=== PATIENT | female | born 1960 | race Caucasian/White ===

== ENCOUNTER 2018-05-02 00:21 | Emergency (ER) | payer MEDICARE ==
[~2018-05-02] VITALS: Ht 167.6 cm; Wt 70.8 kg
--- NOTE | 2018-05-02 00:27 | ED Respiratory ---
General Stated Complaint: VOMITING,DID NOT DO DIALYSIS YESTERDAY Source: patient, EMS Exam Limitations: no limitations History of Present Illness Date Seen by Provider: May 02, 2018 Time Seen by Provider: 00:16 Initial Comments The patient presents to the ER by EMS with chief complaint of shortness of breath, cough, fever. She had a temperature 101 per EMS and was given a DuoNeb on route which she said helped some. EMS reports she was quite anxious and making some grunting sounds when they picked her up. She is at end-stage renal disease on dialysis Thursday. Her last dialysis was on Thursday and then she moved from [place] to [place] and was told since her numbers were good she could skip Thursday. She does not notice any increased edema or swelling in her hands or feet or increased weight gain. Her cough is only modestly productive at times. She says she's not had any of her medicines today because she's been moving. She has not taken any insulin and EMS reports blood sugar was 177. She also has a history of high blood pressure, congestive heart failure. Allergies and Home Medications Allergies Coded Allergies: Penicillins (Verified Adverse Reaction, Unknown, rash, 05/02/18) Patient Home Medication List Home Medication List Reviewed: Yes Review of Systems Review of Systems Constitutional: chills, fever, malaise, weakness EENTM: No ear discharge, No ear pain Respiratory: No cough, No phlegm Cardiovascular: No chest pain, No palpitations Gastrointestinal: No abdominal pain, No constipation, No diarrhea; nausea, vomiting Genitourinary: No discharge, No dysuria Musculoskeletal: No back pain, No joint pain Skin: No pruritus, No rash Past Nxnevnl-[id number]-[id number] Hx Patient Social History Alcohol Use: Denies Use Recreational Drug Use: No Smoking Status: Former Smoker Former Smoker, Quit: Feb 13, 2018 Physical Exam Vital Signs - First Documented 05/02/18 05/02/18 00:25 01:10 Temp 100.6 Pulse 104 Resp 24 B/P (MAP) 206/89 (128) Pulse Ox 95 O2 Delivery Room Air O2 Flow Rate 2.00 Capillary Refill : Height: '" Weight: lbs. oz. kg; BMI Method: General Appearance: mild distress, other (chronically ill) Eyes: Bilateral Eye Normal Inspection, Bilateral Eye PERRL, Bilateral Eye EOMI HEENT: PERRL/EOMI, normal ENT inspection, TMs normal, pharynx normal Neck: non-tender, full range of motion, supple, normal inspection Respiratory: chest non-tender, respiratory distress (mild), decreased breath sounds, accessory muscle use (mild); No crackles, No wheezing Cardiovascular: normal peripheral pulses, regular rate, rhythm, no edema Gastrointestinal: normal bowel sounds, non tender, soft Neurologic/Psychiatric: alert; No normal mood/affect (mild anxiety); oriented x 3 Skin: normal color, warm/dry Focused Exam Lactate Level 05/02/18 00:28: Lactic Acid Level 0.88 Lactic Acid Level Laboratory Tests Test 05/02/18 00:28 Lactic Acid Level 0.88 MMOL/L (0.50-2.00) Progress/Results/Core Measures Suspected Sepsis SIRS Temperature: Pulse: Respiratory Rate: Laboratory Tests 05/02/18 00:28: White Blood Count 10.7 Blood Pressure / Mean: 05/02/18 00:28: Lactic Acid Level 0.88 Laboratory Tests 05/02/18 00:28: Creatinine 8.02H, INR Comment 1.1, Platelet Count 156, Total Bilirubin 0.6 Results/Orders Lab Results Laboratory Tests Test 05/02/18 00:28 05/02/18 00:30 05/02/18 00:39 Range/Units White Blood Count 10.7 4.3-11.0 10^3/uL Red Blood Count 3.56 L 4.35-5.85 10^6/uL Hemoglobin 10.9 L 11.5-16.0 G/DL Hematocrit 33 L 35-52 % Mean Corpuscular Volume 92 80-99 FL Mean Corpuscular Hemoglobin 31 25-34 PG Mean Corpuscular Hemoglobin Concent 33 32-36 G/DL Red Cell Distribution Width 14.9 H 10.0-14.5 % Platelet Count 156 130-400 10^3/uL Mean Platelet Volume 11.2 H 7.4-10.4 FL Neutrophils (%) (Auto) 85 H 42-75 % Lymphocytes (%) (Auto) 7 L 12-44 % Monocytes (%) (Auto) 8 0-12 % Eosinophils (%) (Auto) 1 0-10 % Basophils (%) (Auto) 0 0-10 % Neutrophils # (Auto) 9.1 H 1.8-7.8 X 10^3 Lymphocytes # (Auto) 0.7 L 1.0-4.0 X 10^3 Monocytes # (Auto) 0.8 0.0-1.0 X 10^3 Eosinophils # (Auto) 0.1 0.0-0.3 10^3/uL Basophils # (Auto) 0.0 0.0-0.1 10^3/uL Neutrophils % (Manual) 88 % Lymphocytes % (Manual) 4 % Monocytes % (Manual) 5 % Eosinophils % (Manual) 3 % Prothrombin Time 14.7 12.2-14.7 SEC INR Comment 1.1 0.8-1.4 Activated Partial Thromboplast Time 30 24-35 SEC Sodium Level 141 135-145 MMOL/L Potassium Level 3.7 3.6-5.0 MMOL/L Chloride Level 99 98-107 MMOL/L Carbon Dioxide Level 24 21-32 MMOL/L Anion Gap 18 H 5-14 MMOL/L Blood Urea Nitrogen 41 H 7-18 MG/DL Creatinine 8.02 H 0.60-1.30 MG/DL Estimat Glomerular Filtration Rate 5 BUN/Creatinine Ratio 5 Glucose Level 160 H 70-105 MG/DL Lactic Acid Level 0.88 0.50-2.00 MMOL/L Calcium Level 10.0 8.5-10.1 MG/DL Corrected Calcium 9.7 8.5-10.1 MG/DL Total Bilirubin 0.6 0.1-1.0 MG/DL Aspartate Amino Transf (AST/SGOT) 13 5-34 U/L Alanine Aminotransferase (ALT/SGPT) 6 0-55 U/L Alkaline Phosphatase 81 40-136 U/L Troponin I < 0.028 <0.028 NG/ML Total Protein 8.1 6.4-8.2 GM/DL Albumin 4.4 3.2-4.5 GM/DL Group A Streptococcus Screen NEGATIVE NEGATIVE Blood Gas Puncture Site LEFT RADIAL Blood Gas Patient Temperature 100.6 Arterial Blood pH 7.40 7.37-7.43 Arterial Blood Partial Pressure CO2 45 35-45 MMHG Arterial Blood Partial Pressure O2 71 L 79-93 MMHG Arterial Blood HCO3 27 23-27 MMOL/L Arterial Blood Total CO2 28.3 21.0-31.0 MMOL/L Arterial Blood Oxygen Saturation 95 94-100 % Arterial Blood Base Excess 2.9 H -2.5-2.5 MMOL/L Lane Test POSITIVE Blood Gas Ventilator Setting NO Blood Gas Inspired Oxygen N Micro Results Microbiology 05/02/18 Influenza Types A,B Antigen (DEMETRIA) - Final, Complete My Orders Orders - MINGO CARTER Cbc With Automated Diff (05/02/18:27) Comprehensive Metabolic Panel (05/02/18:27) Blood Culture (05/02/18:27) Sputum Culture (05/02/18:) Urinalysis (05/02/18:) Urine Culture (05/02/18) Protime With Inr (05/02/18:) Partial Thromboplastin Time (05/02/18:) Chest 1 View, Ap/Pa Only (05/02/18) Saline Lock/Iv-Start (05/02/18:) Saline Lock/Iv-Start (05/02/18:) Ekg Tracing (05/02/18:) Troponin I (05/02/18:) Vital Signs Adult Sepsis Patie Q15M (05/02/18:27) Ondansetron Injection (Zofran Injectio (05/02/18 00:30) O2 (05/02/18:27) Remove Rings In Anticipation O (05/02/18:27) Lactic Acid Analyzer (05/02/18:) Influenza A And B Antigens (05/02/18:) Cefepime Injection (Maxipime Injection) (05/02/18 00:30) Arterial Blood Gas (05/02/18:27) Rapid Strep A Screen (05/02/18:27) Acetaminophen Tablet (Tylenol Tablet) (05/02/18 00:45) Albuterol/Ipra Inhalation Soln (Duoneb I (05/02/18 00:45) Svn Small Volume Nebulizer (05/02/18 00:43) Manual Differential (05/02/18 00:28) Metoprolol Tartrate Injection (Lopressor (05/02/18 01:15) Nitroglycerin Ointment (Nitrobid Ointme (05/02/18 01:45) Nitroglycerin Ointment (Nitrobid Ointme (05/02/18 01:32) Arterial Blood Draw (05/01/18 ) Medications Given in ED Current Medications Medications Dose Ordered Sig/Stacy Route Start Time Stop Time Status Last Admin Dose Admin Acetaminophen 1,000 mg ONCE ONCE PO 05/02/18 00:45 05/02/18 00:46 DC 05/02/18 00:54 1,000 MG Albuterol/ Ipratropium 3 ml ONCE ONCE INH 05/02/18 00:45 05/02/18 00:46 DC 05/02/18 00:50 3 ML Cefepime HCl 1000 mg/Sterile Water 10 ml @ 200 mls/hr ONCE ONCE IV 05/02/18 00:30 05/02/18 00:32 DC 05/02/18 00:56 200 MLS/HR Nitroglycerin 1 inch ONCE ONCE TOP 05/02/18 01:45 05/02/18 01:46 DC 05/02/18 01:36 1 INCH Ondansetron HCl 4 mg PRN PRN IV 05/02/18 00:30 05/02/18 00:56 DC 05/02/18 00:55 4 MG Vital Signs/I&O 05/02/18 05/02/18 05/02/18 05/02/18 00:25 00:50 00:54 01:10 Temp 100.6 100.6 Pulse 104 Resp 24 B/P (MAP) 206/89 (128) Pulse Ox 95 96 97 O2 Delivery Room Air Room Air Nasal Cannula O2 Flow Rate 2.00 05/02/18 03:21 Temp 100.3 Pulse 95 Resp 22 B/P (MAP) 178/73 (108) Pulse Ox 100 O2 Delivery Nasal Cannula O2 Flow Rate 2.00 Capillary Refill : Progress Note #1: Time: 00:46 Progress Note Tylenol for her fever. Influenza swab, septic workup. Lactate will be largely meaningless. She does not have much pedal edema. Her blood pressures quite up and she skipped a dialysis treatment so I would be concerned about fluid overload and be cautious about giving her more IV fluids right now. Her blood pressure remains up and she looks like she is in congestive heart failure then we may consider giving her some nitroglycerin paste. She's not having any chest pain right now just shortness of breath. Lasix will not be very helpful so we' ll send her somewhere for dialysis. Lungs are diminished but there is no wheezing. We'll give a DuoNeb and see if that improves her respiratory status. Her oxygenation is in the high 90s on room air. She received a DuoNeb on route which she said made some improvement in her breathing. She quit smoking 3 months ago. We'll obtain an EKG. A troponin will largely be useless. Progress Note #2: Time: 01:30 Progress Note Her blood pressure significantly elevated at 215/94 now. It stayed elevated. We plan to give her her own dose of losartan and some Nitropaste. We'll hold the metoprolol for now. She has some modest hypoxia with a PaO2 of 71 and nonproductive cough and fever. We'll call it pneumonia versus bronchitis for now. She is going to need dialysis before Thursday probably and further evaluation. She may also benefit from fluid removal by dialysis. ECG Initial ECG Impression Date: May 02, 2018 Initial ECG Impression Time: 00:53 Initial ECG Rate: 96 Initial ECG Rhythm: Normal Sinus Initial ECG Intervals: Normal Initial ECG Impression: Normal Initial ECG Comparisson: No Previous ECG Available Comment No ST elevation or depression. Diagnostic Imaging Diagonstic Imaging: Xray Plain Films/CT/US/NM/MRI: chest (1v) Comments No acute cardiopulmonary processes noted. There is a stone graft/splint overlying the right subclavian. Reviewed: Reviewed by Me Departure Impression Primary Impression: Pneumonia Qualified Codes: J18.9 - Pneumonia, unspecified organism Additional Impressions: Hypoxia End stage renal disease on dialysis due to type 2 diabetes mellitus Disposition: XFER SHT-TRM HOSP Condition: Stable Transfer Time Spoke to Accepting Phy: 02:00 Transfer Progress Notes Discussed case with triage and they will contact Dr. Dash. Discussed the case with Dr. Dash and he agrees to accept the patient to the floor. They will call us back with a bed number. Transfer Time: 03:10 Transfer Facility: [place], [place]. Method of Transfer: EMS MINGO CARTER May 02, 2018 00:27
[2018-05-02] MEDS ORDERED: CEFEPIME INJECTION 1,000 MG in WATER (STERILE) FOR INJECTION 10 ML IV ONE (00:30)
[2018-05-02] MEDS ORDERED: ONDANSETRON 4 MG/2 ML (SDV) Z0FRAN IV PRN (00:30)
--- NOTE | 2018-05-02 00:36 | NUR ---
RT at bedside for ABG draw
[2018-05-02 00:44] LABS: BASOPHILS % (AUTO) 0 % (0-10); EOSINOPHILS # (AUTO) 0.1 10^3/uL (0.0-0.3); EOSINOPHILS % (AUTO) 1 % (0-10); HEMATOCRIT 33 % (35-52); HEMOGLOBIN 10.9 G/DL (11.5-16.0); LYMPHOCYTES # (AUTO) 0.7 X 10^3 (1.0-4.0); LYMPHOCYTES % (AUTO) 7 % (12-44); MEAN CORPUSCULAR HEMOGLOBIN 31 PG (25-34); MEAN CORPUSCULAR HGB CONC 33 G/DL (32-36); MEAN CORPUSCULAR VOLUME 92 FL (80-99); MEAN PLATELET VOLUME 11.2 FL (7.4-10.4); MONOCYTES # (AUTO) 0.8 X 10^3 (0.0-1.0); MONOCYTES % (AUTO) 8 % (0-12); NEUTROPHILS # (AUTO) 9.1 X 10^3 (1.8-7.8); NEUTROPHILS % (AUTO) 85 % (42-75); PLATELET COUNT 156 10^3/uL (130-400); RED CELL DISTRIBUTION WIDTH 14.9 % (10.0-14.5); WHITE BLOOD COUNT 10.7 10^3/uL (4.3-11.0)
[2018-05-02] MEDS ORDERED: RT-ALBUTEROL/IPRATROPIUM 3 ML (DUONEB) VIAL INH ONE (00:45)
[2018-05-02] MEDS ORDERED: ACETAMINOPHEN 500 MG TAB (TYLENOL) PO ONE (00:45)
[2018-05-02 00:46] LABS: ABG BASE EXCESS 2.9 MMOL/L (-2.5-2.5); ABG OXYGEN SATURATION 95 % (94-100); ABG PCO2 45 MMHG (35-45); ABG PO2 71 MMHG (79-93); ABG TCO2 28.3 MMOL/L (21.0-31.0)
[2018-05-02 00:48] LABS: ALLENS TEST POSITIVE; INSPIRED O2 N; PATIENT TEMP 100.6; VENTILATOR NO
[2018-05-02 00:49] LABS: INR 1.1 (0.8-1.4); PROTHROMBIN TIME PATIENT 14.7 SEC (12.2-14.7)
[2018-05-02 00:57] LABS: ALANINE AMINOTRANSFERASE 6 U/L (0-55); ALBUMIN 4.4 GM/DL (3.2-4.5); ALKALINE PHOSPHATASE 81 U/L (40-136); BILIRUBIN,TOTAL 0.6 MG/DL (0.1-1.0); BUN/CREATININE RATIO 5; CARBON DIOXIDE 24 MMOL/L (21-32); CHLORIDE 99 MMOL/L (98-107); CREATININE SERUM 8.02 MG/DL (0.60-1.30); GFR ESTIMATED 5; GLUCOSE 160 MG/DL (70-105); POTASSIUM 3.7 MMOL/L (3.6-5.0); SODIUM 141 MMOL/L (135-145); TOTAL PROTEIN 8.1 GM/DL (6.4-8.2)
[2018-05-02] MEDS ORDERED: meTOprolol 5 MG/5 ML (LOPRESSOR) VIAL IV ONE (01:15)
[2018-05-02 01:23] LABS: EOSINOPHILS % (MANUAL) 3 %; LYMPHOCYTES % (MANUAL) 4 %; MONOCYTES % (MANUAL) 5 %; NEUTROPHILS % (MANUAL) 88 %
--- NOTE | 2018-05-02 01:30 | NUR ---
This RN to room, pt's IV noted to be out. Dr notified. IV restarted in L forearm.
[2018-05-02] MEDS ORDERED: NITROGLYCERIN 2% OINT 1 GM UNIT DOSE PACKET ONE (01:32)
[2018-05-02] MEDS ORDERED: NITROGLYCERIN 2% OINT 1 GM UNIT DOSE PACKET TOP ONE (01:45)
--- NOTE | 2018-05-02 01:48 | NUR ---
Pt to take home PO losartan 50mg tab at this time per Dr. Peace. This RN witnessed pt taking #1 50mg losartan tab at this time.
--- NOTE | 2018-05-02 03:10 | NUR ---
Report to [facility] EMS at this time
[2018-05-02 03:21] VITALS: BP 178/73
--- NOTE | 2018-05-02 05:43 | Diagnostic Imaging Report ---
INDICATION: Cough and congestion COMPARISON: None FINDINGS: Single frontal view of the chest demonstrates normal heart size and pulmonary vascularity. The lungs are well aerated and clear. No large pleural effusion or pneumothorax is seen. The visualized osseous structures show no acute abnormalities. Right subclavian stents are noted. IMPRESSION: 1. No acute cardiopulmonary process. Dictated by: Dictated on workstation # [id number]
--- OUTSIDE RECORDS SUMMARY | 2018-05-02 14:55 | XMS REPORT ---
Author Author Georgina Han [facility] eClinicalWorks Address Unknown Phone Unavailable Care Team Providers Care Distillation Operator Name Role Phone Georgina Han Unavailable Allergies No Known Allergies Problems Problem Type Condition Code Onset Dates Condition Status Problem Diabetes Mellitus Type 2, not stated as uncontrolled 250.00 Active Problem Hypertension, benign 401.1 Active Problem Hypertensive retinopathy 362.11 Active Medications Medication Code System Code Instructions Start Date End Date Status Dosage Lisinopril-Hydrochlorothiazide [facility] [address]-39 20-25 MG Orally Once a day *Needs appointment before next refill* Feb 15, 2014 1 tablet Reglan [facility] [address]-18 10 MG Orally Twice every day as needed Apr 27, 2014 1 tablet 30 minutes before meals and at bedtime as needed Results No Known Results Summary Purpose eClinicalWorks Submission
--- OUTSIDE RECORDS SUMMARY | 2018-05-02 14:55 | XMS REPORT ---
Author Georgina Onofre [facility] eClinicalWorks Address Unknown Phone Unavailable Care Team Providers Care Die Maker Apprentice Name Role Phone Georgina Han Unavailable Allergies No Known Allergies Problems Problem Type Condition Code Onset Dates Condition Status Problem Diabetes Mellitus Type 2, not stated as uncontrolled 250.00 Active Problem Hypertension, benign 401.1 Active Problem Hypertensive retinopathy 362.11 Active Medications No Known Medications Results No Known Results Summary Purpose eClinicalWorks Submission
--- OUTSIDE RECORDS SUMMARY | 2018-05-02 14:55 | XMS REPORT ---
Author Author Georgina Han [facility] eClinicalWorks Address Unknown Phone Unavailable Care Team Providers Care Head School Custodian Name Role Phone Georgina Han Unavailable Allergies No Known Allergies Problems Problem Type Condition ICD-9 Code Onset Dates Condition Status Problem Diabetes Mellitus Type 2, not stated as uncontrolled 250.00 Active Problem Hypertension, benign 401.1 Active Problem Hypertensive retinopathy 362.11 Active Medications No Known Medications Results No Known Results Summary Purpose eClinicalWorks Submission
--- OUTSIDE RECORDS SUMMARY | 2018-05-02 14:55 | XMS REPORT ---
Author Author Georgina Han [facility] eClinicalWorks Address Unknown Phone Unavailable Care Team Providers Care Spice Mixer Name Role Phone Georgina Han Unavailable Allergies No Known Allergies Problems Problem Type Condition ICD-9 Code Onset Dates Condition Status Problem Hypertension, benign 401.1 Active Problem Diabetes Mellitus Type 2, not stated as uncontrolled 250.00 Active Medications No Known Medications Vital Signs Date/Time: Jan 24, 2014 Height 66.5 inches Weight 158.8 lbs Temperature 98.3 F Blood Pressure Diastolic 72 mm Hg Blood Pressure Systolic 160 mm Hg Cardiac Monitoring Heart Rate 112 Beats per Minute BMI 25.24 Index Respiratory Rate 16 per Minute Results No Known Results Summary Purpose eClinicalWorks Submission
--- OUTSIDE RECORDS SUMMARY | 2018-05-02 14:55 | XMS REPORT ---
Author Author Georgina Han [facility] eClinicalWorks Address Unknown Phone Unavailable Care Team Providers Care Irrigation Teacher Name Role Phone Georgina Han Unavailable Allergies No Known Allergies Problems Problem Type Condition ICD-9 Code Onset Dates Condition Status Problem Diabetes Mellitus Type 2, not stated as uncontrolled 250.00 Active Problem Hypertension, benign 401.1 Active Problem Hypertensive retinopathy 362.11 Active Assessment Dysuria 788.1 Active Medications Medication Code System Code Instructions Start Date End Date Status Dosage Metformin HCl [facility] [address]-02 500 MG Orally twice a day Jan 24, 2014 Active 1 tablet with meals Lisinopril-Hydrochlorothiazide [facility] [address]-58 10-12.5 MG Orally Once a day Feb 15, 2014 Active 1 tablet Lantus SoloStar [facility] [address]-26 100 UNIT/ML Subcutaneous Once a day at bedtime Jan 25, 2014 Active 12 units Acetaminophen [facility] [address]-43 500 MG Orally prn Active 1 capsule as needed NovoFine [facility] 42872 32G X 6 MM with pen QID Jan 24, 2014 Active as directed Clonidine HCl [facility] [address]-22 0.1 MG Orally Once or twice a day Feb 16, 2014 Active take 1 tablet if BP is above 180/90. Do not take more than 2 tablets in one day. Humalog KwikPen [facility] [address]-04 100 UNIT/ML Subcutaneous 3 times a day Jan 25, 2014 Active 8 units Procedures Procedure Coding System Code Date URINE CULTURE CPT-4 12091 Feb 21, 2014 URINALYSIS, IN HOUSE CPT-4 37069 Feb 21, 2014 Vital Signs Date/Time: Feb 15, 2014 BMI 27.10 Index Height 66.5 inches Weight 170.5 lbs Respiratory Rate 16 per Minute Blood Pressure Diastolic 82 mm Hg Blood Pressure Systolic 166 mm Hg Cardiac Monitoring Heart Rate 96 Beats per Minute Results Name Result Date Reference Range Unit In House Urinalysis, automated Summary Purpose eClinicalWorks Submission
--- OUTSIDE RECORDS SUMMARY | 2018-05-02 14:56 | XMS REPORT ---
Author Author Georgina Han [facility] eClinicalWorks Address Unknown Phone Unavailable Care Team Providers Care Overnight Babysitter Name Role Phone Georgina Han Unavailable Allergies No Known Allergies Problems Problem Type Condition ICD-9 Code Onset Dates Condition Status Problem Diabetes Mellitus Type 2, not stated as uncontrolled 250.00 Active Problem Hypertension, benign 401.1 Active Problem Hypertensive retinopathy 362.11 Active Medications Medication Code System Code Instructions Start Date End Date Status Dosage Bactrim DS [facility] [address]-54 800-160 MG Orally Twice a day Feb 21, 2014 Feb 26, 2014 Active 1 tablet Vital Signs Date/Time: Feb 15, 2014 BMI 27.10 Index Height 66.5 inches Weight 170.5 lbs Respiratory Rate 16 per Minute Blood Pressure Diastolic 82 mm Hg Blood Pressure Systolic 166 mm Hg Cardiac Monitoring Heart Rate 96 Beats per Minute Results No Known Results Summary Purpose eClinicalWorks Submission
--- OUTSIDE RECORDS SUMMARY | 2018-05-02 14:56 | XMS REPORT ---
Author Author Georgina Han [facility] eClinicalWorks Address Unknown Phone Unavailable Care Team Providers Care Coatings Inspector Name Role Phone Georgina Han Unavailable Allergies No Known Allergies Problems Problem Type Condition ICD-9 Code Onset Dates Condition Status Problem Diabetes Mellitus Type 2, not stated as uncontrolled 250.00 Active Problem Hypertension, benign 401.1 Active Problem Hypertensive retinopathy 362.11 Active Medications No Known Medications Results No Known Results Summary Purpose eClinicalWorks Submission
--- OUTSIDE RECORDS SUMMARY | 2018-05-02 14:56 | XMS REPORT ---
Author Georgina Onofre [facility] eClinicalWorks Address Unknown Phone Unavailable Care Team Providers Care Clinical Services Consultant Name Role Phone Georgina Han Unavailable Allergies No Known Allergies Problems Problem Type Condition Code Onset Dates Condition Status Problem Diabetes Mellitus Type 2, not stated as uncontrolled 250.00 Active Problem Hypertension, benign 401.1 Active Problem Hypertensive retinopathy 362.11 Active Medications No Known Medications Results No Known Results Summary Purpose eClinicalWorks Submission
--- OUTSIDE RECORDS SUMMARY | 2018-05-02 14:56 | XMS REPORT ---
Author Author Georgina Han [facility] eClinicalWorks Address Unknown Phone Unavailable Care Team Providers Care Smt Machine Operator Name Role Phone Georgina Han Unavailable Allergies No Known Allergies Problems Problem Type Condition ICD-9 Code Onset Dates Condition Status Problem Diabetes Mellitus Type 2, not stated as uncontrolled 250.00 Active Problem Hypertension, benign 401.1 Active Problem Hypertensive retinopathy 362.11 Active Medications Medication Code System Code Instructions Start Date End Date Status Dosage Reglan [facility] [address]-39 10 MG Orally Twice every day as needed Apr 27, 2014 1 tablet 30 minutes before meals and at bedtime as needed Lisinopril-Hydrochlorothiazide [facility] [address]-07 20-25 MG Orally Once a day *Needs appointment before next refill* Feb 15, 2014 1 tablet Results No Known Results Summary Purpose eClinicalWorks Submission
--- OUTSIDE RECORDS SUMMARY | 2018-05-02 14:56 | XMS REPORT ---
Author Georgina Onofre [facility] eClinicalWorks Address Unknown Phone Unavailable Care Team Providers Care Closing Manager Name Role Phone Georgina Han Unavailable Allergies No Known Allergies Problems Problem Type Condition Code Onset Dates Condition Status Problem Diabetes Mellitus Type 2, not stated as uncontrolled 250.00 Active Problem Hypertension, benign 401.1 Active Problem Hypertensive retinopathy 362.11 Active Medications No Known Medications Results No Known Results Summary Purpose eClinicalWorks Submission
--- OUTSIDE RECORDS SUMMARY | 2018-05-02 14:56 | XMS REPORT ---
Author Author Georgina Han [facility] eClinicalWorks Address Unknown Phone Unavailable Care Team Providers Care Speedboat Operator Name Role Phone Georgina Han Unavailable Allergies No Known Allergies Problems Problem Type Condition ICD-9 Code Onset Dates Condition Status Problem Diabetes Mellitus Type 2, not stated as uncontrolled 250.00 Active Problem Hypertension, benign 401.1 Active Problem Hypertensive retinopathy 362.11 Active Medications No Known Medications Vital Signs Date/Time: Feb 15, 2014 BMI 27.10 Index Height 66.5 inches Weight 170.5 lbs Respiratory Rate 16 per Minute Blood Pressure Diastolic 82 mm Hg Blood Pressure Systolic 166 mm Hg Cardiac Monitoring Heart Rate 96 Beats per Minute Results No Known Results Summary Purpose eClinicalWorks Submission
--- OUTSIDE RECORDS SUMMARY | 2018-05-02 14:56 | XMS REPORT ---
Author Author Georgina Han [facility] eClinicalWorks Address Unknown Phone Unavailable Care Team Providers Care Petrologist Name Role Phone Georgina Han Unavailable Allergies [...]
--- OUTSIDE RECORDS SUMMARY | 2018-05-02 14:56 | XMS REPORT ---
Author Georgina Onofre [employer] Address Unknown Phone Unavailable Care Team Providers Care [employer] Specialist Name Role Phone Georgina Han CP Unavailable Allergies, Adverse Reactions, Alerts Substance Reaction Event Type Penicillin Info Not Available Drug Allergy Problems Problem Type Condition ICD-9 Code Onset Dates Condition Status Problem Hypertension, benign 401.1 Active Assessment Urinary tract infection, site not specified 599.0 Active Problem Diabetes Mellitus Type 2, not stated as uncontrolled 250.00 Active Assessment Hypertension, benign 401.1 Active Assessment Need for prophylactic vaccination and inoculation, Other viral diseases V04.89 Active Assessment Diabetes Mellitus Type 2, not stated as uncontrolled 250.00 Active Assessment Personal history of arthritis V13.4 Active Medications Medication Code System Code Instructions Start Date End Date Status Dosage Meloxicam [facility] [address]-41 15 MG Orally Once a day Jan 24, 2014 Feb 23, 2014 Active 1 tablet Lisinopril [facility] [address]-14 5 MG Orally Once a day Active 1 tablet Humalog [facility] [address]-78 100 UNIT/ML Subcutaneous TID Active 8 units Bactrim DS [facility] [address]-88 800-160 MG Orally Twice a day Jan 24, 2014 Jan 31, 2014 Active 1 tablet NovoFine [facility] [address] 32G X 6 MM with pen QID Jan 24, 2014 Active as directed Metformin HCl [facility] [address]-79 500 MG Orally once a day for 2 wks then BID Jan 24, 2014 Active 1 tablet with meals Lantus [facility] [address]-99 100 UNIT/ML Subcutaneous at bedtime Active 12 units Lantus SoloStar [facility] [address]-64 100 UNIT/ML Subcutaneous Once a day at bedtime Jan 25, 2014 Active 12 units Humalog KwikPen [facility] [address]-26 100 UNIT/ML Subcutaneous 3 times a day Jan 25, 2014 Active 8 units Acetaminophen [facility] [address]-39 500 MG Orally prn Active 1 capsule as needed Procedures Procedure Coding System Code Date URINE CULTURE CPT-4 00183 Jan 24, 2014 OFFICE VISIT, EST-MOD. COMPLEXITY (25 MIN) CPT-4 34874 Jan 24, 2014 URINALYSIS, IN HOUSE CPT-4 93579 Jan 24, 2014 ADMINISTRATION, 1ST IMMUNIZATION CPT-4 33697 Jan 24, 2014 FLU VACCINE NO PRESERV 3 & > CPT-4 19805 Jan 24, 2014 Vital Signs Date/Time: Jan 24, 2014 Height 66.5 inches Weight 158.8 lbs Temperature 98.3 F Blood Pressure Diastolic 72 mm Hg Blood Pressure Systolic 160 mm Hg Cardiac Monitoring Heart Rate 112 Beats per Minute BMI 25.24 Index Respiratory Rate 16 per Minute Results Name Result Date Reference Range Unit In House Urinalysis, automated Urine Culture Immunizations Vaccine Administration Date Influenza shot 4 y.o. and older Jan 24, 2014 Summary Purpose [employer]Clinical[employer] Submission
--- OUTSIDE RECORDS SUMMARY | 2018-05-02 14:57 | XMS REPORT | Continuity Of Care Document ---
Author Author [facility] Organization [facility] Address [address] [place] [address] Phone Care Team Providers Care Paper Colorer Name Role Phone UNASSIGNED, ED PHYSICIAN Unavailable Unavailable STEVAN NUNEZ, ORTEGA Feliciano Unavailable RONNA CAAL APRN PP ERIKA NUNEZ, DEEPTHI Coleman CP LUCIANO NUNEZ, SOCORRO Mason AT Results Lab Results Visit/Account #[id number] (October 10, 2016 6:54pm - October 15, 2016 6:10pm) Test Result Date/Time POCGL POCGL(70-110 MG/DL) 103 MG/DL October 11, 2016 6:57am 136 MG/DL October 11, 2016 11:28am 100 MG/DL October 11, 2016 4:41pm 112 MG/DL October 11, 2016 9:05pm 85 MG/DL October 12, 2016 6:39am 139 MG/DL October 12, 2016 12:08pm 177 MG/DL October 12, 2016 4:42pm 206 MG/DL October 12, 2016 8:01pm 109 MG/DL October 13, 2016 5:09am 126 MG/DL October 13, 2016 11:37am 217 MG/DL October 13, 2016 5:13pm 207 MG/DL October 13, 2016 8:18pm 81 MG/DL October 14, 2016 6:28am 152 MG/DL October 14, 2016 11:56am 115 MG/DL October 14, 2016 4:52pm 203 MG/DL October 14, 2016 10:26pm 64 MG/DL October 15, 2016 5:09am 82 MG/DL October 15, 2016 5:32am 85 MG/DL October 15, 2016 5:44am 104 MG/DL October 15, 2016 7:27am 147 MG/DL October 15, 2016 11:02am HEMOGLOBIN AND HEMATOCRIT HEMOGLOBIN(12.0-16.0 G/DL) 9.6 G/DL October 11, 2016 4:55pm HEMATOCRIT(36.0-46.0 %) 30.0 % October 11, 2016 4:55pm COMPLETE BLOOD COUNT WITH DIFF WHITE BLOOD COUNT(4.0-11.0 10E3/UL) 7.1 10E3/UL October 10, 2016 7:10pm 5.3 10E3/UL October 11, 2016 5:48am 6.3 10E3/UL October 12, 2016 5:47am 6.8 10E3/UL October 13, 2016 7:13am 6.1 10E3/UL October 14, 2016 8:23am RED BLOOD COUNT(4.00-5.20 10E6/UL) 2.58 10E6/UL October 10, 2016 7:10pm 2.21 10E6/UL October 11, 2016 5:48am 3.40 10E6/UL October 12, 2016 5:47am 3.29 10E6/UL October 13, 2016 7:13am 3.20 10E6/UL October 14, 2016 8:23am HEMOGLOBIN(12.0-16.0 G/DL) 7.7 G/DL October 10, 2016 7:10pm 6.6 G/DL October 11, 2016 5:48am 9.7 G/DL October 12, 2016 5:47am 9.5 G/DL October 13, 2016 7:13am 9.4 G/DL October 14, 2016 8:23am HEMATOCRIT(36.0-46.0 %) 24.8 % October 10, 2016 7:10pm 21.4 % October 11, 2016 5:48am 30.5 % October 12, 2016 5:47am 29.8 % October 13, 2016 7:13am 29.3 % October 14, 2016 8:23am MEAN CORPUSCULAR VOLUME(82.0-100.0 FL) 96.1 FL October 10, 2016 7:10pm 96.8 FL October 11, 2016 5:48am 89.7 FL October 12, 2016 5:47am 90.6 FL October 13, 2016 7:13am 91.6 FL October 14, 2016 8:23am MEAN CORPUSCULAR HEMOGLOBIN(26.0-34.0 PG) 29.8 PG October 10, 2016 7:10pm 29.9 PG October 11, 2016 5:48am 28.5 PG October 12, 2016 5:47am 28.9 PG October 13, 2016 7:13am 29.4 PG October 14, 2016 8:23am MEAN CORPUSCULAR HGB CONC(31.5-36.5 G/DL) 31.0 G/DL October 10, 2016 7:10pm 30.8 G/DL October 11, 2016 5:48am 31.8 G/DL October 12, 2016 5:47am 31.9 G/DL October 13, 2016 7:13am 32.1 G/DL October 14, 2016 8:23am RED CELL DISTRIBUTION WIDTH(11.5-14.5 %) 13.6 % October 10, 2016 7:10pm 13.6 % October 11, 2016 5:48am 15.4 % October 12, 2016 5:47am 14.7 % October 13, 2016 7:13am 14.4 % October 14, 2016 8:23am 777-3: PLATELET COUNT(150-450 10E3/UL) 176 10E3/UL October 10, 2016 7:10pm 152 10E3/UL October 11, 2016 5:48am 152 10E3/UL October 12, 2016 5:47am 148 10E3/UL October 13, 2016 7:13am 138 10E3/UL October 14, 2016 8:23am MEAN PLATELET VOLUME(8.2-12.4 FL) 11.1 FL October 10, 2016 7:10pm 11.4 FL October 11, 2016 5:48am 10.9 FL October 12, 2016 5:47am 10.9 FL October 13, 2016 7:13am 10.9 FL October 14, 2016 8:23am NEUTROPHILS % (AUTO)(40-70 %) 63 % October 10, 2016 7:10pm 54 % October 11, 2016 5:48am 65 % October 12, 2016 5:47am 59 % October 13, 2016 7:13am 55 % October 14, 2016 8:23am LYMPHOCYTES % (AUTO)(15-45 %) 25 % October 10, 2016 7:10pm 31 % October 11, 2016 5:48am 23 % October 12, 2016 5:47am 27 % October 13, 2016 7:13am 29 % October 14, 2016 8:23am MONOCYTES % (AUTO)(2-10 %) 9 % October 10, 2016 7:10pm 11 % October 11, 2016 5:48am 10 % October 12, 2016 5:47am 12 % October 13, 2016 7:13am 13 % October 14, 2016 8:23am EOSINOPHILS % (AUTO)(0-6 %) 3 % October 10, 2016 7:10pm 3 % October 11, 2016 5:48am 2 % October 12, 2016 5:47am 2 % October 13, 2016 7:13am 2 % October 14, 2016 8:23am BASOPHILS % (AUTO)(0-1 %) 0 % October 10, 2016 7:10pm 0 % October 11, 2016 5:48am 1 % October 12, 2016 5:47am 0 % October 13, 2016 7:13am 1 % October 14, 2016 8:23am IMMATURE GRANS % (AUTO)(0-0 %) 0 % October 10, 2016 7:10pm 0 % October 11, 2016 5:48am 0 % October 12, 2016 5:47am 0 % October 13, 2016 7:13am 0 % October 14, 2016 8:23am NUCLEATED RBCS (AUTO)(0-0 %) 0 % October 10, 2016 7:10pm 0 % October 11, 2016 5:48am 0 % October 12, 2016 5:47am 0 % October 13, 2016 7:13am 0 % October 14, 2016 8:23am NEUTROPHILS # (AUTO)(2.5-7.5 10E3/UL) 4.5 10E3/UL October 10, 2016 7:10pm 2.9 10E3/UL October 11, 2016 5:48am 4.0 10E3/UL October 12, 2016 5:47am 4.0 10E3/UL October 13, 2016 7:13am 3.4 10E3/UL October 14, 2016 8:23am LYMPHOCYTES # (AUTO)(1.0-4.0 10E3/UL) 1.8 10E3/UL October 10, 2016 7:10pm 1.7 10E3/UL October 11, 2016 5:48am 1.5 10E3/UL October 12, 2016 5:47am 1.8 10E3/UL October 13, 2016 7:13am 1.8 10E3/UL October 14, 2016 8:23am MONOCYTES # (AUTO)(0.2-0.8 10E3/UL) 0.6 10E3/UL October 10, 2016 7:10pm 0.6 10E3/UL October 11, 2016 5:48am 0.6 10E3/UL October 12, 2016 5:47am 0.8 10E3/UL October 13, 2016 7:13am 0.8 10E3/UL October 14, 2016 8:23am EOSINOPHILS # (AUTO)(0.0-0.4 10E3/UL) 0.2 10E3/UL October 10, 2016 7:10pm 0.2 10E3/UL October 11, 2016 5:48am 0.1 10E3/UL October 12, 2016 5:47am 0.1 10E3/UL October 13, 2016 7:13am 0.2 10E3/UL October 14, 2016 8:23am BASOPHILS # (AUTO)(0.0-0.2 10E3/UL) 0.0 10E3/UL October 10, 2016 7:10pm 0.0 10E3/UL October 11, 2016 5:48am 0.0 10E3/UL October 12, 2016 5:47am 0.0 10E3/UL October 13, 2016 7:13am 0.0 10E3/UL October 14, 2016 8:23am IMMATURE GRANS # (AUTO)(0.0-0.0 10E3/UL) 0.0 10E3/UL October 10, 2016 7:10pm 0.0 10E3/UL October 11, 2016 5:48am 0.0 10E3/UL October 12, 2016 5:47am 0.0 10E3/UL October 13, 2016 7:13am 0.0 10E3/UL October 14, 2016 8:23am DIFF TYPE AUTOMATED October 10, 2016 7:10pm AUTOMATED October 11, 2016 5:48am AUTOMATED October 12, 2016 5:47am AUTOMATED October 13, 2016 7:13am AUTOMATED October 14, 2016 8:23am UA WITH SCREEN FOR CULTURE COLOR,URINE LIGHT YELLOW October 10, 2016 9:28pm CLARITY,URINE CLEAR October 10, 2016 9:28pm GLUCOSE, URINE(NEGATIVE MG/DL) TRACE MG/DL October 10, 2016 9:28pm URINE BILIRUBIN(NEGATIVE) NEGATIVE October 10, 2016 9:28pm KETONES,URINE(NEGATIVE MG/DL) NEGATIVE MG/DL October 10, 2016 9:28pm URINE SPECIFIC GRAVITY(1.001-1.035) 1.011 October 10, 2016 9:28pm URINE BLOOD(NEGATIVE) NEGATIVE October 10, 2016 9:28pm URINE PH(5.0-9.0) 6.5 October 10, 2016 9:28pm URINE PROTEIN(Less than 20 MG/DL) Greater than or equal to 300 MG/DL October 10, 2016 9:28pm URINE UROBILINOGEN(0.2-1.0 MG/DL) 0.2-1.0 MG/DL October 10, 2016 9:28pm URINE NITRITE(NEGATIVE) NEGATIVE October 10, 2016 9:28pm LEUKOCYTE ESTERASE ,URINE(NEGATIVE) NEGATIVE October 10, 2016 9:28pm URINE RBCS(0-3 /HPF) 4-7 /HPF October 10, 2016 9:28pm URINE WBCS(0-3 /HPF) 4-7 /HPF October 10, 2016 9:28pm URINE EPITHELIAL CELLS(0-3 /HPF) 8-12 /HPF October 10, 2016 9:28pm URINE HYALINE CASTS(0-3 /LPF) 4-7 /LPF October 10, 2016 9:28pm URINE BACTERIA(NEGATIVE /HPF) 1+ /HPF October 10, 2016 9:28pm URINE CULTURE NOT INDICATED October 10, 2016 9:28pm URINE MICROSCOPIC REQUIRED YES October 10, 2016 9:28pm COMPLETE METABOLIC PROFILE GLUCOSE(70-110 MG/DL) 88 MG/DL October 10, 2016 7:10pm 108 MG/DL October 11, 2016 5:48am 94 MG/DL October 12, 2016 5:47am 81 MG/DL October 13, 2016 7:13am 75 MG/DL October 14, 2016 8:23am BLOOD UREA NITROGEN(6-20 MG/DL) 85 MG/DL October 10, 2016 7:10pm 87 MG/DL October 11, 2016 5:48am 55 MG/DL October 12, 2016 5:47am 59 MG/DL October 13, 2016 7:13am 36 MG/DL October 14, 2016 8:23am CREATININE(0.50-1.20 MG/DL) 5.81 MG/DL October 10, 2016 7:10pm 5.81 MG/DL October 11, 2016 5:48am 4.46 MG/DL October 12, 2016 5:47am 5.08 MG/DL October 13, 2016 7:13am 3.71 MG/DL October 14, 2016 8:23am EST GLOMERULAR FILTRATION RATE(Greater than or equal to 60) 7 Result Comments: If the patient is of -[place] descent/extraction multiply the eGFR value by 1.212 to obtain the actual eGFR. >=60 mg/dL Normal 30-59 mg/dL Moderate Kidney Disease 15-29 mg/dL Severe Kidney Disease <15 mg/dL Kidney Failure October 10, 2016 7:10pm 7 Result Comments: If the patient is of -[place] descent/extraction multiply the eGFR value by 1.212 to obtain the actual eGFR. >=60 mg/dL Normal 30-59 mg/dL Moderate Kidney Disease 15-29 mg/dL Severe Kidney Disease <15 mg/dL Kidney Failure October 11, 2016 5:48am 10 Result Comments: If the patient is of -[place] descent/extraction multiply the eGFR value by 1.212 to obtain the actual eGFR. >=60 mg/dL Normal 30-59 mg/dL Moderate Kidney Disease 15-29 mg/dL Severe Kidney Disease <15 mg/dL Kidney Failure October 12, 2016 5:47am 9 Result Comments: If the patient is of -[place] descent/extraction multiply the eGFR value by 1.212 to obtain the actual eGFR. >=60 mg/dL Normal 30-59 mg/dL Moderate Kidney Disease 15-29 mg/dL Severe Kidney Disease <15 mg/dL Kidney Failure October 13, 2016 7:13am 13 Result Comments: If the patient is of -[place] descent/extraction multiply the eGFR value by 1.212 to obtain the actual eGFR. >=60 mg/dL Normal 30-59 mg/dL Moderate Kidney Disease 15-29 mg/dL Severe Kidney Disease <15 mg/dL Kidney Failure October 14, 2016 8:23am BUN CREATININE RATIO(10.0-20.0 RATIO) 15.0 RATIO October 10, 2016 7:10pm 15.0 RATIO October 11, 2016 5:48am 12.0 RATIO October 12, 2016 5:47am 12.0 RATIO October 13, 2016 7:13am 10.0 RATIO October 14, 2016 8:23am SODIUM(135-145 MMOL/L) 138 MMOL/L October 10, 2016 7:10pm 140 MMOL/L October 11, 2016 5:48am 140 MMOL/L October 12, 2016 5:47am 140 MMOL/L October 13, 2016 7:13am 141 MMOL/L October 14, 2016 8:23am POTASSIUM(3.6-5.0 MMOL/L) 5.4 MMOL/L October 10, 2016 7:10pm 5.0 MMOL/L October 11, 2016 5:48am 4.7 MMOL/L October 12, 2016 5:47am 4.5 MMOL/L October 13, 2016 7:13am 4.1 MMOL/L October 14, 2016 8:23am CHLORIDE(101-111 MMOL/L) 111 MMOL/L October 10, 2016 7:10pm 115 MMOL/L October 11, 2016 5:48am 106 MMOL/L October 12, 2016 5:47am 107 MMOL/L October 13, 2016 7:13am 101 MMOL/L October 14, 2016 8:23am CO2(21-31 MMOL/L) 16 MMOL/L October 10, 2016 7:10pm 17 MMOL/L October 11, 2016 5:48am 25 MMOL/L October 12, 2016 5:47am 25 MMOL/L October 13, 2016 7:13am 31 MMOL/L October 14, 2016 8:23am ANION GAP(8-18) 16 October 10, 2016 7:10pm 13 October 11, 2016 5:48am 14 October 12, 2016 5:47am 13 October 13, 2016 7:13am 13 October 14, 2016 8:23am OSMO CALCULATED(270.0-290.0) 300.9 October 10, 2016 7:10pm 306.5 October 11, 2016 5:48am 294.3 October 12, 2016 5:47am 295.0 October 13, 2016 7:13am 288.3 October 14, 2016 8:23am CALCIUM(8.5-10.5 MG/DL) 8.1 MG/DL October 10, 2016 7:10pm 7.6 MG/DL October 11, 2016 5:48am 8.3 MG/DL October 12, 2016 5:47am 8.3 MG/DL October 13, 2016 7:13am 8.5 MG/DL October 14, 2016 8:23am BILIRUBIN,TOTAL(0.1-1.2 MG/DL) 0.4 MG/DL October 10, 2016 7:10pm 0.3 MG/DL October 11, 2016 5:48am 0.7 MG/DL October 12, 2016 5:47am 0.3 MG/DL October 13, 2016 7:13am 0.5 MG/DL October 14, 2016 8:23am ALKALINE PHOSPHATASE(42-121 IU/L) 113 IU/L October 10, 2016 7:10pm 100 IU/L October 11, 2016 5:48am 96 IU/L October 12, 2016 5:47am 87 IU/L October 13, 2016 7:13am 88 IU/L October 14, 2016 8:23am ASPARTATE AMINO TRANSFERASE(10-42 IU/L) 23 IU/L October 10, 2016 7:10pm 20 IU/L October 11, 2016 5:48am 14 IU/L October 12, 2016 5:47am 13 IU/L October 13, 2016 7:13am 13 IU/L October 14, 2016 8:23am ALANINE AMINOTRANSFERASE(10-60 IU/L) 40 IU/L October 10, 2016 7:10pm 33 IU/L October 11, 2016 5:48am 26 IU/L October 12, 2016 5:47am 20 IU/L October 13, 2016 7:13am 19 IU/L October 14, 2016 8:23am TOTAL PROTEIN(6.4-8.2 G/DL) 7.1 G/DL October 10, 2016 7:10pm 6.1 G/DL October 11, 2016 5:48am 6.8 G/DL October 12, 2016 5:47am 6.4 G/DL October 13, 2016 7:13am 6.1 G/DL October 14, 2016 8:23am ALBUMIN(3.5-5.5 G/DL) 3.4 G/DL October 10, 2016 7:10pm 3.1 G/DL October 11, 2016 5:48am 3.4 G/DL October 12, 2016 5:47am 3.2 G/DL October 13, 2016 7:13am 3.1 G/DL October 14, 2016 8:23am GLOBULIN(2.4-3.6) 3.7 October 10, 2016 7:10pm 3.0 October 11, 2016 5:48am 3.4 October 12, 2016 5:47am 3.2 October 13, 2016 7:13am 3.0 October 14, 2016 8:23am ALBUMIN/GLOBULIN RATIO(0.9-1.8 RATIO) 0.9 RATIO October 10, 2016 7:10pm 1.0 RATIO October 11, 2016 5:48am 1.0 RATIO October 12, 2016 5:47am 1.0 RATIO October 13, 2016 7:13am 1.0 RATIO October 14, 2016 8:23am BASIC METABOLIC PANEL GLUCOSE(70-110 MG/DL) 111 MG/DL October 11, 2016 2:14am BLOOD UREA NITROGEN(6-20 MG/DL) 86 MG/DL October 11, 2016 2:14am CREATININE(0.50-1.20 MG/DL) 5.84 MG/DL October 11, 2016 2:14am EST GLOMERULAR FILTRATION RATE(Greater than or equal to 60) 7 Result Comments: If the patient is of -[place] descent/extraction multiply the eGFR value by 1.212 to obtain the actual eGFR. >=60 mg/dL Normal 30-59 mg/dL Moderate Kidney Disease 15-29 mg/dL Severe Kidney Disease <15 mg/dL Kidney Failure October 11, 2016 2:14am BUN CREATININE RATIO(10.0-20.0 RATIO) 15.0 RATIO October 11, 2016 2:14am SODIUM(135-145 MMOL/L) 140 MMOL/L October 11, 2016 2:14am POTASSIUM(3.6-5.0 MMOL/L) 5.2 MMOL/L October 11, 2016 2:14am CHLORIDE(101-111 MMOL/L) 114 MMOL/L October 11, 2016 2:14am CO2(21-31 MMOL/L) 16 MMOL/L October 11, 2016 2:14am ANION GAP(8-18) 15 October 11, 2016 2:14am OSMO CALCULATED(270.0-290.0) 306.3 October 11, 2016 2:14am CALCIUM(8.5-10.5 MG/DL) 7.5 MG/DL October 11, 2016 2:14am CARDIAC TROPONIN I CARDIAC TROPONIN I(0.01-0.04 NG/ML) 0.01 NG/ML Result Comments: REFERENCE RANGES: NEGATIVE < 0.04 NG/ML POSSIBLE MYCARDIAL INVOLVEMENT >/=0.04 NG/ML INTERPRET TROPONIN I RESULT IN LIGHT OF THE TOTAL CLINICAL PRESENTATION INCLUDING CLINICAL HISTORY. ANY CONDITION RESULTING IN MYOCARDIAL INJURY CAN POTENTIALLY ELEVATE TROPONIN I LEVELS ABOVE EXPECTED NORMAL RANGES. NOTE NEW REFERENCE RANGE October 10, 2016 7:10pm THYROID STIMULATING HORMONE THYROID STIMULATING HORMONE(0.340-5.600 uIU/ML) 1.270 uIU/ML October 10, 2016 7:10pm GLYCOHEMOGLOBIN A1C %A1C(4.8-5.6 %) 5.1 % October 13, 2016 7:13am ERYTHROPOIETIN ERYTHROPOIETIN(2.6-18.5 mIU/mL) 16.9 mIU/mL Result Comments: Performed at: [address] [id number] Certified Adapted Physical Educator: SHAILA Davila MD, Phone: [phone] October 11, 2016 12:14pm HEPATITIS B SURFACE ANTIGEN HEPATITIS B SURFACE AG SCREEN(Negative) Negative October 11, 2016 12:14pm HEPATITIS B SURFACE AB QUAL HEPATITIS B SURFACE AB QUAL(.) Non Reactive Result Comments: Non Reactive: Inconsistent with immunity, less than 10 mIU/mL Reactive: Consistent with immunity, greater than 9.9 mIU/mL October 11, 2016 12:14pm HEPATITIS B CORE AB TOTAL HEPATITIS B CORE AB TOTAL(Negative) Negative Result Comments: Performed at: [address] [id number] Certified Adapted Physical Educator: SHAILA Davila MD, Phone: [phone] October 11, 2016 12:14pm HEPATITIS C ANTIBODY HEPATITIS C ANTIBODY(0.0-0.9 s/co ratio) Less than 0.1 s/co ratio Result Comments: Negative: < 0.8 Indeterminate: 0.8 - 0.9 Positive: > 0.9 The CDC recommends that a positive HCV antibody result be followed up with a HCV Nucleic Acid Amplification test (428349). October 11, 2016 12:14pm HIV 4TH GEN W/REFLEX HIV 4TH GENERATION (AG/AB)(Non Reactive) Non Reactive Result Comments: Performed at: [address] [address], [place], [place] [id number] Certified Adapted Physical Educator: SHAILA Davila MD, Phone: [phone] October 11, 2016 12:14pm Microbiology Results Visit/Account #[id number] (October 10, 2016 6:54pm - October 15, 2016 6:10pm) Procedure Result MRSA SCREEN FOR INFEC CONTROL MRSA SCREEN FOR INFEC CONTROL Result Instance On October 10, 2016 11:55pm Source: [facility] Result Comments: No growth Bloodbank Results Visit/Account #[id number] (October 10, 2016 6:54pm - October 15, 2016 6:10pm) Test Result ABO/RH BLOOD TYPE B NEGATIVE on October 11, 2016 5:45am ANTIBODY SCREEN ANTIBODY SCREEN NEGATIVE on October 11, 2016 5:45am Allergies and Adverse Reactions Allergies and Adverse Reactions Patient Unit Number: [id number] Agent Type Reaction Severity Status PENICILLINS Drug Allergy RASH Moderate Active CODEINE Drug Allergy RASH Mild Active Problem List Problem List Patient Unit Number: [id number] Chronic Problems: Code/Condition Comments Documented Start Date Documented Resolved Date Code (s) New onset type 1 diabetes mellitus, uncontrolled ICD9: 250.03 New onset type 1 diabetes mellitus, uncontrolled SNOMED: 721078293 New onset type 1 diabetes mellitus, uncontrolled Depression ICD10: F32.9 Depression SNOMED: 28565518 Depression Tobacco use ICD10: Z72.0 Tobacco use SNOMED: 728060723 Tobacco use End-stage renal disease ICD10: N18.6 End-stage renal disease SNOMED: 67305391 End-stage renal disease Anemia in ESRD (end-stage renal disease) ICD10: N18.6 Anemia in ESRD (end-stage renal disease) SNOMED: 794735410 Anemia in end-stage renal disease Hypertension ICD9: 401.9 Hypertension SNOMED: 72848319 Hypertension Anemia, chronic disease ICD10: D63.8 Anemia, chronic disease SNOMED: 502265346 Chronic disease anemia Anemia ICD10: D64.9 Anemia SNOMED: 742104098 Anemia CHF (congestive heart failure) ICD10: I50.9 CHF (congestive heart failure) SNOMED: 24317308 CHF (congestive heart failure) Diabetes mellitus ICD10: E11.9 Diabetes mellitus SNOMED: 89596199 Diabetes mellitus Type 2 diabetes mellitus ICD10: E11.9 Type 2 diabetes mellitus SNOMED: 45401060 Type 2 diabetes mellitus Acute on chronic renal failure ICD10: N17.9 Acute on chronic renal failure SNOMED: 503426301 Pxkmv-tn-pmehuvg renal failure Coronary artery disease ICD10: I25.10 Coronary artery disease SNOMED: 71962874 Coronary artery disease Plan of Care Plan Of Care Visit/Account #[id number] (October 10, 2016 6:54pm - October 15, 2016 6:10pm) Patient Instructions Instructions DI for Kidney Failure DI for Dialysis Hydralazine Lisinopril Vital Signs Vital Signs Visit/Account #[id number] (October 10, 2016 6:54pm - October 15, 2016 6:10pm) Sign First Result Last Result Code(s) Blood Pressure 136/ 53 mm[Hg] On October 11, 2016 1:43am 166/ 64 mm[Hg] On October 15, 2016 2:39pm 8462-4 BP Diastolic 8480-6 BP Systolic Heart Rate/Pulse Pulse Rate (adult): 73 /min On October 11, 2016 1:43am Pulse Rate (adult): 80 /min On October 15, 2016 2:39pm 8867-4 Heart Rate Respiratory Rate Respiratory Rate: 18 /min On October 11, 2016 1:43am Respiratory Rate: 20 /min On October 15, 2016 2:39pm 9279-1 Respiratory Rate Temperature in Fahrenheit Temperature (Fahrenheit): 97.8 [degF] On October 10, 2016 6:54pm Temperature (Fahrenheit): 98.5 [degF] On October 15, 2016 2:39pm 8310-5 Body Temperature Weight in Kilograms Weight (Kilograms): 75.4500 kg On October 10, 2016 6:54pm 3141-9 Weight Measured Functional Status Functional and Cognitive Status No Functional Status Data Medications Home Medications - Medications that the patient was taking prior to arrival at the hospital Visit/Account #[id number] (October 10, 2016 6:54pm - October 15, 2016 6:10pm) Medication Route Sig/Schedule Precondition/Indication Comments/Instructions Codes TYLENOL(ACETAMINOPHEN) 500 MG TABLET Dose: 500 MG ORAL Q4H PAIN OR FEVER TYLENOL (ACETAMINOPHEN) NDC: 46404512725 Aspirin Ec(ASPIRIN) 81 MG TAB Dose: 81 MG ORAL DAILY Aspirin 81 MG Delayed Release Oral Tablet (RxNorm): 429568 Aspirin Ec (ASPIRIN) NDC: 79169958971 PROTONIX(PANTOPRAZOLE) 40 MG TAB Dose: 40 MG ORAL DAILY pantoprazole 40 MG Delayed Release Oral Tablet [Protonix] (RxNorm): 354025 PROTONIX (PANTOPRAZOLE) NDC: 27591183519 LANTUS PEN(INSULIN GLARGINE) 300 UNIT/3 ML INJECTION Dose: 12 UNITS SUBCUTANEOUSLY AT BEDTIME 3 ML Insulin Glargine 100 UNT/ML Pen Injector [Lantus] (RxNorm): 686576 LANTUS PEN (INSULIN GLARGINE) NDC: 03519426679 CARVEDILOL(CARVEDILOL) 25 MG TABLET Dose: 40 MG ORAL DAILY carvedilol 25 MG Oral Tablet (RxNorm): 387967 CARVEDILOL (CARVEDILOL) NDC: 93147592657 Hydralazine Hcl(HYDRALAZINE HCL) 100 MG TABLET Dose: 100 MG ORAL TWICE A DAY Hydralazine Hydrochloride 100 MG Oral Tablet (RxNorm): 521698 Hydralazine Hcl (HYDRALAZINE HCL) NDC: 79481181442 LASIX(FUROSEMIDE) 40 MG TABLET Dose: 160 MG ORAL DAILY Furosemide 40 MG Oral Tablet [Lasix] (RxNorm): 042278 LASIX (FUROSEMIDE) NDC: 04974279632 LIVALO(PITAVASTATIN) 2 MG TABLET Dose: 2 MG ORAL AT BEDTIME pitavastatin 2 MG Oral Tablet [Livalo] (RxNorm): 944862 LIVALO (PITAVASTATIN) NDC: 68567298443 NORCO 7.5-325 TABLET(HYDROcodone BIT/ACETAMINOPHEN) 1 EACH TABLET Dose: 1-2 TAB ORAL EVERY 4 HOURS PAIN Acetaminophen 325 MG / Hydrocodone Bitartrate 7.5 MG Oral Tablet [Harvest] ( RxNorm): 332963 NORCO 7.5-325 TABLET (HYDROcodone BIT/ACETAMINOPHEN) NDC: 64482275973 Coreg Cr(CARVEDILOL PHOSPHATE) 40 MG CPMP.24HR Dose: 40 MG ORAL DAILY 24 HR carvedilol phosphate 40 MG Extended Release Oral Capsule [Coreg] (RxNorm ): 807666 Coreg Cr (CARVEDILOL PHOSPHATE) NDC: 45323206581 APRESOLINE(HydrALAZINE) 50 MG TAB Dose: 100 MG ORAL 3 TIMES A DAY Hydralazine Hydrochloride 50 MG Oral Tablet (RxNorm): 987894 APRESOLINE (HydrALAZINE) NDC: 01109073784 Prinivil(LISINOPRIL) 40 MG TABLET Dose: 40 MG ORAL DAILY Lisinopril 40 MG Oral Tablet (RxNorm): 576094 Prinivil (LISINOPRIL) NDC: 69065008031 Inpatient/Ordered Medications - Medications administered during hospital visit Visit/Account #[id number] (October 10, 2016 6:54pm - October 15, 2016 6:10pm) Medication Route Sig/Schedule Precondition/Indication Comments/Instructions Codes SUBLIMAZE INJ(FentaNYL CITRATE) 100 MCG/2 ML INJECTION Dose: 1 ML INTRAVEN NOW Label Comments: GIVE BY SLOW PUSH OVER 2-5 MIN MAY INCREASE FALL RISK SUBLIMAZE INJ (FentaNYL CITRATE) NDC: 03550439170 IV Medication Carriers: NORMAL SALINE(SODIUM CHLORIDE) 1000 ML INJECTION Dose: 1000 ML INTRAVEN .Q1H (Rate: 1000 MLS/HR Duration: 1 HR) Carriers: 1000 ML Sodium Chloride 9 MG/ML Injection (RxNorm): 7918378 NORMAL SALINE (SODIUM CHLORIDE) NDC: [id number] TYLENOL(ACETAMINOPHEN) 325 MG TAB Dose: 0 MG ORAL Q6H PRN Reason: MILD PAIN Label Comments: Do not exceed 4000 mg/24 hours. Special Dose Instructions: 325 - 650 MG Acetaminophen 325 MG Oral Tablet (RxNorm): 120719 TYLENOL (ACETAMINOPHEN) NDC: 98491254528 ZOFRAN ODT(ONDANSETRON HCL) 4 MG TAB Dose: 4 MG ORAL Q4H PRN Reason: NAUSEA/VOMITING Ondansetron 4 MG Disintegrating Oral Tablet (RxNorm): 577386 ZOFRAN ODT (ONDANSETRON HCL) NDC: 66679031982 ECOTRIN(ASPIRIN) 81 MG TAB Dose: 81 MG ORAL DAILY Aspirin 81 MG Delayed Release Oral Tablet (RxNorm): 757593 ECOTRIN (ASPIRIN) NDC: 84098209704 NORCO 7.5-325(HYDROcodone BIT/ACETAMINOPHEN) 1 TAB TAB Dose: 0 TAB ORAL EVERY 4 HOURS PRN Reason: PAIN Label Comments: <<may be substituted for 7.5/500>> REC MAX DAILY ACETAMINOPHEN: 4000 MG/24 HR MAY INCREASE FALL RISK Special Dose Instructions: 1-2 TABS Acetaminophen 325 MG / Hydrocodone Bitartrate 7.5 MG Oral Tablet (RxNorm): 226422 NORCO 7.5-325 (HYDROcodone BIT/ACETAMINOPHEN) NDC: 02746808340 LANTUS(INSULIN GLARGINE) 1000 UNIT/10 ML INJECTION Dose: 0.12 ML SUBCUTANEOUSLY AT BEDTIME Label Comments: Do NOT refrigerate. * Syringe expires in 24 hours DO NOT MIX WITH OTHER INSULINS Insulin Glargine 100 UNT/ML Injectable Solution [Lantus] (RxNorm): 793411 LANTUS (INSULIN GLARGINE) NDC: 05959514026 PROTONIX(PANTOPRAZOLE SOD) 40 MG TAB Dose: 40 MG ORAL DAILY@0600 pantoprazole 40 MG Delayed Release Oral Tablet [Protonix] (RxNorm): 553281 PROTONIX (PANTOPRAZOLE SOD) NDC: 99884200714 ZOCOR(SIMVASTATIN) 20 MG TAB Dose: 20 MG ORAL AT BEDTIME Label Comments: SUBST FOR PITAVASTATIN 2 MG TERATOGENIC. WOMEN SHOULD NOT HANDLE OR CRUSH. Simvastatin 20 MG Oral Tablet (RxNorm): 474424 ZOCOR (SIMVASTATIN) NDC: 62283595315 APRESOLINE(HydrALAZINE) 50 MG TAB Dose: 100 MG ORAL TWICE A DAY Label Comments: MAY INCREASE FALL RISK Hydralazine Hydrochloride 50 MG Oral Tablet (RxNorm): 536357 APRESOLINE (HydrALAZINE) NDC: 26564701673 COREG CR(CARVEDILOL) 10 MG CAP Dose: 40 MG ORAL DAILY Label Comments: MAY INCREASE FALL RISK TAKE WITH FOOD 24 HR carvedilol phosphate 10 MG Extended Release Oral Capsule [Coreg] (RxNorm ): 995483 COREG CR (CARVEDILOL) NDC: 69095607042 NICODERM 21 MG PATCH(NICOTINE) 1 PATCH PATCH Dose: 1 PATCH TOPICALLY NOW Label Comments: WEAR GLOVES FOR HANDLING OR WASH HANDS AFTER HANDLING. 24 HR Nicotine 0.875 MG/HR Transdermal System (RxNorm): 086120 NICODERM 21 MG PATCH (NICOTINE) NDC: 99806580534 APRESOLINE(HydrALAZINE) 50 MG TAB Dose: 100 MG ORAL 3 TIMES A DAY Label Comments: MAY INCREASE FALL RISK Hydralazine Hydrochloride 50 MG Oral Tablet (RxNorm): 149527 APRESOLINE (HydrALAZINE) NDC: 48224887936 NICODERM 21 MG PATCH(NICOTINE) 1 PATCH PATCH Dose: 1 PATCH TOPICALLY DAILY Label Comments: WEAR GLOVES FOR HANDLING OR WASH HANDS AFTER HANDLING. 24 HR Nicotine 0.875 MG/HR Transdermal System (RxNorm): 007962 NICODERM 21 MG PATCH (NICOTINE) NDC: 83130708624 CIPRODEX OTIC SUSP(CIPROFLOXACIN HCL/DEXAMETH) 7.5 ML SUSPENSION Dose: 0 ML LEFT EAR TWICE A DAY Label Comments: <may be substituted for Cipro HC> SHAKE WELL Special Dose Instructions: 4 DROPS Ciprofloxacin 3 MG/ML / Dexamethasone 1 MG/ML Otic Suspension [Ciprodex] ( RxNorm): 348193 CIPRODEX OTIC SUSP (CIPROFLOXACIN HCL/DEXAMETH) NDC: 62804535331 IV Medication Additives: EPOGEN(EPOETIN ALPESH) 80786 UNIT/2 ML INJECTION Dose: 5000 UNIT Carriers: SYRINGE/NEEDLES 1 SYR INJECTION Dose: 1 SYR SUBCUTANEOUSLY MoWeFr@09 (Rate: 0 MLS/HR Duration: 0 SEC) Label Comments: To be given by floor nurse. REFRIGERATE.DO NOT SHAKE. Additives: Epoetin Alpesh 42495 UNT/ML Injectable Solution [Epogen] (RxNorm): 200322 EPOGEN (EPOETIN ALPESH) NDC: 19495745529 ZESTRIL(LISINOPRIL) 40 MG TAB Dose: 40 MG ORAL DAILY Label Comments: MAY INCREASE FALL RISK Lisinopril 40 MG Oral Tablet (RxNorm): 968879 ZESTRIL (LISINOPRIL) NDC: 75391782504 MIRALAX(POLYETHYLENE GLYCOL) 17 GM POWDER Dose: 17 GM ORAL DAILY PRN Reason: CONSTIPATION Label Comments: DISSOLVE IN 8 OZ OF WATER POLYETHYLENE GLYCOL 3350 53147 MG Powder for Oral Solution [Miralax] (RxNorm) : 640156 MIRALAX (POLYETHYLENE GLYCOL) NDC: 17601085498 Discharge Medications - Medications that patient should continue to take. Review with physician Visit/Account #[id number] (October 10, 2016 6:54pm - October 15, 2016 6:10pm) Medication Route Sig/Schedule Precondition/Indication Comments/Instructions Codes TYLENOL(ACETAMINOPHEN) 500 MG TABLET Dose: 500 MG ORAL Q4H PAIN OR FEVER TYLENOL (ACETAMINOPHEN) NDC: 62077575337 Aspirin Ec(ASPIRIN) 81 MG TAB Dose: 81 MG ORAL DAILY Aspirin 81 MG Delayed Release Oral Tablet (RxNorm): 883533 Aspirin Ec (ASPIRIN) NDC: 24544962810 PROTONIX(PANTOPRAZOLE) 40 MG TAB Dose: 40 MG ORAL DAILY pantoprazole 40 MG Delayed Release Oral Tablet [Protonix] (RxNorm): 144375 PROTONIX (PANTOPRAZOLE) NDC: 10619822403 LANTUS PEN(INSULIN GLARGINE) 300 UNIT/3 ML INJECTION Dose: 12 UNITS SUBCUTANEOUSLY AT BEDTIME 3 ML Insulin Glargine 100 UNT/ML Pen Injector [Lantus] (RxNorm): 206732 LANTUS PEN (INSULIN GLARGINE) NDC: 51504892393 LASIX(FUROSEMIDE) 40 MG TABLET Dose: 160 MG ORAL DAILY Furosemide 40 MG Oral Tablet [Lasix] (RxNorm): 639634 LASIX (FUROSEMIDE) NDC: 56612809198 LIVALO(PITAVASTATIN) 2 MG TABLET Dose: 2 MG ORAL AT BEDTIME pitavastatin 2 MG Oral Tablet [Livalo] (RxNorm): 741503 LIVALO (PITAVASTATIN) NDC: 89234212114 Coreg Cr(CARVEDILOL PHOSPHATE) 40 MG CPMP.24HR Dose: 40 MG ORAL DAILY 24 HR carvedilol phosphate 40 MG Extended Release Oral Capsule [Coreg] (RxNorm ): 799137 Coreg Cr (CARVEDILOL PHOSPHATE) NDC: 05183776772 APRESOLINE(HydrALAZINE) 50 MG TAB Dose: 100 MG ORAL 3 TIMES A DAY Hydralazine Hydrochloride 50 MG Oral Tablet (RxNorm): 194284 APRESOLINE (HydrALAZINE) NDC: 06427384196 Prinivil(LISINOPRIL) 40 MG TABLET Dose: 40 MG ORAL DAILY Lisinopril 40 MG Oral Tablet (RxNorm): 905303 Prinivil (LISINOPRIL) NDC: 31115476290 History Of Encounters Encounters Visit/Account #[id number] (October 10, 2016 6:54pm - October 15, 2016 6:10pm) Account Status Physican Of Record Reason For Visit Visit Diagnosis Start Date/Time Stop Date/Time ER SOCORRO WOLF MD END STAGE RENAL DISEASE N17.9: ACUTE KIDNEY FAILURE, UNSPECIFIED ICD10 Oct 10, 2016 6:54pm Oct 10, 2016 10:34pm [place] SOCORRO WOLF MD END STAGE RENAL DISEASE N17.9: ACUTE KIDNEY FAILURE, UNSPECIFIED ICD10 Oct 14, 2016 11:56am Oct 15, 2016 6:10pm IN SOCORRO WOLF MD END STAGE RENAL DISEASE N17.9: ACUTE KIDNEY FAILURE, UNSPECIFIED ICD10 Oct 14, 2016 11:56am Oct 15, 2016 6:10pm History of Procedures Procedure List Visit/Account #[id number] (October 10, 2016 6:54pm - October 15, 2016 6:10pm) Code/Procedure Date [id number]: PERFORMANCE OF URINARY FILTRATION, MULTIPLE October 11, 2016 Discharge Instructions Discharge Instructions Visit/Account #[id number] (October 10, 2016 6:54pm - October 15, 2016 6:10pm) DISCHARGE INSTRUCTIONS Physician Documentation PROVIDER INSTRUCTIONS Discharge Diet Renal Discharge Activity/Weight Bearing Status As tolerated Other Discharge Instructions - Discharge Diet Renal Discharge Activity/Weight Bearing Status As tolerated Other Discharge Instructions - CARE MANAGEMENT/HOME HEALTH [facility] Management [facility] for senior living (med set up), PT and OT (blindness) will be resumed through [facility]. REASON TO CALL PROVIDER Notify Physician if: You have the following: - temperature greater than 101.5 degrees Fahrenheit - uncontrolled pain - persistent nausea/vomiting - any questions or concerns FOLLOW UP APPOINTMENTS Follow Up Appointment Date/Time: [facility] [phone] -Olesya Hutchinson on Thursday, October 20, 2016 at 9:00am. You will also have a financial screening appointment after meeting with Olesya. Please bring the application. -Dr. Ronna Caal on Saturday, October 22, 2016 at 9:50am Outpatient Dialysis at [facility] ([address]) every Thursday, Thursday, Thursday at 11:10am. On your first treatment day you will need to be there at 10:30am. [facility] will provide transportation. Please continue to coordinate with Olesya Hutchinson. Social History Social History No Social History Data. Immunizations Immunizations Patient Unit Number: [id number] Immunizations No immunizations recorded.
--- OUTSIDE RECORDS SUMMARY | 2018-05-02 14:57 | XMS REPORT | Continuity Of Care Document ---
Author Author [facility] Organization [facility] Address [address] [place] [address] Phone Care Team Providers Care Sales Marketing Name Role Phone VIC NUNEZ, ALFONZO Gutiérrez CP NHUNG NUNEZ, LEE Ramesh CP SYDNEE NUNEZ, CORTNEY Thacker Unavailable PITO NUNEZ, LINA Martines AT [phone] RONNA CAAL APRN PP Results Lab Results Visit/Account #[id number] (May 10, 2016 5:30pm - May 14, 2016 12:23pm) Test Result Date/Time POCGL POCGL(70-110 MG/DL) 199 MG/DL May 10, 2016 9:21pm 121 MG/DL May 11, 2016 6:12am 118 MG/DL May 11, 2016 11:39am 125 MG/DL May 11, 2016 4:54pm 152 MG/DL May 11, 2016 8:59pm 74 MG/DL May 12, 2016 5:54am 89 MG/DL May 12, 2016 11:33am 111 MG/DL May 12, 2016 5:26pm 126 MG/DL May 12, 2016 9:47pm 72 MG/DL May 13, 2016 5:48am 161 MG/DL May 13, 2016 11:13am 180 MG/DL May 13, 2016 5:09pm 216 MG/DL May 13, 2016 8:46pm 83 MG/DL May 14, 2016 5:19am 124 MG/DL May 14, 2016 11:40am 30626-3: HEMOGLOBIN AND HEMATOCRIT HEMOGLOBIN(12.0-16.0 G/DL) 10.3 G/DL May 10, 2016 8:41pm 8.9 G/DL May 11, 2016 1:15am 8.3 G/DL May 11, 2016 11:49am 8.3 G/DL May 11, 2016 6:01pm 8.1 G/DL May 12, 2016 12:09am 8.1 G/DL May 12, 2016 5:56am 8.5 G/DL May 12, 2016 3:14pm HEMATOCRIT(36.0-46.0 %) 31.9 % May 10, 2016 8:41pm 27.0 % May 11, 2016 1:15am 25.1 % May 11, 2016 11:49am 25.5 % May 11, 2016 6:01pm 25.4 % May 12, 2016 12:09am 24.3 % May 12, 2016 5:56am 25.8 % May 12, 2016 3:14pm 03568-1: COMPLETE BLOOD COUNT WITH DIFF WHITE BLOOD COUNT(4.0-11.0 10E3/UL) 16.0 10E3/UL May 10, 2016 5:40pm 14.4 10E3/UL May 11, 2016 6:13am 9.8 10E3/UL May 12, 2016 5:52am 7.1 10E3/UL May 13, 2016 5:37am 6.6 10E3/UL May 14, 2016 8:07am RED BLOOD COUNT(4.00-5.20 10E6/UL) 3.99 10E6/UL May 10, 2016 5:40pm 2.94 10E6/UL May 11, 2016 6:13am 2.76 10E6/UL May 12, 2016 5:52am 2.75 10E6/UL May 13, 2016 5:37am 2.88 10E6/UL May 14, 2016 8:07am HEMOGLOBIN(12.0-16.0 G/DL) 11.7 G/DL May 10, 2016 5:40pm 8.7 G/DL May 11, 2016 6:13am 8.2 G/DL May 12, 2016 5:52am 8.3 G/DL May 13, 2016 5:37am 8.5 G/DL May 14, 2016 8:07am HEMATOCRIT(36.0-46.0 %) 36.2 % May 10, 2016 5:40pm 26.9 % May 11, 2016 6:13am 25.3 % May 12, 2016 5:52am 24.7 % May 13, 2016 5:37am 25.2 % May 14, 2016 8:07am 49902-4: MEAN CORPUSCULAR VOLUME(82.0-100.0 FL) 90.7 FL May 10, 2016 5:40pm 91.5 FL May 11, 2016 6:13am 91.7 FL May 12, 2016 5:52am 89.8 FL May 13, 2016 5:37am 87.5 FL May 14, 2016 8:07am 70043-8: MEAN CORPUSCULAR HEMOGLOBIN(26.0-34.0 PG) 29.3 PG May 10, 2016 5:40pm 29.6 PG May 11, 2016 6:13am 29.7 PG May 12, 2016 5:52am 30.2 PG May 13, 2016 5:37am 29.5 PG May 14, 2016 8:07am MEAN CORPUSCULAR HGB CONC(31.5-36.5 G/DL) 32.3 G/DL May 10, 2016 5:40pm 32.3 G/DL May 11, 2016 6:13am 32.4 G/DL May 12, 2016 5:52am 33.6 G/DL May 13, 2016 5:37am 33.7 G/DL May 14, 2016 8:07am RED CELL DISTRIBUTION WIDTH(11.5-14.5 %) 12.3 % May 10, 2016 5:40pm 12.4 % May 11, 2016 6:13am 12.1 % May 12, 2016 5:52am 11.9 % May 13, 2016 5:37am 11.9 % May 14, 2016 8:07am 777-3: PLATELET COUNT(150-450 10E3/UL) 258 10E3/UL May 10, 2016 5:40pm 189 10E3/UL May 11, 2016 6:13am 157 10E3/UL May 12, 2016 5:52am 145 10E3/UL May 13, 2016 5:37am 148 10E3/UL May 14, 2016 8:07am MEAN PLATELET VOLUME(8.2-12.4 FL) 11.2 FL May 10, 2016 5:40pm 11.6 FL May 11, 2016 6:13am 11.6 FL May 12, 2016 5:52am 11.3 FL May 13, 2016 5:37am 10.5 FL May 14, 2016 8:07am 770-8: NEUTROPHILS % (AUTO)(40-70 %) 82 % May 10, 2016 5:40pm 77 % May 11, 2016 6:13am 63 % May 12, 2016 5:52am 60 % May 13, 2016 5:37am 49 % May 14, 2016 8:07am LYMPHOCYTES % (AUTO)(15-45 %) 12 % May 10, 2016 5:40pm 15 % May 11, 2016 6:13am 28 % May 12, 2016 5:52am 28 % May 13, 2016 5:37am 38 % May 14, 2016 8:07am 5905-5: MONOCYTES % (AUTO)(2-10 %) 5 % May 10, 2016 5:40pm 7 % May 11, 2016 6:13am 7 % May 12, 2016 5:52am 9 % May 13, 2016 5:37am 9 % May 14, 2016 8:07am 713-8: EOSINOPHILS % (AUTO)(0-6 %) 0 % May 10, 2016 5:40pm 0 % May 11, 2016 6:13am 1 % May 12, 2016 5:52am 2 % May 13, 2016 5:37am 4 % May 14, 2016 8:07am 706-2: BASOPHILS % (AUTO)(0-1 %) 0 % May 10, 2016 5:40pm 0 % May 11, 2016 6:13am 0 % May 12, 2016 5:52am 0 % May 13, 2016 5:37am 1 % May 14, 2016 8:07am 16713-2: IMMATURE GRANS % (AUTO)(0-0 %) 1 % May 10, 2016 5:40pm 1 % May 11, 2016 6:13am 0 % May 12, 2016 5:52am 0 % May 13, 2016 5:37am 0 % May 14, 2016 8:07am NUCLEATED RBCS (AUTO)(0-0 %) 0 % May 10, 2016 5:40pm 0 % May 11, 2016 6:13am 0 % May 12, 2016 5:52am 0 % May 13, 2016 5:37am 0 % May 14, 2016 8:07am 751-8: NEUTROPHILS # (AUTO)(2.5-7.5 10E3/UL) 13.2 10E3/UL May 10, 2016 5:40pm 11.1 10E3/UL May 11, 2016 6:13am 6.2 10E3/UL May 12, 2016 5:52am 4.3 10E3/UL May 13, 2016 5:37am 3.2 10E3/UL May 14, 2016 8:07am 41327-0: LYMPHOCYTES # (AUTO)(1.0-4.0 10E3/UL) 1.9 10E3/UL May 10, 2016 5:40pm 2.2 10E3/UL May 11, 2016 6:13am 2.8 10E3/UL May 12, 2016 5:52am 2.0 10E3/UL May 13, 2016 5:37am 2.5 10E3/UL May 14, 2016 8:07am 742-7: MONOCYTES # (AUTO)(0.2-0.8 10E3/UL) 0.8 10E3/UL May 10, 2016 5:40pm 1.0 10E3/UL May 11, 2016 6:13am 0.7 10E3/UL May 12, 2016 5:52am 0.6 10E3/UL May 13, 2016 5:37am 0.6 10E3/UL May 14, 2016 8:07am 711-2: EOSINOPHILS # (AUTO)(0.0-0.4 10E3/UL) 0.0 10E3/UL May 10, 2016 5:40pm 0.0 10E3/UL May 11, 2016 6:13am 0.1 10E3/UL May 12, 2016 5:52am 0.1 10E3/UL May 13, 2016 5:37am 0.2 10E3/UL May 14, 2016 8:07am 704-7: BASOPHILS # (AUTO)(0.0-0.2 10E3/UL) 0.0 10E3/UL May 10, 2016 5:40pm 0.0 10E3/UL May 11, 2016 6:13am 0.0 10E3/UL May 12, 2016 5:52am 0.0 10E3/UL May 13, 2016 5:37am 0.0 10E3/UL May 14, 2016 8:07am IMMATURE GRANS # (AUTO)(0.0-0.0 10E3/UL) 0.1 10E3/UL May 10, 2016 5:40pm 0.1 10E3/UL May 11, 2016 6:13am 0.0 10E3/UL May 12, 2016 5:52am 0.0 10E3/UL May 13, 2016 5:37am 0.0 10E3/UL May 14, 2016 8:07am DIFF TYPE AUTOMATED May 10, 2016 5:40pm AUTOMATED May 11, 2016 6:13am AUTOMATED May 12, 2016 5:52am AUTOMATED May 13, 2016 5:37am AUTOMATED May 14, 2016 8:07am UA WITH SCREEN FOR CULTURE 5778-6: COLOR,URINE YELLOW May 11, 2016 12:25am 59641-5: CLARITY,URINE SLIGHTLY CLOUDY May 11, 2016 12:25am GLUCOSE, URINE(NEGATIVE MG/DL) 500 MG/DL May 11, 2016 12:25am URINE BILIRUBIN(NEGATIVE) NEGATIVE May 11, 2016 12:25am KETONES,URINE(NEGATIVE MG/DL) NEGATIVE MG/DL May 11, 2016 12:25am 2965-2: URINE SPECIFIC GRAVITY(1.001-1.035) 1.024 May 11, 2016 12:25am 77720-1: URINE BLOOD(NEGATIVE) MODERATE May 11, 2016 12:25am 2756-5: URINE PH(5.0-9.0) 6.0 May 11, 2016 12:25am URINE PROTEIN(Less than 20 MG/DL) Greater than 2000 MG/DL May 11, 2016 12:25am 17166-8: URINE UROBILINOGEN(0.2-1.0 MG/DL) 0.2-1.0 MG/DL May 11, 2016 12:25am URINE NITRITE(NEGATIVE) NEGATIVE May 11, 2016 12:25am 5799-2: LEUKOCYTE ESTERASE ,URINE(NEGATIVE) NEGATIVE May 11, 2016 12:25am URINE RBCS(0-3 /HPF) 8-12 /HPF May 11, 2016 12:25am URINE WBCS(0-3 /HPF) 21-50 /HPF May 11, 2016 12:25am URINE EPITHELIAL CELLS(0-3 /HPF) 21-50 /HPF May 11, 2016 12:25am URINE HYALINE CASTS(0-3 /LPF) 13-20 /LPF May 11, 2016 12:25am URINE BACTERIA(NEGATIVE /HPF) 3+ /HPF May 11, 2016 12:25am 630-4: URINE CULTURE NOT INDICATED May 11, 2016 12:25am URINE MICROSCOPIC REQUIRED YES May 11, 2016 12:25am 86333-3: COMPLETE METABOLIC PROFILE GLUCOSE(70-110 MG/DL) 221 MG/DL May 10, 2016 5:40pm 129 MG/DL May 11, 2016 6:13am 80 MG/DL May 12, 2016 5:56am 75 MG/DL May 13, 2016 5:37am 67 MG/DL May 14, 2016 8:07am BLOOD UREA NITROGEN(6-20 MG/DL) 59 MG/DL May 10, 2016 5:40pm 62 MG/DL May 11, 2016 6:13am 58 MG/DL May 12, 2016 5:56am 50 MG/DL May 13, 2016 5:37am 49 MG/DL May 14, 2016 8:07am CREATININE(0.50-1.20 MG/DL) 4.09 MG/DL May 10, 2016 5:40pm 4.32 MG/DL May 11, 2016 6:13am 4.22 MG/DL May 12, 2016 5:56am 3.82 MG/DL May 13, 2016 5:37am 3.88 MG/DL May 14, 2016 8:07am 06458-5: EST GLOMERULAR FILTRATION RATE(Greater than or equal to 60) 11 Result Comments: If the patient is of -[place] descent/extraction multiply the eGFR value by 1.212 to obtain the actual eGFR. >=60 mg/dL Normal 30-59 mg/dL Moderate Kidney Disease 15-29 mg/dL Severe Kidney Disease <15 mg/dL Kidney Failure May 10, 2016 5:40pm 11 Result Comments: If the patient is of -[place] descent/extraction multiply the eGFR value by 1.212 to obtain the actual eGFR. >=60 mg/dL Normal 30-59 mg/dL Moderate Kidney Disease 15-29 mg/dL Severe Kidney Disease <15 mg/dL Kidney Failure May 11, 2016 6:13am 11 Result Comments: If the patient is of -[place] descent/extraction multiply the eGFR value by 1.212 to obtain the actual eGFR. >=60 mg/dL Normal 30-59 mg/dL Moderate Kidney Disease 15-29 mg/dL Severe Kidney Disease <15 mg/dL Kidney Failure May 12, 2016 5:56am 12 Result Comments: If the patient is of -[place] descent/extraction multiply the eGFR value by 1.212 to obtain the actual eGFR. >=60 mg/dL Normal 30-59 mg/dL Moderate Kidney Disease 15-29 mg/dL Severe Kidney Disease <15 mg/dL Kidney Failure May 13, 2016 5:37am 12 Result Comments: If the patient is of -[place] descent/extraction multiply the eGFR value by 1.212 to obtain the actual eGFR. >=60 mg/dL Normal 30-59 mg/dL Moderate Kidney Disease 15-29 mg/dL Severe Kidney Disease <15 mg/dL Kidney Failure May 14, 2016 8:07am BUN CREATININE RATIO(10.0-20.0 RATIO) 14.0 RATIO May 10, 2016 5:40pm 14.0 RATIO May 11, 2016 6:13am 14.0 RATIO May 12, 2016 5:56am 13.0 RATIO May 13, 2016 5:37am 13.0 RATIO May 14, 2016 8:07am SODIUM(135-145 MMOL/L) 138 MMOL/L May 10, 2016 5:40pm 137 MMOL/L May 11, 2016 6:13am 134 MMOL/L May 12, 2016 5:56am 135 MMOL/L May 13, 2016 5:37am 134 MMOL/L May 14, 2016 8:07am POTASSIUM(3.6-5.0 MMOL/L) 4.3 MMOL/L May 10, 2016 5:40pm 4.4 MMOL/L May 11, 2016 6:13am 3.8 MMOL/L May 12, 2016 5:56am 3.7 MMOL/L May 13, 2016 5:37am 3.7 MMOL/L May 14, 2016 8:07am CHLORIDE(101-111 MMOL/L) 99 MMOL/L May 10, 2016 5:40pm 103 MMOL/L May 11, 2016 6:13am 106 MMOL/L May 12, 2016 5:56am 108 MMOL/L May 13, 2016 5:37am 105 MMOL/L May 14, 2016 8:07am CO2(21-31 MMOL/L) 27 MMOL/L May 10, 2016 5:40pm 25 MMOL/L May 11, 2016 6:13am 22 MMOL/L May 12, 2016 5:56am 23 MMOL/L May 13, 2016 5:37am 22 MMOL/L May 14, 2016 8:07am ANION GAP(8-18) 16 May 10, 2016 5:40pm 13 May 11, 2016 6:13am 10 May 12, 2016 5:56am 8 May 13, 2016 5:37am 11 May 14, 2016 8:07am OSMO CALCULATED(270.0-290.0) 299.0 May 10, 2016 5:40pm 293.1 May 11, 2016 6:13am 283.4 May 12, 2016 5:56am 282.1 May 13, 2016 5:37am 279.5 May 14, 2016 8:07am CALCIUM(8.5-10.5 MG/DL) 8.7 MG/DL May 10, 2016 5:40pm 7.7 MG/DL May 11, 2016 6:13am 7.4 MG/DL May 12, 2016 5:56am 7.3 MG/DL May 13, 2016 5:37am 7.7 MG/DL May 14, 2016 8:07am BILIRUBIN,TOTAL(0.1-1.2 MG/DL) 0.7 MG/DL May 10, 2016 5:40pm 0.4 MG/DL May 11, 2016 6:13am 0.4 MG/DL May 12, 2016 5:56am 0.2 MG/DL May 13, 2016 5:37am 0.4 MG/DL May 14, 2016 8:07am ALKALINE PHOSPHATASE(42-121 IU/L) 98 IU/L May 10, 2016 5:40pm 69 IU/L May 11, 2016 6:13am 58 IU/L May 12, 2016 5:56am 62 IU/L May 13, 2016 5:37am 58 IU/L May 14, 2016 8:07am ASPARTATE AMINO TRANSFERASE(10-42 IU/L) 24 IU/L May 10, 2016 5:40pm 13 IU/L May 11, 2016 6:13am 12 IU/L May 12, 2016 5:56am 14 IU/L May 13, 2016 5:37am 16 IU/L May 14, 2016 8:07am ALANINE AMINOTRANSFERASE(10-60 IU/L) 32 IU/L May 10, 2016 5:40pm 19 IU/L May 11, 2016 6:13am 14 IU/L May 12, 2016 5:56am 14 IU/L May 13, 2016 5:37am 16 IU/L May 14, 2016 8:07am TOTAL PROTEIN(6.4-8.2 G/DL) 8.2 G/DL May 10, 2016 5:40pm 6.1 G/DL May 11, 2016 6:13am 5.5 G/DL May 12, 2016 5:56am 5.3 G/DL May 13, 2016 5:37am 5.3 G/DL May 14, 2016 8:07am ALBUMIN(3.5-5.5 G/DL) 4.1 G/DL May 10, 2016 5:40pm 3.1 G/DL May 11, 2016 6:13am 2.8 G/DL May 12, 2016 5:56am 2.6 G/DL May 13, 2016 5:37am 2.8 G/DL May 14, 2016 8:07am GLOBULIN(2.4-3.6) 4.1 May 10, 2016 5:40pm 3.0 May 11, 2016 6:13am 2.7 May 12, 2016 5:56am 2.7 May 13, 2016 5:37am 2.5 May 14, 2016 8:07am ALBUMIN/GLOBULIN RATIO(0.9-1.8 RATIO) 1.0 RATIO May 10, 2016 5:40pm 1.0 RATIO May 11, 2016 6:13am 1.0 RATIO May 12, 2016 5:56am 1.0 RATIO May 13, 2016 5:37am 1.1 RATIO May 14, 2016 8:07am 3040-3: LIPASE 3040-3: LIPASE(22-51 U/L) 27 U/L May 10, 2016 5:40pm 82580-6: GLYCOHEMOGLOBIN A1C 4548-4: %A1C(4.8-5.6 %) 6.2 % Result Comments: HIGH A1C VALUES: INCREASED RISK FOR DIABETES 5.7-6.4 % DIABETES >6.5 % May 11, 2016 6:13am Microbiology Results Visit/Account #[id number] (May 10, 2016 5:30pm - May 14, 2016 12:23pm) Procedure Result 2334-1: GASTROCCULT 2334-1: GASTROCCULT Result Instance On May 10, 2016 6:30pm Source: EMESIS Result Prompts: GASTROCCULT POSITIVE Allergies and Adverse Reactions Allergies and Adverse Reactions Patient Unit Number: [id number] Agent Type Reaction Severity Status PENICILLINS Drug Allergy RASH Moderate Active CODEINE Drug Allergy RASH Mild Active Problem List Problem List Visit/Account #[id number] (May 10, 2016 5:30pm - May 14, 2016 12:23pm) Acute Problems: Code/Condition Comments Documented Start Date Documented Resolved Date Code (s) Type 2 diabetes mellitus ICD10: E11.9 Type 2 diabetes mellitus ICD9: 250.00 Type 2 diabetes mellitus SNOMED: 92976188 Type 2 diabetes mellitus Upper GI bleed ICD10: K92.2 Upper gastrointestinal hemorrhage ICD9: 578.9 Upper gastrointestinal hemorrhage SNOMED: 56859877 Upper gastrointestinal hemorrhage Ulcerative esophagitis ICD10: K22.10 Ulcerative esophagitis ICD9: 530.19 Ulcerative esophagitis SNOMED: 406892820 Ulcerative esophagitis Acute on chronic renal failure ICD10: N17.9 Mwoip-pp-giiewoj renal failure ICD9: 584.9 Xauey-tp-kcpmjjz renal failure SNOMED: 634408618 Crseh-yz-rwatwjx renal failure CHF (congestive heart failure) ICD10: I50.9 CHF (congestive heart failure) ICD9: 428.0 CHF (congestive heart failure) SNOMED: 42193610 CHF (congestive heart failure) Gastritis ICD10: K29.70 Gastritis ICD9: 535.50 Gastritis SNOMED: 0747450 Gastritis Acute renal failure ICD10: N17.9 Acute renal failure ICD9: 584.9 Acute renal failure SNOMED: 14206454 Acute renal failure Vomiting and diarrhea ICD10: R11.10 Vomiting and diarrhea ICD9: 787.03 Vomiting and diarrhea SNOMED: 309340997 Vomiting and diarrhea Chronic Problems: Hypertension ICD10: I10 Hypertension ICD9: 401.9 Hypertension SNOMED: 47984673 Hypertension Anemia, chronic disease ICD10: D63.8 Chronic disease anemia ICD9: 285.29 Chronic disease anemia SNOMED: 939238892 Chronic disease anemia Diabetes mellitus ICD10: E11.9 Diabetes mellitus ICD9: 250.00 Diabetes mellitus SNOMED: 93012719 Diabetes mellitus Patient Unit Number: [id number] Chronic Problems: Code/Condition Comments Documented Start Date Documented Resolved Date Code (s) New onset type 1 diabetes mellitus, uncontrolled ICD10: E10.9 New onset type 1 diabetes mellitus, uncontrolled ICD9: 250.03 New onset type 1 diabetes mellitus, uncontrolled SNOMED: 646055679 New onset type 1 diabetes mellitus, uncontrolled Anemia ICD10: D64.9 Anemia ICD9: 285.9 Anemia SNOMED: 790477832 Anemia Plan of Care Plan Of Care Visit/Account #[id number] (May 10, 2016 5:30pm - May 14, 2016 12:23pm) Patient Instructions Instructions DI for Abnormal Uterine Bleeding Pantoprazole Metoclopramide Vital Signs Vital Signs Visit/Account #[id number] (May 10, 2016 5:30pm - May 14, 2016 12:23pm) Sign First Result Last Result Code(s) Blood Pressure 199/ 84 mm[Hg] On May 10, 2016 8:16pm 199/ 84 mm[Hg] On May 10, 2016 8:16pm 161/ 72 mm[Hg] On May 14, 2016 9:21am 8480-6 BP Systolic Heart Rate/Pulse Pulse Rate (adult): 81 /min On May 11, 2016 5:57am Pulse Rate (adult): 69 /min On May 14, 2016 9:21am 8867-4 Heart Rate 8893-0 Pulse rate Respiratory Rate Respiratory Rate: 18 /min On May 10, 2016 8:16pm Respiratory Rate: 18 /min On May 10, 2016 8:16pm Respiratory Rate: 20 /min On May 14, 2016 9:21am 9279-1 Respiratory rate Temperature in Fahrenheit Temperature (Fahrenheit): 98.1 [degF] On May 10, 2016 5:28pm Temperature (Fahrenheit): 98.1 [degF] On May 14, 2016 9:21am 8310-5 Body Temperature Weight in Kilograms Weight (Kilograms): 65.4 kg On May 10, 2016 5:28pm 3141-9 Weight Measured 65274-3 Body weight measured in kilograms Functional Status Functional and Cognitive Status No Functional Status Data Medications Home Medications - Medications that the patient was taking prior to arrival at the hospital Visit/Account #[id number] (May 10, 2016 5:30pm - May 14, 2016 12:23pm) Medication Route Sig/Schedule Precondition/Indication Comments/Instructions Codes HUMALOG(INSULIN LISPRO) 100 U/ML INSULN.PEN Dose: 8 U SUB-Q 3 TIMES DAILY WITH MEALS 3 ML Insulin Lispro 100 UNT/ML Pen Injector [Humalog] (RxNorm): 7449996 HUMALOG (INSULIN LISPRO) NDC: 66505536588 REGLAN(METOCLOPRAMIDE HCL) 10 MG TABLET Dose: 10 MG ORAL TWICE A DAY Metoclopramide 10 MG Oral Tablet [Reglan] (RxNorm): 902954 REGLAN (METOCLOPRAMIDE HCL) NDC: 79630878410 ZANTAC(RaNITIdine HCL) 150 MG TABLET Dose: 150 MG ORAL DAILY Rx Instructions: *RX FILLED 30 DAY SUPPLY MAR 2016* Ranitidine 150 MG Oral Tablet [Zantac] (RxNorm): 435069 ZANTAC (RaNITIdine HCL) NDC: 45983325197 LEVEMIR FLEXTOUCH(INSULIN DETEMIR) 100 UNIT/1 ML INSULN.PEN Dose: 12 UNIT SUBCUTANEOUSLY AT BEDTIME Rx Instructions: *RX HAS NOT FILLED* 3 ML insulin detemir 100 UNT/ML Pen Injector [Levemir] (RxNorm): 026051 LEVEMIR FLEXTOUCH (INSULIN DETEMIR) NDC: 64508223228 TYLENOL(ACETAMINOPHEN) 500 MG TABLET Dose: 500 MG ORAL Q4H PAIN OR FEVER TYLENOL (ACETAMINOPHEN) NDC: 39497700305 Aspirin Ec(ASPIRIN) 81 MG TAB Dose: 81 MG ORAL DAILY Aspirin 81 MG Delayed Release Oral Tablet (RxNorm): 941512 Aspirin Ec (ASPIRIN) NDC: 12068777077 Coreg(CARVEDILOL) 25 MG TAB Dose: 25 MG ORAL WITH BREAKFAST & SUPPER carvedilol 25 MG Oral Tablet [Coreg] (RxNorm): 075284 Coreg (CARVEDILOL) NDC: 30152599331 Klor-Con M20(POTASSIUM CHLORIDE) 20 MEQ TAB.ER.PRT Dose: 40 MEQ ORAL WITH BREAKFAST & SUPPER Rx Instructions: *PT STATES SHE ONLY TAKES WHEN SHE TAKES FUROSEMIDE* Klor-Con M20 (POTASSIUM CHLORIDE) NDC: 23918714998 Crestor(ROSUVASTATIN CALCIUM) 20 MG TAB Dose: 20 MG ORAL DAILY Rx Instructions: *DR RAYMOND HAS LISTED 5MG* Rosuvastatin calcium 20 MG Oral Tablet [Crestor] (RxNorm): 771639 Crestor (ROSUVASTATIN CALCIUM) NDC: 98088648093 Plavix(CLOPIDOGREL BISULFATE) 75 MG TAB Dose: 75 MG ORAL DAILY clopidogrel 75 MG Oral Tablet [Plavix] (RxNorm): 330295 Plavix (CLOPIDOGREL BISULFATE) NDC: 34199808264 Lasix(FUROSEMIDE) 20 MG TAB Dose: 60 MG ORAL DAILY Furosemide 20 MG Oral Tablet (RxNorm): 553851 Lasix (FUROSEMIDE) NDC: 71032342332 Aldactone(SPIRONOLACTONE) 50 MG TAB Dose: 100 MG ORAL DAILY Spironolactone 50 MG Oral Tablet (RxNorm): 253265 Aldactone (SPIRONOLACTONE) NDC: 97305297384 ZESTORETIC 20-12.5 MG(LISINOPRIL/HYDROCHLOROTHIAZIDE) 1 EACH TABLET Dose: 1 TAB ORAL DAILY Hydrochlorothiazide 12.5 MG / Lisinopril 20 MG Oral Tablet [Zestoretic] ( RxNorm): 026487 ZESTORETIC 20-12.5 MG (LISINOPRIL/HYDROCHLOROTHIAZIDE) NDC: 16837412430 PLAVIX(CLOPIDOGREL BISULFATE) 75 MG TAB Dose: 75 MG ORAL DAILY clopidogrel 75 MG Oral Tablet [Plavix] (RxNorm): 619729 PLAVIX (CLOPIDOGREL BISULFATE) NDC: 87244805739 ZESTORETIC 20-12.5 MG(LISINOPRIL/HYDROCHLOROTHIAZIDE) 1 EACH TABLET Dose: 1 TAB ORAL DAILY Hydrochlorothiazide 12.5 MG / Lisinopril 20 MG Oral Tablet [Zestoretic] ( RxNorm): 467943 ZESTORETIC 20-12.5 MG (LISINOPRIL/HYDROCHLOROTHIAZIDE) NDC: 85296158348 CARVEDILOL(CARVEDILOL) 12.5 MG TABLET Dose: 12.5 MG ORAL TWICE A DAY carvedilol 12.5 MG Oral Tablet (RxNorm): 436900 CARVEDILOL (CARVEDILOL) NDC: 12674044938 PLAVIX(CLOPIDOGREL BISULFATE) 75 MG TAB Dose: 75 MG ORAL DAILY Rx Instructions: *RX LF 30 DAY SUPPLY MAR 2016* clopidogrel 75 MG Oral Tablet [Plavix] (RxNorm): 035786 PLAVIX (CLOPIDOGREL BISULFATE) NDC: 15883457243 Lisinopril-Hctz 20-12.5 Mg Tab(LISINOPRIL/HYDROCHLOROTHIAZIDE) 1 EACH TABLET Dose: 1 TAB ORAL DAILY Rx Instructions: *RX LF JAN 2016* Hydrochlorothiazide 12.5 MG / Lisinopril 20 MG Oral Tablet (RxNorm): 533919 Lisinopril-Hctz 20-12.5 Mg Tab (LISINOPRIL/HYDROCHLOROTHIAZIDE) NDC: 74259429547 REGLAN(METOCLOPRAMIDE HCL) 5 MG TABLET Dose: 5 MG ORAL TWICE A DAY Rx Instructions: *RX LF 30 DAY SUPPLY MAR 2016* Metoclopramide 5 MG Oral Tablet [Reglan] (RxNorm): 328860 REGLAN (METOCLOPRAMIDE HCL) NDC: 59567661985 SPIRONOLACTONE(SPIRONOLACTONE) 25 MG TABLET Dose: 100 MG ORAL DAILY Rx Instructions: *PER DR OFFICE LIST. UNABLE TO VERIFY FILLED* Spironolactone 25 MG Oral Tablet (RxNorm): 584440 SPIRONOLACTONE (SPIRONOLACTONE) NDC: [id number] LASIX(FUROSEMIDE) 40 MG TABLET Dose: 40 MG ORAL DAILY Rx Instructions: *PER DR OFFICE LIST. UNABLE TO VERIFY FILLED* Furosemide 40 MG Oral Tablet [Lasix] (RxNorm): 827960 LASIX (FUROSEMIDE) NDC: 65495110048 ZESTORETIC 20-25 MG(LISINOPRIL/HYDROCHLOROTHIAZIDE) 1 EACH TABLET Dose: 2 TAB ORAL DAILY Rx Instructions: *PER DR OFFICE LIST. UNABLE TO VERIFY FILLED* Hydrochlorothiazide 25 MG / Lisinopril 20 MG Oral Tablet [Zestoretic] (RxNorm) : 320014 ZESTORETIC 20-25 MG (LISINOPRIL/HYDROCHLOROTHIAZIDE) NDC: 20690252717 K-DUR(POTASSIUM CHLORIDE) 20 MEQ TAB.ER.PRT Dose: 20 MEQ ORAL DAILY Rx Instructions: *PER DR OFFICE LIST. UNABLE TO VERIFY FILLED* Microencapsulated Potassium Chloride 20 MEQ Extended Release Oral Tablet ( RxNorm): 9431493 K-DUR (POTASSIUM CHLORIDE) NDC: 70210654912 Inpatient/Ordered Medications - Medications administered during hospital visit Visit/Account #[id number] (May 10, 2016 5:30pm - May 14, 2016 12:23pm) Medication Route Sig/Schedule Precondition/Indication Comments/Instructions Codes IV Medication Carriers: NORMAL SALINE(SODIUM CHLORIDE) 1000 ML INJECTION Dose: 1000 ML INTRAVEN .Q1H (Rate: 1000 MLS/HR Duration: 1 HR) Carriers: 1000 ML Sodium Chloride 9 MG/ML Injection (RxNorm): 2545519 NORMAL SALINE (SODIUM CHLORIDE) NDC: 18967629189 ZOFRAN INJ(ONDANSETRON HCL) 4 MG/2 ML INJECTION Dose: 2 ML INTRAVEN NOW 2 ML Ondansetron 2 MG/ML Injection (RxNorm): 3187547 ZOFRAN INJ (ONDANSETRON HCL) NDC: 22308125012 TYLENOL(ACETAMINOPHEN) 325 MG TAB Dose: 650 MG ORAL NOW Label Comments: DO NOT EXCEED 4000 MG PER 24 HR Acetaminophen 325 MG Oral Tablet (RxNorm): 297817 TYLENOL (ACETAMINOPHEN) NDC: 08394693883 TYLENOL(ACETAMINOPHEN) 325 MG TAB Dose: 0 MG ORAL Q6H PRN Reason: MILD PAIN Label Comments: Do not exceed 4000 mg/24 hours. Special Dose Instructions: 325 - 650 MG Acetaminophen 325 MG Oral Tablet (RxNorm): 733442 TYLENOL (ACETAMINOPHEN) NDC: 86912532698 ZOFRAN INJ(ONDANSETRON HCL) 4 MG/2 ML INJECTION Dose: 2 ML INTRAVEN Q4H PRN Reason: NAUSEA/VOMITING 2 ML Ondansetron 2 MG/ML Injection (RxNorm): 3188737 ZOFRAN INJ (ONDANSETRON HCL) NDC: 10088555839 PROTONIX INJ(PANTOPRAZOLE) 40 MG INJECTION Dose: 40 MG INTRAVEN DAILY@06 Label Comments: Dilute with 10 mL of NS and push over 2 minutes pantoprazole 40 MG Injection [Protonix] (RxNorm): 446379 PROTONIX INJ (PANTOPRAZOLE) NDC: 29455042112 IV Medication Carriers: NORMAL SALINE(SODIUM CHLORIDE) 1000 ML INJECTION Dose: 1000 ML INTRAVEN .Q8H (Rate: 125 MLS/HR Duration: 8 HR) Carriers: 1000 ML Sodium Chloride 9 MG/ML Injection (RxNorm): 0204422 NORMAL SALINE (SODIUM CHLORIDE) NDC: 94494475508 LEVEMIR(INSULIN DETEMIR) 1000 UNITS/10 ML INJECTION Dose: 0.06 ML SUBCUTANEOUSLY AT BEDTIME Label Comments: FORMULARY SUBSTITUTION OF LANTUS insulin detemir 100 UNT/ML Injectable Solution [Levemir] (RxNorm): 202999 LEVEMIR (INSULIN DETEMIR) NDC: 18259741918 COREG(CARVEDILOL) 12.5 MG TAB Dose: 12.5 MG ORAL WITH BREAKFAST & SUPPER Label Comments: MAY INCREASE FALL RISK TAKE WITH FOOD carvedilol 12.5 MG Oral Tablet [Coreg] (RxNorm): 219674 COREG (CARVEDILOL) NDC: 77147151919 SUBLIMAZE INJ(FentaNYL CITRATE) 250 MCG/5 ML INJECTION Dose: 250 MCG Route .STK-MED Label Comments: GIVE BY SLOW PUSH OVER 2-5 MIN MAY INCREASE FALL RISK 5 ML Fentanyl 0.05 MG/ML Injection (RxNorm): 9915485 SUBLIMAZE INJ (FentaNYL CITRATE) NDC: 70300087915 VERSED INJ(MIDAZOLAM HCL) 10 MG/10 ML INJECTION Dose: 10 MG Route .STK-MED Label Comments: MAY INCREASE FALL RISK Midazolam 1 MG/ML Injectable Solution (RxNorm): 073080 VERSED INJ (MIDAZOLAM HCL) NDC: 58391739015 IV Medication Additives: REGLAN INJ(METOCLOPRAMIDE HCL) 5 MG/ML INJECTION Dose: 20 MG Carriers: NORMAL SALINE(SODIUM CHLORIDE) 50 ML INJECTION Dose: 50 ML INTRAVEN Q6H (Rate: 216 MLS/HR Duration: 15 MIN) Label Comments: MAY INCREASE FALL RISK Additives: 2 ML Metoclopramide 5 MG/ML Injection (RxNorm): 424258 REGLAN INJ (METOCLOPRAMIDE HCL) NDC: 34912061771 Carriers: 50 ML Sodium Chloride 9 MG/ML Injection (RxNorm): 6617313 NORMAL SALINE (SODIUM CHLORIDE) NDC: 86609163963 TUMS(CALCIUM CARBONATE) 500 MG TAB Dose: 500 MG ORAL EVERY 6 HOURS PRN Reason: INDIGESTION Label Comments: TAKE WITH FOOD Calcium Carbonate 500 MG Chewable Tablet (RxNorm): 051977 TUMS (CALCIUM CARBONATE) NDC: 25409839688 SUBLIMAZE INJ(FentaNYL CITRATE) 100 MCG/2 ML INJECTION Dose: 1 ML INTRAVEN EVERY 4 HOURS Pain Label Comments: GIVE BY SLOW PUSH OVER 2-5 MIN MAY INCREASE FALL RISK SUBLIMAZE INJ (FentaNYL CITRATE) NDC: [id number] AMBIEN(ZOLPIDEM TARTRATE) 10 MG TAB Dose: 10 MG ORAL AT BEDTIME PRN Reason: SLEEP Label Comments: MAY INCREASE FALL RISK Zolpidem tartrate 10 MG Oral Tablet (RxNorm): 375011 AMBIEN (ZOLPIDEM TARTRATE) NDC: 42970301204 NORVASC(AmLODIpine BESYLATE) 10 MG TAB Dose: 10 MG ORAL DAILY Label Comments: MAY INCREASE FALL RISK Amlodipine 10 MG Oral Tablet [Norvasc] (RxNorm): 313084 NORVASC (AmLODIpine BESYLATE) NDC: 82541824014 PROTONIX(PANTOPRAZOLE SOD) 40 MG TAB Dose: 40 MG ORAL BID@, pantoprazole 40 MG Delayed Release Oral Tablet [Protonix] (RxNorm): 235232 PROTONIX (PANTOPRAZOLE SOD) NDC: 19124687299 REGLAN(METOCLOPRAMIDE HCL) 10 MG TAB Dose: 10 MG ORAL 3 TIMES DAILY WITH MEALS Rx Order Comments: Order filed UNV: Allergies/Duplicates/Interactions differ from short order cook Label Comments: MAY INCREASE FALL RISK Metoclopramide 10 MG Oral Tablet (RxNorm): 805792 REGLAN (METOCLOPRAMIDE HCL) NDC: 16467501266 IV Medication Carriers: NORMAL SALINE(SODIUM CHLORIDE) 1000 ML INJECTION Dose: 1000 ML INTRAVEN .Q1H (Rate: 1000 MLS/HR Duration: 1 HR) Carriers: 1000 ML Sodium Chloride 9 MG/ML Injection (RxNorm): 3055040 NORMAL SALINE (SODIUM CHLORIDE) NDC: 71362496924 Discharge Medications - Medications that patient should continue to take. Review with physician Visit/Account #[id number] (May 10, 2016 5:30pm - May 14, 2016 12:23pm) Medication Route Sig/Schedule Precondition/Indication Comments/Instructions Codes LEVEMIR FLEXTOUCH(INSULIN DETEMIR) 100 UNIT/1 ML INSULN.PEN Dose: 12 UNIT SUBCUTANEOUSLY AT BEDTIME Rx Instructions: *RX HAS NOT FILLED* 3 ML insulin detemir 100 UNT/ML Pen Injector [Levemir] (RxNorm): 999765 LEVEMIR FLEXTOUCH (INSULIN DETEMIR) NDC: 41976226441 TYLENOL(ACETAMINOPHEN) 500 MG TABLET Dose: 500 MG ORAL Q4H PAIN OR FEVER TYLENOL (ACETAMINOPHEN) NDC: 16315670941 Aspirin Ec(ASPIRIN) 81 MG TAB Dose: 81 MG ORAL DAILY Aspirin 81 MG Delayed Release Oral Tablet (RxNorm): 121988 Aspirin Ec (ASPIRIN) NDC: 45927859855 Crestor(ROSUVASTATIN CALCIUM) 20 MG TAB Dose: 20 MG ORAL DAILY Rx Instructions: *DR OFFICE HAS LISTED 5MG* Rosuvastatin calcium 20 MG Oral Tablet [Crestor] (RxNorm): 011413 Crestor (ROSUVASTATIN CALCIUM) NDC: 41614241740 CARVEDILOL(CARVEDILOL) 12.5 MG TABLET Dose: 12.5 MG ORAL TWICE A DAY carvedilol 12.5 MG Oral Tablet (RxNorm): 541029 CARVEDILOL (CARVEDILOL) NDC: 14715242094 SPIRONOLACTONE(SPIRONOLACTONE) 25 MG TABLET Dose: 100 MG ORAL DAILY Rx Instructions: *PER DR OFFICE LIST. UNABLE TO VERIFY FILLED* Spironolactone 25 MG Oral Tablet (RxNorm): 500620 SPIRONOLACTONE (SPIRONOLACTONE) NDC: 81710831870 K-DUR(POTASSIUM CHLORIDE) 20 MEQ TAB.ER.PRT Dose: 20 MEQ ORAL DAILY Rx Instructions: *PER DR OFFICE LIST. UNABLE TO VERIFY FILLED* Microencapsulated Potassium Chloride 20 MEQ Extended Release Oral Tablet ( RxNorm): 9902872 K-DUR (POTASSIUM CHLORIDE) NDC: 35363746354 Metoclopramide(METOCLOPRAMIDE HCL) 10 MG TAB Dose: 10 MG ORAL 3 TIMES DAILY WITH MEALS Rx Instructions: Take 1 tablet with meals three times daily. Metoclopramide (METOCLOPRAMIDE HCL) NDC: 61037598847 PROTONIX(PANTOPRAZOLE) 40 MG TAB Dose: 40 MG ORAL BID@, Rx Instructions: Take one tablet twice daily. pantoprazole 40 MG Delayed Release Oral Tablet [Protonix] (RxNorm): 667765 PROTONIX (PANTOPRAZOLE) NDC: 23367064208 NORVASC(AmLODIpine BESYLATE) 10 MG TAB Dose: 10 MG ORAL DAILY Amlodipine 10 MG Oral Tablet [Norvasc] (RxNorm): 987738 NORVASC (AmLODIpine BESYLATE) NDC: 09438284806 History Of Encounters Encounters Visit/Account #[id number] (May 10, 2016 5:30pm - May 14, 2016 12:23pm) Account Status Physican Of Record Reason For Visit Visit Diagnosis Start Date/Time Stop Date/Time ER LEE HOOKER MD GI BLEED Not Available May 10, 2016 5:30pm May 10, 2016 7:59pm IN LINA SHELDON MD GI BLEED Not Available May 10, 2016 6:56pm May 14, 2016 12:23pm History of Procedures Procedure List No procedures recorded. Discharge Instructions Discharge Instructions Visit/Account #[id number] (May 10, 2016 5:30pm - May 14, 2016 12:23pm) DISCHARGE INSTRUCTIONS Physician Documentation PROVIDER INSTRUCTIONS Other Discharge Instructions Care Management to help get meds for discharge. Drink plenty of fluids at home and advance diet as tolerated. Other Discharge Instructions Care Management to help get meds for discharge. Drink plenty of fluids at home and advance diet as tolerated. CARE MANAGEMENT/HOME HEALTH Care Management Please help get discharge meds. Patient will need screened for purple card. REASON TO CALL PROVIDER Notify Physician if: Have vomiting, bleeding, or new symptoms FOLLOW UP APPOINTMENTS Follow Up Appointment Date/Time: 1) On Monday, May 16, 2016 your screening for purple card is at 9:30 A.M at [facility] ([phone]). Then you will have Lab (BMP) done at 10:00 A.M 2) Ronna Caal at [facility] ([phone]) on Saturday, May 21, 2016 at 11:00 A.M Follow-up tests/procedures/outpatient needs: BMP on 05/16/16 at [facility] Social History Social History No Social History Data. Immunizations Immunizations Patient Unit Number: [id number] Immunizations No immunizations recorded.
--- OUTSIDE RECORDS SUMMARY | 2018-05-02 14:58 | XMS REPORT | Continuity Of Care Document ---
Author Author [facility] Organization [facility] Address [address] [place] [address] Phone Care Team Providers Care Field Service Manager Name Role Phone SHANTELLE NUNEZ, LUIS Ny AT UNASSIGNED, ED PHYSICIAN Unavailable Unavailable TIM NUNEZ, KORI CP RIZWAN CAAL APRN PP ERIKA NUNEZ, DEEPTHI Coleman CP LUCIANO NUNEZ, SOCORRO Mason AT Results Lab Results Visit/Account #[id number] (May 31, 2016 6:04pm - June 04, 2016 6:54pm) Test Result Date/Time POCGL POCGL(70-110 MG/DL) 90 MG/DL June 01, 2016 6:19am 68 MG/DL June 01, 2016 11:15am 92 MG/DL June 01, 2016 11:59am 82 MG/DL June 01, 2016 5:51pm 82 MG/DL June 01, 2016 8:28pm 90 MG/DL June 02, 2016 5:21am 165 MG/DL June 02, 2016 10:58am 215 MG/DL June 02, 2016 4:25pm 212 MG/DL June 02, 2016 9:37pm 154 MG/DL June 03, 2016 5:03am 115 MG/DL June 03, 2016 10:06am 152 MG/DL June 03, 2016 4:51pm 222 MG/DL June 03, 2016 8:25pm 93 MG/DL June 04, 2016 6:21am 157 MG/DL June 04, 2016 10:47am 147 MG/DL June 04, 2016 4:46pm HEMOGLOBIN AND HEMATOCRIT HEMOGLOBIN(12.0-16.0 G/DL) 6.3 G/DL May 31, 2016 11:59pm 8.9 G/DL June 01, 2016 12:08pm 10.2 G/DL June 01, 2016 6:09pm 9.1 G/DL June 02, 2016 12:28am 9.2 G/DL June 02, 2016 6:01am 8.8 G/DL June 03, 2016 5:10pm HEMATOCRIT(36.0-46.0 %) 20.1 % May 31, 2016 11:59pm 28.2 % June 01, 2016 12:08pm 32.1 % June 01, 2016 6:09pm 28.6 % June 02, 2016 12:28am 28.7 % June 02, 2016 6:01am 28.1 % June 03, 2016 5:10pm COMPLETE BLOOD COUNT WITH DIFF WHITE BLOOD COUNT(4.0-11.0 10E3/UL) 8.0 10E3/UL May 31, 2016 6:07pm 6.4 10E3/UL June 01, 2016 6:19am 6.4 10E3/UL June 03, 2016 7:02am 7.1 10E3/UL June 04, 2016 7:18am RED BLOOD COUNT(4.00-5.20 10E6/UL) 2.49 10E6/UL May 31, 2016 6:07pm 3.26 10E6/UL June 01, 2016 6:19am 2.91 10E6/UL June 03, 2016 7:02am 2.99 10E6/UL June 04, 2016 7:18am HEMOGLOBIN(12.0-16.0 G/DL) 7.4 G/DL May 31, 2016 6:07pm 9.5 G/DL June 01, 2016 6:19am 8.6 G/DL June 03, 2016 7:02am 8.7 G/DL June 04, 2016 7:18am HEMATOCRIT(36.0-46.0 %) 24.3 % May 31, 2016 6:07pm 29.8 % June 01, 2016 6:19am 26.8 % June 03, 2016 7:02am 27.4 % June 04, 2016 7:18am MEAN CORPUSCULAR VOLUME(82.0-100.0 FL) 97.6 FL May 31, 2016 6:07pm 91.4 FL June 01, 2016 6:19am 92.1 FL June 03, 2016 7:02am 91.6 FL June 04, 2016 7:18am MEAN CORPUSCULAR HEMOGLOBIN(26.0-34.0 PG) 29.7 PG May 31, 2016 6:07pm 29.1 PG June 01, 2016 6:19am 29.6 PG June 03, 2016 7:02am 29.1 PG June 04, 2016 7:18am MEAN CORPUSCULAR HGB CONC(31.5-36.5 G/DL) 30.5 G/DL May 31, 2016 6:07pm 31.9 G/DL June 01, 2016 6:19am 32.1 G/DL June 03, 2016 7:02am 31.8 G/DL June 04, 2016 7:18am RED CELL DISTRIBUTION WIDTH(11.5-14.5 %) 12.8 % May 31, 2016 6:07pm 14.1 % June 01, 2016 6:19am 13.9 % June 03, 2016 7:02am 13.7 % June 04, 2016 7:18am 777-3: PLATELET COUNT(150-450 10E3/UL) 233 10E3/UL May 31, 2016 6:07pm 212 10E3/UL June 01, 2016 6:19am 203 10E3/UL June 03, 2016 7:02am 198 10E3/UL June 04, 2016 7:18am MEAN PLATELET VOLUME(8.2-12.4 FL) 10.4 FL May 31, 2016 6:07pm 10.5 FL June 01, 2016 6:19am 10.6 FL June 03, 2016 7:02am 10.3 FL June 04, 2016 7:18am NEUTROPHILS % (AUTO)(40-70 %) 62 % May 31, 2016 6:07pm 55 % June 01, 2016 6:19am 54 % June 03, 2016 7:02am 52 % June 04, 2016 7:18am LYMPHOCYTES % (AUTO)(15-45 %) 26 % May 31, 2016 6:07pm 30 % June 01, 2016 6:19am 32 % June 03, 2016 7:02am 33 % June 04, 2016 7:18am MONOCYTES % (AUTO)(2-10 %) 8 % May 31, 2016 6:07pm 9 % June 01, 2016 6:19am 10 % June 03, 2016 7:02am 11 % June 04, 2016 7:18am EOSINOPHILS % (AUTO)(0-6 %) 4 % May 31, 2016 6:07pm 5 % June 01, 2016 6:19am 3 % June 03, 2016 7:02am 4 % June 04, 2016 7:18am BASOPHILS % (AUTO)(0-1 %) 0 % May 31, 2016 6:07pm 1 % June 01, 2016 6:19am 0 % June 03, 2016 7:02am 0 % June 04, 2016 7:18am IMMATURE GRANS % (AUTO)(0-0 %) 0 % May 31, 2016 6:07pm 1 % June 01, 2016 6:19am 1 % June 03, 2016 7:02am 0 % June 04, 2016 7:18am NUCLEATED RBCS (AUTO)(0-0 %) 0 % May 31, 2016 6:07pm 0 % June 01, 2016 6:19am 0 % June 03, 2016 7:02am 0 % June 04, 2016 7:18am NEUTROPHILS # (AUTO)(2.5-7.5 10E3/UL) 5.0 10E3/UL May 31, 2016 6:07pm 3.5 10E3/UL June 01, 2016 6:19am 3.5 10E3/UL June 03, 2016 7:02am 3.7 10E3/UL June 04, 2016 7:18am LYMPHOCYTES # (AUTO)(1.0-4.0 10E3/UL) 2.1 10E3/UL May 31, 2016 6:07pm 1.9 10E3/UL June 01, 2016 6:19am 2.0 10E3/UL June 03, 2016 7:02am 2.3 10E3/UL June 04, 2016 7:18am MONOCYTES # (AUTO)(0.2-0.8 10E3/UL) 0.6 10E3/UL May 31, 2016 6:07pm 0.6 10E3/UL June 01, 2016 6:19am 0.7 10E3/UL June 03, 2016 7:02am 0.8 10E3/UL June 04, 2016 7:18am EOSINOPHILS # (AUTO)(0.0-0.4 10E3/UL) 0.3 10E3/UL May 31, 2016 6:07pm 0.3 10E3/UL June 01, 2016 6:19am 0.2 10E3/UL June 03, 2016 7:02am 0.3 10E3/UL June 04, 2016 7:18am BASOPHILS # (AUTO)(0.0-0.2 10E3/UL) 0.0 10E3/UL May 31, 2016 6:07pm 0.0 10E3/UL June 01, 2016 6:19am 0.0 10E3/UL June 03, 2016 7:02am 0.0 10E3/UL June 04, 2016 7:18am IMMATURE GRANS # (AUTO)(0.0-0.0 10E3/UL) 0.0 10E3/UL May 31, 2016 6:07pm 0.0 10E3/UL June 01, 2016 6:19am 0.0 10E3/UL June 03, 2016 7:02am 0.0 10E3/UL June 04, 2016 7:18am DIFF TYPE AUTOMATED May 31, 2016 6:07pm AUTOMATED June 01, 2016 6:19am AUTOMATED June 03, 2016 7:02am AUTOMATED June 04, 2016 7:18am ERYTHROCYTE SEDIMENTATION RATE ERYTHROCYTE SEDIMENTATION RATE(0-20 MM/HR) 51 MM/HR June 03, 2016 7:02am PROTHROMBIN TIME WITH INR PROTHROMBIN TIME(12.1-14.0 SEC) 13.8 SEC May 31, 2016 6:07pm 13.2 SEC June 03, 2016 7:02am 43221-0: INR 1.06 Result Comments: INR reference interval applies to patients on anticoagulant therapy. Suggested INR therapeutic range for oral anticoagulant therapy: (Stabilized anticoagulated patients) Routine Therapy: 2.0 to 3.0 Recurrent Myocardial Infarction: 2.5 to 3.5 Mechanical Prosthetic Valves: 2.5 to 3.5 May 31, 2016 6:07pm 1.00 Result Comments: INR reference interval applies to patients on anticoagulant therapy. Suggested INR therapeutic range for oral anticoagulant therapy: (Stabilized anticoagulated patients) Routine Therapy: 2.0 to 3.0 Recurrent Myocardial Infarction: 2.5 to 3.5 Mechanical Prosthetic Valves: 2.5 to 3.5 June 03, 2016 7:02am PARTIAL THROMBOPLASTIN TIME PARTIAL THROMBOPLASTIN TIME(22.2-37.4 SEC) 30.7 SEC May 31, 2016 6:07pm 23.5 SEC June 03, 2016 7:02am UA WITH SCREEN FOR CULTURE COLOR,URINE LIGHT YELLOW May 31, 2016 8:09pm CLARITY,URINE CLEAR May 31, 2016 8:09pm GLUCOSE, URINE(NEGATIVE MG/DL) 100 MG/DL May 31, 2016 8:09pm URINE BILIRUBIN(NEGATIVE) NEGATIVE May 31, 2016 8:09pm KETONES,URINE(NEGATIVE MG/DL) NEGATIVE MG/DL May 31, 2016 8:09pm URINE SPECIFIC GRAVITY(1.001-1.035) 1.013 May 31, 2016 8:09pm URINE BLOOD(NEGATIVE) SMALL May 31, 2016 8:09pm URINE PH(5.0-9.0) 6.0 May 31, 2016 8:09pm URINE PROTEIN(Less than 20 MG/DL) Greater than 2000 MG/DL May 31, 2016 8:09pm URINE UROBILINOGEN(0.2-1.0 MG/DL) 0.2-1.0 MG/DL May 31, 2016 8:09pm URINE NITRITE(NEGATIVE) NEGATIVE May 31, 2016 8:09pm LEUKOCYTE ESTERASE ,URINE(NEGATIVE) NEGATIVE May 31, 2016 8:09pm URINE RBCS(0-3 /HPF) 8-12 /HPF May 31, 2016 8:09pm URINE WBCS(0-3 /HPF) 4-7 /HPF May 31, 2016 8:09pm URINE EPITHELIAL CELLS(0-3 /HPF) 8-12 /HPF May 31, 2016 8:09pm URINE HYALINE CASTS(0-3 /LPF) 4-7 /LPF May 31, 2016 8:09pm URINE BACTERIA(NEGATIVE /HPF) 1+ /HPF May 31, 2016 8:09pm URINE CULTURE NOT INDICATED May 31, 2016 8:09pm URINE MICROSCOPIC REQUIRED YES May 31, 2016 8:09pm MICROALBUMIN/CREATININE RATIO URINE CREATININE, RANDOM(MG/DL) 50.13 MG/DL June 01, 2016 6:05pm MICROALBUMIN RANDOM(0.0-1.8 MG/DL) 267.0 MG/DL June 01, 2016 6:05pm MICROALBUMIN/CRET RATIO(0.0-29.9 UG/MG) 5326.2 UG/MG June 01, 2016 6:05pm COMPLETE METABOLIC PROFILE GLUCOSE(70-110 MG/DL) 122 MG/DL May 31, 2016 6:07pm 95 MG/DL June 01, 2016 6:19am 138 MG/DL June 03, 2016 7:02am 89 MG/DL June 04, 2016 7:18am BLOOD UREA NITROGEN(6-20 MG/DL) 56 MG/DL May 31, 2016 6:07pm 54 MG/DL June 01, 2016 6:19am 54 MG/DL June 03, 2016 7:02am 55 MG/DL June 04, 2016 7:18am CREATININE(0.50-1.20 MG/DL) 3.74 MG/DL May 31, 2016 6:07pm 3.61 MG/DL June 01, 2016 6:19am 3.97 MG/DL June 03, 2016 7:02am 4.03 MG/DL June 04, 2016 7:18am EST GLOMERULAR FILTRATION RATE(Greater than or equal to 60) 12 Result Comments: If the patient is of -Guyanese descent/extraction multiply the eGFR value by 1.212 to obtain the actual eGFR. >=60 mg/dL Normal 30-59 mg/dL Moderate Kidney Disease 15-29 mg/dL Severe Kidney Disease <15 mg/dL Kidney Failure May 31, 2016 6:07pm 13 Result Comments: If the patient is of -Guy[place] descent/extraction multiply the eGFR value by 1.212 to obtain the actual eGFR. >=60 mg/dL Normal 30-59 mg/dL Moderate Kidney Disease 15-29 mg/dL Severe Kidney Disease <15 mg/dL Kidney Failure June 01, 2016 6:19am 12 Result Comments: If the patient is of -[place] descent/extraction multiply the eGFR value by 1.212 to obtain the actual eGFR. >=60 mg/dL Normal 30-59 mg/dL Moderate Kidney Disease 15-29 mg/dL Severe Kidney Disease <15 mg/dL Kidney Failure June 03, 2016 7:02am 11 Result Comments: If the patient is of -[place] descent/extraction multiply the eGFR value by 1.212 to obtain the actual eGFR. >=60 mg/dL Normal 30-59 mg/dL Moderate Kidney Disease 15-29 mg/dL Severe Kidney Disease <15 mg/dL Kidney Failure June 04, 2016 7:18am BUN CREATININE RATIO(10.0-20.0 RATIO) 15.0 RATIO May 31, 2016 6:07pm 15.0 RATIO June 01, 2016 6:19am 14.0 RATIO June 03, 2016 7:02am 14.0 RATIO June 04, 2016 7:18am SODIUM(135-145 MMOL/L) 139 MMOL/L May 31, 2016 6:07pm 139 MMOL/L June 01, 2016 6:19am 137 MMOL/L June 03, 2016 7:02am 139 MMOL/L June 04, 2016 7:18am POTASSIUM(3.6-5.0 MMOL/L) 6.2 MMOL/L May 31, 2016 6:07pm 5.8 MMOL/L June 01, 2016 6:19am 5.3 MMOL/L June 03, 2016 7:02am 5.1 MMOL/L June 04, 2016 7:18am CHLORIDE(101-111 MMOL/L) 116 MMOL/L May 31, 2016 6:07pm 112 MMOL/L June 01, 2016 6:19am 110 MMOL/L June 03, 2016 7:02am 111 MMOL/L June 04, 2016 7:18am CO2(21-31 MMOL/L) 18 MMOL/L May 31, 2016 6:07pm 18 MMOL/L June 01, 2016 6:19am 20 MMOL/L June 03, 2016 7:02am 19 MMOL/L June 04, 2016 7:18am ANION GAP(8-18) 11 May 31, 2016 6:07pm 15 June 01, 2016 6:19am 12 June 03, 2016 7:02am 14 June 04, 2016 7:18am OSMO CALCULATED(270.0-290.0) 294.3 May 31, 2016 6:07pm 292.1 June 01, 2016 6:19am 290.8 June 03, 2016 7:02am 292.1 June 04, 2016 7:18am CALCIUM(8.5-10.5 MG/DL) 8.2 MG/DL May 31, 2016 6:07pm 8.4 MG/DL June 01, 2016 6:19am 8.0 MG/DL June 03, 2016 7:02am 8.0 MG/DL June 04, 2016 7:18am BILIRUBIN,TOTAL(0.1-1.2 MG/DL) 0.3 MG/DL May 31, 2016 6:07pm 0.7 MG/DL June 01, 2016 6:19am 0.4 MG/DL June 03, 2016 7:02am 0.4 MG/DL June 04, 2016 7:18am ALKALINE PHOSPHATASE(42-121 IU/L) 151 IU/L May 31, 2016 6:07pm 138 IU/L June 01, 2016 6:19am 96 IU/L June 03, 2016 7:02am 87 IU/L June 04, 2016 7:18am ASPARTATE AMINO TRANSFERASE(10-42 IU/L) 20 IU/L May 31, 2016 6:07pm 14 IU/L June 01, 2016 6:19am 10 IU/L June 03, 2016 7:02am 9 IU/L June 04, 2016 7:18am ALANINE AMINOTRANSFERASE(10-60 IU/L) 29 IU/L May 31, 2016 6:07pm 24 IU/L June 01, 2016 6:19am 13 IU/L June 03, 2016 7:02am 12 IU/L June 04, 2016 7:18am TOTAL PROTEIN(6.4-8.2 G/DL) 6.9 G/DL May 31, 2016 6:07pm 6.5 G/DL June 01, 2016 6:19am 5.9 G/DL June 03, 2016 7:02am 5.9 G/DL June 04, 2016 7:18am ALBUMIN(3.5-5.5 G/DL) 3.0 G/DL May 31, 2016 6:07pm 2.9 G/DL June 01, 2016 6:19am 2.7 G/DL June 03, 2016 7:02am 2.8 G/DL June 04, 2016 7:18am GLOBULIN(2.4-3.6) 3.9 May 31, 2016 6:07pm 3.6 June 01, 2016 6:19am 3.2 June 03, 2016 7:02am 3.1 June 04, 2016 7:18am ALBUMIN/GLOBULIN RATIO(0.9-1.8 RATIO) 0.8 RATIO May 31, 2016 6:07pm 0.8 RATIO June 01, 2016 6:19am 0.8 RATIO June 03, 2016 7:02am 0.9 RATIO June 04, 2016 7:18am BASIC METABOLIC PANEL GLUCOSE(70-110 MG/DL) 106 MG/DL May 31, 2016 8:01pm 65 MG/DL May 31, 2016 10:08pm 217 MG/DL June 01, 2016 2:22am 60 MG/DL June 01, 2016 9:54am 99 MG/DL June 01, 2016 1:52pm 83 MG/DL June 01, 2016 6:09pm 196 MG/DL June 01, 2016 9:47pm 108 MG/DL June 02, 2016 12:28am 90 MG/DL June 02, 2016 6:01am BLOOD UREA NITROGEN(6-20 MG/DL) 56 MG/DL May 31, 2016 8:01pm 55 MG/DL May 31, 2016 10:08pm 55 MG/DL June 01, 2016 2:22am 54 MG/DL June 01, 2016 9:54am 56 MG/DL June 01, 2016 1:52pm 52 MG/DL June 01, 2016 6:09pm 53 MG/DL June 01, 2016 9:47pm 53 MG/DL June 02, 2016 12:28am 51 MG/DL June 02, 2016 6:01am CREATININE(0.50-1.20 MG/DL) 3.77 MG/DL May 31, 2016 8:01pm 3.71 MG/DL May 31, 2016 10:08pm 3.77 MG/DL June 01, 2016 2:22am 3.69 MG/DL June 01, 2016 9:54am 3.80 MG/DL June 01, 2016 1:52pm 3.73 MG/DL June 01, 2016 6:09pm 3.73 MG/DL June 01, 2016 9:47pm 3.68 MG/DL June 02, 2016 12:28am 3.73 MG/DL June 02, 2016 6:01am EST GLOMERULAR FILTRATION RATE(Greater than or equal to 60) 12 Result Comments: If the patient is of -[place] descent/extraction multiply the eGFR value by 1.212 to obtain the actual eGFR. >=60 mg/dL Normal 30-59 mg/dL Moderate Kidney Disease 15-29 mg/dL Severe Kidney Disease <15 mg/dL Kidney Failure May 31, 2016 8:01pm 13 Result Comments: If the patient is of -[place] descent/extraction multiply the eGFR value by 1.212 to obtain the actual eGFR. >=60 mg/dL Normal 30-59 mg/dL Moderate Kidney Disease 15-29 mg/dL Severe Kidney Disease <15 mg/dL Kidney Failure May 31, 2016 10:08pm 12 Result Comments: If the patient is of -[place] descent/extraction multiply the eGFR value by 1.212 to obtain the actual eGFR. >=60 mg/dL Normal 30-59 mg/dL Moderate Kidney Disease 15-29 mg/dL Severe Kidney Disease <15 mg/dL Kidney Failure June 01, 2016 2:22am 13 Result Comments: If the patient is of -[place]anese descent/extraction multiply the eGFR value by 1.212 to obtain the actual eGFR. >=60 mg/dL Normal 30-59 mg/dL Moderate Kidney Disease 15-29 mg/dL Severe Kidney Disease <15 mg/dL Kidney Failure June 01, 2016 9:54am 12 Result Comments: If the patient is of -[place]anese descent/extraction multiply the eGFR value by 1.212 to obtain the actual eGFR. >=60 mg/dL Normal 30-59 mg/dL Moderate Kidney Disease 15-29 mg/dL Severe Kidney Disease <15 mg/dL Kidney Failure June 01, 2016 1:52pm 13 Result Comments: If the patient is of -[place] descent/extraction multiply the eGFR value by 1.212 to obtain the actual eGFR. >=60 mg/dL Normal 30-59 mg/dL Moderate Kidney Disease 15-29 mg/dL Severe Kidney Disease <15 mg/dL Kidney Failure June 01, 2016 6:09pm 13 Result Comments: If the patient is of -[place] descent/extraction multiply the eGFR value by 1.212 to obtain the actual eGFR. >=60 mg/dL Normal 30-59 mg/dL Moderate Kidney Disease 15-29 mg/dL Severe Kidney Disease <15 mg/dL Kidney Failure June 01, 2016 9:47pm 13 Result Comments: If the patient is of -[place] descent/extraction multiply the eGFR value by 1.212 to obtain the actual eGFR. >=60 mg/dL Normal 30-59 mg/dL Moderate Kidney Disease 15-29 mg/dL Severe Kidney Disease <15 mg/dL Kidney Failure June 02, 2016 12:28am 13 Result Comments: If the patient is of -[place] descent/extraction multiply the eGFR value by 1.212 to obtain the actual eGFR. >=60 mg/dL Normal 30-59 mg/dL Moderate Kidney Disease 15-29 mg/dL Severe Kidney Disease <15 mg/dL Kidney Failure June 02, 2016 6:01am BUN CREATININE RATIO(10.0-20.0 RATIO) 15.0 RATIO May 31, 2016 8:01pm 15.0 RATIO May 31, 2016 10:08pm 15.0 RATIO June 01, 2016 2:22am 15.0 RATIO June 01, 2016 9:54am 15.0 RATIO June 01, 2016 1:52pm 14.0 RATIO June 01, 2016 6:09pm 14.0 RATIO June 01, 2016 9:47pm 14.0 RATIO June 02, 2016 12:28am 14.0 RATIO June 02, 2016 6:01am SODIUM(135-145 MMOL/L) 140 MMOL/L May 31, 2016 8:01pm 141 MMOL/L May 31, 2016 10:08pm 139 MMOL/L June 01, 2016 2:22am 140 MMOL/L June 01, 2016 9:54am 139 MMOL/L June 01, 2016 1:52pm 139 MMOL/L June 01, 2016 6:09pm 137 MMOL/L June 01, 2016 9:47pm 137 MMOL/L June 02, 2016 12:28am 139 MMOL/L June 02, 2016 6:01am POTASSIUM(3.6-5.0 MMOL/L) 5.8 MMOL/L May 31, 2016 8:01pm 6.2 MMOL/L May 31, 2016 10:08pm 6.1 MMOL/L June 01, 2016 2:22am 5.8 MMOL/L June 01, 2016 9:54am 6.1 MMOL/L June 01, 2016 1:52pm 6.1 MMOL/L June 01, 2016 6:09pm 5.6 MMOL/L June 01, 2016 9:47pm 5.9 MMOL/L June 02, 2016 12:28am 5.7 MMOL/L June 02, 2016 6:01am CHLORIDE(101-111 MMOL/L) 114 MMOL/L May 31, 2016 8:01pm 118 MMOL/L May 31, 2016 10:08pm 116 MMOL/L June 01, 2016 2:22am 115 MMOL/L June 01, 2016 9:54am 112 MMOL/L June 01, 2016 1:52pm 109 MMOL/L June 01, 2016 6:09pm 110 MMOL/L June 01, 2016 9:47pm 112 MMOL/L June 02, 2016 12:28am 111 MMOL/L June 02, 2016 6:01am CO2(21-31 MMOL/L) 19 MMOL/L May 31, 2016 8:01pm 19 MMOL/L May 31, 2016 10:08pm 17 MMOL/L June 01, 2016 2:22am 18 MMOL/L June 01, 2016 9:54am 18 MMOL/L June 01, 2016 1:52pm 18 MMOL/L June 01, 2016 6:09pm 18 MMOL/L June 01, 2016 9:47pm 19 MMOL/L June 02, 2016 12:28am 19 MMOL/L June 02, 2016 6:01am ANION GAP(8-18) 13 May 31, 2016 8:01pm 10 May 31, 2016 10:08pm 12 June 01, 2016 2:22am 13 June 01, 2016 9:54am 15 June 01, 2016 1:52pm 18 June 01, 2016 6:09pm 15 June 01, 2016 9:47pm 12 June 02, 2016 12:28am 15 June 02, 2016 6:01am OSMO CALCULATED(270.0-290.0) 295.3 May 31, 2016 8:01pm 294.5 May 31, 2016 10:08pm 299.2 June 01, 2016 2:22am 292.0 June 01, 2016 9:54am 293.0 June 01, 2016 1:52pm 290.7 June 01, 2016 6:09pm 293.6 June 01, 2016 9:47pm 288.7 June 02, 2016 12:28am 290.8 June 02, 2016 6:01am CALCIUM(8.5-10.5 MG/DL) 8.5 MG/DL May 31, 2016 8:01pm 8.1 MG/DL May 31, 2016 10:08pm 8.2 MG/DL June 01, 2016 2:22am 8.3 MG/DL June 01, 2016 9:54am 8.3 MG/DL June 01, 2016 1:52pm 8.6 MG/DL June 01, 2016 6:09pm 8.5 MG/DL June 01, 2016 9:47pm 8.3 MG/DL June 02, 2016 12:28am 8.4 MG/DL June 02, 2016 6:01am LACTATE DEHYDROGENASE LACTATE DEHYDROGENASE(91-180 IU/L) 182 IU/L June 03, 2016 7:02am CARDIAC TROPONIN I CARDIAC TROPONIN I(0.01-0.04 NG/ML) 0.03 NG/ML Result Comments: REFERENCE RANGES: NEGATIVE < 0.04 NG/ML POSSIBLE MYCARDIAL INVOLVEMENT >/=0.04 NG/ML INTERPRET TROPONIN I RESULT IN LIGHT OF THE TOTAL CLINICAL PRESENTATION INCLUDING CLINICAL HISTORY. ANY CONDITION RESULTING IN MYOCARDIAL INJURY CAN POTENTIALLY ELEVATE TROPONIN I LEVELS ABOVE EXPECTED NORMAL RANGES. NOTE NEW REFERENCE RANGE May 31, 2016 6:07pm 0.02 NG/ML Result Comments: REFERENCE RANGES: NEGATIVE < 0.04 NG/ML POSSIBLE MYCARDIAL INVOLVEMENT >/=0.04 NG/ML INTERPRET TROPONIN I RESULT IN LIGHT OF THE TOTAL CLINICAL PRESENTATION INCLUDING CLINICAL HISTORY. ANY CONDITION RESULTING IN MYOCARDIAL INJURY CAN POTENTIALLY ELEVATE TROPONIN I LEVELS ABOVE EXPECTED NORMAL RANGES. NOTE NEW REFERENCE RANGE May 31, 2016 11:59pm 0.03 NG/ML Result Comments: REFERENCE RANGES: NEGATIVE < 0.04 NG/ML POSSIBLE MYCARDIAL INVOLVEMENT >/=0.04 NG/ML INTERPRET TROPONIN I RESULT IN LIGHT OF THE TOTAL CLINICAL PRESENTATION INCLUDING CLINICAL HISTORY. ANY CONDITION RESULTING IN MYOCARDIAL INJURY CAN POTENTIALLY ELEVATE TROPONIN I LEVELS ABOVE EXPECTED NORMAL RANGES. NOTE NEW REFERENCE RANGE June 01, 2016 6:19am BETA NATRIURETIC PEPTIDE BETA NATRIURETIC PEPTIDE(0-100 PG/ML) 671 PG/ML May 31, 2016 6:07pm IRON PROFILE IRON(40-160 UG/DL) 41 UG/DL June 03, 2016 7:02am IRON BINDING CAPACITY, TOTAL(250-400 UG/DL) 218 UG/DL June 03, 2016 7:02am TRANSFERRIN(192-382 MG/DL) 156 MG/DL June 03, 2016 7:02am IRON SATURATION(20-50 %) 19 % June 03, 2016 7:02am LACTIC ACID LACTIC ACID(0.5-2.0 MMOL/L) 1.0 MMOL/L June 03, 2016 7:02am FERRITIN FERRITIN(11.0-306.8 NG/ML) 130.1 NG/ML June 03, 2016 7:02am COMPLEMENT C3 COMPLEMENT C3(82-167 mg/dL) 113 mg/dL Result Comments: Performed at: - [facility] [address], [place], [place] [id number] Firm Administrator: SHAILA Davila MD, Phone: [phone] June 03, 2016 7:02am COMPLEMENT C4 COMPLEMENT C4(14-44 mg/dL) 24 mg/dL June 03, 2016 7:02am FREE KAPPA & LAMDA LIGHT CHAIN LAMDA LIGHT CHAIN FREE KAPPA LIGHT CHAIN(3.30-19.40 mg/L) 136.05 mg/L June 03, 2016 7:02am FREE LAMBDA LIGHT CHAIN(5.71-26.30 mg/L) 87.74 mg/L June 03, 2016 7:02am KAPPA/LAMBDA RATIO(0.26-1.65) 1.55 June 03, 2016 7:02am JEOVANY & PE SERUM PE SERUM PROTEIN, TOTAL(6.0-8.5 g/dL) 5.4 g/dL June 03, 2016 7:02am ALBUMIN(2.9-4.4 g/dL) 2.5 g/dL June 03, 2016 7:02am OXETC-0-UNEDIUCI(0.0-0.4 g/dL) 0.2 g/dL June 03, 2016 7:02am XVHZX-0-ACEUYWFO(0.4-1.0 g/dL) 0.7 g/dL June 03, 2016 7:02am BETA GLOBULIN(0.7-1.3 g/dL) 0.9 g/dL June 03, 2016 7:02am GAMMA GLOBULIN(0.4-1.8 g/dL) 1.1 g/dL June 03, 2016 7:02am M-SPIKE(Not Observed g/dL) Not Observed g/dL June 03, 2016 7:02am GLOBULIN, TOTAL(2.2-3.9 g/dL) 2.9 g/dL June 03, 2016 7:02am A/G RATIO(0.7-1.7) 0.9 June 03, 2016 7:02am IMMUNOGLOBULIN G(700-1600 mg/dL) 998 mg/dL June 03, 2016 7:02am IMMUNOGLOBULIN A(87-352 mg/dL) 247 mg/dL June 03, 2016 7:02am IMMUNOGLOBULIN M(26-217 mg/dL) 63 mg/dL June 03, 2016 7:02am JEOVANY & PE, RANDOM URINE PE, RANDOM URINE PROTEIN,URINE TOTAL(Not Estab. mg/dL) 640.6 mg/dL Result Comments: Results confirmed on dilution. June 02, 2016 10:25pm ALBUMIN, URINE(. %) 56.4 % June 02, 2016 10:25pm ULSLR-0-CVOHWFLU URINE(. %) 2.5 % June 02, 2016 10:25pm [id number]-7-[id number] URINE(. %) 10.2 % June 02, 2016 10:25pm BETA GLOBULIN, URINE(. %) 13.3 % June 02, 2016 10:25pm GAMMA GLOBULIN, URINE(. %) 17.6 % June 02, 2016 10:25pm M-SPIKE,%(Not Observed %) Not Observed % June 02, 2016 10:25pm SVEN W/REFLEX ANINUCLEAR ANTIBODIES DIRECT(Negative) Negative Result Comments: Performed at: [facility] [employer] [id number] Firm Administrator: SHAILA Davila MD, Phone: [phone] June 03, 2016 7:02am ANTI DNA DS ANTIBODY ANTI DNA DS ANTIBODY(0-9 IU/mL) 1 IU/mL Result Comments: Negative <5 Equivocal 5 - 9 Positive >9 Performed at: [address] [id number] Firm Administrator: SHAILA Davila MD, Phone: [phone] June 03, 2016 7:02am ANCA PANEL ANTIMYEOLOPEROXIDASE AB(0.0-9.0 U/mL) Less than 9.0 U/mL June 03, 2016 7:02am ANTIPROTEINASE 3 ANTIBODY(0.0-3.5 U/mL) Less than 3.5 U/mL June 03, 2016 7:02am CYTOPLASMIC (C-ANCA)(Neg:<1:20 titer) Less than 1:20 titer June 03, 2016 7:02am PERINUCLEAR (P-ANCA)(Neg:<1:20 titer) Less than 1:20 titer Result Comments: The presence of positive fluorescence exhibiting P-ANCA or C-ANCA patterns alone is not specific for the diagnosis of Beatriz's Granulomatosis (WG) or microscopic polyangiitis. Decisions about treatment should not be based solely on ANCA IFA results. The [employer] ANCA [employer] Consensus recommends follow up testing of positive sera with both DE- 3 and MPO-ANCA enzyme immunoassays. As many as 5% serum samples are positive only by EIA. Ref. AM J Clin Pathol 1999;111:507-513. June 03, 2016 7:02am ATYPICAL pANCA(Neg:<1:20 titer) Less than 1:20 titer Result Comments: The atypical pANCA pattern has been observed in a significant percentage of patients with ulcerative colitis, primary sclerosing cholangitis and autoimmune hepatitis. Performed at: [facility] [employer] [id number] Firm Administrator: Bhaskar Harvey MD, Phone: [phone] June 03, 2016 7:02am Microbiology Results Visit/Account #[id number] (May 31, 2016 6:04pm - June 04, 2016 6:54pm) Procedure Result HEMOCCULT OCCULT BLOOD Result Instance On June 01, 2016 3:45pm Source: STOOL Result Prompts: OCCULT BLOOD NEGATIVE Bloodbank Results Visit/Account #[id number] (May 31, 2016 6:04pm - June 04, 2016 6:54pm) Test Result ABO/RH BLOOD TYPE B NEGATIVE on May 31, 2016 11:55pm ANTIBODY SCREEN ANTIBODY SCREEN NEGATIVE on May 31, 2016 11:55pm Allergies and Adverse Reactions Allergies and Adverse Reactions Patient Unit Number: [id number] Agent Type Reaction Severity Status PENICILLINS Drug Allergy RASH Moderate Active CODEINE Drug Allergy RASH Mild Active Problem List Problem List Visit/Account #[id number] (May 31, 2016 6:04pm - June 04, 2016 6:54pm) Acute Problems: Code/Condition Comments Documented Start Date Documented Resolved Date Code (s) CHF exacerbation ICD10: I50.9 CHF exacerbation SNOMED: 43745082 Acute exacerbation of congestive heart failure Acute on chronic renal failure ICD10: N17.9 Acute on chronic renal failure SNOMED: 795825286 Otvxk-lz-znevlqo renal failure Patient Unit Number: [id number] Chronic Problems: Code/Condition Comments Documented Start Date Documented Resolved Date Code (s) New onset type 1 diabetes mellitus, uncontrolled ICD9: 250.03 New onset type 1 diabetes mellitus, uncontrolled SNOMED: 659274221 New onset type 1 diabetes mellitus, uncontrolled Hypertension ICD9: 401.9 Hypertension SNOMED: 65171886 Hypertension Anemia, chronic disease ICD10: D63.8 Anemia, chronic disease SNOMED: 648424573 Chronic disease anemia Anemia ICD10: D64.9 Anemia SNOMED: 029470379 Anemia CHF (congestive heart failure) ICD10: I50.9 CHF (congestive heart failure) SNOMED: 89484413 CHF (congestive heart failure) Diabetes mellitus ICD10: E11.9 Diabetes mellitus SNOMED: 94817651 Diabetes mellitus Depression ICD10: F32.9 Depression SNOMED: 59164346 Depression Plan of Care Plan Of Care Visit/Account #[id number] (May 31, 2016 6:04pm - June 04, 2016 6:54pm) Patient Instructions Instructions DI for Hyperkalemia Hydralazine Carvedilol Vital Signs Vital Signs Visit/Account #[id number] (May 31, 2016 6:04pm - June 04, 2016 6:54pm) Sign First Result Last Result Code(s) Blood Pressure 156/ 76 mm[Hg] On May 31, 2016 9:40pm 153/ 73 mm[Hg] On June 04, 2016 1:17pm 8462-4 BP Diastolic 8480-6 BP Systolic Heart Rate/Pulse Pulse Rate (adult): 77 /min On May 31, 2016 9:40pm Pulse Rate (adult): 81 /min On June 04, 2016 1:17pm 8867-4 Heart Rate Respiratory Rate Respiratory Rate: 20 /min On May 31, 2016 9:40pm Respiratory Rate: 18 /min On June 04, 2016 1:17pm 9279-1 Respiratory Rate Temperature in Fahrenheit Temperature (Fahrenheit): 98.6 [degF] On May 31, 2016 6:03pm Temperature (Fahrenheit): 98.0 [degF] On June 04, 2016 1:17pm 8310-5 Body Temperature Weight in Kilograms Weight (Kilograms): 80.0000 kg On May 31, 2016 6:03pm 3141-9 Weight Measured Functional Status Functional and Cognitive Status No Functional Status Data Medications Home Medications - Medications that the patient was taking prior to arrival at the hospital Visit/Account #[id number] (May 31, 2016 6:04pm - June 04, 2016 6:54pm) Medication Route Sig/Schedule Precondition/Indication Comments/Instructions Codes LEVEMIR FLEXTOUCH(INSULIN DETEMIR) 100 UNIT/1 ML INSULN.PEN Dose: 12 UNIT SUBCUTANEOUSLY AT BEDTIME Rx Note Text Comments: *RX HAS NOT FILLED, PT STATES SHE TAKES* 3 ML insulin detemir 100 UNT/ML Pen Injector [Levemir] (RxNorm): 129841 LEVEMIR FLEXTOUCH (INSULIN DETEMIR) NDC: 34032332288 TYLENOL(ACETAMINOPHEN) 500 MG TABLET Dose: 500 MG ORAL Q4H PAIN OR FEVER TYLENOL (ACETAMINOPHEN) NDC: 39879799371 Aspirin Ec(ASPIRIN) 81 MG TAB Dose: 81 MG ORAL DAILY Aspirin 81 MG Delayed Release Oral Tablet (RxNorm): 504504 Aspirin Ec (ASPIRIN) NDC: 97379466788 Crestor(ROSUVASTATIN CALCIUM) 20 MG TAB Dose: 20 MG ORAL DAILY Rosuvastatin calcium 20 MG Oral Tablet [Crestor] (RxNorm): 849006 Crestor (ROSUVASTATIN CALCIUM) NDC: 48777274949 CARVEDILOL(CARVEDILOL) 12.5 MG TABLET Dose: 12.5 MG ORAL TWICE A DAY carvedilol 12.5 MG Oral Tablet (RxNorm): 844380 CARVEDILOL (CARVEDILOL) NDC: 94349230164 SPIRONOLACTONE(SPIRONOLACTONE) 25 MG TABLET Dose: 100 MG ORAL DAILY Spironolactone 25 MG Oral Tablet (RxNorm): 950633 SPIRONOLACTONE (SPIRONOLACTONE) NDC: 53179139215 K-DUR(POTASSIUM CHLORIDE) 20 MEQ TAB.ER.PRT Dose: 20 MEQ ORAL DAILY Rx Instructions: *PER DR OFFICE LIST. UNABLE TO VERIFY FILLED* Microencapsulated Potassium Chloride 20 MEQ Extended Release Oral Tablet ( RxNorm): 8980699 K-DUR (POTASSIUM CHLORIDE) NDC: 87979257256 Metoclopramide(METOCLOPRAMIDE HCL) 10 MG TAB Dose: 10 MG ORAL 3 TIMES DAILY WITH MEALS Rx Instructions: Take 1 tablet with meals three times daily. Metoclopramide (METOCLOPRAMIDE HCL) NDC: 05650262262 PROTONIX(PANTOPRAZOLE) 40 MG TAB Dose: 40 MG ORAL BID@,17 Rx Instructions: Take one tablet twice daily. pantoprazole 40 MG Delayed Release Oral Tablet [Protonix] (RxNorm): 946797 PROTONIX (PANTOPRAZOLE) NDC: 58465362009 NORVASC(AmLODIpine BESYLATE) 10 MG TAB Dose: 10 MG ORAL DAILY Amlodipine 10 MG Oral Tablet [Norvasc] (RxNorm): 570729 NORVASC (AmLODIpine BESYLATE) NDC: 28103143082 NORVASC(AmLODIpine BESYLATE) 10 MG TAB Dose: 10 MG ORAL DAILY Amlodipine 10 MG Oral Tablet [Norvasc] (RxNorm): 656884 NORVASC (AmLODIpine BESYLATE) NDC: 05561507614 REGLAN(METOCLOPRAMIDE HCL) 10 MG TABLET Dose: 10 MG ORAL 3 TIMES DAILY WITH MEALS Metoclopramide 10 MG Oral Tablet [Reglan] (RxNorm): 954120 REGLAN (METOCLOPRAMIDE HCL) NDC: 30531789321 PROTONIX(PANTOPRAZOLE) 40 MG TAB Dose: 40 MG ORAL TWICE A DAY pantoprazole 40 MG Delayed Release Oral Tablet [Protonix] (RxNorm): 995404 PROTONIX (PANTOPRAZOLE) NDC: 54330022252 Inpatient/Ordered Medications - Medications administered during hospital visit Visit/Account #[id number] (May 31, 2016 6:04pm - June 04, 2016 6:54pm) Medication Route Sig/Schedule Precondition/Indication Comments/Instructions Codes ASPIRIN 324 MG TAB Dose: 324 MG ORAL NOW Label Comments: Chewed if no intolerance to aspirin and not aspirin taken today Aspirin 81 MG Chewable Tablet (RxNorm): 610773 (ASPIRIN) NDC: 57287084429 NITROQUICK(NITROGLYCERIN) 0.4 MG/TAB TAB Dose: 1 TAB SUBLINGUAL NOW Label Comments: *DOSE 1* Do NOT give until approved by physician. Give every 3-5 minutes if needed for ongoing symptons. Max of 3 doses. Do NOT give unless: Heart rate 50-100 beats per minute SBP is greater than 90 mmHg and/or no lower than 20 mmHg below baseline Do NOT give if: inferior OK or RV infarction recent phosphodesterase inhibito use (e.g. Viagra, Levitra, Revatio) within last 24 hours or Cialis within last 48 hours. Nitroglycerin 0.4 MG Sublingual Tablet [Nitrostat] (RxNorm): 950901 NITROQUICK (NITROGLYCERIN) NDC: 19920627729 SODIUM BICARBONATE 50 MEQ/50 ML INJECTION Dose: 50 ML INTRAVEN NOW Special Dose Instructions: 50 MEQ=1 AMP 50 ML Sodium Bicarbonate 1 MEQ/ML Prefilled Syringe (RxNorm): 686588 (SODIUM BICARBONATE) NDC: 32438223575 CALCIUM GLUCONATE 1 GM/10 ML INJECTION Dose: 10 ML INTRAVEN NOW Label Comments: 4.65 MEQ=1 GM Special Dose Instructions: PUSH OVER 10 MINUTES 10 ML Calcium Gluconate 100 MG/ML Injection (RxNorm): 0745316 (CALCIUM GLUCONATE) NDC: 64919638279 DEXTROSE 25 G/50 ML INJECTION Dose: 50 ML INTRAVEN NOW 50 ML Glucose 500 MG/ML Prefilled Syringe (RxNorm): 945278 (DEXTROSE) NDC: 59368870756 HumuLIN-R (ER/AMBS PYX)(INSULIN HUM R) 100 UNIT/ML INJECTION Dose: 0.1 ML INTRAVEN NOW Label Comments: GIVE 30 MINUTES BEFORE A MEAL DOCUMENT SITE OF INJECTION Regular Insulin, Human 100 UNT/ML Injectable Solution [Novolin R] (RxNorm): 668386 HumuLIN-R (ER/AMBS PYX) (INSULIN HUM R) NDC: 51309369403 TYLENOL(ACETAMINOPHEN) 325 MG TAB Dose: 650 MG ORAL Q6H PRN Reason: PAIN OR FEVER Label Comments: Do not exceed 4000 mg of total acetaminophen per 24 hours Acetaminophen 325 MG Oral Tablet (RxNorm): 488735 TYLENOL (ACETAMINOPHEN) NDC: 43012212293 PROTONIX INJ(PANTOPRAZOLE) 40 MG INJECTION Dose: 40 MG INTRAVEN DAILY@06 Rx Order Comments: Order filed UNV: Dose Warnings differ from field recorder Label Comments: DILUTE WITH 10 ML OF NORMAL SALINE. GIVE OVER 2 MINUTES. pantoprazole 40 MG Injection [Protonix] (RxNorm): 650037 PROTONIX INJ (PANTOPRAZOLE) NDC: 10181210500 PROTONIX INJ(PANTOPRAZOLE) 40 MG INJECTION Dose: 40 MG INTRAVEN NOW Rx Order Comments: Order filed UNV: Allergies/Duplicates/Interactions differ from field recorder Dose Warnings differ from field recorder Label Comments: DILUTE WITH 10 ML OF NORMAL SALINE. GIVE OVER 2 MINUTES. pantoprazole 40 MG Injection [Protonix] (RxNorm): 210906 PROTONIX INJ (PANTOPRAZOLE) NDC: 38461929625 COREG(CARVEDILOL) 12.5 MG TAB Dose: 12.5 MG ORAL WITH BREAKFAST & SUPPER Label Comments: MAY INCREASE FALL RISK TAKE WITH FOOD carvedilol 12.5 MG Oral Tablet [Coreg] (RxNorm): 503848 COREG (CARVEDILOL) NDC: 21663754977 HumuLIN R(INSULIN HUM REG) 300 UNIT/3 ML INJECTION Dose: 0.1 ML SUBCUTANEOUSLY NOW Label Comments: GIVE 30 MINUTES BEFORE A MEAL Regular Insulin, Human 100 UNT/ML Injectable Solution [Humulin R] (RxNorm): 409834 HumuLIN R (INSULIN HUM REG) NDC: 04530390762 KAYEXALATE(SODIUM POLYSTYRENE SULFONATE) 15 GM/60 ML SUSPENSION Dose: 60 ML ORAL NOW Label Comments: SHAKE WELL Sodium polystyrene sulfonate 250 MG/ML Oral Suspension [SPS] (RxNorm): 8774784 KAYEXALATE (SODIUM POLYSTYRENE SULFONATE) NDC: 91107778832 LASIX INJ(FUROSEMIDE) 100 MG/10 ML INJECTION Dose: 8 ML INTRAVEN DIRECTED Label Comments: MAY INCREASE FALL RISK Special Dose Instructions: Please give after 1st unit of blood is transfused 10 ML Furosemide 10 MG/ML Injection (RxNorm): 4246513 LASIX INJ (FUROSEMIDE) NDC: 03933929525 DEXTROSE 25 G/50 ML INJECTION Dose: 100 ML INTRAVEN NOW 50 ML Glucose 500 MG/ML Prefilled Syringe (RxNorm): 232856 (DEXTROSE) NDC: 36127421225 PROTONIX INJ(PANTOPRAZOLE) 40 MG INJECTION Dose: 40 MG INTRAVEN BID@0600,1700 Rx Order Comments: Order filed UNV: Dose Warnings differ from field recorder Label Comments: DILUTE WITH 10 ML OF NORMAL SALINE. GIVE OVER 2 MINUTES. pantoprazole 40 MG Injection [Protonix] (RxNorm): 910023 PROTONIX INJ (PANTOPRAZOLE) NDC: 11771606429 REGLAN INJ(METOCLOPRAMIDE HCL) 5 MG/ML INJECTION Dose: 2 ML INTRAVEN 30 MIN BEFORE MEALS & BEDTIME Rx Order Comments: Order filed UNV: Allergies/Duplicates/Interactions differ from field recorder Label Comments: MAY INCREASE FALL RISK 2 ML Metoclopramide 5 MG/ML Injection (RxNorm): 780271 REGLAN INJ (METOCLOPRAMIDE HCL) NDC: 47301406996 COREG(CARVEDILOL) 25 MG TAB Dose: 25 MG ORAL WITH BREAKFAST & SUPPER Label Comments: MAY INCREASE FALL RISK TAKE WITH FOOD carvedilol 25 MG Oral Tablet [Coreg] (RxNorm): 232447 COREG (CARVEDILOL) NDC: 39934631593 COREG(CARVEDILOL) 12.5 MG TAB Dose: 12.5 MG ORAL ONE TIME ORDER Rx Order Comments: Order filed UNV: Allergies/Duplicates/Interactions differ from field recorder Dose Warnings differ from field recorder Label Comments: MAY INCREASE FALL RISK TAKE WITH FOOD carvedilol 12.5 MG Oral Tablet [Coreg] (RxNorm): 687706 COREG (CARVEDILOL) NDC: 39048365363 KAYEXALATE(SODIUM POLYSTYRENE SULFONATE) 15 GM/60 ML SUSPENSION Dose: 60 ML ORAL NOW Label Comments: SHAKE WELL Sodium polystyrene sulfonate 250 MG/ML Oral Suspension [SPS] (RxNorm): 6286999 KAYEXALATE (SODIUM POLYSTYRENE SULFONATE) NDC: 07742486589 CALCIUM GLUCONATE 1 GM/10 ML INJECTION Dose: 10 ML INTRAVEN NOW Label Comments: 4.65 MEQ=1 GM Special Dose Instructions: PUSH OVER 10 MINUTES 10 ML Calcium Gluconate 100 MG/ML Injection (RxNorm): 4110242 (CALCIUM GLUCONATE) NDC: 10727442989 DEXTROSE 25 G/50 ML INJECTION Dose: 100 ML INTRAVEN NOW 50 ML Glucose 500 MG/ML Prefilled Syringe (RxNorm): 474920 (DEXTROSE) NDC: 05699923075 HumuLIN R(INSULIN HUM REG) 300 UNIT/3 ML INJECTION Dose: 0.1 ML INTRAVEN NOW Label Comments: GIVE 30 MINUTES BEFORE A MEAL Regular Insulin, Human 100 UNT/ML Injectable Solution [Humulin R] (RxNorm): 828784 HumuLIN R (INSULIN HUM REG) NDC: 19667578073 VENTOLIN 0.5% NEB(ALBUTEROL SULF) 2.5 MG/0.5 ML INHALER Dose: 2 ML INHALED NOW Albuterol 1 MG/ML Inhalant Solution (RxNorm): 270694 VENTOLIN 0.5% NEB (ALBUTEROL SULF) NDC: 51058617047 LASIX INJ(FUROSEMIDE) 100 MG/10 ML INJECTION Dose: 8 ML INTRAVEN NOW Label Comments: MAY INCREASE FALL RISK 10 ML Furosemide 10 MG/ML Injection (RxNorm): 3675851 LASIX INJ (FUROSEMIDE) NDC: 45180090466 APRESOLINE INJ(HydrALAZINE) 20 MG/ML INJECTION Dose: 0.5 ML INTRAVEN Q4H PRN Reason: HYPERTENSION Label Comments: MAY INCREASE FALL RISK Special Dose Instructions: For systolic blood pressure greater than 170 Hydralazine Hydrochloride 20 MG/ML Injectable Solution (RxNorm): 555916 APRESOLINE INJ (HydrALAZINE) NDC: 57755176542 NICODERM 21 MG PATCH(NICOTINE) 1 PATCH PATCH Dose: 1 PATCH TOPICALLY DAILY Label Comments: WEAR GLOVES FOR HANDLING OR WASH HANDS AFTER HANDLING. 24 HR Nicotine 0.875 MG/HR Transdermal System (RxNorm): 862634 NICODERM 21 MG PATCH (NICOTINE) NDC: 81151166763 APRESOLINE(HydrALAZINE) 10 MG TAB Dose: 10 MG ORAL 3 TIMES A DAY Rx Order Comments: Order filed UNV: Allergies/Duplicates/Interactions differ from field recorder Label Comments: MAY INCREASE FALL RISK Hydralazine Hydrochloride 10 MG Oral Tablet (RxNorm): 988108 APRESOLINE (HydrALAZINE) NDC: 81766799123 APRESOLINE(HydrALAZINE) 50 MG TAB Dose: 50 MG ORAL 3 TIMES A DAY Label Comments: MAY INCREASE FALL RISK Hydralazine Hydrochloride 50 MG Oral Tablet (RxNorm): 235133 APRESOLINE (HydrALAZINE) NDC: 02069959754 LEVEMIR(INSULIN DETEMIR) 1000 UNITS/10 ML INJECTION Dose: 0.1 ML SUBCUTANEOUSLY AT BEDTIME Label Comments: Do NOT refrigerate. * Syringe expires in 24 hours. insulin detemir 100 UNT/ML Injectable Solution [Levemir] (RxNorm): 493276 LEVEMIR (INSULIN DETEMIR) NDC: 42657798874 APRESOLINE(HydrALAZINE) 50 MG TAB Dose: 100 MG ORAL 3 TIMES A DAY Rx Order Comments: Order filed UNV: Allergies/Duplicates/Interactions differ from field recorder Label Comments: MAY INCREASE FALL RISK Hydralazine Hydrochloride 50 MG Oral Tablet (RxNorm): 417435 APRESOLINE (HydrALAZINE) NDC: 19819268315 PROTONIX(PANTOPRAZOLE SOD) 40 MG TAB Dose: 40 MG ORAL BID@0600,1700 pantoprazole 40 MG Delayed Release Oral Tablet [Protonix] (RxNorm): 537042 PROTONIX (PANTOPRAZOLE SOD) NDC: 74556850100 REGLAN(METOCLOPRAMIDE HCL) 10 MG TAB Dose: 10 MG ORAL 30 MIN BEFORE MEALS & BEDTIME Label Comments: MAY INCREASE FALL RISK Metoclopramide 10 MG Oral Tablet (RxNorm): 978644 REGLAN (METOCLOPRAMIDE HCL) NDC: 29868652426 Discharge Medications - Medications that patient should continue to take. Review with physician Visit/Account #[id number] (May 31, 2016 6:04pm - June 04, 2016 6:54pm) Medication Route Sig/Schedule Precondition/Indication Comments/Instructions Codes LEVEMIR FLEXTOUCH(INSULIN DETEMIR) 100 UNIT/1 ML INSULN.PEN Dose: 12 UNIT SUBCUTANEOUSLY AT BEDTIME Rx Note Text Comments: *RX HAS NOT FILLED, PT STATES SHE TAKES* 3 ML insulin detemir 100 UNT/ML Pen Injector [Levemir] (RxNorm): 943519 LEVEMIR FLEXTOUCH (INSULIN DETEMIR) NDC: 29839261091 TYLENOL(ACETAMINOPHEN) 500 MG TABLET Dose: 500 MG ORAL Q4H PAIN OR FEVER TYLENOL (ACETAMINOPHEN) NDC: 66536484176 Aspirin Ec(ASPIRIN) 81 MG TAB Dose: 81 MG ORAL DAILY Aspirin 81 MG Delayed Release Oral Tablet (RxNorm): 946078 Aspirin Ec (ASPIRIN) NDC: 05305316165 Crestor(ROSUVASTATIN CALCIUM) 20 MG TAB Dose: 20 MG ORAL DAILY Rosuvastatin calcium 20 MG Oral Tablet [Crestor] (RxNorm): 586823 Crestor (ROSUVASTATIN CALCIUM) NDC: 78708090977 REGLAN(METOCLOPRAMIDE HCL) 10 MG TABLET Dose: 10 MG ORAL 3 TIMES DAILY WITH MEALS Metoclopramide 10 MG Oral Tablet [Reglan] (RxNorm): 735247 REGLAN (METOCLOPRAMIDE HCL) NDC: 92620185110 PROTONIX(PANTOPRAZOLE) 40 MG TAB Dose: 40 MG ORAL TWICE A DAY pantoprazole 40 MG Delayed Release Oral Tablet [Protonix] (RxNorm): 704450 PROTONIX (PANTOPRAZOLE) NDC: 12910845424 Coreg(CARVEDILOL) 25 MG TAB Dose: 25 MG ORAL WITH BREAKFAST & SUPPER carvedilol 25 MG Oral Tablet [Coreg] (RxNorm): 929057 Coreg (CARVEDILOL) NDC: 65167371995 APRESOLINE(HydrALAZINE) 50 MG TAB Dose: 100 MG ORAL 3 TIMES A DAY Hydralazine Hydrochloride 50 MG Oral Tablet (RxNorm): 001659 APRESOLINE (HydrALAZINE) NDC: 18754368895 History Of Encounters Encounters Visit/Account #[id number] (May 31, 2016 6:04pm - June 04, 2016 6:54pm) Account Status Physican Of Record Reason For Visit Visit Diagnosis Start Date/Time Stop Date/Time SADIE DUMONT MD ACUTE ON CHRONIC RENAL FAILURE, HYPERKALEMIA E87.5: HYPERKALEMIA ICD10 May 31, 2016 6:04pm May 31, 2016 7:45pm Parish PEPPER MD ACUTE ON CHRONIC RENAL FAILURE, HYPERKALEMIA E87.5: HYPERKALEMIA ICD10 Jun 02, 2016 8:36am Jun 04, 2016 6:54pm IN SOCORRO WOLF MD ACUTE ON CHRONIC RENAL FAILURE, HYPERKALEMIA E87.5: HYPERKALEMIA ICD10 Jun 02, 2016 8:36am Jun 04, 2016 6:54pm History of Procedures Procedure List Visit/Account #[id number] (May 31, 2016 6:04pm - June 04, 2016 6:54pm) Code/Procedure Date [id number]: EXCISION OF RIGHT KIDNEY, PERCUTANEOUS APPROACH, DIAGNOSTIC June 03, 2016 Discharge Instructions Discharge Instructions Visit/Account #[id number] (May 31, 2016 6:04pm - June 04, 2016 6:54pm) DISCHARGE INSTRUCTIONS Physician Documentation PROVIDER INSTRUCTIONS Discharge Diet As Tolerated Discharge Activity/Weight Bearing Status As tolerated Other Discharge Instructions Stop taking the Amlodipine, as this was likely making your swelling worse. Stop taking the Spironolactone due to your elevated potassium. Your dose of Coreg has been increased to 25 mg BID. You have been started on Hydralazine 100 mg TID for your blood pressure. Keep your follow up appointments with [facility] and Dr. Horton. Discharge Diet As Tolerated Discharge Activity/Weight Bearing Status As tolerated Other Discharge Instructions Stop taking the Amlodipine, as this was likely making your swelling worse. Stop taking the Spironolactone due to your elevated potassium. Your dose of Coreg has been increased to 25 mg BID. You have been started on Hydralazine 100 mg TID for your blood pressure. Keep your follow up appointments with [facility] and Dr. Horton. CARE MANAGEMENT/HOME HEALTH Care Management 2 weeks worth of Hydralazine, written rx provided REASON TO CALL PROVIDER Notify Physician if: New or worsening symptoms, increased shortness of breath FOLLOW UP APPOINTMENTS Follow Up Appointment Date/Time: F/u lab appointment at [facility] on 06/05/16 at 12:20 pm. Also needs f/u appt in 1 week at [facility]. May AT 11:30AM Needs f/u in [address] Horton's office. May AT 4:30AM WITH NON FASTING LAB Follow-up tests/procedures/outpatient needs: F/u labs tomorrow at [facility] Social History Social History No Social History Data. Immunizations Immunizations Patient Unit Number: [id number] Immunizations No immunizations recorded.
--- OUTSIDE RECORDS SUMMARY | 2018-05-02 14:59 | XMS REPORT | Continuity Of Care Document ---
Author Author Organization Address [address] [facility] [place] [address] Phone Care Team Providers Care Pipe Supervisor Name Role Phone SUSAN STARKS MD CP UNASSIGNED, ED PHYSICIAN Unavailable Unavailable AMEE NUNEZ, LINA Coleman AT [phone] RIZWAN CAAL APRN PP Results Lab Results Visit/Account #[id number] (June 22, 2015 3:02am - June 25, 2015 12:58pm) Test Result Date/Time POCGL POCGL(70-110 MG/DL) 148 MG/DL June 22, 2015 6:36am 155 MG/DL June 22, 2015 10:55am 173 MG/DL June 22, 2015 4:32pm 264 MG/DL June 22, 2015 8:15pm 136 MG/DL June 23, 2015 6:21am 191 MG/DL June 23, 2015 11:36am 147 MG/DL June 23, 2015 5:22pm 138 MG/DL June 23, 2015 8:07pm 89 MG/DL June 24, 2015 5:39am 186 MG/DL June 24, 2015 10:18am 122 MG/DL June 24, 2015 3:34pm 217 MG/DL June 24, 2015 8:05pm 100 MG/DL June 25, 2015 5:49am 167 MG/DL June 25, 2015 10:45am 79307-5: COMPLETE BLOOD COUNT WITH DIFF WHITE BLOOD COUNT(4.0-11.0 10E3/UL) 10.0 10E3/UL June 22, 2015 3:20am 5.7 10E3/UL June 23, 2015 7:04am 7.0 10E3/UL June 24, 2015 6:24am 6.6 10E3/UL June 25, 2015 6:13am RED BLOOD COUNT(4.00-5.20 10E6/UL) 3.54 10E6/UL June 22, 2015 3:20am 3.17 10E6/UL June 23, 2015 7:04am 3.33 10E6/UL June 24, 2015 6:24am 3.42 10E6/UL June 25, 2015 6:13am HEMOGLOBIN(12.0-16.0 G/DL) 9.6 G/DL June 22, 2015 3:20am 8.5 G/DL June 23, 2015 7:04am 8.8 G/DL June 24, 2015 6:24am 8.8 G/DL June 25, 2015 6:13am HEMATOCRIT(36.0-46.0 %) 30.4 % June 22, 2015 3:20am 26.9 % June 23, 2015 7:04am 28.2 % June 24, 2015 6:24am 28.8 % June 25, 2015 6:13am MEAN CORPUSCULAR VOLUME(82.0-100.0 FL) 85.9 FL June 22, 2015 3:20am 84.9 FL June 23, 2015 7:04am 84.7 FL June 24, 2015 6:24am 84.2 FL June 25, 2015 6:13am 58769-0: MEAN CORPUSCULAR HEMOGLOBIN(26.0-34.0 PG) 27.1 PG June 22, 2015 3:20am 26.8 PG June 23, 2015 7:04am 26.4 PG June 24, 2015 6:24am 25.7 PG June 25, 2015 6:13am MEAN CORPUSCULAR HGB CONC(31.5-36.5 G/DL) 31.6 G/DL June 22, 2015 3:20am 31.6 G/DL June 23, 2015 7:04am 31.2 G/DL June 24, 2015 6:24am 30.6 G/DL June 25, 2015 6:13am RED CELL DISTRIBUTION WIDTH(11.5-14.5 %) 14.3 % June 22, 2015 3:20am 14.1 % June 23, 2015 7:04am 14.1 % June 24, 2015 6:24am 13.8 % June 25, 2015 6:13am 777-3: PLATELET COUNT(150-450 10E3/UL) 193 10E3/UL June 22, 2015 3:20am 139 10E3/UL June 23, 2015 7:04am 151 10E3/UL June 24, 2015 6:24am 161 10E3/UL June 25, 2015 6:13am MEAN PLATELET VOLUME(8.2-12.4 FL) 11.9 FL June 22, 2015 3:20am 12.4 FL June 23, 2015 7:04am 12.4 FL June 24, 2015 6:24am 12.3 FL June 25, 2015 6:13am 770-8: NEUTROPHILS % (AUTO)(40-70 %) 70 % June 22, 2015 3:20am 54 % June 23, 2015 7:04am 54 % June 24, 2015 6:24am 54 % June 25, 2015 6:13am LYMPHOCYTES % (AUTO)(15-45 %) 20 % June 22, 2015 3:20am 32 % June 23, 2015 7:04am 31 % June 24, 2015 6:24am 31 % June 25, 2015 6:13am 5905-5: MONOCYTES % (AUTO)(2-10 %) 8 % June 22, 2015 3:20am 11 % June 23, 2015 7:04am 11 % June 24, 2015 6:24am 12 % June 25, 2015 6:13am 713-8: EOSINOPHILS % (AUTO)(0-6 %) 1 % June 22, 2015 3:20am 3 % June 23, 2015 7:04am 3 % June 24, 2015 6:24am 3 % June 25, 2015 6:13am 706-2: BASOPHILS % (AUTO)(0-1 %) 0 % June 22, 2015 3:20am 1 % June 23, 2015 7:04am 1 % June 24, 2015 6:24am 1 % June 25, 2015 6:13am 02420-5: IMMATURE GRANS % (AUTO)(0-0 %) 0 % June 22, 2015 3:20am 0 % June 23, 2015 7:04am 0 % June 24, 2015 6:24am 0 % June 25, 2015 6:13am NUCLEATED RBCS (AUTO)(0-0 %) 0 % June 22, 2015 3:20am 0 % June 23, 2015 7:04am 0 % June 24, 2015 6:24am 0 % June 25, 2015 6:13am 751-8: NEUTROPHILS # (AUTO)(2.5-7.5 10E3/UL) 7.0 10E3/UL June 22, 2015 3:20am 3.1 10E3/UL June 23, 2015 7:04am 3.8 10E3/UL June 24, 2015 6:24am 3.6 10E3/UL June 25, 2015 6:13am 67549-9: LYMPHOCYTES # (AUTO)(1.0-4.0 10E3/UL) 2.0 10E3/UL June 22, 2015 3:20am 1.9 10E3/UL June 23, 2015 7:04am 2.2 10E3/UL June 24, 2015 6:24am 2.0 10E3/UL June 25, 2015 6:13am 742-7: MONOCYTES # (AUTO)(0.2-0.8 10E3/UL) 0.8 10E3/UL June 22, 2015 3:20am 0.6 10E3/UL June 23, 2015 7:04am 0.8 10E3/UL June 24, 2015 6:24am 0.8 10E3/UL June 25, 2015 6:13am 711-2: EOSINOPHILS # (AUTO)(0.0-0.4 10E3/UL) 0.1 10E3/UL June 22, 2015 3:20am 0.1 10E3/UL June 23, 2015 7:04am 0.2 10E3/UL June 24, 2015 6:24am 0.2 10E3/UL June 25, 2015 6:13am 704-7: BASOPHILS # (AUTO)(0.0-0.2 10E3/UL) 0.0 10E3/UL June 22, 2015 3:20am 0.0 10E3/UL June 23, 2015 7:04am 0.0 10E3/UL June 24, 2015 6:24am 0.0 10E3/UL June 25, 2015 6:13am IMMATURE GRANS # (AUTO)(0.0-0.0 10E3/UL) 0.0 10E3/UL June 22, 2015 3:20am 0.0 10E3/UL June 23, 2015 7:04am 0.0 10E3/UL June 24, 2015 6:24am 0.0 10E3/UL June 25, 2015 6:13am DIFF TYPE AUTOMATED June 22, 2015 3:20am AUTOMATED June 23, 2015 7:04am AUTOMATED June 24, 2015 6:24am AUTOMATED June 25, 2015 6:13am 47170-3: PROTHROMBIN TIME WITH INR PROTHROMBIN TIME(12.1-14.0 SEC) 14.7 SEC June 22, 2015 3:20am 49741-5: INR 1.20 Result Comments: INR reference interval applies to patients on anticoagulant therapy. Suggested INR therapeutic range for oral anticoagulant therapy: (Stabilized anticoagulated patients) Routine Therapy: 2.0 to 3.0 Recurrent Myocardial Infarction: 2.5 to 3.5 Mechanical Prosthetic Valves: 2.5 to 3.5 June 22, 2015 3:20am PARTIAL THROMBOPLASTIN TIME PARTIAL THROMBOPLASTIN TIME(22.2-37.4 SEC) 30.1 SEC June 22, 2015 3:20am 13579-1: D-DIMER 42059-1: D-DIMER(0.00-0.49 UG/ML) 2.21 UG/ML June 22, 2015 3:20am 32237-3: COMPLETE METABOLIC PROFILE GLUCOSE(70-110 MG/DL) 183 MG/DL June 22, 2015 3:20am 125 MG/DL June 23, 2015 7:04am 88 MG/DL June 24, 2015 6:24am 91 MG/DL June 25, 2015 6:13am BLOOD UREA NITROGEN(6-20 MG/DL) 46 MG/DL June 22, 2015 3:20am 45 MG/DL June 23, 2015 7:04am 46 MG/DL June 24, 2015 6:24am 45 MG/DL June 25, 2015 6:13am CREATININE(0.50-1.20 MG/DL) 2.11 MG/DL June 22, 2015 3:20am 1.86 MG/DL June 23, 2015 7:04am 1.73 MG/DL June 24, 2015 6:24am 1.94 MG/DL June 25, 2015 6:13am 06974-4: EST GLOMERULAR FILTRATION RATE(Greater than or equal to 60) 24 Result Comments: If the patient is of -[place] descent/extraction multiply the eGFR value by 1.212 to obtain the actual eGFR. >=60 mg/dL Normal 30-59 mg/dL Moderate Kidney Disease 15-29 mg/dL Severe Kidney Disease <15 mg/dL Kidney Failure June 22, 2015 3:20am 28 Result Comments: If the patient is of -[place] descent/extraction multiply the eGFR value by 1.212 to obtain the actual eGFR. >=60 mg/dL Normal 30-59 mg/dL Moderate Kidney Disease 15-29 mg/dL Severe Kidney Disease <15 mg/dL Kidney Failure June 23, 2015 7:04am 30 Result Comments: If the patient is of -[place] descent/extraction multiply the eGFR value by 1.212 to obtain the actual eGFR. >=60 mg/dL Normal 30-59 mg/dL Moderate Kidney Disease 15-29 mg/dL Severe Kidney Disease <15 mg/dL Kidney Failure June 24, 2015 6:24am 27 Result Comments: If the patient is of -[place] descent/extraction multiply the eGFR value by 1.212 to obtain the actual eGFR. >=60 mg/dL Normal 30-59 mg/dL Moderate Kidney Disease 15-29 mg/dL Severe Kidney Disease <15 mg/dL Kidney Failure June 25, 2015 6:13am BUN CREATININE RATIO(10.0-20.0 RATIO) 22.0 RATIO June 22, 2015 3:20am 24.0 RATIO June 23, 2015 7:04am 27.0 RATIO June 24, 2015 6:24am 23.0 RATIO June 25, 2015 6:13am SODIUM(135-145 MMOL/L) 137 MMOL/L June 22, 2015 3:20am 138 MMOL/L June 23, 2015 7:04am 140 MMOL/L June 24, 2015 6:24am 139 MMOL/L June 25, 2015 6:13am POTASSIUM(3.6-5.0 MMOL/L) 4.3 MMOL/L June 22, 2015 3:20am 3.4 MMOL/L June 23, 2015 7:04am 3.5 MMOL/L June 24, 2015 6:24am 3.4 MMOL/L June 25, 2015 6:13am CHLORIDE(101-111 MMOL/L) 106 MMOL/L June 22, 2015 3:20am 102 MMOL/L June 23, 2015 7:04am 102 MMOL/L June 24, 2015 6:24am 101 MMOL/L June 25, 2015 6:13am 2027-11: CO2(21-31 MMOL/L) 24 MMOL/L June 22, 2015 3:20am 27 MMOL/L June 23, 2015 7:04am 31 MMOL/L June 24, 2015 6:24am 31 MMOL/L June 25, 2015 6:13am ANION GAP(8-18) 11 June 22, 2015 3:20am 12 June 23, 2015 7:04am 11 June 24, 2015 6:24am 10 June 25, 2015 6:13am OSMO CALCULATED(270.0-290.0) 290.4 June 22, 2015 3:20am 288.7 June 23, 2015 7:04am 290.7 June 24, 2015 6:24am 288.7 June 25, 2015 6:13am CALCIUM(8.5-10.5 MG/DL) 8.4 MG/DL June 22, 2015 3:20am 8.0 MG/DL June 23, 2015 7:04am 8.4 MG/DL June 24, 2015 6:24am 8.4 MG/DL June 25, 2015 6:13am BILIRUBIN,TOTAL(0.1-1.2 MG/DL) 0.4 MG/DL June 22, 2015 3:20am 0.4 MG/DL June 23, 2015 7:04am 0.2 MG/DL June 24, 2015 6:24am 0.3 MG/DL June 25, 2015 6:13am ALKALINE PHOSPHATASE(42-121 IU/L) 83 IU/L June 22, 2015 3:20am 70 IU/L June 23, 2015 7:04am 73 IU/L June 24, 2015 6:24am 67 IU/L June 25, 2015 6:13am ASPARTATE AMINO TRANSFERASE(10-42 IU/L) 17 IU/L June 22, 2015 3:20am 12 IU/L June 23, 2015 7:04am 12 IU/L June 24, 2015 6:24am 11 IU/L June 25, 2015 6:13am ALANINE AMINOTRANSFERASE(10-60 IU/L) 14 IU/L June 22, 2015 3:20am 11 IU/L June 23, 2015 7:04am 9 IU/L June 24, 2015 6:24am 8 IU/L June 25, 2015 6:13am TOTAL PROTEIN(6.4-8.2 G/DL) 6.8 G/DL June 22, 2015 3:20am 5.9 G/DL June 23, 2015 7:04am 6.5 G/DL June 24, 2015 6:24am 6.1 G/DL June 25, 2015 6:13am ALBUMIN(3.5-5.5 G/DL) 3.3 G/DL June 22, 2015 3:20am 2.7 G/DL June 23, 2015 7:04am 3.1 G/DL June 24, 2015 6:24am 2.8 G/DL June 25, 2015 6:13am GLOBULIN(2.4-3.6) 3.5 June 22, 2015 3:20am 3.2 June 23, 2015 7:04am 3.4 June 24, 2015 6:24am 3.3 June 25, 2015 6:13am ALBUMIN/GLOBULIN RATIO(0.9-1.8 RATIO) 0.9 RATIO June 22, 2015 3:20am 0.8 RATIO June 23, 2015 7:04am 0.9 RATIO June 24, 2015 6:24am 0.8 RATIO June 25, 2015 6:13am BASIC METABOLIC PANEL GLUCOSE(70-110 MG/DL) 141 MG/DL June 22, 2015 3:55pm BLOOD UREA NITROGEN(6-20 MG/DL) 43 MG/DL June 22, 2015 3:55pm CREATININE(0.50-1.20 MG/DL) 1.88 MG/DL June 22, 2015 3:55pm 32521-7: EST GLOMERULAR FILTRATION RATE(Greater than or equal to 60) 28 Result Comments: If the patient is of -[place] descent/extraction multiply the eGFR value by 1.212 to obtain the actual eGFR. >=60 mg/dL Normal 30-59 mg/dL Moderate Kidney Disease 15-29 mg/dL Severe Kidney Disease <15 mg/dL Kidney Failure June 22, 2015 3:55pm BUN CREATININE RATIO(10.0-20.0 RATIO) 23.0 RATIO June 22, 2015 3:55pm SODIUM(135-145 MMOL/L) 139 MMOL/L June 22, 2015 3:55pm POTASSIUM(3.6-5.0 MMOL/L) 4.0 MMOL/L June 22, 2015 3:55pm CHLORIDE(101-111 MMOL/L) 105 MMOL/L June 22, 2015 3:55pm 2027-11: CO2(21-31 MMOL/L) 26 MMOL/L June 22, 2015 3:55pm ANION GAP(8-18) 12 June 22, 2015 3:55pm OSMO CALCULATED(270.0-290.0) 290.7 June 22, 2015 3:55pm CALCIUM(8.5-10.5 MG/DL) 8.3 MG/DL June 22, 2015 3:55pm 32887-2: MAGNESIUM 69978-6: MAGNESIUM(1.8-2.5 MG/DL) 2.1 MG/DL June 23, 2015 7:04am 79604-9: [place] 62192-0: CARDIAC TROPONIN I(0.01-0.04 NG/ML) 1.07 NG/ML Result Comments: REFERENCE RANGES: NEGATIVE < 0.04 NG/ML POSSIBLE MYCARDIAL INVOLVEMENT >/=0.04 NG/ML INTERPRET TROPONIN I RESULT IN LIGHT OF THE TOTAL CLINICAL PRESENTATION INCLUDING CLINICAL HISTORY. ANY CONDITION RESULTING IN MYOCARDIAL INJURY CAN POTENTIALLY ELEVATE TROPONIN I LEVELS ABOVE EXPECTED NORMAL RANGES. NOTE NEW REFERENCE RANGE June 22, 2015 3:20am 1.68 NG/ML Result Comments: REFERENCE RANGES: NEGATIVE < 0.04 NG/ML POSSIBLE MYCARDIAL INVOLVEMENT >/=0.04 NG/ML INTERPRET TROPONIN I RESULT IN LIGHT OF THE TOTAL CLINICAL PRESENTATION INCLUDING CLINICAL HISTORY. ANY CONDITION RESULTING IN MYOCARDIAL INJURY CAN POTENTIALLY ELEVATE TROPONIN I LEVELS ABOVE EXPECTED NORMAL RANGES. NOTE NEW REFERENCE RANGE June 22, 2015 9:14am 1.97 NG/ML Result Comments: REFERENCE RANGES: NEGATIVE < 0.04 NG/ML POSSIBLE MYCARDIAL INVOLVEMENT >/=0.04 NG/ML INTERPRET TROPONIN I RESULT IN LIGHT OF THE TOTAL CLINICAL PRESENTATION INCLUDING CLINICAL HISTORY. ANY CONDITION RESULTING IN MYOCARDIAL INJURY CAN POTENTIALLY ELEVATE TROPONIN I LEVELS ABOVE EXPECTED NORMAL RANGES. NOTE NEW REFERENCE RANGE June 22, 2015 3:55pm 1.81 NG/ML Result Comments: REFERENCE RANGES: NEGATIVE < 0.04 NG/ML POSSIBLE MYCARDIAL INVOLVEMENT >/=0.04 NG/ML INTERPRET TROPONIN I RESULT IN LIGHT OF THE TOTAL CLINICAL PRESENTATION INCLUDING CLINICAL HISTORY. ANY CONDITION RESULTING IN MYOCARDIAL INJURY CAN POTENTIALLY ELEVATE TROPONIN I LEVELS ABOVE EXPECTED NORMAL RANGES. NOTE NEW REFERENCE RANGE June 23, 2015 7:04am 1.29 NG/ML Result Comments: REFERENCE RANGES: NEGATIVE < 0.04 NG/ML POSSIBLE MYCARDIAL INVOLVEMENT >/=0.04 NG/ML INTERPRET TROPONIN I RESULT IN LIGHT OF THE TOTAL CLINICAL PRESENTATION INCLUDING CLINICAL HISTORY. ANY CONDITION RESULTING IN MYOCARDIAL INJURY CAN POTENTIALLY ELEVATE TROPONIN I LEVELS ABOVE EXPECTED NORMAL RANGES. NOTE NEW REFERENCE RANGE June 24, 2015 6:24am 31649-2: BETA NATRIURETIC PEPTIDE 57512-1: BETA NATRIURETIC PEPTIDE(0-100 PG/ML) 1002 PG/ML June 22, 2015 3:20am Allergies and Adverse Reactions Allergies and Adverse Reactions Patient Unit Number: [id number] Agent Type Reaction Severity Status PENICILLINS Drug Allergy RASH Moderate Active CODEINE Drug Allergy RASH Mild Active Problem List Problem List Visit/Account #[id number] (June 22, 2015 3:02am - June 25, 2015 12:58pm) Acute Problems: Code/Condition Comments Documented Start Date Documented Resolved Date Code (s) CHF exacerbation ICD10: I50.9 Acute exacerbation of congestive heart failure ICD9: 428.0 Acute exacerbation of congestive heart failure SNOMED: 99207641 Acute exacerbation of congestive heart failure Shortness of breath ICD10: R06.02 Shortness of breath ICD9: 786.05 Shortness of breath SNOMED: 798033413 Shortness of breath CHF (congestive heart failure) ICD10: I50.9 CHF (congestive heart failure) ICD9: 428.0 CHF (congestive heart failure) SNOMED: 14470187 CHF (congestive heart failure) NSTEMI (non-ST elevated myocardial infarction) ICD10: I21.4 Non-ST elevation (NSTEMI) myocardial infarction ICD9: 410.70 Non-ST elevation (NSTEMI) myocardial infarction SNOMED: 626587867 Non-ST elevation (NSTEMI) myocardial infarction Acute kidney injury ICD10: N17.9 Acute kidney injury ICD9: 584.9 Acute kidney injury SNOMED: 24562428 Acute kidney injury Elevated troponin ICD10: R79.89 Elevated troponin level ICD9: 790.6 Elevated troponin level SNOMED: 605322013 Elevated troponin level Chronic Problems: Anemia, chronic disease ICD10: D63.8 Chronic disease anemia ICD9: 285.29 Chronic disease anemia SNOMED: 998085919 Chronic disease anemia Diabetes mellitus ICD10: E11.9 Diabetes mellitus ICD9: 250.00 Diabetes mellitus SNOMED: 90581419 Diabetes mellitus Patient Unit Number: [id number] Chronic Problems: Code/Condition Comments Documented Start Date Documented Resolved Date Code (s) New onset type 1 diabetes mellitus, uncontrolled ICD10: E10.9 New onset type 1 diabetes mellitus, uncontrolled ICD9: 250.03 New onset type 1 diabetes mellitus, uncontrolled SNOMED: 118392332 New onset type 1 diabetes mellitus, uncontrolled Hypertension ICD10: I10 Hypertension ICD9: 401.9 Hypertension SNOMED: 40674485 Hypertension Anemia ICD10: D64.9 Anemia ICD9: 285.9 Anemia SNOMED: 439186995 Anemia Plan of Care Plan Of Care Visit/Account #[id number] (June 22, 2015 3:02am - June 25, 2015 12:58pm) Patient Instructions Instructions DI for Heart Attack Congestive Heart Failure (Alternative Therapy) Heart Attack Anemia DI for Heart Failure DI for Diabetes Type 2 DI for Shortness of Breath Clopidogrel Lisinopril and Hydrochlorothiazide Spironolactone Furosemide Vital Signs Vital Signs Visit/Account #[id number] (June 22, 2015 3:02am - June 25, 2015 12:58pm) Sign First Result Last Result Code(s) Blood Pressure 160/ 83 mm[Hg] On June 22, 2015 5:30am 126/ 73 mm[Hg] On June 25, 2015 10:13am 8480-6 BP Systolic Heart Rate/Pulse Pulse Rate (adult): 78 /min On June 22, 2015 5:30am Pulse Rate (adult): 75 /min On June 25, 2015 10:13am 8867-4 Heart Rate 8893-0 Pulse rate Respiratory Rate Respiratory Rate: 26 /min On June 22, 2015 5:30am Respiratory Rate: 18 /min On June 25, 2015 10:13am 9279-1 Respiratory rate Temperature in Fahrenheit Temperature (Fahrenheit): 97.6 [degF] On June 22, 2015 3:01am Temperature (Fahrenheit): 97.8 [degF] On June 25, 2015 10:13am 8310-5 Body Temperature Weight in Kilograms Weight (Kilograms): 80.8 kg On June 22, 2015 3:01am 3141-9 Weight Measured 85812-0 Body weight measured in kilograms Functional Status Functional and Cognitive Status No Functional Status Data Medications Home Medications - Medications that the patient was taking prior to arrival at the hospital Visit/Account #[id number] (June 22, 2015 3:02am - June 25, 2015 12:58pm) Medication Route Sig/Schedule Precondition/Indication Comments/Instructions Codes HUMALOG(INSULIN LISPRO) 100 U/ML INSULN.PEN Dose: 8 U SUB-Q 3 TIMES DAILY WITH MEALS 3 ML Insulin Lispro 100 UNT/ML Pen Injector [Humalog] (RxNorm): 0766952 HUMALOG (INSULIN LISPRO) NDC: 09791774825 ZESTORETIC 20-25 MG(LISINOPRIL/HYDROCHLOROTHIAZIDE) 1 EACH TABLET Dose: 2 TAB ORAL DAILY Hydrochlorothiazide 25 MG / Lisinopril 20 MG Oral Tablet [Zestoretic] (RxNorm) : 756946 ZESTORETIC 20-25 MG (LISINOPRIL/HYDROCHLOROTHIAZIDE) NDC: 19987760099 FISH OIL 1,000 MG(OMEGA-3 FATTY ACIDS/FISH OIL) 1 EACH CAPSULE Dose: 1000 MG ORAL DAILY FISH OIL 1,000 MG (OMEGA-3 FATTY ACIDS/FISH OIL) NDC: 92256199525 REGLAN(METOCLOPRAMIDE HCL) 10 MG TABLET Dose: 10 MG ORAL TWICE A DAY Metoclopramide 10 MG Oral Tablet [Reglan] (RxNorm): 580212 REGLAN (METOCLOPRAMIDE HCL) NDC: 38983148786 ZANTAC(RANITIDINE HCL) 150 MG TABLET Dose: 150 MG ORAL DAILY Ranitidine 150 MG Oral Tablet [Zantac] (RxNorm): 334334 ZANTAC (RANITIDINE HCL) NDC: 24639487350 LEVEMIR FLEXTOUCH(INSULIN DETEMIR) 100 UNIT/1 ML INSULN.PEN Dose: 12 UNIT SUBCUTANEOUSLY AT BEDTIME 3 ML insulin detemir 100 UNT/ML Pen Injector [Levemir] (RxNorm): 506889 LEVEMIR FLEXTOUCH (INSULIN DETEMIR) NDC: 49313716521 Coreg(CARVEDILOL) 25 MG TAB Dose: 25 MG ORAL WITH BREAKFAST & SUPPER carvedilol 25 MG Oral Tablet [Coreg] (RxNorm): 625456 Coreg (CARVEDILOL) NDC: 92138494921 TYLENOL(ACETAMINOPHEN) 500 MG TAB Dose: 500 MG ORAL Q4H PAIN OR FEVER Rx Instructions: 500 - 1000 MG Acetaminophen 500 MG Oral Tablet [Mapap] (RxNorm): 045025 TYLENOL (ACETAMINOPHEN) NDC: 73223915821 Aspirin Chew(ASPIRIN) 81 MG TAB Dose: 81 MG ORAL DAILY Aspirin Chew (ASPIRIN) NDC: 48646593132 Lasix(FUROSEMIDE) 40 MG TAB Dose: 40 MG ORAL DAILY Lasix (FUROSEMIDE) NDC: 36662842943 CRESTOR(ROSUVASTATIN CALCIUM) 10 MG TAB Dose: 20 MG ORAL AT BEDTIME Rosuvastatin calcium 10 MG Oral Tablet [Crestor] (RxNorm): 038118 CRESTOR (ROSUVASTATIN CALCIUM) NDC: 68356737708 Klor-Con M20(POTASSIUM CHLORIDE) 20 MEQ TAB.ER.PRT Dose: 40 MEQ ORAL WITH BREAKFAST & SUPPER Potassium Chloride 20 MEQ Extended Release Oral Tablet [Klor-Con] (RxNorm): 999555 Klor-Con M20 (POTASSIUM CHLORIDE) NDC: 24298269536 TYLENOL(ACETAMINOPHEN) 500 MG TABLET Dose: 500 MG ORAL Q4H PAIN OR FEVER TYLENOL (ACETAMINOPHEN) NDC: 75103517626 Aspirin Ec(ASPIRIN) 81 MG TAB Dose: 81 MG ORAL DAILY Aspirin 81 MG Delayed Release Oral Tablet (RxNorm): 683293 Aspirin Ec (ASPIRIN) NDC: 92610206721 Coreg(CARVEDILOL) 25 MG TAB Dose: 25 MG ORAL WITH BREAKFAST & SUPPER carvedilol 25 MG Oral Tablet [Coreg] (RxNorm): 965546 Coreg (CARVEDILOL) NDC: 96796458461 Lasix(FUROSEMIDE) 40 MG TAB Dose: 40 MG ORAL DAILY Lasix (FUROSEMIDE) NDC: 94715523710 Klor-Con M20(POTASSIUM CHLORIDE) 20 MEQ TAB.ER.PRT Dose: 40 MEQ ORAL WITH BREAKFAST & SUPPER Rx Instructions: *PT STATES SHE ONLY TAKES WHEN SHE TAKES FUROSEMIDE* Potassium Chloride 20 MEQ Extended Release Oral Tablet (RxNorm): 255266 Klor-Con M20 (POTASSIUM CHLORIDE) NDC: 07257204379 Crestor(ROSUVASTATIN CALCIUM) 20 MG TAB Dose: 20 MG ORAL DAILY Rx Instructions: *PT STATES SHE TAKES IN THE MORNING* Rosuvastatin calcium 20 MG Oral Tablet [Crestor] (RxNorm): 603689 Crestor (ROSUVASTATIN CALCIUM) NDC: 26819032896 Plavix(CLOPIDOGREL BISULFATE) 75 MG TAB Dose: 75 MG ORAL DAILY clopidogrel 75 MG Oral Tablet [Plavix] (RxNorm): 106692 Plavix (CLOPIDOGREL BISULFATE) NDC: 21610775694 Lasix(FUROSEMIDE) 20 MG TAB Dose: 60 MG ORAL DAILY Furosemide 20 MG Oral Tablet (RxNorm): 164189 Lasix (FUROSEMIDE) NDC: 60927543626 Aldactone(SPIRONOLACTONE) 50 MG TAB Dose: 100 MG ORAL DAILY Spironolactone 50 MG Oral Tablet (RxNorm): 780100 Aldactone (SPIRONOLACTONE) NDC: 91550475831 PLAVIX(CLOPIDOGREL BISULFATE) 75 MG TAB Dose: 75 MG ORAL DAILY clopidogrel 75 MG Oral Tablet [Plavix] (RxNorm): 837214 PLAVIX (CLOPIDOGREL BISULFATE) NDC: 07497529976 Inpatient/Ordered Medications - Medications administered during hospital visit Visit/Account #[id number] (June 22, 2015 3:02am - June 25, 2015 12:58pm) Medication Route Sig/Schedule Precondition/Indication Comments/Instructions Codes LASIX INJ(FUROSEMIDE) 40 MG/4 ML INJECTION Dose: 4 ML INTRAVEN NOW Label Comments: MAY INCREASE FALL RISK 4 ML Furosemide 10 MG/ML Injection (RxNorm): 7419336 LASIX INJ (FUROSEMIDE) NDC: 12261192705 ASPIRIN 324 MG TAB Dose: 324 MG ORAL NOW Special Dose Instructions: CHEW Aspirin 81 MG Chewable Tablet (RxNorm): 018319 (ASPIRIN) NDC: 70778134703 LOVENOX(ENOXAPARIN) 80 MG/0.8 ML INJECTION Dose: 0.8 ML SUBCUTANEOUSLY NOW Label Comments: INJECT SC INTO ABDOMINAL WALL ONLY. DOSED AT __MG/KG BASED ON PT WEIGHT OF __KG AND ROUNDED PER PROTOCOL. 0.8 ML Enoxaparin sodium 100 MG/ML Prefilled Syringe [Lovenox] (RxNorm): 358229 LOVENOX (ENOXAPARIN) NDC: 20453984625 LASIX INJ(FUROSEMIDE) 40 MG/4 ML INJECTION Dose: 4 ML INTRAVEN EVERY 8 HOURS Label Comments: MAY INCREASE FALL RISK 4 ML Furosemide 10 MG/ML Injection (RxNorm): 9358396 LASIX INJ (FUROSEMIDE) NDC: 65435670910 ASPIRIN 81 MG TAB Dose: 81 MG ORAL DAILY Aspirin 81 MG Chewable Tablet (RxNorm): 056593 (ASPIRIN) NDC: 36208611234 COREG(CARVEDILOL) 25 MG TAB Dose: 25 MG ORAL WITH BREAKFAST & SUPPER Label Comments: MAY INCREASE FALL RISK TAKE WITH FOOD carvedilol 25 MG Oral Tablet [Coreg] (RxNorm): 287962 COREG (CARVEDILOL) NDC: 04501749682 REGLAN(METOCLOPRAMIDE HCL) 10 MG TAB Dose: 10 MG ORAL TWICE A DAY Label Comments: MAY INCREASE FALL RISK Metoclopramide 10 MG Oral Tablet (RxNorm): 699192 REGLAN (METOCLOPRAMIDE HCL) NDC: 04052869865 PEPCID(FAMOTIDINE) 20 MG TAB Dose: 20 MG ORAL DAILY Label Comments: SUB FOR HOME MED ZANATC DAILY Famotidine 20 MG Oral Tablet (RxNorm): 711151 PEPCID (FAMOTIDINE) NDC: 84386785696 CRESTOR(ROSUVASTATIN CALCIUM) 10 MG TAB Dose: 20 MG ORAL AT BEDTIME Rosuvastatin calcium 10 MG Oral Tablet [Crestor] (RxNorm): 593759 CRESTOR (ROSUVASTATIN CALCIUM) NDC: 83190532217 HumaLOG(INSULIN HUM LISPRO) 300 UNIT/3 ML INJECTION Dose: 0 ML SUBCUTANEOUSLY SLIDING SCALE PRN Reason: HYPERGLYCEMIA Special Dose Instructions: STANDARD SCALE If BS less than 80 Call physician If BS 151-200 Give 2 Units If BS 201-250 Give 4 Units If BS 251-300 Give 6 Units If BS 301-350 Give 8 Units If BS 351-400 Give 10 Units If BS 401-450 Give 12 Units If BS greater than 450 Call physician DOCUMENT SITE OF INJECTION Insulin Lispro 100 UNT/ML Injectable Solution [Humalog] (RxNorm): 621510 HumaLOG (INSULIN HUM LISPRO) NDC: 20024345665 LASIX INJ(FUROSEMIDE) 40 MG/4 ML INJECTION Dose: 8 ML INTRAVEN EVERY 8 HOURS Rx Order Comments: Order filed UNV: Dose Warnings differ from time recorder Order filed UNV: Dose Warnings differ from time recorder Label Comments: MAY INCREASE FALL RISK 4 ML Furosemide 10 MG/ML Injection (RxNorm): 6324306 LASIX INJ (FUROSEMIDE) NDC: 18206725473 ALDACTONE(SPIRONOLACTONE) 25 MG TAB Dose: 25 MG ORAL DAILY Label Comments: MAY INCREASE FALL RISK Spironolactone 25 MG Oral Tablet (RxNorm): 387529 ALDACTONE (SPIRONOLACTONE) NDC: 56122036586 LEVEMIR(INSULIN DETEMIR) 1000 UNITS/10 ML INJECTION Dose: 0.1 ML SUBCUTANEOUSLY AT BEDTIME Label Comments: Do NOT refrigerate. * Syringe expires in 24 hours. insulin detemir 100 UNT/ML Injectable Solution [Levemir] (RxNorm): 930590 LEVEMIR (INSULIN DETEMIR) NDC: 70373386225 HumaLOG(INSULIN HUM LISPRO) 300 UNIT/3 ML INJECTION Dose: 0.05 ML SUBCUTANEOUSLY 3 TIMES DAILY WITH MEALS Label Comments: <rapid acting insulin> *protect from light* Give IMMEDIATELY before a meal. *expires 28 days after dispense date* Insulin Lispro 100 UNT/ML Injectable Solution [Humalog] (RxNorm): 240286 HumaLOG (INSULIN HUM LISPRO) NDC: 85748822347 LASIX INJ(FUROSEMIDE) 40 MG/4 ML INJECTION Dose: 8 ML INTRAVEN BID@06,12 Label Comments: MAY INCREASE FALL RISK Special Dose Instructions: Give Lasix 80mg IV twice daily ---> once at 6AM and again at Noon. 4 ML Furosemide 10 MG/ML Injection (RxNorm): 2640586 LASIX INJ (FUROSEMIDE) NDC: 24050948517 ALDACTONE(SPIRONOLACTONE) 50 MG TAB Dose: 50 MG ORAL DAILY Label Comments: MAY INCREASE FALL RISK Spironolactone 50 MG Oral Tablet (RxNorm): 643819 ALDACTONE (SPIRONOLACTONE) NDC: 48610425116 K-DUR(POTASSIUM CHLORIDE) 20 MEQ TAB Dose: 40 MEQ ORAL NOW Label Comments: TAKE WITH FOOD TO AVOID GI UPSET Special Dose Instructions: give with breakfast please, ok to break up since she has trouble swallowing them Potassium Chloride 20 MEQ Extended Release Oral Tablet [Klor-Con] (RxNorm): 822883 K-DUR (POTASSIUM CHLORIDE) NDC: 57493752967 PLAVIX(CLOPIDOGREL BISULFATE) 75 MG TAB Dose: 75 MG ORAL DAILY clopidogrel 75 MG Oral Tablet [Plavix] (RxNorm): 770754 PLAVIX (CLOPIDOGREL BISULFATE) NDC: 00377460542 K-DUR(POTASSIUM CHLORIDE) 20 MEQ TAB Dose: 40 MEQ ORAL NOW Label Comments: TAKE WITH FOOD TO AVOID GI UPSET Potassium Chloride 20 MEQ Extended Release Oral Tablet [Klor-Con] (RxNorm): 350889 K-DUR (POTASSIUM CHLORIDE) NDC: 40390467088 LASIX(FUROSEMIDE) 20 MG TAB Dose: 60 MG ORAL DAILY Label Comments: MAY INCREASE FALL RISK Furosemide 20 MG Oral Tablet (RxNorm): 624144 LASIX (FUROSEMIDE) NDC: 19455538767 ALDACTONE(SPIRONOLACTONE) 50 MG TAB Dose: 100 MG ORAL DAILY Label Comments: MAY INCREASE FALL RISK Spironolactone 50 MG Oral Tablet (RxNorm): 979715 ALDACTONE (SPIRONOLACTONE) NDC: 45305167719 ALDACTONE(SPIRONOLACTONE) 50 MG TAB Dose: 50 MG ORAL ONE TIME ORDER Label Comments: MAY INCREASE FALL RISK Special Dose Instructions: give additional 50mg this AM to make total dose of 100mg Spironolactone 50 MG Oral Tablet (RxNorm): 187598 ALDACTONE (SPIRONOLACTONE) NDC: 62622585090 K-DUR(POTASSIUM CHLORIDE) 20 MEQ TAB Dose: 40 MEQ ORAL NOW Label Comments: TAKE WITH FOOD TO AVOID GI UPSET Special Dose Instructions: give with breakfast please Potassium Chloride 20 MEQ Extended Release Oral Tablet [Klor-Con] (RxNorm): 946054 K-DUR (POTASSIUM CHLORIDE) NDC: 58069956918 Discharge Medications - Medications that patient should continue to take. Review with physician Visit/Account #[id number] (June 22, 2015 3:02am - June 25, 2015 12:58pm) Medication Route Sig/Schedule Precondition/Indication Comments/Instructions Codes HUMALOG(INSULIN LISPRO) 100 U/ML INSULN.PEN Dose: 8 U SUB-Q 3 TIMES DAILY WITH MEALS 3 ML Insulin Lispro 100 UNT/ML Pen Injector [Humalog] (RxNorm): 5372532 HUMALOG (INSULIN LISPRO) NDC: 87985958835 REGLAN(METOCLOPRAMIDE HCL) 10 MG TABLET Dose: 10 MG ORAL TWICE A DAY Metoclopramide 10 MG Oral Tablet [Reglan] (RxNorm): 755310 REGLAN (METOCLOPRAMIDE HCL) NDC: 72549910941 ZANTAC(RANITIDINE HCL) 150 MG TABLET Dose: 150 MG ORAL DAILY Ranitidine 150 MG Oral Tablet [Zantac] (RxNorm): 616934 ZANTAC (RANITIDINE HCL) NDC: 97305617505 LEVEMIR FLEXTOUCH(INSULIN DETEMIR) 100 UNIT/1 ML INSULN.PEN Dose: 12 UNIT SUBCUTANEOUSLY AT BEDTIME 3 ML insulin detemir 100 UNT/ML Pen Injector [Levemir] (RxNorm): 734813 LEVEMIR FLEXTOUCH (INSULIN DETEMIR) NDC: 03763763244 TYLENOL(ACETAMINOPHEN) 500 MG TABLET Dose: 500 MG ORAL Q4H PAIN OR FEVER TYLENOL (ACETAMINOPHEN) NDC: 27243763244 Aspirin Ec(ASPIRIN) 81 MG TAB Dose: 81 MG ORAL DAILY Aspirin 81 MG Delayed Release Oral Tablet (RxNorm): 244966 Aspirin Ec (ASPIRIN) NDC: 20604000317 Coreg(CARVEDILOL) 25 MG TAB Dose: 25 MG ORAL WITH BREAKFAST & SUPPER carvedilol 25 MG Oral Tablet [Coreg] (RxNorm): 874599 Coreg (CARVEDILOL) NDC: 01390063844 Klor-Con M20(POTASSIUM CHLORIDE) 20 MEQ TAB.ER.PRT Dose: 40 MEQ ORAL WITH BREAKFAST & SUPPER Rx Instructions: *PT STATES SHE ONLY TAKES WHEN SHE TAKES FUROSEMIDE* Potassium Chloride 20 MEQ Extended Release Oral Tablet (RxNorm): 655068 Klor-Con M20 (POTASSIUM CHLORIDE) NDC: 85692673113 Crestor(ROSUVASTATIN CALCIUM) 20 MG TAB Dose: 20 MG ORAL DAILY Rx Instructions: *PT STATES SHE TAKES IN THE MORNING* Rosuvastatin calcium 20 MG Oral Tablet [Crestor] (RxNorm): 794828 Crestor (ROSUVASTATIN CALCIUM) NDC: 87349086633 Plavix(CLOPIDOGREL BISULFATE) 75 MG TAB Dose: 75 MG ORAL DAILY clopidogrel 75 MG Oral Tablet [Plavix] (RxNorm): 734185 Plavix (CLOPIDOGREL BISULFATE) NDC: 57637973333 Lasix(FUROSEMIDE) 20 MG TAB Dose: 60 MG ORAL DAILY Furosemide 20 MG Oral Tablet (RxNorm): 480890 Lasix (FUROSEMIDE) NDC: 00539520155 Aldactone(SPIRONOLACTONE) 50 MG TAB Dose: 100 MG ORAL DAILY Spironolactone 50 MG Oral Tablet (RxNorm): 204861 Aldactone (SPIRONOLACTONE) NDC: 70065435396 ZESTORETIC 20-12.5 MG(LISINOPRIL/HYDROCHLOROTHIAZIDE) 1 EACH TABLET Dose: 1 TAB ORAL DAILY Hydrochlorothiazide 12.5 MG / Lisinopril 20 MG Oral Tablet [Zestoretic] ( RxNorm): 880139 ZESTORETIC 20-12.5 MG (LISINOPRIL/HYDROCHLOROTHIAZIDE) NDC: 18306007639 PLAVIX(CLOPIDOGREL BISULFATE) 75 MG TAB Dose: 75 MG ORAL DAILY clopidogrel 75 MG Oral Tablet [Plavix] (RxNorm): 606604 PLAVIX (CLOPIDOGREL BISULFATE) NDC: 62118472863 ZESTORETIC 20-12.5 MG(LISINOPRIL/HYDROCHLOROTHIAZIDE) 1 EACH TABLET Dose: 1 TAB ORAL DAILY Hydrochlorothiazide 12.5 MG / Lisinopril 20 MG Oral Tablet [Zestoretic] ( RxNorm): 320943 ZESTORETIC 20-12.5 MG (LISINOPRIL/HYDROCHLOROTHIAZIDE) NDC: 65367010841 History Of Encounters Encounters Visit/Account #[id number] (June 22, 2015 3:02am - June 25, 2015 12:58pm) Account Status Physican Of Record Reason For Visit Visit Diagnosis Start Date/Time Stop Date/Time ER SUSAN STARKS MD CHF, SHORTNESS OF BREATH, NSTEMI Not Available Jun 22, 2015 3:02am Jun 22, 2015 5:17am IN LINA LUBIN MD CHF, SHORTNESS OF BREATH, NSTEMI Not Available Jun 22, 2015 4:17am Jun 25, 2015 12:58pm History of Procedures Procedure List No procedures recorded. Discharge Instructions Discharge Instructions Visit/Account #[id number] (June 22, 2015 3:02am - June 25, 2015 12:58pm) DISCHARGE INSTRUCTIONS Physician Documentation PROVIDER INSTRUCTIONS Discharge Diet Cardiac Discharge Activity/Weight Bearing Status As tolerated Other Discharge Instructions Note all changes to medication Take potassium pills only when using lasix General Information: Pt given scale and daily weight sheet Discharge Diet Cardiac Discharge Activity/Weight Bearing Status As tolerated Other Discharge Instructions Note all changes to medication Take potassium pills only when using lasix CARE MANAGEMENT/HOME HEALTH Care Management Needs scale before discharge for daily weights REASON TO CALL PROVIDER Notify Physician if: Shortness of breath worsens Swelling in legs worsen Weight increasing FOLLOW UP APPOINTMENTS Follow Up With Dr. Varela scheduled in clinic on 06/28/15 Follow-up tests/procedures/outpatient needs: BMP at outpatient visit to check kidney function and potassium Social History Social History No Social History Data. Immunizations Immunizations Patient Unit Number: [id number] Immunizations No immunizations recorded.
--- OUTSIDE RECORDS SUMMARY | 2018-05-02 14:59 | XMS REPORT | Continuity Of Care Document ---
Author Author [facility] Organization [facility] Address [address] [place] [address] Phone Care Team Providers Care Sap Manager Name Role Phone SHANTELLE NUNEZ, LUIS Ny PP GISELE PRETTY MD CP UNASSIGNED, ED PHYSICIAN Unavailable Unavailable HANNA NUNEZ, ABBY T CP [phone] RAUL NUNEZ, SAMMI Rodriguez CP LUCIANO NUNEZ, SOCORRO Mason AT Results Lab Results Visit/Account #[id number] (April 15, 2015 6:30pm - April 19, 2015 4: 27pm) Test Result Date/Time POCGL POCGL(70-110 MG/DL) 199 MG/DL April 15, 2015 11:00pm 207 MG/DL April 16, 2015 6:50am 189 MG/DL April 16, 2015 11:09am 215 MG/DL April 16, 2015 4:06pm 313 MG/DL April 16, 2015 8:15pm 292 MG/DL April 16, 2015 9:17pm 134 MG/DL April 17, 2015 6:36am 160 MG/DL April 17, 2015 10:59am 256 MG/DL April 17, 2015 4:09pm 295 MG/DL April 17, 2015 9:06pm 122 MG/DL April 18, 2015 6:14am 201 MG/DL April 18, 2015 11:06am 190 MG/DL April 18, 2015 4:40pm 188 MG/DL April 18, 2015 8:47pm 203 MG/DL April 19, 2015 6:03am 184 MG/DL April 19, 2015 10:45am 10522-6: COMPLETE BLOOD COUNT WITH DIFF WHITE BLOOD COUNT(4.0-11.0 10E3/UL) 7.2 10E3/UL April 15, 2015 6:45pm 9.3 10E3/UL April 16, 2015 6:44am 8.1 10E3/UL April 17, 2015 7:20am 6.6 10E3/UL April 18, 2015 6:25am 6.1 10E3/UL April 19, 2015 6:45am RED BLOOD COUNT(4.00-5.20 10E6/UL) 3.34 10E6/UL April 15, 2015 6:45pm 3.18 10E6/UL April 16, 2015 6:44am 3.05 10E6/UL April 17, 2015 7:20am 3.14 10E6/UL April 18, 2015 6:25am 2.93 10E6/UL April 19, 2015 6:45am HEMOGLOBIN(12.0-16.0 G/DL) 9.3 G/DL April 15, 2015 6:45pm 8.8 G/DL April 16, 2015 6:44am 8.6 G/DL April 17, 2015 7:20am 8.8 G/DL April 18, 2015 6:25am 8.1 G/DL April 19, 2015 6:45am HEMATOCRIT(36.0-46.0 %) 29.2 % April 15, 2015 6:45pm 27.6 % April 16, 2015 6:44am 27.0 % April 17, 2015 7:20am 27.5 % April 18, 2015 6:25am 25.5 % April 19, 2015 6:45am MEAN CORPUSCULAR VOLUME(82.0-100.0 FL) 87.4 FL April 15, 2015 6:45pm 86.8 FL April 16, 2015 6:44am 88.5 FL April 17, 2015 7:20am 87.6 FL April 18, 2015 6:25am 87.0 FL April 19, 2015 6:45am 66800-1: MEAN CORPUSCULAR HEMOGLOBIN(26.0-34.0 PG) 27.8 PG April 15, 2015 6:45pm 27.7 PG April 16, 2015 6:44am 28.2 PG April 17, 2015 7:20am 28.0 PG April 18, 2015 6:25am 27.6 PG April 19, 2015 6:45am MEAN CORPUSCULAR HGB CONC(31.5-36.5 G/DL) 31.8 G/DL April 15, 2015 6:45pm 31.9 G/DL April 16, 2015 6:44am 31.9 G/DL April 17, 2015 7:20am 32.0 G/DL April 18, 2015 6:25am 31.8 G/DL April 19, 2015 6:45am RED CELL DISTRIBUTION WIDTH(11.5-14.5 %) 13.4 % April 15, 2015 6:45pm 13.3 % April 16, 2015 6:44am 13.8 % April 17, 2015 7:20am 13.5 % April 18, 2015 6:25am 13.3 % April 19, 2015 6:45am 777-3: PLATELET COUNT(150-450 10E3/UL) 202 10E3/UL April 15, 2015 6:45pm 205 10E3/UL April 16, 2015 6:44am 195 10E3/UL April 17, 2015 7:20am 173 10E3/UL April 18, 2015 6:25am 157 10E3/UL April 19, 2015 6:45am MEAN PLATELET VOLUME(8.2-12.4 FL) 11.7 FL April 15, 2015 6:45pm 12.1 FL April 16, 2015 6:44am 12.0 FL April 17, 2015 7:20am 11.6 FL April 18, 2015 6:25am 11.4 FL April 19, 2015 6:45am 770-8: NEUTROPHILS % (AUTO)(40-70 %) 85 % April 15, 2015 6:45pm 83 % April 16, 2015 6:44am 60 % April 17, 2015 7:20am 54 % April 18, 2015 6:25am 57 % April 19, 2015 6:45am LYMPHOCYTES % (AUTO)(15-45 %) 11 % April 15, 2015 6:45pm 13 % April 16, 2015 6:44am 30 % April 17, 2015 7:20am 32 % April 18, 2015 6:25am 29 % April 19, 2015 6:45am 5905-5: MONOCYTES % (AUTO)(2-10 %) 3 % April 15, 2015 6:45pm 4 % April 16, 2015 6:44am 8 % April 17, 2015 7:20am 11 % April 18, 2015 6:25am 9 % April 19, 2015 6:45am 713-8: EOSINOPHILS % (AUTO)(0-6 %) 1 % April 15, 2015 6:45pm 0 % April 16, 2015 6:44am 1 % April 17, 2015 7:20am 3 % April 18, 2015 6:25am 4 % April 19, 2015 6:45am 706-2: BASOPHILS % (AUTO)(0-1 %) 0 % April 15, 2015 6:45pm 0 % April 16, 2015 6:44am 1 % April 17, 2015 7:20am 1 % April 18, 2015 6:25am 1 % April 19, 2015 6:45am 30158-3: IMMATURE GRANS % (AUTO)(0-0 %) 0 % April 15, 2015 6:45pm 1 % April 16, 2015 6:44am 0 % April 17, 2015 7:20am 0 % April 18, 2015 6:25am 0 % April 19, 2015 6:45am NUCLEATED RBCS (AUTO)(0-0 %) 0 % April 15, 2015 6:45pm 0 % April 16, 2015 6:44am 0 % April 17, 2015 7:20am 0 % April 18, 2015 6:25am 0 % April 19, 2015 6:45am 751-8: NEUTROPHILS # (AUTO)(2.5-7.5 10E3/UL) 6.1 10E3/UL April 15, 2015 6:45pm 7.7 10E3/UL April 16, 2015 6:44am 4.8 10E3/UL April 17, 2015 7:20am 3.6 10E3/UL April 18, 2015 6:25am 3.5 10E3/UL April 19, 2015 6:45am 87766-3: LYMPHOCYTES # (AUTO)(1.0-4.0 10E3/UL) 0.8 10E3/UL April 15, 2015 6:45pm 1.2 10E3/UL April 16, 2015 6:44am 2.4 10E3/UL April 17, 2015 7:20am 2.1 10E3/UL April 18, 2015 6:25am 1.8 10E3/UL April 19, 2015 6:45am 742-7: MONOCYTES # (AUTO)(0.2-0.8 10E3/UL) 0.2 10E3/UL April 15, 2015 6:45pm 0.3 10E3/UL April 16, 2015 6:44am 0.7 10E3/UL April 17, 2015 7:20am 0.7 10E3/UL April 18, 2015 6:25am 0.6 10E3/UL April 19, 2015 6:45am 711-2: EOSINOPHILS # (AUTO)(0.0-0.4 10E3/UL) 0.1 10E3/UL April 15, 2015 6:45pm 0.0 10E3/UL April 16, 2015 6:44am 0.1 10E3/UL April 17, 2015 7:20am 0.2 10E3/UL April 18, 2015 6:25am 0.3 10E3/UL April 19, 2015 6:45am 704-7: BASOPHILS # (AUTO)(0.0-0.2 10E3/UL) 0.0 10E3/UL April 15, 2015 6:45pm 0.0 10E3/UL April 16, 2015 6:44am 0.0 10E3/UL April 17, 2015 7:20am 0.0 10E3/UL April 18, 2015 6:25am 0.0 10E3/UL April 19, 2015 6:45am IMMATURE GRANS # (AUTO)(0.0-0.0 10E3/UL) 0.0 10E3/UL April 15, 2015 6:45pm 0.1 10E3/UL April 16, 2015 6:44am 0.0 10E3/UL April 17, 2015 7:20am 0.0 10E3/UL April 18, 2015 6:25am 0.0 10E3/UL April 19, 2015 6:45am DIFF TYPE AUTOMATED April 15, 2015 6:45pm AUTOMATED April 16, 2015 6:44am AUTOMATED April 17, 2015 7:20am AUTOMATED April 18, 2015 6:25am AUTOMATED April 19, 2015 6:45am RETIC PANEL 26787-6: RETICULOCYTE %(0.2-2.0 %) 2.3 % April 16, 2015 6:32am ABSOLUTE RETICS #(16-78 10E9/L) 71 10E9/L April 16, 2015 6:32am 17767-2: IMMATURE RETIC FRACTION(3.0-15.9 %) 27.8 % April 16, 2015 6:32am 60262-1: PROTHROMBIN TIME WITH INR PROTHROMBIN TIME(12.1-14.0 SEC) 14.7 SEC April 16, 2015 6:44am 91488-8: INR 1.20 Result Comments: INR reference interval applies to patients on anticoagulant therapy. Suggested INR therapeutic range for oral anticoagulant therapy: (Stabilized anticoagulated patients) Routine Therapy: 2.0 to 3.0 Recurrent Myocardial Infarction: 2.5 to 3.5 Mechanical Prosthetic Valves: 2.5 to 3.5 April 16, 2015 6:44am UA WITH SCREEN FOR CULTURE 5778-6: COLOR,URINE YELLOW April 18, 2015 12:25am 06654-0: CLARITY,URINE SLIGHTLY CLOUDY April 18, 2015 12:25am GLUCOSE, URINE(NEGATIVE MG/DL) 100 MG/DL April 18, 2015 12:25am URINE BILIRUBIN(NEGATIVE) NEGATIVE April 18, 2015 12:25am 36983-9: KETONES,URINE(NEGATIVE MG/DL) NEGATIVE MG/DL April 18, 2015 12:25am 2965-2: URINE SPECIFIC GRAVITY(1.001-1.035) 1.015 April 18, 2015 12:25am 52485-8: URINE BLOOD(NEGATIVE) SMALL April 18, 2015 12:25am 2756-5: URINE PH(5.0-9.0) 6.5 April 18, 2015 12:25am URINE PROTEIN(Less than 20 MG/DL) 100 MG/DL April 18, 2015 12:25am URINE UROBILINOGEN(0.2-1.0 MG/DL) 0.2 MG/DL April 18, 2015 12:25am URINE NITRITE(NEGATIVE) NEGATIVE April 18, 2015 12:25am 5799-2: LEUKOCYTE ESTERASE ,URINE(NEGATIVE) NEGATIVE April 18, 2015 12:25am 630-4: URINE CULTURE NOT INDICATED April 18, 2015 12:25am URINE MICROSCOPIC REQUIRED YES April 18, 2015 12:25am URINE WBCS(/HPF) 0-3 /HPF April 18, 2015 12:25am 28570-0: URINE RBCS(/HPF) 0-3 /HPF April 18, 2015 12:25am 12888-7: URINE EPITHELIAL CELLS(/HPF) 0-3 /HPF April 18, 2015 12:25am BACTERIA,URINE(/HPF) TRACE /HPF April 18, 2015 12:25am URINE CRYSTALS(/HPF) NONE SEEN /HPF April 18, 2015 12:25am URINE CASTS(/LPF) NONE SEEN /LPF April 18, 2015 12:25am URINE COMMENTS NONE April 18, 2015 12:25am 21573-5: COMPLETE METABOLIC PROFILE GLUCOSE(70-110 MG/DL) 210 MG/DL April 16, 2015 6:44am 132 MG/DL April 17, 2015 7:20am 127 MG/DL April 18, 2015 6:25am 190 MG/DL April 19, 2015 6:45am BLOOD UREA NITROGEN(6-20 MG/DL) 39 MG/DL April 16, 2015 6:44am 44 MG/DL April 17, 2015 7:20am 39 MG/DL April 18, 2015 6:25am 36 MG/DL April 19, 2015 6:45am CREATININE(0.50-1.20 MG/DL) 1.59 MG/DL April 16, 2015 6:44am 1.75 MG/DL April 17, 2015 7:20am 1.47 MG/DL April 18, 2015 6:25am 1.33 MG/DL April 19, 2015 6:45am 68964-5: EST GLOMERULAR FILTRATION RATE(Greater than or equal to 60) 34 Result Comments: If the patient is of -Vincentian descent/extraction multiply the eGFR value by 1.212 to obtain the actual eGFR. >=60 mg/dL Normal 30-59 mg/dL Moderate Kidney Disease 15-29 mg/dL Severe Kidney Disease <15 mg/dL Kidney Failure April 16, 2015 6:44am 30 Result Comments: If the patient is of -Vincentian descent/extraction multiply the eGFR value by 1.212 to obtain the actual eGFR. >=60 mg/dL Normal 30-59 mg/dL Moderate Kidney Disease 15-29 mg/dL Severe Kidney Disease <15 mg/dL Kidney Failure April 17, 2015 7:20am 37 Result Comments: If the patient is of -Vincentian descent/extraction multiply the eGFR value by 1.212 to obtain the actual eGFR. >=60 mg/dL Normal 30-59 mg/dL Moderate Kidney Disease 15-29 mg/dL Severe Kidney Disease <15 mg/dL Kidney Failure April 18, 2015 6:25am 41 Result Comments: If the patient is of -Vincentian descent/extraction multiply the eGFR value by 1.212 to obtain the actual eGFR. >=60 mg/dL Normal 30-59 mg/dL Moderate Kidney Disease 15-29 mg/dL Severe Kidney Disease <15 mg/dL Kidney Failure April 19, 2015 6:45am BUN CREATININE RATIO(10.0-20.0 RATIO) 25.0 RATIO April 16, 2015 6:44am 25.0 RATIO April 17, 2015 7:20am 27.0 RATIO April 18, 2015 6:25am 27.0 RATIO April 19, 2015 6:45am SODIUM(135-145 MMOL/L) 139 MMOL/L April 16, 2015 6:44am 140 MMOL/L April 17, 2015 7:20am 140 MMOL/L April 18, 2015 6:25am 137 MMOL/L April 19, 2015 6:45am POTASSIUM(3.6-5.0 MMOL/L) 4.2 MMOL/L April 16, 2015 6:44am 3.8 MMOL/L April 17, 2015 7:20am 3.3 MMOL/L April 18, 2015 6:25am 3.3 MMOL/L April 19, 2015 6:45am CHLORIDE(101-111 MMOL/L) 105 MMOL/L April 16, 2015 6:44am 104 MMOL/L April 17, 2015 7:20am 101 MMOL/L April 18, 2015 6:25am 103 MMOL/L April 19, 2015 6:45am 8-9: CO2(21-31 MMOL/L) 24 MMOL/L April 16, 2015 6:44am 28 MMOL/L April 17, 2015 7:20am 31 MMOL/L April 18, 2015 6:25am 29 MMOL/L April 19, 2015 6:45am 99369-9: ANION GAP(8-18) 14 April 16, 2015 6:44am 12 April 17, 2015 7:20am 11 April 18, 2015 6:25am 8 April 19, 2015 6:45am OSMO CALCULATED(270.0-290.0) 293.1 April 16, 2015 6:44am 292.4 April 17, 2015 7:20am 290.4 April 18, 2015 6:25am 287.2 April 19, 2015 6:45am CALCIUM(8.5-10.5 MG/DL) 8.5 MG/DL April 16, 2015 6:44am 8.3 MG/DL April 17, 2015 7:20am 8.3 MG/DL April 18, 2015 6:25am 7.7 MG/DL April 19, 2015 6:45am BILIRUBIN,TOTAL(0.1-1.2 MG/DL) 0.2 MG/DL April 16, 2015 6:44am 0.2 MG/DL April 17, 2015 7:20am 0.1 MG/DL April 18, 2015 6:25am 0.2 MG/DL April 19, 2015 6:45am ALKALINE PHOSPHATASE(42-121 IU/L) 83 IU/L April 16, 2015 6:44am 78 IU/L April 17, 2015 7:20am 71 IU/L April 18, 2015 6:25am 68 IU/L April 19, 2015 6:45am ASPARTATE AMINO TRANSFERASE(10-42 IU/L) 15 IU/L April 16, 2015 6:44am 13 IU/L April 17, 2015 7:20am 12 IU/L April 18, 2015 6:25am 13 IU/L April 19, 2015 6:45am ALANINE AMINOTRANSFERASE(10-60 IU/L) 15 IU/L April 16, 2015 6:44am 13 IU/L April 17, 2015 7:20am 11 IU/L April 18, 2015 6:25am 12 IU/L April 19, 2015 6:45am 07495-6: TOTAL PROTEIN(6.4-8.2 G/DL) 6.4 G/DL April 16, 2015 6:44am 6.3 G/DL April 17, 2015 7:20am 6.0 G/DL April 18, 2015 6:25am 5.5 G/DL April 19, 2015 6:45am ALBUMIN(3.5-5.5 G/DL) 2.8 G/DL April 16, 2015 6:44am 2.9 G/DL April 17, 2015 7:20am 2.7 G/DL April 18, 2015 6:25am 2.6 G/DL April 19, 2015 6:45am 2336-6: GLOBULIN(2.4-3.6) 3.6 April 16, 2015 6:44am 3.4 April 17, 2015 7:20am 3.3 April 18, 2015 6:25am 2.9 April 19, 2015 6:45am ALBUMIN/GLOBULIN RATIO(0.9-1.8 RATIO) 0.8 RATIO April 16, 2015 6:44am 0.9 RATIO April 17, 2015 7:20am 0.8 RATIO April 18, 2015 6:25am 0.9 RATIO April 19, 2015 6:45am CREATININE CREATININE(0.50-1.20 MG/DL) 1.50 MG/DL April 15, 2015 6:45pm 74682-2: EST GLOMERULAR FILTRATION RATE(Greater than or equal to 60) 36 Result Comments: If the patient is of -Vincentian descent/extraction multiply the eGFR value by 1.212 to obtain the actual eGFR. >=60 mg/dL Normal 30-59 mg/dL Moderate Kidney Disease 15-29 mg/dL Severe Kidney Disease <15 mg/dL Kidney Failure April 15, 2015 6:45pm LACTATE DEHYDROGENASE LACTATE DEHYDROGENASE(91-180 IU/L) 224 IU/L April 18, 2015 11:30am TOTAL CPK TOTAL CPK(22-269 IU/L) 331 IU/L April 16, 2015 12:57am 276 IU/L April 16, 2015 6:44am CPK MB CPK MB(0.6-6.3 NG/ML) 7.4 NG/ML April 16, 2015 12:57am 5.9 NG/ML April 16, 2015 6:44am 34395-0: [place] I [address]368-5: CARDIAC TROPONIN I(0.01-0.04 NG/ML) 1.62 NG/ML Result Comments: REFERENCE RANGES: NEGATIVE < 0.04 NG/ML POSSIBLE MYCARDIAL INVOLVEMENT >/=0.04 NG/ML INTERPRET TROPONIN I RESULT IN LIGHT OF THE TOTAL CLINICAL PRESENTATION INCLUDING CLINICAL HISTORY. ANY CONDITION RESULTING IN MYOCARDIAL INJURY CAN POTENTIALLY ELEVATE TROPONIN I LEVELS ABOVE EXPECTED NORMAL RANGES. NOTE NEW REFERENCE RANGE April 15, 2015 6:45pm 1.64 NG/ML Result Comments: REFERENCE RANGES: NEGATIVE < 0.04 NG/ML POSSIBLE MYCARDIAL INVOLVEMENT >/=0.04 NG/ML INTERPRET TROPONIN I RESULT IN LIGHT OF THE TOTAL CLINICAL PRESENTATION INCLUDING CLINICAL HISTORY. ANY CONDITION RESULTING IN MYOCARDIAL INJURY CAN POTENTIALLY ELEVATE TROPONIN I LEVELS ABOVE EXPECTED NORMAL RANGES. NOTE NEW REFERENCE RANGE April 16, 2015 12:57am 1.67 NG/ML Result Comments: REFERENCE RANGES: NEGATIVE < 0.04 NG/ML POSSIBLE MYCARDIAL INVOLVEMENT >/=0.04 NG/ML INTERPRET TROPONIN I RESULT IN LIGHT OF THE TOTAL CLINICAL PRESENTATION INCLUDING CLINICAL HISTORY. ANY CONDITION RESULTING IN MYOCARDIAL INJURY CAN POTENTIALLY ELEVATE TROPONIN I LEVELS ABOVE EXPECTED NORMAL RANGES. NOTE NEW REFERENCE RANGE April 16, 2015 6:44am 79180-0: BETA NATRIURETIC PEPTIDE 02765-1: BETA NATRIURETIC PEPTIDE(0-100 PG/ML) 904 PG/ML April 15, 2015 6:48pm 71631-7: LIPID PROFILE 73089-3: TRIGLYCERIDES(35-160 MG/DL) 125 MG/DL April 16, 2015 6:44am CHOLESTEROL(0-200 MG/DL) 171 MG/DL April 16, 2015 6:44am LDL CHOLESTEROL,DIRECT(0-99 MG/DL) 95 MG/DL April 16, 2015 6:44am VLDL CHOLESTEROL(1-53 MG/DL) 25 MG/DL April 16, 2015 6:44am HDL CHOLESTEROL(35-85 MG/DL) 38 MG/DL April 16, 2015 6:44am CHOL/HDL RATIO(0.0-4.4 RATIO) 4.5 RATIO April 16, 2015 6:44am THYROID STIMULATING HORMONE THYROID STIMULATING HORMONE(0.340-5.600 uIU/ML) 1.320 uIU/ML April 15, 2015 6:45pm 2344-0: FLUID GLUCOSE 2344-0: FLUID GLUCOSE(MG/DL) 163 MG/DL April 18, 2015 10:40am FLUID LDH FLUID LDH(IU/L) 56 IU/L April 18, 2015 10:40am 2748-2: FLUID PH 2748-2: FLUID PH 7.577 Result Comments: SPECIMEN WAS NOT RECEIVED ON ICE;RESULTS MAY BE AFFECTED --- 04/18/15 1120 --- CORRECTED REPORT [facility] previously reported as: 7.577 April 18, 2015 10:40am 2881-1: FLUID TOTAL PROTEIN 2881-1: FLUID TOTAL PROTEIN(G/DL) Less than 3.0 G/DL April 18, 2015 10:40am BODY FLUID CELL COUNT W/ DIFF SPECIMEN DESCRIPTION PLEURAL FLUID April 18, 2015 10:40am 6824-7: BODY FLUID COLOR YELLOW April 18, 2015 10:40am BODY FLUID CLARITY SLIGHTLY CLOUDY April 18, 2015 10:40am 46615-1: BODY FLUID WBC(/MM3) 325 /MM3 April 18, 2015 10:40am 25952-5: BODY FLUID RBC(/MM3) Less than 3000 /MM3 Result Comments: --- 04/18/15 1132 --- CORRECTED REPORT RBC (AUTO) previously reported as: 2000 /MM3 April 18, 2015 10:40am BODY FLUID NEUTROPHILS(%) 34 % April 18, 2015 10:40am BODY FLUID LYMPHOCYTES(%) 37 % April 18, 2015 10:40am 67230-3: BODY FLUID MONOCYTES(%) 29 % April 18, 2015 10:40am Microbiology Results Visit/Account #[id number] (April 15, 2015 6:30pm - April 19, 2015 4: 27pm) Procedure Result 611-4: CULTURE BODY FLUID 611-4: CULTURE BODY FLUID Result Instance On April 18, 2015 10:40am Source: PLEURAL FLUID Special Result Comments: No growth 10769-2: BODY FLUID GRAM STAIN 75400-7: BODY FLUID GRAM STAIN Result Instance On April 18, 2015 10:40am Source: PLEURAL FLUID Result Prompts: WBC/HPF 5-10 BACTERIA SEEN NO ORGANISM SEEN Allergies and Adverse Reactions Allergies and Adverse Reactions Patient Unit Number: [id number] Agent Type Reaction Severity Status PENICILLINS Drug Allergy RASH Moderate Active CODEINE Drug Allergy RASH Mild Active Problem List Problem List Visit/Account #[id number] (April 15, 2015 6:30pm - April 19, 2015 4: 27pm) Acute Problems: Code/Condition Comments Documented Start Date Documented Resolved Date Code (s) Gastritis ICD10: K29.70 Gastritis ICD9: 535.50 Gastritis SNOMED: 3266848 Gastritis Acute kidney injury ICD10: N17.9 Acute kidney injury ICD9: 584.9 Acute kidney injury SNOMED: 27427045 Acute kidney injury Hypokalemia ICD10: E87.6 Hypokalemia ICD9: 276.8 Hypokalemia SNOMED: 41283412 Hypokalemia Elevated troponin ICD10: R79.89 Elevated troponin level ICD9: 790.6 Elevated troponin level SNOMED: 497170909 Elevated troponin level CHF (congestive heart failure) ICD10: I50.9 CHF (congestive heart failure) ICD9: 428.0 CHF (congestive heart failure) SNOMED: 82902688 CHF (congestive heart failure) NSTEMI (non-ST elevated myocardial infarction) ICD10: I21.4 Non-ST elevation (NSTEMI) myocardial infarction ICD9: 410.70 Non-ST elevation (NSTEMI) myocardial infarction SNOMED: 340614354 Non-ST elevation (NSTEMI) myocardial infarction Pulmonary edema ICD10: J81.1 Pulmonary edema ICD9: 514 Pulmonary edema SNOMED: 01631256 Pulmonary edema Chronic Problems: New onset type 1 diabetes mellitus, uncontrolled ICD10: E10.9 New onset type 1 diabetes mellitus, uncontrolled ICD9: 250.03 New onset type 1 diabetes mellitus, uncontrolled SNOMED: 388406394 New onset type 1 diabetes mellitus, uncontrolled Hypertension ICD10: I10 Hypertension ICD9: 401.9 Hypertension SNOMED: 15527790 Hypertension Anemia, chronic disease ICD10: D63.8 Chronic disease anemia ICD9: 285.29 Chronic disease anemia SNOMED: 412410383 Chronic disease anemia Anemia ICD10: D64.9 Anemia ICD9: 285.9 Anemia SNOMED: 607379504 Anemia Diabetes mellitus ICD10: E11.9 Diabetes mellitus ICD9: 250.00 Diabetes mellitus SNOMED: 15857061 Diabetes mellitus Resolved Problems: Pleural effusion April 19, 2015 ICD10: J94.8 Pleural effusion ICD9: 511.9 Pleural effusion SNOMED: 07347800 Pleural effusion Plan of Care Plan Of Care Visit/Account #[id number] (April 15, 2015 6:30pm - April 19, 2015 4: 27pm) Patient Instructions Instructions Potassium DI for Heart Attack DI for Heart Failure DI for Gastritis DI for Hypokalemia DI for Diabetes Type 1 -- Child DI for Coronary Artery Disease Rosuvastatin Acetaminophen Furosemide Aspirin Carvedilol Vital Signs Vital Signs Visit/Account #[id number] (April 15, 2015 6:30pm - April 19, 2015 4: 27pm) Sign First Result Last Result Code(s) Blood Pressure 190/ 103 mm[Hg] On April 15, 2015 9:10pm 158/ 80 mm[Hg] On April 19, 2015 2:18pm 8480-6 BP Systolic Heart Rate/Pulse Pulse Rate (adult): 93 /min On April 15, 2015 9:10pm Pulse Rate (adult): 73 /min On April 19, 2015 2:18pm 8867-4 Heart Rate 8893-0 Pulse rate Respiratory Rate Respiratory Rate: 20 /min On April 15, 2015 9:10pm Respiratory Rate: 20 /min On April 19, 2015 2:18pm 9279-1 Respiratory rate Temperature in Fahrenheit Temperature (Fahrenheit): 98.0 [degF] On April 15, 2015 6:29pm Temperature (Fahrenheit): 98.4 [degF] On April 19, 2015 2:18pm 8310-5 Body Temperature Weight in Kilograms Weight (Kilograms): 86.2 kg On April 15, 2015 6:29pm 3141-9 Weight Measured 40038-9 Body weight measured in kilograms Functional Status Functional and Cognitive Status No Functional Status Data Medications Home Medications - Medications that the patient was taking prior to arrival at the hospital Visit/Account #[id number] (April 15, 2015 6:30pm - April 19, 2015 4: 27pm) Medication Route Sig/Schedule Precondition/Indication Comments/Instructions Codes HUMALOG(INSULIN LISPRO) 100 U/ML INSULN.PEN Dose: 8 U SUB-Q 3 TIMES DAILY WITH MEALS 3 ML Insulin Lispro 100 UNT/ML Pen Injector [Humalog] (RxNorm): 7140238 HUMALOG (INSULIN LISPRO) NDC: 27285837273 CRESTOR(ROSUVASTATIN CALCIUM) 10 MG TAB Dose: 5 MG ORAL DAILY Rosuvastatin calcium 10 MG Oral Tablet [Crestor] (RxNorm): 796676 CRESTOR (ROSUVASTATIN CALCIUM) NDC: 54563279214 NAPROSYN(NAPROXEN) 500 MG TABLET Dose: 500 MG ORAL TWICE A DAY PAIN Naproxen 500 MG Oral Tablet [Naprosyn] (RxNorm): 507949 NAPROSYN (NAPROXEN) NDC: 94299445475 ZESTORETIC 20-25 MG(LISINOPRIL/HYDROCHLOROTHIAZIDE) 1 EACH TABLET Dose: 2 TAB ORAL DAILY Hydrochlorothiazide 25 MG / Lisinopril 20 MG Oral Tablet [Zestoretic] (RxNorm) : 745809 ZESTORETIC 20-25 MG (LISINOPRIL/HYDROCHLOROTHIAZIDE) NDC: 49063265386 FISH OIL 1,000 MG(OMEGA-3 FATTY ACIDS/FISH OIL) 1 EACH CAPSULE Dose: 1000 MG ORAL DAILY FISH OIL 1,000 MG (OMEGA-3 FATTY ACIDS/FISH OIL) NDC: 97454095394 GLUCOPHAGE(MetFORMin HCL) 1 000 TABLET Dose: 1000 MG ORAL DAILY AT [facility] Metformin hydrochloride 1000 MG Oral Tablet [Glucophage] (RxNorm): 115239 GLUCOPHAGE (MetFORMin HCL) NDC: 19516524946 REGLAN(METOCLOPRAMIDE HCL) 10 MG TABLET Dose: 10 MG ORAL TWICE A DAY Metoclopramide 10 MG Oral Tablet [Reglan] (RxNorm): 671610 REGLAN (METOCLOPRAMIDE HCL) NDC: 10126096973 COREG(CARVEDILOL) 12.5 MG TABLET Dose: 12.5 MG ORAL TWICE A DAY carvedilol 12.5 MG Oral Tablet [Coreg] (RxNorm): 145204 COREG (CARVEDILOL) NDC: 80612436237 ZANTAC(RANITIDINE HCL) 150 MG TABLET Dose: 150 MG ORAL NEEDED Ranitidine 150 MG Oral Tablet [Zantac] (RxNorm): 288387 ZANTAC (RANITIDINE HCL) NDC: 85278069814 LEVEMIR FLEXTOUCH(INSULIN DETEMIR) 100 UNIT/1 ML INSULN.PEN Dose: 12 UNIT SUBCUTANEOUSLY AT BEDTIME 3 ML insulin detemir 100 UNT/ML Pen Injector [Levemir] (RxNorm): 867805 LEVEMIR FLEXTOUCH (INSULIN DETEMIR) NDC: 10960361736 Coreg(CARVEDILOL) 25 MG TAB Dose: 25 MG ORAL WITH BREAKFAST & SUPPER carvedilol 25 MG Oral Tablet [Coreg] (RxNorm): 294321 Coreg (CARVEDILOL) NDC: 05558075711 TYLENOL(ACETAMINOPHEN) 500 MG TAB Dose: 500 MG ORAL Q4H PAIN OR FEVER Rx Instructions: 500 - 1000 MG Acetaminophen 500 MG Oral Tablet [Mapap] (RxNorm): 372772 TYLENOL (ACETAMINOPHEN) NDC: 31674975801 Aspirin Chew(ASPIRIN) 81 MG TAB Dose: 81 MG ORAL DAILY Aspirin Chew (ASPIRIN) NDC: 35202495924 Lasix(FUROSEMIDE) 40 MG TAB Dose: 40 MG ORAL DAILY Lasix (FUROSEMIDE) NDC: 57181157943 CRESTOR(ROSUVASTATIN CALCIUM) 10 MG TAB Dose: 20 MG ORAL AT BEDTIME Rosuvastatin calcium 10 MG Oral Tablet [Crestor] (RxNorm): 507641 CRESTOR (ROSUVASTATIN CALCIUM) NDC: 48308943782 Klor-Con M20(POTASSIUM CHLORIDE) 20 MEQ TAB.ER.PRT Dose: 40 MEQ ORAL WITH BREAKFAST & SUPPER Potassium Chloride 20 MEQ Extended Release Oral Tablet [Klor-Con] (RxNorm): 806798 Klor-Con M20 (POTASSIUM CHLORIDE) NDC: 44431161963 Inpatient/Ordered Medications - Medications administered during hospital visit Visit/Account #[id number] (April 15, 2015 6:30pm - April 19, 2015 4: 27pm) Medication Route Sig/Schedule Precondition/Indication Comments/Instructions Codes LASIX INJ(FUROSEMIDE) 40 MG/4 ML INJECTION Dose: 4 ML INTRAVEN NOW Label Comments: MAY INCREASE FALL RISK 4 ML Furosemide 10 MG/ML Injection (RxNorm): 1554572 LASIX INJ (FUROSEMIDE) NDC: 03536892108 NITROBID 2% OINT(NITROGLYCERIN) 1 GM OINTMENT Dose: 1 GM TOPICALLY NOW Label Comments: MAY INCREASE FALL RISK Special Dose Instructions: APPLY _1__ INCH TO CHEST WALL Nitroglycerin 0.02 MG/MG Topical Ointment [Nitro-Bid] (RxNorm): 653114 NITROBID 2% OINT (NITROGLYCERIN) NDC: 97078407594 LOVENOX(ENOXAPARIN) 100 MG/ML INJECTION Dose: 0.9 ML SUBCUTANEOUSLY NOW Label Comments: INJECT SC INTO ABDOMINAL WALL ONLY. DOSED AT __MG/KG BASED ON PT WEIGHT OF __KG AND ROUNDED PER PROTOCOL. 1 ML Enoxaparin sodium 100 MG/ML Prefilled Syringe [Lovenox] (RxNorm): 700676 LOVENOX (ENOXAPARIN) NDC: 65615949758 IV Medication Carriers: INTEGRILIN(EPTIFIBATIDE) 0.75 MG/ML INJECTION Dose: 100 ML INTRAVEN .[id number] (Rate: 6.896 MLS/HR Duration: 14 HR 31 MIN) Label Comments: PHARMACY TO VERIFY/CALCULATE RATE Carriers: eptifibatide 0.75 MG/ML Injectable Solution [Integrilin] (RxNorm): 740200 INTEGRILIN (EPTIFIBATIDE) NDC: 89573189574 COREG(CARVEDILOL) 25 MG TAB Dose: 25 MG ORAL WITH BREAKFAST & SUPPER Label Comments: MAY INCREASE FALL RISK TAKE WITH FOOD Special Dose Instructions: Give dose tonight 04/15/15! carvedilol 25 MG Oral Tablet [Coreg] (RxNorm): 641585 COREG (CARVEDILOL) NDC: 07684597853 LOVENOX(ENOXAPARIN) 100 MG/ML INJECTION Dose: 0.9 ML SUBCUTANEOUSLY Q12H 1 ML Enoxaparin sodium 100 MG/ML Prefilled Syringe [Lovenox] (RxNorm): 276103 LOVENOX (ENOXAPARIN) NDC: 17813622005 ASPIRIN 81 MG TAB Dose: 81 MG ORAL DAILY Aspirin 81 MG Chewable Tablet (RxNorm): 460498 (ASPIRIN) NDC: 90399585266 LEVEMIR(INSULIN DETEMIR) 1000 UNITS/10 ML INJECTION Dose: 0.05 ML SUBCUTANEOUSLY AT BEDTIME Label Comments: SUBST FOR LANTUS Do NOT refrigerate. * Syringe expires in 24 hours. insulin detemir 100 UNT/ML Injectable Solution [Levemir] (RxNorm): 589165 LEVEMIR (INSULIN DETEMIR) NDC: 67687706774 CRESTOR(ROSUVASTATIN CALCIUM) 10 MG TAB Dose: 5 MG ORAL AT BEDTIME Rosuvastatin calcium 10 MG Oral Tablet [Crestor] (RxNorm): 096486 CRESTOR (ROSUVASTATIN CALCIUM) NDC: 94215940897 LASIX INJ(FUROSEMIDE) 40 MG/4 ML INJECTION Dose: 4 ML INTRAVEN NOW Label Comments: MAY INCREASE FALL RISK 4 ML Furosemide 10 MG/ML Injection (RxNorm): 9839139 LASIX INJ (FUROSEMIDE) NDC: 22130473169 LASIX INJ(FUROSEMIDE) 100 MG/10 ML INJECTION Dose: 8 ML INTRAVEN BID@,16 Label Comments: MAY INCREASE FALL RISK 10 ML Furosemide 10 MG/ML Injection (RxNorm): 9245595 LASIX INJ (FUROSEMIDE) NDC: 36507687066 K-DUR(POTASSIUM CHLORIDE) 20 MEQ TAB Dose: 40 MEQ ORAL NOW Label Comments: TAKE WITH FOOD TO AVOID GI UPSET Potassium Chloride 20 MEQ Extended Release Oral Tablet [Klor-Con] (RxNorm): 223673 K-DUR (POTASSIUM CHLORIDE) NDC: 64211142857 INTEGRILIN(EPTIFIBATIDE) 0.75 MG/ML INJECTION Dose: 20.6667 ML INTRAVEN Q10M Label Comments: CONC: 750 MCG/ML Use Alaris pump to administer bolus. If double bolus is ordered, give the first bolus (max of 22.6 mg), wait 10 minutes, then give the second bolus. eptifibatide 0.75 MG/ML Injectable Solution [Integrilin] (RxNorm): 714467 INTEGRILIN (EPTIFIBATIDE) NDC: 52209682721 IV Medication Carriers: NORMAL SALINE(SODIUM CHLORIDE) 1000 ML INJECTION Dose: 1000 ML INTRAVEN .Q20H (Rate: 50 MLS/HR Duration: 20 HR) Label Comments: If no IV established Carriers: Sodium Chloride 0.154 MEQ/ML Injectable Solution (RxNorm): 460675 NORMAL SALINE (SODIUM CHLORIDE) NDC: 65605277880 VERSED INJ(MIDAZOLAM HCL) 10 MG/10 ML INJECTION Dose: 10 MG Route .[facility] Label Comments: MAY INCREASE FALL RISK Midazolam 1 MG/ML Injectable Solution (RxNorm): 671884 VERSED INJ (MIDAZOLAM HCL) NDC: 43254100045 CARAFATE(SUCRALFATE) 1 GM TAB Dose: 1 GM ORAL BEFORE MEALS & AT BEDTIME Sucralfate 1000 MG Oral Tablet (RxNorm): 897517 CARAFATE (SUCRALFATE) NDC: 15695337455 PROTONIX(PANTOPRAZOLE SOD) 40 MG TAB Dose: 40 MG ORAL 60 MIN BEFORE BKFST pantoprazole 40 MG Delayed Release Oral Tablet [Protonix] (RxNorm): 343326 PROTONIX (PANTOPRAZOLE SOD) NDC: 26307335991 HumaLOG(INSULIN HUM LISPRO) 300 UNIT/3 ML INJECTION [...] Lispro 100 UNT/ML Injectable Solution [Humalog] (RxNorm): 887231 HumaLOG (INSULIN HUM LISPRO) NDC: 60408646250 K-DUR(POTASSIUM CHLORIDE) 20 MEQ TAB Dose: 40 MEQ ORAL DAILY AT BKT Label Comments: TAKE WITH FOOD TO AVOID GI UPSET Potassium Chloride 20 MEQ Extended Release Oral Tablet [Klor-Con] (RxNorm): 054284 K-DUR (POTASSIUM CHLORIDE) NDC: 96589704963 ZESTORETIC 20/25(HCTZ/LISINOPRIL) 1 TAB TAB Dose: 2 TAB ORAL DAILY Label Comments: MAY INCREASE FALL RISK Hydrochlorothiazide 25 MG / Lisinopril 20 MG Oral Tablet (RxNorm): 305119 ZESTORETIC 20/25 (HCTZ/LISINOPRIL) NDC: 35396455220 TYLENOL(ACETAMINOPHEN) 500 MG TAB Dose: 500 MG ORAL Q4H PRN Reason: PAIN OR FEVER Label Comments: DO NOT EXCEED 4000 MG PER 24 HR Acetaminophen 500 MG Oral Tablet [Mapap] (RxNorm): 818552 TYLENOL (ACETAMINOPHEN) NDC: 69227887304 LASIX(FUROSEMIDE) 40 MG TAB Dose: 40 MG ORAL DAILY Label Comments: MAY INCREASE FALL RISK Furosemide 40 MG Oral Tablet (RxNorm): 638561 LASIX (FUROSEMIDE) NDC: 70707540960 Discharge Medications - Medications that patient should continue to take. Review with physician Visit/Account #[id number] (April 15, 2015 6:30pm - April 19, 2015 4: 27pm) Medication Route Sig/Schedule Precondition/Indication Comments/Instructions Codes HUMALOG(INSULIN LISPRO) 100 U/ML INSULN.PEN Dose: 8 U SUB-Q 3 TIMES DAILY WITH MEALS 3 ML Insulin Lispro 100 UNT/ML Pen Injector [Humalog] (RxNorm): 3929159 HUMALOG (INSULIN LISPRO) NDC: 69704375533 ZESTORETIC 20-25 MG(LISINOPRIL/HYDROCHLOROTHIAZIDE) 1 EACH TABLET Dose: 2 TAB ORAL DAILY Hydrochlorothiazide 25 MG / Lisinopril 20 MG Oral Tablet [Zestoretic] (RxNorm) : 650917 ZESTORETIC 20-25 MG (LISINOPRIL/HYDROCHLOROTHIAZIDE) NDC: 43891399690 FISH OIL 1,000 MG(OMEGA-3 FATTY ACIDS/FISH OIL) 1 EACH CAPSULE Dose: 1000 MG ORAL DAILY FISH OIL 1,000 MG (OMEGA-3 FATTY ACIDS/FISH OIL) NDC: 76138608565 REGLAN(METOCLOPRAMIDE HCL) 10 MG TABLET Dose: 10 MG ORAL TWICE A DAY Metoclopramide 10 MG Oral Tablet [Reglan] (RxNorm): 890841 REGLAN (METOCLOPRAMIDE HCL) NDC: 88049390555 ZANTAC(RANITIDINE HCL) 150 MG TABLET Dose: 150 MG ORAL NEEDED Ranitidine 150 MG Oral Tablet [Zantac] (RxNorm): 914034 ZANTAC (RANITIDINE HCL) NDC: 40047683983 LEVEMIR FLEXTOUCH(INSULIN DETEMIR) 100 UNIT/1 ML INSULN.PEN Dose: 12 UNIT SUBCUTANEOUSLY AT BEDTIME 3 ML insulin detemir 100 UNT/ML Pen Injector [Levemir] (RxNorm): 155642 LEVEMIR FLEXTOUCH (INSULIN DETEMIR) NDC: 10600376546 Coreg(CARVEDILOL) 25 MG TAB Dose: 25 MG ORAL WITH BREAKFAST & SUPPER carvedilol 25 MG Oral Tablet [Coreg] (RxNorm): 711078 Coreg (CARVEDILOL) NDC: 04191118620 TYLENOL(ACETAMINOPHEN) 500 MG TAB Dose: 500 MG ORAL Q4H PAIN OR FEVER Rx Instructions: 500 - 1000 MG Acetaminophen 500 MG Oral Tablet [Mapap] (RxNorm): 178811 TYLENOL (ACETAMINOPHEN) NDC: 02418604927 Aspirin Chew(ASPIRIN) 81 MG TAB Dose: 81 MG ORAL DAILY Aspirin Chew (ASPIRIN) NDC: 75061275722 Lasix(FUROSEMIDE) 40 MG TAB Dose: 40 MG ORAL DAILY Lasix (FUROSEMIDE) NDC: 47342499807 CRESTOR(ROSUVASTATIN CALCIUM) 10 MG TAB Dose: 20 MG ORAL AT BEDTIME Rosuvastatin calcium 10 MG Oral Tablet [Crestor] (RxNorm): 013487 CRESTOR (ROSUVASTATIN CALCIUM) NDC: 86268163919 Klor-Con M20(POTASSIUM CHLORIDE) 20 MEQ TAB.ER.PRT Dose: 40 MEQ ORAL WITH BREAKFAST & SUPPER Potassium Chloride 20 MEQ Extended Release Oral Tablet [Klor-Con] (RxNorm): 158884 Klor-Con M20 (POTASSIUM CHLORIDE) NDC: 71919741411 History Of Encounters Encounters Visit/Account #[id number] (April 15, 2015 6:30pm - April 19, 2015 4: 27pm) Account Status Physican Of Record Reason For Visit Visit Diagnosis Start Date/Time Stop Date/Time ER SAMMI CARTER MD NSTEMI,PULMONARY EDEMA Not Available Apr 15, 2015 6:30pm Apr 15, 2015 8:50pm IN SOCORRO WOLF MD NSTEMI,PULMONARY EDEMA Not Available Apr 15, 2015 7:56pm Apr 19, 2015 4:27pm History of Procedures Procedure List No procedures recorded. Discharge Instructions Discharge Instructions Visit/Account #[id number] (April 15, 2015 6:30pm - April 19, 2015 4: 27pm) DISCHARGE INSTRUCTIONS Physician Documentation PROVIDER INSTRUCTIONS Discharge Diet ADA 1999 Chris Discharge Activity/Weight Bearing Status Resume normal activity as tolerated Other Discharge Instructions Tylenol for pain Hold Metformin until health care provider states it os okay to resume Avoid NSAIDs (naproxyn, ibuprofen, aleve) to protect kidneys Discharge Diet ADA 1999 Chris Discharge Activity/Weight Bearing Status Resume normal activity as tolerated Other Discharge Instructions Tylenol for pain Hold Metformin until health care provider states it os okay to resume Avoid NSAIDs (naproxyn, ibuprofen, aleve) to protect kidneys WOUND/INCISION/CATHETER CARE Incision/Wound Care Keep wounds clean and dry REASON TO CALL PROVIDER Notify Physician if: Symptoms reoccur or as needed FOLLOW UP APPOINTMENTS Follow Up With [facility] [place] ([phone]) on 04/23/15 @ 1100am Follow-up tests/procedures/outpatient needs: CBC to assess Hgb CMP to assess Creatinine and Potassium Weight check Social History Social History No Social History Data. Immunizations Immunizations Patient Unit Number: [id number] Immunizations No immunizations recorded.
--- OUTSIDE RECORDS SUMMARY | 2018-05-02 15:00 | XMS REPORT ---
Author Author Georgina Han [facility] [employer]ClinicalWorks Address Unknown Phone Unavailable Care Team Providers Care Gambling Counsellor Name Role Phone Georgina Han Unavailable Allergies [...]
--- OUTSIDE RECORDS SUMMARY | 2018-05-02 15:00 | XMS REPORT ---
Author Author Keiko Montejo Organization [employer] Address Unknown Phone Unavailable Care Team Providers Care Campground Attendant Name Role Phone Keiko Montejo CP Unavailable Allergies No Known Allergies Problems Problem [...]
--- OUTSIDE RECORDS SUMMARY | 2018-05-02 15:00 | XMS REPORT | Continuity Of Care Document ---
Author Author [facility] Organization [facility] Address [address] [place] [address] Phone Care Team Providers Care Yard Brakeman Name Role Phone RIZWAN CAAL APRN PP PAUL ACEVES MD AT Results Lab Results Visit/Account #[id number] (October 22, 2016 3:54pm - October 23, 2016 2:40pm) Test Result Date/Time POCGL POCGL(70-110 MG/DL) 134 MG/DL October 22, 2016 5:09pm 137 MG/DL October 22, 2016 10:11pm 104 MG/DL October 23, 2016 5:19am 174 MG/DL October 23, 2016 11:12am Allergies and Adverse Reactions Allergies and Adverse Reactions Patient Unit Number: [id number] Agent Type Reaction Severity Status PENICILLINS Drug Allergy RASH Moderate Active CODEINE Drug Allergy RASH Mild Active HYDROCODONE Drug Allergy VOMITING Moderate Active Problem List Problem List Patient Unit Number: [id number] Chronic Problems: Code/Condition Comments Documented Start Date Documented Resolved Date Code (s) New onset type 1 diabetes mellitus, uncontrolled ICD9: 250.03 New onset type 1 diabetes mellitus, uncontrolled SNOMED: 382557862 New onset type 1 diabetes mellitus, uncontrolled Depression ICD10: F32.9 Depression SNOMED: 25038287 Depression Tobacco use ICD10: Z72.0 Tobacco use SNOMED: 075291593 Tobacco use End-stage renal disease ICD10: N18.6 End-stage renal disease SNOMED: 13751508 End-stage renal disease Anemia in ESRD (end-stage renal disease) ICD10: N18.6 Anemia in ESRD (end-stage renal disease) SNOMED: 142516437 Anemia in end-stage renal disease Hypertension ICD9: 401.9 Hypertension SNOMED: 72159452 Hypertension Anemia, chronic disease ICD10: D63.8 Anemia, chronic disease SNOMED: 746591226 Chronic disease anemia Anemia ICD10: D64.9 Anemia SNOMED: 420770724 Anemia CHF (congestive heart failure) ICD10: I50.9 CHF (congestive heart failure) SNOMED: 19954910 CHF (congestive heart failure) Diabetes mellitus ICD10: E11.9 Diabetes mellitus SNOMED: 27758837 Diabetes mellitus Type 2 diabetes mellitus ICD10: E11.9 Type 2 diabetes mellitus SNOMED: 52012385 Type 2 diabetes mellitus Acute on chronic renal failure ICD10: N17.9 Acute on chronic renal failure SNOMED: 184955085 Xzwmi-rl-rugtwih renal failure Coronary artery disease ICD10: I25.10 Coronary artery disease SNOMED: 61339265 Coronary artery disease Plan of Care Plan Of Care No Plan Of Care Data. Vital Signs Vital Signs Visit/Account #[id number] (October 22, 2016 3:54pm - October 23, 2016 2:40pm) Sign First Result Last Result Code(s) Blood Pressure 167/ 77 mm[Hg] On October 22, 2016 8:05pm 149/ 61 mm[Hg] On October 23, 2016 5:13am 8462-4 BP Diastolic 8480-6 BP Systolic Heart Rate/Pulse Pulse Rate (adult): 74 /min On October 22, 2016 8:05pm Pulse Rate (adult): 75 /min On October 23, 2016 5:13am 8867-4 Heart Rate Respiratory Rate Respiratory Rate: 20 /min On October 22, 2016 8:05pm Respiratory Rate: 24 /min On October 23, 2016 5:13am 9279-1 Respiratory Rate Temperature in Fahrenheit Temperature (Fahrenheit): 97.0 [degF] On October 22, 2016 8:05pm Temperature (Fahrenheit): 98.0 [degF] On October 23, 2016 5:13am 8310-5 Body Temperature Functional Status Functional and Cognitive Status No Functional Status Data Medications Home Medications - Medications that the patient was taking prior to arrival at the hospital Visit/Account #[id number] (October 22, 2016 3:54pm - October 23, 2016 2:40pm) Medication Route Sig/Schedule Precondition/Indication Comments/Instructions Codes TYLENOL(ACETAMINOPHEN) 500 MG TABLET Dose: 500 MG ORAL Q4H PAIN OR FEVER TYLENOL (ACETAMINOPHEN) NDC: 32521863606 Aspirin Ec(ASPIRIN) 81 MG TAB Dose: 81 MG ORAL DAILY Aspirin 81 MG Delayed Release Oral Tablet (RxNorm): 922169 Aspirin Ec (ASPIRIN) NDC: 77966351714 PROTONIX(PANTOPRAZOLE) 40 MG TAB Dose: 40 MG ORAL DAILY pantoprazole 40 MG Delayed Release Oral Tablet [Protonix] (RxNorm): 931590 PROTONIX (PANTOPRAZOLE) NDC: 17214182569 LANTUS PEN(INSULIN GLARGINE) 300 UNIT/3 ML INJECTION Dose: 12 UNITS SUBCUTANEOUSLY AT BEDTIME 3 ML Insulin Glargine 100 UNT/ML Pen Injector [Lantus] (RxNorm): 062165 LANTUS PEN (INSULIN GLARGINE) NDC: 97719619686 LASIX(FUROSEMIDE) 40 MG TABLET Dose: 160 MG ORAL DAILY Furosemide 40 MG Oral Tablet [Lasix] (RxNorm): 698791 LASIX (FUROSEMIDE) NDC: 52060200339 LIVALO(PITAVASTATIN) 2 MG TABLET Dose: 2 MG ORAL AT BEDTIME pitavastatin 2 MG Oral Tablet [Livalo] (RxNorm): 796924 LIVALO (PITAVASTATIN) NDC: 97328881287 Coreg Cr(CARVEDILOL PHOSPHATE) 40 MG CPMP.24HR Dose: 40 MG ORAL DAILY 24 HR carvedilol phosphate 40 MG Extended Release Oral Capsule [Coreg] (RxNorm ): 276061 Coreg Cr (CARVEDILOL PHOSPHATE) NDC: 76647974285 APRESOLINE(HydrALAZINE) 50 MG TAB Dose: 100 MG ORAL 3 TIMES A DAY Hydralazine Hydrochloride 50 MG Oral Tablet (RxNorm): 540225 APRESOLINE (HydrALAZINE) NDC: 99769550662 Prinivil(LISINOPRIL) 40 MG TABLET Dose: 40 MG ORAL DAILY Lisinopril 40 MG Oral Tablet (RxNorm): 382262 Prinivil (LISINOPRIL) NDC: 18997059965 Inpatient/Ordered Medications - Medications administered during hospital visit Visit/Account #[id number] (October 22, 2016 3:54pm - October 23, 2016 2:40pm) Medication Route Sig/Schedule Precondition/Indication Comments/Instructions Codes IV Medication Carriers: VANCOCIN 1 GM/200 ML PM(VANCOMYCIN/DEXTROSE,ISO-OSM) 1 GM/200 ML INJECTION Dose: 200 ML INTRAVEN .AMBS.TRAE (Rate: 200 MLS/HR Duration: 1 HR) Clinical Indication: ABX Preop Prophylaxis Rx Order Comments: Rule Override: POM.PREABX - Beta-Lactam Allergy - By User: LYDIANANDO Carriers: 200 ML Vancomycin 5 MG/ML Injection (RxNorm): 9275438 VANCOCIN 1 GM/200 ML PM (VANCOMYCIN/DEXTROSE,ISO-OSM) NDC: 15147447441 VERSED INJ(MIDAZOLAM HCL) 2 MG/2 ML INJECTION Dose: 2 ML INTRAVEN .PSCU.TRAE 2 ML Midazolam 1 MG/ML Injection (RxNorm): 3254561 VERSED INJ (MIDAZOLAM HCL) NDC: 05414186203 XYLOCAINE-MPF 1% INJ(LIDOCAINE HCL/PF) 20 MG/2 ML INJECTION Dose: 0.1 ML INTRADERM NEEDED Label Comments: For peripheral line insertion site. XYLOCAINE-MPF 1% INJ (LIDOCAINE HCL/PF) NDC: 32651661731 XYLOCAINE-MPF 1% INJ(LIDOCAINE HCL/PF) 20 MG/2 ML INJECTION Dose: 20 MG Route .STK-MED XYLOCAINE-MPF 1% INJ (LIDOCAINE HCL/PF) NDC: 43471340942 HEPARIN 06110 UNIT/10 ML INJECTION Dose: 32712 UNIT Route .STK-MED heparin sodium, porcine 1000 UNT/ML Injectable Solution (RxNorm): 8426313 (HEPARIN) NDC: 39606308767 DILAUDID(HYDROmorphone HCL) 2 MG/ML INJECTION Dose: 4 ML Route .STK-MED Label Comments: MAY INCREASE FALL RISK 1 ML Hydromorphone Hydrochloride 2 MG/ML Cartridge (RxNorm): 7356405 DILAUDID (HYDROmorphone HCL) NDC: 26390010133 ECOTRIN(ASPIRIN) 81 MG TAB Dose: 81 MG ORAL DAILY Aspirin 81 MG Delayed Release Oral Tablet (RxNorm): 532402 ECOTRIN (ASPIRIN) NDC: 79796975426 APRESOLINE(HydrALAZINE) 50 MG TAB Dose: 100 MG ORAL 3 TIMES A DAY Label Comments: MAY INCREASE FALL RISK Hydralazine Hydrochloride 50 MG Oral Tablet (RxNorm): 564032 APRESOLINE (HydrALAZINE) NDC: 05475024645 LANTUS(INSULIN GLARGINE) 1000 UNIT/10 ML INJECTION Dose: 0.12 ML SUBCUTANEOUSLY AT BEDTIME Label Comments: Do NOT refrigerate. * Syringe expires in 24 hours DO NOT MIX WITH OTHER INSULINS Insulin Glargine 100 UNT/ML Injectable Solution [Lantus] (RxNorm): 421851 LANTUS (INSULIN GLARGINE) NDC: 30693266400 ZESTRIL(LISINOPRIL) 40 MG TAB Dose: 40 MG ORAL DAILY Label Comments: MAY INCREASE FALL RISK Lisinopril 40 MG Oral Tablet (RxNorm): 540855 ZESTRIL (LISINOPRIL) NDC: 77892289277 PROTONIX(PANTOPRAZOLE SOD) 40 MG TAB Dose: 40 MG ORAL DAILY@0600 pantoprazole 40 MG Delayed Release Oral Tablet [Protonix] (RxNorm): 270351 PROTONIX (PANTOPRAZOLE SOD) NDC: 39361175126 ZOCOR(SIMVASTATIN) 20 MG TAB Dose: 20 MG ORAL AT BEDTIME Label Comments: AUTO SUB FOR PITAVASTATIN 2 MG TERATOGENIC. WOMEN SHOULD NOT HANDLE OR CRUSH. Simvastatin 20 MG Oral Tablet (RxNorm): 685271 ZOCOR (SIMVASTATIN) NDC: 46183713571 COREG CR(CARVEDILOL) 10 MG CAP Dose: 40 MG ORAL DAILY Label Comments: MAY INCREASE FALL RISK 24 HR carvedilol phosphate 10 MG Extended Release Oral Capsule [Coreg] (RxNorm ): 501707 COREG CR (CARVEDILOL) NDC: 96613900046 TYLENOL(ACETAMINOPHEN) 325 MG TAB Dose: 0 MG ORAL EVERY 6 HOURS PRN Reason: PAIN OR FEVER Label Comments: DO NOT EXCEED 4000 MG PER 24 HR Special Dose Instructions: 325-650 MG Acetaminophen 325 MG Oral Tablet (RxNorm): 970061 TYLENOL (ACETAMINOPHEN) NDC: 66534271003 Discharge Medications - Medications that patient should continue to take. Review with physician Visit/Account #[id number] (October 22, 2016 3:54pm - October 23, 2016 2:40pm) Medication Route Sig/Schedule Precondition/Indication Comments/Instructions Codes TYLENOL(ACETAMINOPHEN) 500 MG TABLET Dose: 500 MG ORAL Q4H PAIN OR FEVER TYLENOL (ACETAMINOPHEN) NDC: 40203182354 Aspirin Ec(ASPIRIN) 81 MG TAB Dose: 81 MG ORAL DAILY Aspirin 81 MG Delayed Release Oral Tablet (RxNorm): 091635 Aspirin Ec (ASPIRIN) NDC: 35209857916 PROTONIX(PANTOPRAZOLE) 40 MG TAB Dose: 40 MG ORAL DAILY pantoprazole 40 MG Delayed Release Oral Tablet [Protonix] (RxNorm): 876690 PROTONIX (PANTOPRAZOLE) NDC: 56806458261 LANTUS PEN(INSULIN GLARGINE) 300 UNIT/3 ML INJECTION Dose: 12 UNITS SUBCUTANEOUSLY AT BEDTIME 3 ML Insulin Glargine 100 UNT/ML Pen Injector [Lantus] (RxNorm): 432236 LANTUS PEN (INSULIN GLARGINE) NDC: 24800314302 LASIX(FUROSEMIDE) 40 MG TABLET Dose: 160 MG ORAL DAILY Furosemide 40 MG Oral Tablet [Lasix] (RxNorm): 985811 LASIX (FUROSEMIDE) NDC: 03005679631 LIVALO(PITAVASTATIN) 2 MG TABLET Dose: 2 MG ORAL AT BEDTIME pitavastatin 2 MG Oral Tablet [Livalo] (RxNorm): 327614 LIVALO (PITAVASTATIN) NDC: 07591230197 Coreg Cr(CARVEDILOL PHOSPHATE) 40 MG CPMP.24HR Dose: 40 MG ORAL DAILY 24 HR carvedilol phosphate 40 MG Extended Release Oral Capsule [Coreg] (RxNorm ): 068664 Coreg Cr (CARVEDILOL PHOSPHATE) NDC: 77712486002 APRESOLINE(HydrALAZINE) 50 MG TAB Dose: 100 MG ORAL 3 TIMES A DAY Hydralazine Hydrochloride 50 MG Oral Tablet (RxNorm): 626253 APRESOLINE (HydrALAZINE) NDC: 10339264361 Prinivil(LISINOPRIL) 40 MG TABLET Dose: 40 MG ORAL DAILY Lisinopril 40 MG Oral Tablet (RxNorm): 188150 Prinivil (LISINOPRIL) NDC: 05953860593 History Of Encounters Encounters Visit/Account #[id number] (October 22, 2016 3:54pm - October 23, 2016 2:40pm) Account Status Physican Of Record Reason For Visit Visit Diagnosis Start Date/Time Stop Date/Time [facility] PAUL ACEVES MD END STAGE RENAL FAILURE I87.1: COMPRESSION OF VEIN ICD10 Oct 22, 2016 3:54pm Oct 22, 2016 3:54pm [place] PAUL ACEVES MD END STAGE RENAL FAILURE I87.1: COMPRESSION OF VEIN ICD10 Oct 22, 2016 7:32pm Oct 23, 2016 2:40pm History of Procedures Procedure List No procedures recorded. Discharge Instructions Discharge Instructions Visit/Account #[id number] (October 22, 2016 3:54pm - October 23, 2016 2:40pm) DISCHARGE INSTRUCTIONS Physician Documentation PROVIDER INSTRUCTIONS Discharge Activity/Weight Bearing Status As tolerated Other Discharge Instructions Elevate right upper extremity above heart as much as possible WOUND/INCISION/CATHETER CARE Incision/Wound Care Wrap right upper extremity with alexander wrap daily from hand to armpit. Do this for 2 weeks No showers for 2 weeks due to dialysis catheter REASON TO CALL PROVIDER Provider Dr. Aceves FOLLOW UP APPOINTMENTS Follow Up Appointment Date/Time: Dr Paul Aceves ([phone]) as needed. Social History Social History No Social History Data. Immunizations Immunizations Patient Unit Number: [id number] Immunizations No immunizations recorded.
--- OUTSIDE RECORDS SUMMARY | 2018-05-02 15:00 | XMS REPORT ---
Author Author Keiko Montejo Organization [employer] Address Unknown Phone Unavailable Care Team Providers Care Pattern Duplicator Name Role Phone Keiko Montejo CP Unavailable Allergies, Adverse Reactions, Alerts Substance Reaction Event Type Penicillin Info Not Available Drug Allergy Problems Problem Type Condition ICD-9 Code Onset Dates Condition Status Assessment Conjunctivitis 372.00 Active Assessment Urinary tract infection, site not specified 599.0 Active Medications Medication Code System Code Instructions Start Date End Date Status Dosage Sulfamethoxazole-TMP DS [facility] [address]-44 800-160 MG Orally Twice a day Dec 09, 2013 Dec 14, 2013 Active 1 tablet Acetaminophen [facility] [address]-69 500 MG Orally prn Active 1 capsule as needed Gentamicin Sulfate [facility] [address]-51 0.3 % Ophthalmic every 4 hrs Dec 09, 2013 Active 1 drop into affected eye Procedures Procedure Coding System Code Date OFFICE VISIT, WIRING TECHNICIAN-LOW COMPLEXITY (20 MIN.) CPT-4 34299 Dec 09, 2013 URINALYSIS, IN HOUSE CPT-4 55921 Dec 09, 2013 Vital Signs Date/Time: Dec 09, 2013 Height 66.5 inches Weight 158.5 lbs Temperature 99.1 F Blood Pressure Diastolic 78 mm Hg Blood Pressure Systolic 156 mm Hg Cardiac Monitoring Heart Rate 80 Beats per Minute BMI 25.20 Index Respiratory Rate 16 per Minute Results No Known Results Summary Purpose eClinicalWorks Submission
--- OUTSIDE RECORDS SUMMARY | 2018-05-02 15:00 | XMS REPORT ---
Author Author Georgina Han [facility] eClinicalWorks Address Unknown Phone Unavailable Care Team Providers Care Casting Machine Service Operator Name Role Phone Georgina Han Unavailable Allergies No Known Allergies Problems Problem Type Condition ICD-9 Code Onset Dates Condition Status Problem Diabetes Mellitus Type 2, not stated as uncontrolled 250.00 Active Problem Hypertension, benign 401.1 Active Problem Hypertensive retinopathy 362.11 Active Medications No Known Medications Vital Signs Date/Time: Mar 13, 2014 Height 66.5 inches Weight 146.5 lbs Temperature 98.5 F Blood Pressure Diastolic 80, sittin mm Hg Blood Pressure Systolic supine:160 mm Hg Cardiac Monitoring Heart Rate 80 Beats per Minute BMI 23.29 Index Respiratory Rate 16 per Minute Results No Known Results Summary Purpose eClinicalWorks Submission
--- OUTSIDE RECORDS SUMMARY | 2018-05-02 15:00 | XMS REPORT ---
Author Author Georgina Han [facility] e[employer] Address Unknown Phone Unavailable Care Team Providers Care Look Out Tower Fire Watcher Name Role Phone Georgina Han Unavailable Allergies [...]
--- OUTSIDE RECORDS SUMMARY | 2018-05-02 15:00 | XMS REPORT ---
Author Author Keiko Montejo Organization [employer] Address Unknown Phone Unavailable Care Team Providers Care Mangle Press Catcher Name Role Phone Keiko Montejo Unavailable Allergies No Known Allergies Problems No Known Problems Medications No Known Medications Vital Signs Date/Time: Dec 09, 2013 Height 66.5 inches Weight 158.5 lbs Temperature 99.1 F Blood Pressure Diastolic 78 mm Hg Blood Pressure Systolic 156 mm Hg Cardiac Monitoring Heart Rate 80 Beats per Minute BMI 25.20 Index Respiratory Rate 16 per Minute Results No Known Results Summary Purpose eClinicalWorks Submission
--- OUTSIDE RECORDS SUMMARY | 2018-05-02 15:00 | XMS REPORT ---
Author Author Georgina Han [facility] e[employer] Address Unknown Phone Unavailable Care Team Providers Care Crop Puller Name Role Phone Georgina Han Unavailable Allergies [...]
--- OUTSIDE RECORDS SUMMARY | 2018-05-02 15:03 | XMS REPORT | Continuity of Care Document ---
Author Author [facility] Organization [facility] Address Unknown Phone Unavailable Allergies Active Description Code Type Severity Reaction Onset Reported/Identified Relationship to Patient Clinical Status Yes PENICILLIN Drug Allergy N/A Skin Rash Yes PENICLLIN Drug Allergy N/A N/A Yes PENICILLINS [id number] Drug Allergy Moderate RASH 12/10/2013 Yes CODEINE [id number] Drug Allergy Mild RASH 04/13/2015 Yes PENICILLINS [id number] Drug Allergy Moderate RASH 07/01/2016 Yes CODEINE [id number] Drug Allergy Mild RASH 07/01/2016 Yes CODEINE [id number] Drug Allergy Mild RASH 07/01/2016 Yes PENICILLINS [id number] Drug Allergy Moderate RASH 07/01/2016 Yes PENICILLINS [id number] Drug Allergy Moderate RASH 07/01/2016 Yes CODEINE [id number] Drug Allergy Mild RASH 07/01/2016 Yes HYDROCODONE [id number] Drug Allergy Moderate VOMITING 10/22/2016 Yes ACETAMINOPHEN [id number] Drug Allergy Moderate VOMITING 10/22/2016 Yes HYDROCODONE [id number] Drug Allergy Moderate VOMITING 10/22/2016 Yes hydrocodone [id number] Drug Allergy Moderate VOMITING 01/19/2018 Yes codeine [id number] Drug Allergy Mild RASH 01/19/2018 Yes Penicillins [id number] Drug Allergy Moderate RASH 01/28/2018 Medications Medication Packaging Start Date Stop Date Route Dosage Sig RANITIDINE HCL 11 06/07/2014 ORAL [id number] NAPROSYN 11 06/07/2014 ORAL [id number] METFORMIN HCL 11 06/07/2014 ORAL [id number] CARVEDILOL 11 06/07/2014 ORAL 6.25MG6.25MG GABAPENTIN 11 08/22/2014 ORAL [id number] CYCLOBENZAPRINE HCL 0.50.5 201409/01/2014 ORAL [id number] LISINOPRIL 08/30/2014 ORAL NEXIUM 11 09/13/2014 ORAL [id number] REGLAN 11 10/10/2014 ORAL [id number] TRAMADOL HCL 11 11/22/2014 09/01/2015 ORAL [id number] LISINOPRIL-HYDROCHLOROTHIAZIDE 22 11/22/2014 07/25/2015 ORAL [id number] CRESTOR 11 11/22/2014 ORAL 5MG5MG METOCLOPRAMIDE HCL 01/22/2015 Oral [id number] LANTUS SOLOSTAR 02/07/2015 Subcutaneous 100UNIT/LD820AGHQ/ML HUMALOG KWIKPEN 02/07/2015 Subcutaneous 100UNIT/YA558AUJA/ML COREG 11 02/07/2015 ORAL 12.5MG12.5MG CRESTOR 11 02/19/2015 ORAL 5MG5MG RANITIDINE HCL 06/28/2015 08/22/2015 Oral [id number] LASIX 11 07/10/2015 ORAL 21ow32MY LASIX 11 07/16/2015 ORAL [id number] FUROSEMIDE 11 07/16/2015 Oral [id number] LISINOPRIL-HYDROCHLOROTHIAZIDE 07/25/2015 ORAL [id number] RANITIDINE HCL 08/01/2015 Oral [id number] TRAMADOL HCL 11 08/22/2015 08/22/2015 ORAL [id number] PLAVIX 11 08/25/2015 ORAL [id number] SPIRONOLACTONE 22 08/29/2015 ORAL [id number] METOCLOPRAMIDE HCL 11 08/30/2015 ORAL 5MG5MG SPIRONOLACTONE 44 01/03/2016 ORAL [id number] methylPREDNISolone Sod Succ PF 01/01/2018 IM 125 MG ONE ACETAMINOPHEN 01/18/2018 01/18/2018 PO 1000 MG ONE IBUPROFEN 01/18/2018 01/18/2018 PO 800 MG ONE HUSH PROTOCOL NOTE 01/18/2018 XX 1 EACH NOW ACETAMINOPHEN 01/18/2018 PO 500 MG Q4H ONDansetron Inj 01/18/2018 IV 4 MG Q6H IBUPROFEN 01/18/2018 PO 800 MG TID&0900,1400,2100 SEVELAMER 01/18/2018 PO 800 MG PRN ACETAMINOPHEN 01/18/2018 PO 1000 MG Q4H CARVEDILOL ER 01/18/2018 PO 40 MG MOWEFR INSULIN LISPRO 01/18/2018 SUBCUT 0 UNIT SLIDING DEXTROSE CHEW 01/18/2018 PO 16 GM PRN GLUCAGON INJ 01/18/2018 IM 1 MG PRN DEXTROSE 40% GEL 01/18/2018 PO 15 GM PRN DEXTROSE 50 % SYR 01/18/2018 IV 12.5 GM PRN SIMVASTATIN 01/18/2018 PO 20 MG BEDTIME&2100 INSULIN GLARGINE 01/18/2018 SUBCUT 12 UNIT BEDTIME& 2100 HEPARIN INJ PF 01/18/2018 SUBCUT 5000 UNIT Q8HR&0600, 1400,[address] 01/19/2018 PO 40 MG DAILY@0600&0600 SEVELAMER 01/19/2018 PO 800 MG TIDWM&0800,1130,1730 CARVEDILOL ER 01/19/2018 PO 40 MG SuTuThSa@0800&0800 ASPIRIN EC 01/19/2018 PO 81 MG DAILY&0900 amLODIPine 01/19/2018 PO 10 MG DAILY&0900 CARVEDILOL ER 01/19/2018 PO 40 MG SUTUTHSA ALBUMIN HUMAN 25% INJ 01/20/2018 IV 100 ML MOWEFR@09& 0900 TiZANidine 01/20/2018 PO 4 MG TID&0900,1400,2100 GABAPENTIN 01/20/2018 PO 300 MG BEDTIME&2100 INSULIN GLARGINE 01/21/2018 01/21/2018 SUBCUT 10 UNIT ONE fentaNYL INJ 01/22/2018 01/22/2018 .ROUTE 100 MCG .STK- MED MIDAZOLAM INJ 01/22/2018 01/22/2018 .ROUTE 4 MG .STK- MED traMADol 01/22/2018 PO 50 MG Q6HR&0000,0600,1200,1800 oxyCODONE/ ACETAMIN 5/325 2017 PO 1 TAB Q6H ONDansetron ODT 01/23/2018 PO [address] 01/23/2018 PO 40 MG BID@0600,1700&0600 ,1700 INSULIN GLARGINE 01/23/2018 01/23/2018 SUBCUT 6 UNIT ONE &2100 KETOROLAC INJ 01/24/2018 01/24/2018 IV 30 MG ONE KETOROLAC INJ 01/24/2018 01/24/2018 IM 30 MG ONE NICOTINE 14 MG PATCH 01/24/2018 TOP 1 PATCH DAILY& 0900 INSULIN GLARGINE 01/24/2018 SUBCUT 12 UNIT BEDTIME& 2100 TiZANidine 01/25/2018 PO 4 MG TID&0900,1400,2100 NON-FORMULARY MEDICATION 2017 PO 40 EACH MOWEFR TiZANidine 01/25/2018 PO 4 MG TID&0900,1400,2100 ACETAMINOPHEN 01/25/2018 PO 1000 MG Q4H CARVEDILOL ER 01/25/2018 PO 40 MG MoWeFr@0900&0900 SEVELAMER 01/25/2018 PO 800 MG PRN DEXTROSE CHEW 01/25/2018 PO 16 GM PRN GLUCAGON INJ 01/25/2018 IM 1 MG PRN DEXTROSE 40% GEL 01/25/2018 PO 15 GM PRN DEXTROSE 50 % SYR 01/25/2018 IV 12.5 GM PRN NON-FORMULARY MEDICATION 2017 PO 800 EACH TIDWM &0800,1130,1730 SEVELAMER 01/25/2018 PO 800 MG TIDWM&0800,1130,1730 GABAPENTIN 01/25/2018 PO 300 MG BEDTIME&2100 SIMVASTATIN 01/25/2018 PO 20 MG BEDTIME&2100 HEPARIN INJ PF 01/25/2018 SUBCUT 5000 UNIT Q12HR&0900, 2100 INSULIN GLARGINE 01/25/2018 SUBCUT 12 UNIT BEDTIME& 2100 IBUPROFEN 01/25/2018 PO 800 MG TID&0900,1400,[address] 01/26/2018 PO 80 MG DAILY@0600&0600 ONDansetron ODT 01/26/2018 PO 4 MG Q4H PITAVASTATIN 01/26/2018 PO 2 MG DAILY&0900 ASPIRIN EC 01/26/2018 PO 81 MG DAILY&0900 amLODIPine 01/26/2018 PO 10 MG DAILY&0900 NICOTINE 14 MG PATCH 01/26/2018 TOP 1 PATCH DAILY& 0900 CARVEDILOL ER 01/26/2018 PO 40 MG SuTuThSa@0900&0900 traMADol 01/26/2018 PO 50 MG Q4H NON-FORMULARY MEDICATION 2017 PO 40 EACH SUTUTHSA POLYETHYLENE GLYCOL (3350) 2017 PO 17 GM DAILY& 0900 POLYETHYLENE GLYCOL (3350) 2017 PO 17 GM BID&0900 ,2100 DICLOFENAC SOD 1% GEL 01/27/2018 TOP 1 APPL 4XD&0900, 1300,1700,2100 EPOETIN JODEE INJ 01/27/2018 SUBCUT 5000 UNIT MoWeFr@ 0900&0900 ACETAMINOPHEN 01/28/2018 PO 650 MG Q4H BISACODYL SUPP 01/29/2018 01/29/2018 KY 10 MG ONE INSULIN GLARGINE 01/31/2018 SUBCUT 9 UNIT BEDTIME& 2100 GABAPENTIN 02/02/2018 PO 100 MG BEDTIME&2100 INSULIN GLARGINE 02/02/2018 SUBCUT 7 UNIT BEDTIME& 2100 POLYETHYLENE GLYCOL (3350) 2017 PO 17 GM Q48HR& 0900 Problems Date Dx Coded Attending Type Code Diagnosis Diagnosed By 12/12/2013 Other 250.02 DIAB TOSHA WO COMPL, TYPE II OR UNSPEC TYPE, UNCONTROLLED 12/12/2013 Other 276.1 HYPOSMOLALITY 12/12/2013 Other 305.1 TOBACCO USE DISORDER 12/12/2013 Other 401.9 HYPERTENSION NOS 12/12/2013 Other 786.59 CHEST PAIN NEC 03/16/2014 Other 041.49 OTHER AND UNSPECIFIED ESCHERICHIA COLI [E. COLI] 03/16/2014 Other 599.0 URIN TRACT INFECTION NOS 03/16/2014 Other 780.4 DIZZINESS AND GIDDINESS 03/16/2014 Other 783.21 LOSS OF WEIGHT 03/16/2014 Other 787.01 NAUSEA WITH VOMITING 03/16/2014 Other 787.02 NAUSEA ALONE 04/13/2015 GISELE PRETTY MD Other D64.89 OTHER SPECIFIED ANEMIAS 04/13/2015 GISELE PRETTY MD Other E11.9 TYPE 2 DIABETES MELLITUS WITHOUT COMPLICATIONS 04/13/2015 IGSELE PRETTY MD Other F17.210 NICOTINE DEPENDENCE, CIGARETTES, UNCOMPLICATED 04/13/2015 GISELE PRETTY MD Other I10 ESSENTIAL (PRIMARY) HYPERTENSION 04/13/2015 GISELE PRETTY MD Other 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 W/O BLEEDING 04/13/2015 GISELE PRETTY MD Other Z79.4 ASSISTED (CURRENT) USE OF INSULIN 04/13/2015 GISELE PRETTY MD Other Z79.899 OTHER ASSISTED (CURRENT) DRUG THERAPY 04/15/2015 JOSIE ROSALES Other D64.9 ANEMIA, UNSPECIFIED 04/15/2015 JOSIE ROSALES Other I50.9 HEART FAILURE, UNSPECIFIED 04/15/2015 JOSIE ROSALES Other J90 PLEURAL EFFUSION, NOT ELSEWHERE CLASSIFIED 04/15/2015 JOSIE ROSALES Other R06.00 DYSPNEA, UNSPECIFIED 04/19/2015 Other D63.8 ANEMIA IN OTHER CHRONIC DISEASES CLASSIFIED ELSEWHERE 04/19/2015 Other E11.8 TYPE 2 DIABETES MELLITUS WITH UNSPECIFIED COMPLICATIONS 04/19/2015 Other E66.9 OBESITY, UNSPECIFIED 04/19/2015 Other E78.0 PURE HYPERCHOLESTEROLEMIA 04/19/2015 Other E78.5 HYPERLIPIDEMIA, UNSPECIFIED 04/19/2015 Other E87.6 HYPOKALEMIA 04/19/2015 Other F17.210 NICOTINE DEPENDENCE, CIGARETTES, UNCOMPLICATED 04/19/2015 Other I10 ESSENTIAL ( PRIMARY) HYPERTENSION 04/19/2015 Other I21.4 NON-ST ELEVATION (NSTEMI) MYOCARDIAL INFARCTION 04/19/2015 Other I25.10 ATHSCL HEART DISEASE OF [place] CORONARY ARTERY W/O ANG PCTRS 04/19/2015 Other I50.9 HEART FAILURE, UNSPECIFIED 04/19/2015 Other J45.909 UNSPECIFIED ASTHMA, UNCOMPLICATED 04/19/2015 Other J90 PLEURAL EFFUSION, NOT ELSEWHERE CLASSIFIED 04/19/2015 Other K29.70 GASTRITIS , UNSPECIFIED, WITHOUT BLEEDING 04/19/2015 Other 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 W/O BLEEDING 04/19/2015 Other M54.5 LOW BACK PAIN 04/19/2015 Other N17.9 ACUTE KIDNEY FAILURE, UNSPECIFIED 04/19/2015 Other Z79.4 ASSISTED (CURRENT) USE OF INSULIN 04/19/2015 Other Z88.0 ALLERGY STATUS TO PENICILLIN 04/19/2015 SOCORRO WOLF MD Other D63.8 ANEMIA IN OTHER CHRONIC DISEASES CLASSIFIED ELSEWHERE 04/19/2015 SOCORRO WOLF MD Other E11.8 TYPE 2 DIABETES MELLITUS WITH UNSPECIFIED COMPLICATIONS 04/19/2015 SOCORRO WOLF MD Other E66.9 OBESITY, UNSPECIFIED 04/19/2015 SOCORRO WOLF MD Other E78.0 PURE HYPERCHOLESTEROLEMIA 04/19/2015 SOCORRO WOLF MD Other E78.5 HYPERLIPIDEMIA, UNSPECIFIED 04/19/2015 SOCORRO WOLF MD Other E87.6 HYPOKALEMIA 04/19/2015 SOCORRO WOLF MD Other F17.210 NICOTINE DEPENDENCE, CIGARETTES, UNCOMPLICATED 04/19/2015 SOCORRO WOLF MD Other I10 ESSENTIAL (PRIMARY) HYPERTENSION 04/19/2015 SOCORRO WOLF MD Other I21.4 NON-ST ELEVATION (NSTEMI) MYOCARDIAL INFARCTION 04/19/2015 SOCORRO WOLF MD Other I25.10 ATHSCL HEART DISEASE OF [place] CORONARY ARTERY W/O ANG PCTRS 04/19/2015 SOCORRO WOLF MD Other I50.9 HEART FAILURE, UNSPECIFIED 04/19/2015 SOCORRO WOLF MD Other J45.909 UNSPECIFIED ASTHMA, UNCOMPLICATED 04/19/2015 SOCORRO WOLF MD J90 PLEURAL EFFUSION, NOT ELSEWHERE CLASSIFIED 04/19/2015 SOCORRO WOLF MD Other K29.70 GASTRITIS, UNSPECIFIED, WITHOUT BLEEDING 04/19/2015 SOCORRO WOLF MD Other 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 W/O BLEEDING 04/19/2015 SOCORRO WOLF MD Other M54.5 LOW BACK PAIN 04/19/2015 SOCORRO WOLF MD Other N17.9 ACUTE KIDNEY FAILURE, UNSPECIFIED 04/19/2015 SOCORRO WOLF MD Other Z79.4 ASSISTED (CURRENT) USE OF INSULIN 04/19/2015 SOCORRO WOLF MD Other Z88.0 ALLERGY STATUS TO PENICILLIN 06/25/2015 KIMMIE HYATT MD Other D64.9 ANEMIA, UNSPECIFIED 06/25/2015 KIMMIE HYATT MD Other E11.9 TYPE 2 DIABETES MELLITUS WITHOUT COMPLICATIONS 06/25/2015 KIMMIE HYATT MD Other E78.5 HYPERLIPIDEMIA, UNSPECIFIED 06/25/2015 KIMMIE HYATT MD Other E87.6 HYPOKALEMIA 06/25/2015 KIMMIE HYATT MD Other F17.210 NICOTINE DEPENDENCE, CIGARETTES, UNCOMPLICATED 06/25/2015 KIMMIE HYATT MD Other G62.9 POLYNEUROPATHY, UNSPECIFIED 06/25/2015 KIMMIE HYATT MD Other I21.4 NON-ST ELEVATION (NSTEMI) MYOCARDIAL INFARCTION 06/25/2015 KIMMIE HYATT MD Other I25.2 OLD MYOCARDIAL INFARCTION 06/25/2015 KIMMIE HYATT MD I34.0 NONRHEUMATIC MITRAL (VALVE) INSUFFICIENCY 06/25/2015 KIMMIE HYATT MD I50.33 ACUTE ON CHRONIC DIASTOLIC (CONGESTIVE) HEART FAILURE 06/25/2015 KIMMIE HYATT MD N17.9 ACUTE KIDNEY FAILURE, UNSPECIFIED 06/25/2015 KIMMIE HYATT MD Z79.4 ASSISTED (CURRENT) USE OF INSULIN 06/25/2015 KIMMIE HYATT MD Z88.0 ALLERGY STATUS TO PENICILLIN 06/25/2015 KIMMIE HYATT MD Z91.14 PATIENT'S OTHER NONCOMPLIANCE WITH MEDICATION REGIMEN 05/14/2016 LINA SHELDON MD D63.1 ANEMIA IN CHRONIC KIDNEY DISEASE 05/14/2016 LINA SHELDON MD E11.22 TYPE 2 DIABETES MELLITUS W DIABETIC CHRONIC KIDNEY DISEASE 05/14/2016 LINA SHELDON MD E11.319 [facility]/O MACULAR EDEMA 05/14/2016 LINA SHELDON MD E11.40 TYPE 2 DIABETES MELLITUS WITH DIABETIC NEUROPATHY, UNSP 05/14/2016 LINA SHELDON MD E78.5 HYPERLIPIDEMIA, UNSPECIFIED 05/14/2016 LINA SHELDON MD E86.0 DEHYDRATION 05/14/2016 LINA SHELDON MD F17.210 NICOTINE DEPENDENCE, CIGARETTES, UNCOMPLICATED 05/14/2016 LINA SHELDON MD I11.0 HYPERTENSIVE HEART DISEASE WITH HEART FAILURE 05/14/2016 LINA SHELDON MD I25.10 ATHSCL HEART DISEASE OF [place] CORONARY ARTERY W/O ANG PCTRS 05/14/2016 LINA SHELDON MD I25.2 OLD MYOCARDIAL INFARCTION 05/14/2016 LINA SHELDON MD I50.42 CHRONIC COMBINED SYSTOLIC AND DIASTOLIC HRT FAIL 05/14/2016 LINA SHELDON MD K21.9 GASTRO-ESOPHAGEAL REFLUX DISEASE WITHOUT ESOPHAGITIS 05/14/2016 LINA SHELDON MD K22.10 ULCER OF ESOPHAGUS WITHOUT BLEEDING 05/14/2016 LINA SHELDON MD K22.11 ULCER OF ESOPHAGUS WITH BLEEDING 05/14/2016 LINA SHELDON MD K30 FUNCTIONAL DYSPEPSIA 05/14/2016 LINA SHELDON MD K92.0 HEMATEMESIS 05/14/2016 LINA SHELDON MD N17.9 ACUTE KIDNEY FAILURE, UNSPECIFIED 05/14/2016 LINA SHELDON MD N18.4 CHRONIC KIDNEY DISEASE, STAGE 4 (SEVERE) 05/14/2016 LINA SHELDON MD Z28.21 IMMUNIZATION NOT CARRIED OUT BECAUSE OF PATIENT REFUSAL 05/14/2016 LINA SHELDON MD Z79.4 ASSISTED (CURRENT) USE OF INSULIN 05/14/2016 LINA SHELDON MD Z79.82 EYEDOTTER (CURRENT) USE OF ASPIRIN 05/14/2016 LINA SHELDON MD Z79.899 OTHER EYEDOTTER (CURRENT) DRUG THERAPY 05/14/2016 LINA SHELDON MD Z83.3 FAMILY HISTORY OF DIABETES MELLITUS 05/14/2016 LINA SHELDON MD Z91.14 PATIENT'S OTHER NONCOMPLIANCE WITH MEDICATION REGIMEN 06/04/2016 SOCORRO WOLF MD D63.8 ANEMIA IN OTHER CHRONIC DISEASES CLASSIFIED ELSEWHERE 06/04/2016 SOCORRO WOLF MD E11.21 TYPE 2 DIABETES MELLITUS WITH DIABETIC NEPHROPATHY 06/04/2016 SOCORRO WOLF MD E11.22 TYPE 2 DIABETES MELLITUS W DIABETIC CHRONIC KIDNEY DISEASE 06/04/2016 SOCORRO WOLF MD E11.319 TYPE 2 DIABETES W UNSP DIABETIC RTNOP W/O MACULAR EDEMA 06/04/2016 SOCORRO WOLF MD E11.42 TYPE 2 DIABETES MELLITUS WITH DIABETIC POLYNEUROPATHY 06/04/2016 SOCORRO WOLF MD E11.43 TYPE 2 DIABETES W DIABETIC AUTONOMIC (POLY)NEUROPATHY 06/04/2016 SOCORRO WOLF MD E78.5 HYPERLIPIDEMIA, UNSPECIFIED 06/04/2016 SOCORRO WOLF MD E87.2 ACIDOSIS 06/04/2016 SOCORRO WOLF MD E87.5 HYPERKALEMIA 06/04/2016 SOCORRO WOLF MD F17.210 NICOTINE DEPENDENCE, CIGARETTES, UNCOMPLICATED 06/04/2016 SOCORRO WOLF MD F32.9 MAJOR DEPRESSIVE DISORDER, SINGLE EPISODE, UNSPECIFIED 06/04/2016 SOCORRO WOLF MD I13.0 HYP HRT CHR KDNY DIS W HRT FAIL AND STG 1-4/UNSP CHR KDNY 06/04/2016 LUCIANO MD, SOCORRO K Other I25.10 ATHSCL HEART DISEASE OF [place] CORONARY ARTERY W/O ANG PCTRS 06/04/2016 SOCORRO WOLF MD I25.2 OLD MYOCARDIAL INFARCTION 06/04/2016 SOCORRO WOLF MD Other I50.23 ACUTE ON CHRONIC SYSTOLIC (CONGESTIVE) HEART FAILURE 06/04/2016 SOCORRO WOLF MD Other J98.11 ATELECTASIS 06/04/2016 SOCORRO WOLF MD K21.0 GASTRO-ESOPHAGEAL REFLUX DISEASE WITH ESOPHAGITIS 06/04/2016 SOCORRO WOLF MD Other K31.84 GASTROPARESIS 06/04/2016 SOCORRO WOLF MD Other K92.2 GASTROINTESTINAL HEMORRHAGE, UNSPECIFIED 06/04/2016 SOCORRO WOLF MD N17.9 ACUTE KIDNEY FAILURE, UNSPECIFIED 06/04/2016 SOCORRO WOLF MD Other N18.3 CHRONIC KIDNEY DISEASE, STAGE 3 (MODERATE) 06/04/2016 SOCORRO WOLF MD N26.9 RENAL SCLEROSIS, UNSPECIFIED 06/04/2016 SOCORRO WOLF MD Z79.4 EYEDOTTER (CURRENT) USE OF INSULIN 06/04/2016 SOCORRO WOLF MD Other Z88.0 ALLERGY STATUS TO PENICILLIN 07/03/2016 LANDON ACEVES MD E11.22 TYPE 2 DIABETES MELLITUS W DIABETIC CHRONIC KIDNEY DISEASE 07/03/2016 LANDON ACEVES MD E11.319 TYPE 2 DIABETES W [facility] DIABETIC RTNOP W/O MACULAR EDEMA 07/03/2016 LANDON ACEVES MD E11.40 TYPE 2 DIABETES MELLITUS WITH DIABETIC NEUROPATHY, UNSP 07/03/2016 LANDON ACEVES MD F17.210 NICOTINE DEPENDENCE, CIGARETTES, UNCOMPLICATED 07/03/2016 LANDON ACEVES MD I12.0 HYP CHR KIDNEY DISEASE W STAGE 5 CHR KIDNEY DISEASE OR ESRD 07/03/2016 LANDON ACEVES MD I25.2 OLD MYOCARDIAL INFARCTION 07/03/2016 LANDON ACEVES MD K21.9 GASTRO-ESOPHAGEAL REFLUX DISEASE WITHOUT ESOPHAGITIS 07/03/2016 LANDON ACEVES MD N17.9 ACUTE KIDNEY FAILURE, UNSPECIFIED 07/03/2016 LANDON ACEVES MD N18.4 CHRONIC KIDNEY DISEASE, STAGE 4 (SEVERE) 07/03/2016 LANDON ACEVES MD Z79.4 ASSISTED (CURRENT) USE OF INSULIN 07/03/2016 LANDON ACEVES MD Z79.82 EYEDOTTER (CURRENT) USE OF ASPIRIN 07/03/2016 LANDON ACEVES MD Z79.899 OTHER ASSISTED (CURRENT) DRUG THERAPY 10/15/2016 SOCORRO WOLF MD Other D63.1 ANEMIA IN CHRONIC KIDNEY DISEASE 10/15/2016 SOCORRO WOLF MD E11.21 TYPE 2 DIABETES MELLITUS WITH DIABETIC NEPHROPATHY 10/15/2016 SOCORRO WOLF MD E11.22 TYPE 2 DIABETES MELLITUS W DIABETIC CHRONIC KIDNEY DISEASE 10/15/2016 SOCORRO WOLF MD E11.319 TYPE 2 DIABETES W UNSP DIABETIC RTNOP W/O MACULAR EDEMA 10/15/2016 SOCORRO WOLF MD E11.42 TYPE 2 DIABETES MELLITUS WITH DIABETIC POLYNEUROPATHY 10/15/2016 SOCORRO WOLF MD E78.5 HYPERLIPIDEMIA, UNSPECIFIED 10/15/2016 SOCORRO WOLF MD E87.5 HYPERKALEMIA 10/15/2016 SOCORRO WOLF MD F17.210 NICOTINE DEPENDENCE, CIGARETTES, UNCOMPLICATED 10/15/2016 SOCORRO WOLF MD F32.9 MAJOR DEPRESSIVE DISORDER, SINGLE EPISODE, UNSPECIFIED 10/15/2016 SOCORRO WOLF MD H54.0 BLINDNESS, BOTH EYES 10/15/2016 SOCORRO WOLF MD I13.2 HYP HRT CHR KDNY DIS W HRT FAIL AND W STG 5 CHR KDNY/ESRD 10/15/2016 SOCORRO WOLF MD Other I25.10 ATHSCL HEART DISEASE OF [place] CORONARY ARTERY W/O ANG PCTRS 10/15/2016 SOCORRO WOLF MD I25.2 OLD MYOCARDIAL INFARCTION 10/15/2016 SOCORRO WOLF MD I50.42 CHRONIC COMBINED SYSTOLIC AND DIASTOLIC HRT FAIL 10/15/2016 SOCORRO WOLF MD K21.9 GASTRO-ESOPHAGEAL REFLUX DISEASE WITHOUT ESOPHAGITIS 10/15/2016 SOCORRO WOLF MD M54.2 CERVICALGIA 10/15/2016 SOCORRO WOLF MD N17.9 ACUTE KIDNEY FAILURE, UNSPECIFIED 10/15/2016 SOCORRO WOLF MD Other N18.6 END STAGE RENAL DISEASE 10/15/2016 SOCORRO WOLF MD N26.9 RENAL SCLEROSIS, UNSPECIFIED 10/15/2016 SOCORRO WOLF MD Z79.4 EYEDOTTER (CURRENT) USE OF INSULIN 10/15/2016 SOCORRO WOLF MD Z79.82 ASSISTED (CURRENT) USE OF ASPIRIN 10/15/2016 SOCORRO WOLF MD Z88.0 ALLERGY STATUS TO PENICILLIN 10/23/2016 LANDON ACEVES MD E11.22 TYPE 2 DIABETES MELLITUS W DIABETIC CHRONIC KIDNEY DISEASE 10/23/2016 LANDON ACEVES MD E11.40 TYPE 2 DIABETES MELLITUS WITH DIABETIC NEUROPATHY, UNSP 10/23/2016 LANDON ACEVES MD E78.00 PURE HYPERCHOLESTEROLEMIA, UNSPECIFIED 10/23/2016 LANDON ACEVES MD I13.2 HYP HRT CHR KDNY DIS W HRT FAIL AND W STG 5 CHR KDNY/ESRD 10/23/2016 LANDON ACEVES MD I25.2 OLD MYOCARDIAL INFARCTION 10/23/2016 LANDON ACEVES MD I50.9 HEART FAILURE, UNSPECIFIED 10/23/2016 LANDON ACEVES MD I87.1 COMPRESSION OF VEIN 10/23/2016 LANDON ACEVES MD K21.9 GASTRO-ESOPHAGEAL REFLUX DISEASE WITHOUT ESOPHAGITIS 10/23/2016 LANDON ACEVES MD M79.89 OTHER SPECIFIED SOFT TISSUE DISORDERS 10/23/2016 LANDON ACEVES MD N18.6 END STAGE RENAL DISEASE 10/23/2016 LANDON ACEVES MD Z79.4 EYEDOTTER (CURRENT) USE OF INSULIN 10/23/2016 LANDON ACEVES MD Z79.82 EYEDOTTER (CURRENT) USE OF ASPIRIN 10/23/2016 LANDON ACEVES MD Z79.899 OTHER ASSISTED (CURRENT) DRUG THERAPY 10/23/2016 LANDON ACEVES MD Z99.2 DEPENDENCE ON RENAL DIALYSIS 01/01/2018 AIDE NUNEZ, HUNTER Garibay G57.01 01/01/2018 AIDE NUNEZ, HUNTER Garibay M25.551 01/01/2018 AIDE NUNEZ, HUNTER C A M54.5 01/01/2018 AIDE NUNEZ, HUNTER C F Z79.4 01/01/2018 AIDE NUNEZ, HUNTER C F Z79.82 01/01/2018 AIDE NUNEZ, HUNTER Guevara Other M54.5 M54.5 - Low back pain 01/18/2018 Isha NUNEZ, Ag F D63.1 01/18/2018 Isha NUNEZ, Ag F E11.22 01/18/2018 Isha NUNEZ, Ag F E83.39 01/18/2018 Isha NUNEZ, Ag F F17.200 01/18/2018 Isha NUNEZ, Ag F F32.9 01/18/2018 Isha NUNEZ, Ag F G47.34 01/18/2018 Isha NUNEZ, Ag F G89.29 01/18/2018 Isha NUNEZ, Ag F I13.2 01/18/2018 Isha NUNEZ, Ag F I25.10 01/18/2018 Isha NUNEZ, Ag F I50.20 01/18/2018 Isha NUNEZ, Ag F K21.9 01/18/2018 Isha NUNEZ, Ag F M47.812 01/18/2018 Isha NUNEZ, Ag F M54.40 01/18/2018 Isha NUNEZ, Ag F M62.838 01/18/2018 Isha NUNEZ, Ag F N18.6 01/18/2018 Isha NUNEZ, Ag F R51 01/18/2018 Isha NUNEZ, Ag A R53.1 01/18/2018 Isha NUNEZ, Ag F T82.858A 01/18/2018 Isha NUNEZ, Ag F Z79.4 01/18/2018 Isha NUNEZ, Ag F Z79.82 01/18/2018 Isha NUNEZ, Ag F Z83.3 01/18/2018 Isha NUNEZ, Ag F Z88.0 01/18/2018 Isha NUNEZ, Ag F Z88.5 01/18/2018 Isha NUNEZ, Ag F Z99.2 01/19/2018 Isha NUNEZ, Ag Other N18.6 N18.6 - End stage renal disease 01/19/2018 Isha NUNEZ, Ag Other R26.2 R26.2 - Difficulty in walking, not elsewhere classified 01/19/2018 Ag Vieira MD Other R53.1 R53.1 - Weakness 01/19/2018 Ag Vieira MD Other Z99.2 Z99.2 - Dependence on renal dialysis 01/19/2018 Ag Vieira MD Other N18.6 N18.6 - End stage renal disease 01/19/2018 Ag Vieira MD Other R26.2 R26.2 - Difficulty in walking, not elsewhere classified 01/19/2018 Ag Vieira MD Other R53.1 R53.1 - Weakness 01/19/2018 Ag Vieira MD Other Z99.2 Z99.2 - Dependence on renal dialysis 01/19/2018 Ag Vieira MD Other N18.6 N18.6 - End stage renal disease 01/19/2018 Ag Vieira MD Other R26.2 R26.2 - Difficulty in walking, not elsewhere classified 01/19/2018 Ag Vieira MD Other R53.1 R53.1 - Weakness 01/19/2018 Ag Vieira MD Other Z99.2 Z99.2 - Dependence on renal dialysis 01/19/2018 Ag Vieira MD Other N18.6 N18.6 - End stage renal disease 01/19/2018 Ag Vieira MD Other R26.2 R26.2 - Difficulty in walking, not elsewhere classified 01/19/2018 Ag Vieira MD Other R53.1 R53.1 - Weakness 01/19/2018 Ag Vieira MD Other Z99.2 Z99.2 - Dependence on renal dialysis 01/19/2018 Other N18.6 N18.6 - End stage renal disease 01/19/2018 Other R26.2 R26.2 - Difficulty in walking, not elsewhere classified 01/19/2018 Other R53.1 R53.1 - Weakness 01/19/2018 Other Z99.2 Z99.2 - Dependence on renal dialysis 01/20/2018 Other M48.00 M48.00 - Spinal stenosis, site unspecified 01/20/2018 Other N18.6 N18.6 - End stage renal disease 01/20/2018 Other R26.2 R26.2 - Difficulty in walking, not elsewhere classified 01/20/2018 Other R53.1 R53.1 - Weakness 01/20/2018 Other Z99.2 Z99.2 - Dependence on renal dialysis 01/21/2018 Other M48.00 M48.00 - Spinal stenosis, site unspecified 01/21/2018 Other N18.6 N18.6 - End stage renal disease 01/21/2018 Other R26.2 R26.2 - Difficulty in walking, not elsewhere classified 01/21/2018 Other R53.1 R53.1 - Weakness 01/21/2018 Other Z99.2 Z99.2 - Dependence on renal dialysis 01/22/2018 Other M48.00 M48.00 - Spinal stenosis, site unspecified 01/22/2018 Other N18.6 N18.6 - End stage renal disease 01/22/2018 Other R26.2 R26.2 - Difficulty in walking, not elsewhere classified 01/22/2018 Other R53.1 R53.1 - Weakness 01/22/2018 Other Z99.2 Z99.2 - Dependence on renal dialysis 01/23/2018 Other M48.00 M48.00 - Spinal stenosis, site unspecified 01/23/2018 Other N18.6 N18.6 - End stage renal disease 01/23/2018 Other R26.2 R26.2 - Difficulty in walking, not elsewhere classified 01/23/2018 Other R53.1 R53.1 - Weakness 01/23/2018 Other Z99.2 Z99.2 - Dependence on renal dialysis 01/24/2018 Other M48.00 M48.00 - Spinal stenosis, site unspecified 01/24/2018 Other N18.6 N18.6 - End stage renal disease 01/24/2018 Other R26.2 R26.2 - Difficulty in walking, not elsewhere classified 01/24/2018 Other R53.1 R53.1 - Weakness 01/24/2018 Other Z99.2 Z99.2 - Dependence on renal dialysis 01/25/2018 Josue NUNEZ, C. S. F D63.1 01/25/2018 Josue NUNEZ, C. S. F E11.22 01/25/2018 Josue NUNEZ, C. S. F E11.649 01/25/2018 Josue NUNEZ, C. S. F E83.39 01/25/2018 Josue NUNEZ, C. S. F F17.210 01/25/2018 Josue NUNEZ, C. S. F F32.9 01/25/2018 Josue NUNEZ, C. S. F G72.89 01/25/2018 Josue NUNEZ, C. S. F G95.89 01/25/2018 Josue NUNEZ, C. S. F I13.2 01/25/2018 Josue NUNEZ, C. S. F I25.10 01/25/2018 Josue NUNEZ, C. S. F I25.2 01/25/2018 Josue NUNEZ, C. S. F I50.9 01/25/2018 Josue NUNEZ, C. S. F M25.511 01/25/2018 Josue NUNEZ, C. S. F M25.551 01/25/2018 Josue NUNEZ, C. S. F M25.552 01/25/2018 Josue NUNEZ, C. S. F M48.061 01/25/2018 Josue NUNEZ, C. S. F M54.2 01/25/2018 Josue NUNEZ, C. S. F N18.6 01/25/2018 Josue NUNEZ, C. S. F R11.0 01/25/2018 Josue NUNEZ, C. S. F R53.1 01/25/2018 Josue NUNEZ, C. S. F Z79.4 01/25/2018 Josue NUNEZ, C. S. F Z99.2 01/25/2018 Ag Vieira MD Other M48.00 M48.00 - Spinal stenosis, site unspecified 01/25/2018 gA Vieira MD Other N18.6 N18.6 - End stage renal disease 01/25/2018 Ag Vieira MD Other R26.2 R26.2 - Difficulty in walking, not elsewhere classified 01/25/2018 Ag Vieira MD Other R53.1 R53.1 - Weakness 01/25/2018 Ag Vieira MD Other Z99.2 Z99.2 - Dependence on renal dialysis 01/25/2018 Other M48.00 M48.00 - Spinal stenosis, site unspecified 01/25/2018 Other N18.6 N18.6 - End stage renal disease 01/25/2018 Other R26.2 R26.2 - Difficulty in walking, not elsewhere classified 01/25/2018 Other R53.1 R53.1 - Weakness 01/25/2018 Other Z99.2 Z99.2 - Dependence on renal dialysis 01/27/2018 Other G72.89 G72.89 - Other specified myopathies 01/28/2018 Other D63.1 D63.1 - Anemia in chronic kidney disease 01/28/2018 Other 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 S. Other D63.1 D63.1 - Anemia in chronic kidney disease 01/28/2018 Josue NUNEZ, C. S. 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 S. 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 S. Other I10 I10 - Essential (primary) hypertension 01/28/2018 Josue NUNEZ, C. S. Other M25.511 M25.511 - Pain in right shoulder 01/28/2018 Josue NUNEZ, C. S. Other M48.061 M48.061 - Spinal stenosis, lumbar region without neurogenic claudication 01/28/2018 Josue NUNEZ, C. S. Other N18.6 N18.6 - End stage renal disease 01/28/2018 Josue NUNEZ, C. S. Other R11.0 R11.0 - Nausea 01/28/2018 Josue NUNEZ, C. S. Other R53.1 R53.1 - Weakness 01/28/2018 Josue NUNEZ, C. S. Other Z79.4 Z79.4 - superintendent [employer] terminal (current) use of insulin 01/28/2018 Josue NUNEZ, C. S. 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 01/29/2018 Other G72.89 G72.89 - Other specified myopathies 01/29/2018 Other I10 I10 - Essential (primary) hypertension 01/29/2018 Other M25.511 M25.511 - Pain in right shoulder 01/29/2018 Other M48.061 M48.061 - Spinal stenosis, lumbar region without neurogenic claudication 01/29/2018 Other N18.6 N18.6 - End stage renal disease 01/29/2018 Other R11.0 R11.0 - Nausea 01/29/2018 Other R53.1 R53.1 - Weakness 01/29/2018 Other Z79.4 Z79.4 - superintendent [employer] (current) use of insulin 01/29/2018 Other Z99.2 Z99.2 - Dependence on renal dialysis 02/01/2018 Other D63.1 D63.1 - Anemia in chronic kidney disease 02/01/2018 Other 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 02/01/2018 Other G72.89 G72.89 - Other specified myopathies 02/01/2018 Other I10 I10 - Essential (primary) hypertension 02/01/2018 Other M25.511 M25.511 - Pain in right shoulder 02/01/2018 Other M48.061 M48.061 - Spinal stenosis, lumbar region without neurogenic claudication 02/01/2018 Other N18.6 N18.6 - End stage renal disease 02/01/2018 Other R11.0 R11.0 - Nausea 02/01/2018 Other R53.1 R53.1 - Weakness 02/01/2018 Other Z79.4 Z79.4 - superintendent [employer] (current) use of insulin 02/01/2018 Other Z99.2 Z99.2 - Dependence on renal dialysis 02/02/2018 Other D63.1 D63.1 - Anemia in chronic kidney disease 02/02/2018 Other 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 02/02/2018 Other G72.89 G72.89 - Other specified myopathies 02/02/2018 Other I10 I10 - Essential (primary) hypertension 02/02/2018 Other M25.511 M25.511 - Pain in right shoulder 02/02/2018 Other M48.061 M48.061 - Spinal stenosis, lumbar region without neurogenic claudication 02/02/2018 Other N18.6 N18.6 - End stage renal disease 02/02/2018 Other R11.0 R11.0 - Nausea 02/02/2018 Other R53.1 R53.1 - Weakness 02/02/2018 Other Z79.4 Z79.4 - superintendent container terminal (current) use of insulin 02/02/2018 Other Z99.2 Z99.2 - Dependence on renal dialysis 02/03/2018 Other D63.1 D63.1 - Anemia in chronic kidney disease 02/03/2018 Other 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 S. Other D63.1 D63.1 - Anemia in chronic kidney disease 02/04/2018 Josue NUNEZ, C. S. 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 S. Other G72.89 G72.89 - Other specified myopathies 02/04/2018 Josue NUNEZ, C. S. Other I10 I10 - Essential (primary) hypertension 02/04/2018 Josue NUNEZ, C. S. Other M25.511 M25.511 - Pain in right shoulder 02/04/2018 Josue NUNEZ, C. S. Other M48.061 M48.061 - Spinal stenosis, lumbar region without neurogenic claudication 02/04/2018 Josue NUNEZ, C. S. Other N18.6 N18.6 - End stage renal disease 02/04/2018 Josue NUNEZ, C. S. Other R11.0 R11.0 - Nausea 02/04/2018 Josue NUNEZ, C. S. Other R53.1 R53.1 - Weakness 02/04/2018 Josue NUNEZ, C. S. Other Z79.4 Z79.4 - senior living (current) use of insulin 02/04/2018 Josue NUNEZ, C. S. 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 S. Other D63.1 D63.1 - Anemia in chronic kidney disease 02/07/2018 Josue NUNEZ, C. S. 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 S. Other G72.89 G72.89 - Other specified myopathies 02/07/2018 Josue NUNEZ, C. S. Other I10 I10 - Essential (primary) hypertension 02/07/2018 Josue NUNEZ, C. S. Other M25.511 M25.511 - Pain in right shoulder 02/07/2018 Josue NUNEZ, C. S. Other M48.061 M48.061 - Spinal stenosis, lumbar region without neurogenic claudication 02/07/2018 Josue NUNEZ, C. S. Other N18.6 N18.6 - End stage renal disease 02/07/2018 Josue NUNEZ, C. S. Other R11.0 R11.0 - Nausea 02/07/2018 Josue NUNEZ, C. S. Other R53.1 R53.1 - Weakness 02/07/2018 Josue NUNEZ, C. S. Other Z79.4 Z79.4 - [employer] (current) use of insulin 02/07/2018 Josue NUNEZ, C. S. Other Z99.2 Z99.2 - Dependence on renal dialysis 02/08/2018 Other N18.6 N18.6 - End stage renal disease 02/08/2018 Other R26.2 R26.2 - Difficulty in walking, not elsewhere classified 02/08/2018 Other R53.1 R53.1 - Weakness 02/08/2018 Other Z99.2 Z99.2 - Dependence on renal dialysis 02/08/2018 Other M48.00 M48.00 - Spinal stenosis, site unspecified 02/08/2018 Other N18.6 N18.6 - End stage renal disease 02/08/2018 Other R26.2 R26.2 - Difficulty in walking, not elsewhere classified 02/08/2018 Other R53.1 R53.1 - Weakness 02/08/2018 Other Z99.2 Z99.2 - Dependence on renal dialysis 02/08/2018 Other M48.00 M48.00 - Spinal stenosis, site unspecified 02/08/2018 Other N18.6 N18.6 - End stage renal disease 02/08/2018 Other R26.2 R26.2 - Difficulty in walking, not elsewhere classified 02/08/2018 Other R53.1 R53.1 - Weakness 02/08/2018 Other Z99.2 Z99.2 - Dependence on renal dialysis 02/08/2018 Other M48.00 M48.00 - Spinal stenosis, site unspecified 02/08/2018 Other N18.6 N18.6 - End stage renal disease 02/08/2018 Other R26.2 R26.2 - Difficulty in walking, not elsewhere classified 02/08/2018 Other R53.1 R53.1 - Weakness 02/08/2018 Other Z99.2 Z99.2 - Dependence on renal dialysis 02/08/2018 Other M48.00 M48.00 - Spinal stenosis, site unspecified 02/08/2018 Other N18.6 N18.6 - End stage renal disease 02/08/2018 Other R26.2 R26.2 - Difficulty in walking, not elsewhere classified 02/08/2018 Other R53.1 R53.1 - Weakness 02/08/2018 Other Z99.2 Z99.2 - Dependence on renal dialysis 02/08/2018 Other M48.00 M48.00 - Spinal stenosis, site unspecified 02/08/2018 Other N18.6 N18.6 - End stage renal disease 02/08/2018 Other R26.2 R26.2 - Difficulty in walking, not elsewhere classified 02/08/2018 Other R53.1 R53.1 - Weakness 02/08/2018 Other Z99.2 Z99.2 - Dependence on renal dialysis 02/08/2018 Other M48.00 M48.00 - Spinal stenosis, site unspecified 02/08/2018 Other N18.6 N18.6 - End stage renal disease 02/08/2018 Other R26.2 R26.2 - Difficulty in walking, not elsewhere classified 02/08/2018 Other R53.1 R53.1 - Weakness 02/08/2018 Other Z99.2 Z99.2 - Dependence on renal dialysis 02/08/2018 Other G72.89 G72.89 - Other specified myopathies 02/08/2018 Other D63.1 D63.1 - Anemia in chronic kidney disease 02/08/2018 Other 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 02/08/2018 Other G72.89 G72.89 - Other specified myopathies 02/08/2018 Other I10 I10 - Essential (primary) hypertension 02/08/2018 Other M25.511 M25.511 - Pain in right shoulder 02/08/2018 Other M48.061 M48.061 - Spinal stenosis, lumbar region without neurogenic claudication 02/08/2018 Other N18.6 N18.6 - End stage renal disease 02/08/2018 Other R53.1 R53.1 - Weakness 02/08/2018 Other Z79.4 Z79.4 - superintendent container terminal (current) use of insulin 02/08/2018 Other Z99.2 Z99.2 - Dependence on renal dialysis 02/08/2018 Other D63.1 D63.1 - Anemia in chronic kidney disease 02/08/2018 Other 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 02/08/2018 Other G72.89 G72.89 - Other specified myopathies 02/08/2018 Other I10 I10 - Essential (primary) hypertension 02/08/2018 Other M25.511 M25.511 - Pain in right shoulder 02/08/2018 Other M48.061 M48.061 - Spinal stenosis, lumbar region without neurogenic claudication 02/08/2018 Other N18.6 N18.6 - End stage renal disease 02/08/2018 Other R11.0 R11.0 - Nausea 02/08/2018 Other R53.1 R53.1 - Weakness 02/08/2018 Other Z79.4 Z79.4 - superintendent container terminal (current) use of insulin 02/08/2018 Other Z99.2 Z99.2 - Dependence on renal dialysis 02/08/2018 Other D63.1 D63.1 - Anemia in chronic kidney disease 02/08/2018 Other 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 02/08/2018 Other G72.89 G72.89 - Other specified myopathies 02/08/2018 Other I10 I10 - Essential (primary) hypertension 02/08/2018 Other M25.511 M25.511 - Pain in right shoulder 02/08/2018 Other M48.061 M48.061 - Spinal stenosis, lumbar region without neurogenic claudication 02/08/2018 Other N18.6 N18.6 - End stage renal disease 02/08/2018 Other R11.0 R11.0 - Nausea 02/08/2018 Other R53.1 R53.1 - Weakness 02/08/2018 Other Z79.4 Z79.4 - superintendent container terminal (current) use of insulin 02/08/2018 Other Z99.2 Z99.2 - Dependence on renal dialysis 02/08/2018 Other D63.1 D63.1 - Anemia in chronic kidney disease 02/08/2018 Other 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 02/08/2018 Other G72.89 G72.89 - Other specified myopathies 02/08/2018 Other I10 I10 - Essential (primary) hypertension 02/08/2018 Other M25.511 M25.511 - Pain in right shoulder 02/08/2018 Other M48.061 M48.061 - Spinal stenosis, lumbar region without neurogenic claudication 02/08/2018 Other N18.6 N18.6 - End stage renal disease 02/08/2018 Other R11.0 R11.0 - Nausea 02/08/2018 Other R53.1 R53.1 - Weakness 02/08/2018 Other Z79.4 Z79.4 - senior living (current) use of insulin 02/08/2018 Other Z99.2 Z99.2 - Dependence on renal dialysis 02/08/2018 Other D63.1 D63.1 - Anemia in chronic kidney disease 02/08/2018 Other 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 02/08/2018 Other G72.89 G72.89 - Other specified myopathies 02/08/2018 Other I10 I10 - Essential (primary) hypertension 02/08/2018 Other M25.511 M25.511 - Pain in right shoulder 02/08/2018 Other M48.061 M48.061 - Spinal stenosis, lumbar region without neurogenic claudication 02/08/2018 Other N18.6 N18.6 - End stage renal disease 02/08/2018 Other R11.0 R11.0 - Nausea 02/08/2018 Other R53.1 R53.1 - Weakness 02/08/2018 Other Z79.4 Z79.4 - senior living (current) use of insulin 02/08/2018 Other Z99.2 Z99.2 - Dependence on renal dialysis 02/08/2018 Other D63.1 D63.1 - Anemia in chronic kidney disease 02/08/2018 Other 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 02/08/2018 Other G72.89 G72.89 - Other specified myopathies 02/08/2018 Other I10 I10 - Essential (primary) hypertension 02/08/2018 Other M25.511 M25.511 - Pain in right shoulder 02/08/2018 Other M48.061 M48.061 - Spinal stenosis, lumbar region without neurogenic claudication 02/08/2018 Other N18.6 N18.6 - End stage renal disease 02/08/2018 Other R11.0 R11.0 - Nausea 02/08/2018 Other R53.1 R53.1 - Weakness 02/08/2018 Other Z79.4 Z79.4 - senior living (current) use of insulin 02/08/2018 Other Z99.2 Z99.2 - Dependence on renal dialysis 02/09/2018 Other N18.6 N18.6 - End stage renal disease 02/09/2018 Other R26.2 R26.2 - Difficulty in walking, not elsewhere classified 02/09/2018 Other R53.1 R53.1 - Weakness 02/09/2018 Other Z99.2 Z99.2 - Dependence on renal dialysis 02/09/2018 Other M48.00 M48.00 - Spinal stenosis, site unspecified 02/09/2018 Other N18.6 N18.6 - End stage renal disease 02/09/2018 Other R26.2 R26.2 - Difficulty in walking, not elsewhere classified 02/09/2018 Other R53.1 R53.1 - Weakness 02/09/2018 Other Z99.2 Z99.2 - Dependence on renal dialysis 02/09/2018 Other M48.00 M48.00 - Spinal stenosis, site unspecified 02/09/2018 Other N18.6 N18.6 - End stage renal disease 02/09/2018 Other R26.2 R26.2 - Difficulty in walking, not elsewhere classified 02/09/2018 Other R53.1 R53.1 - Weakness 02/09/2018 Other Z99.2 Z99.2 - Dependence on renal dialysis 02/09/2018 Other M48.00 M48.00 - Spinal stenosis, site unspecified 02/09/2018 Other N18.6 N18.6 - End stage renal disease 02/09/2018 Other R26.2 R26.2 - Difficulty in walking, not elsewhere classified 02/09/2018 Other R53.1 R53.1 - Weakness 02/09/2018 Other Z99.2 Z99.2 - Dependence on renal dialysis 02/09/2018 Other M48.00 M48.00 - Spinal stenosis, site unspecified 02/09/2018 Other N18.6 N18.6 - End stage renal disease 02/09/2018 Other R26.2 R26.2 - Difficulty in walking, not elsewhere classified 02/09/2018 Other R53.1 R53.1 - Weakness 02/09/2018 Other Z99.2 Z99.2 - Dependence on renal dialysis 02/09/2018 Other M48.00 M48.00 - Spinal stenosis, site unspecified 02/09/2018 Other N18.6 N18.6 - End stage renal disease 02/09/2018 Other R26.2 R26.2 - Difficulty in walking, not elsewhere classified 02/09/2018 Other R53.1 R53.1 - Weakness 02/09/2018 Other Z99.2 Z99.2 - Dependence on renal dialysis 02/09/2018 Other M48.00 M48.00 - Spinal stenosis, site unspecified 02/09/2018 Other N18.6 N18.6 - End stage renal disease 02/09/2018 Other R26.2 R26.2 - Difficulty in walking, not elsewhere classified 02/09/2018 Other R53.1 R53.1 - Weakness 02/09/2018 Other Z99.2 Z99.2 - Dependence on renal dialysis 02/09/2018 Other G72.89 G72.89 - Other specified myopathies 02/09/2018 Other D63.1 D63.1 - Anemia in chronic kidney disease 02/09/2018 Other 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 02/09/2018 Other G72.89 G72.89 - Other specified myopathies 02/09/2018 Other I10 I10 - Essential (primary) hypertension 02/09/2018 Other M25.511 M25.511 - Pain in right shoulder 02/09/2018 Other M48.061 M48.061 - Spinal stenosis, lumbar region without neurogenic claudication 02/09/2018 Other N18.6 N18.6 - End stage renal disease 02/09/2018 Other R53.1 R53.1 - Weakness 02/09/2018 Other Z79.4 Z79.4 - superintendent container terminal (current) use of insulin 02/09/2018 Other Z99.2 Z99.2 - Dependence on renal dialysis 02/09/2018 Other D63.1 D63.1 - Anemia in chronic kidney disease 02/09/2018 Other 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 02/09/2018 Other G72.89 G72.89 - Other specified myopathies 02/09/2018 Other I10 I10 - Essential (primary) hypertension 02/09/2018 Other M25.511 M25.511 - Pain in right shoulder 02/09/2018 Other M48.061 M48.061 - Spinal stenosis, lumbar region without neurogenic claudication 02/09/2018 Other N18.6 N18.6 - End stage renal disease 02/09/2018 Other R11.0 R11.0 - Nausea 02/09/2018 Other R53.1 R53.1 - Weakness 02/09/2018 Other Z79.4 Z79.4 - senior living (current) use of insulin 02/09/2018 Other Z99.2 Z99.2 - Dependence on renal dialysis 02/09/2018 Other D63.1 D63.1 - Anemia in chronic kidney disease 02/09/2018 Other 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 02/09/2018 Other G72.89 G72.89 - Other specified myopathies 02/09/2018 Other I10 I10 - Essential (primary) hypertension 02/09/2018 Other M25.511 M25.511 - Pain in right shoulder 02/09/2018 Other M48.061 M48.061 - Spinal stenosis, lumbar region without neurogenic claudication 02/09/2018 Other N18.6 N18.6 - End stage renal disease 02/09/2018 Other R11.0 R11.0 - Nausea 02/09/2018 Other R53.1 R53.1 - Weakness 02/09/2018 Other Z79.4 Z79.4 - senior living (current) use of insulin 02/09/2018 Other Z99.2 Z99.2 - Dependence on renal dialysis 02/09/2018 Other D63.1 D63.1 - Anemia in chronic kidney disease 02/09/2018 Other 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 02/09/2018 Other G72.89 G72.89 - Other specified myopathies 02/09/2018 Other I10 I10 - Essential (primary) hypertension 02/09/2018 Other M25.511 M25.511 - Pain in right shoulder 02/09/2018 Other M48.061 M48.061 - Spinal stenosis, lumbar region without neurogenic claudication 02/09/2018 Other N18.6 N18.6 - End stage renal disease 02/09/2018 Other R11.0 R11.0 - Nausea 02/09/2018 Other R53.1 R53.1 - Weakness 02/09/2018 Other Z79.4 Z79.4 - senior living (current) use of insulin 02/09/2018 Other Z99.2 Z99.2 - Dependence on renal dialysis 02/09/2018 Other D63.1 D63.1 - Anemia in chronic kidney disease 02/09/2018 Other 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 02/09/2018 Other G72.89 G72.89 - Other specified myopathies 02/09/2018 Other I10 I10 - Essential (primary) hypertension 02/09/2018 Other M25.511 M25.511 - Pain in right shoulder 02/09/2018 Other M48.061 M48.061 - Spinal stenosis, lumbar region without neurogenic claudication 02/09/2018 Other N18.6 N18.6 - End stage renal disease 02/09/2018 Other R11.0 R11.0 - Nausea 02/09/2018 Other R53.1 R53.1 - Weakness 02/09/2018 Other Z79.4 Z79.4 - superintendent container terminal (current) use of insulin 02/09/2018 Other Z99.2 Z99.2 - Dependence on renal dialysis 02/09/2018 Other D63.1 D63.1 - Anemia in chronic kidney disease 02/09/2018 Other 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 02/09/2018 Other G72.89 G72.89 - Other specified myopathies 02/09/2018 Other I10 I10 - Essential (primary) hypertension 02/09/2018 Other M25.511 M25.511 - Pain in right shoulder 02/09/2018 Other M48.061 M48.061 - Spinal stenosis, lumbar region without neurogenic claudication 02/09/2018 Other N18.6 N18.6 - End stage renal disease 02/09/2018 Other R11.0 R11.0 - Nausea 02/09/2018 Other R53.1 R53.1 - Weakness 02/09/2018 Other Z79.4 Z79.4 - superintendent container terminal (current) use of insulin 02/09/2018 Other Z99.2 Z99.2 - Dependence on renal dialysis 02/09/2018 Other G72.89 G72.89 - Other specified myopathies 04/05/2018 Other G72.89 G72.89 - Other specified myopathies 04/06/2018 SVEN OJEDA DO M25.552 04/06/2018 SVEN OJEDA DO S93.402A 04/06/2018 SVEN OJEDA DO Z79.82 04/06/2018 SVEN OJEDA DO Z79.899 Procedures Code Description Performed By Performed On [id number] INSPECTION OF UPPER INTESTINAL TRACT, ENDO 04/16/2015 [id number] INSPECTION OF UPPER INTESTINAL TRACT, ENDO 04/16/2015 [id number] DRAINAGE OF LEFT PLEURAL CAVITY, PERC APPROACH, DI 04/18/2015 [id number] MEASURE OF CARDIAC SAMPL PRESSURE, L HEART, PERC 04/18/2015 [id number] FLUOROSCOPY OF MULT COR ART USING L OSM CONTRAST 04/18/2015 [id number] DRAINAGE OF LEFT PLEURAL CAVITY, PERC APPROACH, DI 04/18/2015 [id number] MEASURE OF CARDIAC SAMPL PRESSURE, L HEART, PERC 04/18/2015 [id number] FLUOROSCOPY OF MULT COR ART USING L OSM CONTRAST 04/18/2015 [id number] INSPECTION OF UPPER INTESTINAL TRACT, ENDO 05/11/2016 [id number] EXCISION OF RIGHT KIDNEY, PERCUTANEOUS APPROACH, D 06/03/2016 [id number] PERFORMANCE OF URINARY FILTRATION, MULTIPLE 10/11/2016 [id number] 01/19/2018 [id number] 01/22/2018 [id number] 01/22/2018 [id number] 01/22/2018 [id number] 01/27/2018 Results Test Result Range Complete Blood Count with Diff - 01/18/18 14:55 DIFF TYPE Automated NRG WBC # Bld Auto =11.5 4.0-11.0 RBC # Bld Auto =3.42 4.00-5.20 Hgb Bld-mCnc =10.8 12.0-16.0 Hct VFr Bld Auto =31.9 36.0-46.0 MCV RBC Auto =93.3 80.0-100.0 MCH RBC Qn Auto =31.6 26.0-34.0 MCHC RBC Auto-mCnc =33.9 31.0-37.0 RDW RBC Auto-Rto =13.4 11.0-15.0 Platelet # Bld Auto =163 140-450 PMV Bld Auto =11.0 8.2-12.4 nRBC/100 WBC Bld Auto-Rto =0.0 0.0-0.0 nRBC # Bld Auto =0.0 0.0-0.0 Neutrophils/leuk NFr Bld Auto =69.9 40.0-70.0 Lymphocytes/leuk NFr Bld Auto =20.2 15.0-45.0 Monocytes/leuk NFr Bld Auto =7.1 2.0-10.0 Eosinophil/leuk NFr Bld Auto =1.9 0.0-6.0 Basophils/leuk NFr Bld Auto =0.3 0.0-1.0 Imm Granulocytes/leuk NFr Bld Auto =0.6 0.0-0.0 Neutrophils # Bld Auto =8.0 2.5-7.5 Lymphocytes # Bld Auto =2.3 1.0-4.0 Monocytes # Bld Auto =0.8 0.2-0.8 Eosinophil # Bld Auto =0.2 0.0-0.4 Basophils # Bld Auto =0.0 0.0-0.1 Imm Granulocytes # Bld Auto =0.1 0.0-0.0 Comprehensive Metabolic Panel - 01/18/18 14:55 OSMO CALCULATED =281.4 270.0-290.0 Sodium SerPl-sCnc =137 135-145 Potassium SerPl-sCnc =4.3 3.6-5.0 Chloride SerPl-sCnc =96 101-111 CO2 SerPl-sCnc =29 21-31 Anion Gap4 SerPl-sCnc =16 8-18 BUN SerPl-mCnc =32 6-20 Creat SerPl-mCnc =4.31 0.50-1.20 Creatinine Clr Calc Pharmacy =13.1568 NRG GFR/BSA.pred SerPl DNV-VDL-UvGMhy =11 >=60 BUN/Creat SerPl =7.0 10.0-20.0 Glucose SerPl-mCnc =110 70-110 Calcium SerPl-mCnc =8.6 8.5-10.5 Bilirub SerPl-mCnc =0.5 0.1-1.2 AST SerPl-cCnc =15 10-42 ALT SerPl w/o P-5'-P-cCnc =14 10-60 ALP SerPl-cCnc =57 42-121 Prot SerPl-mCnc =6.8 6.4-8.2 Albumin SerPl-mCnc =3.6 3.5-5.5 Globulin Ser Calc-mCnc =3.2 2.4-3.6 Albumin/Glob SerPl =1.1 0.9-1.8 Deprecated Phosphate SerPl-mCnc - 01/18/18 14:55 Deprecated Phosphate SerPl-mCnc =3.4 2.5-4.6 Magnesium SerPl-mCnc - 01/18/18 14:55 Magnesium SerPl-mCnc =2.1 1.8-2.5 CK SerPl-cCnc - 01/18/18 14:55 CK SerPl-cCnc =151 83-211 UA with screen for culture - 01/18/18 15:40 URINE CULTURE Not Indicated NRG URINE MICROSCOPIC REQUIRED Yes NRG Color Ur Auto LIGHT YELLOW Yellow Clarity Ur Refract.auto Clear Clear Glucose Ur Strip.auto-mCnc =300 Negative Bilirub Ur Strip.auto-mCnc Negative Negative Ketones Ur Strip.auto-mCnc Negative Negative Sp Gr Ur Refract.auto =1.013 1.001-1.035 Hgb Ur Strip.auto-mCnc Negative Negative pH Ur Strip.auto =8.5 5.0-9.0 Prot Ur Strip.auto-mCnc >1000 <20 Urobilinogen Ur Strip.auto-mCnc 0.2 0.2-1.0 Nitrite Ur Ql Strip Negative Negative Leukocyte esterase Ur-aCnc Negative Negative RBC # Ur Auto 0 0-3 WBC # Ur Auto 4 0-3 Squamous # Ur Auto 8 0-3 Hyaline Casts # Ur Auto 0 0-3 Bacteria # Ur Auto 1+ Negative APAP SerPl-mCnc - 01/18/18 17:45 APAP SerPl-mCnc =19.6 10-30 MRSA XXX Ql Cult - 01/18/18 20:23 MRSA XXX Ql Cult NMRSA NRG Complete Blood Count with Diff - 01/19/18 06:27 DIFF TYPE Automated NRG WBC # Bld Auto =7.4 4.0-11.0 RBC # Bld Auto =3.18 4.00-5.20 Hgb Bld-mCnc =9.9 12.0-16.0 Hct VFr Bld Auto =30.5 36.0-46.0 MCV RBC Auto =95.9 80.0-100.0 MCH RBC Qn Auto =31.1 26.0-34.0 MCHC RBC Auto-mCnc =32.5 31.0-37.0 RDW RBC Auto-Rto =13.6 11.0-15.0 Platelet # Bld Auto =151 140-450 PMV Bld Auto =11.3 8.2-12.4 nRBC/100 WBC Bld Auto-Rto =0.0 0.0-0.0 nRBC # Bld Auto =0.0 0.0-0.0 Neutrophils/leuk NFr Bld Auto =59.7 40.0-70.0 Lymphocytes/leuk NFr Bld Auto =29.0 15.0-45.0 Monocytes/leuk NFr Bld Auto =7.9 2.0-10.0 Eosinophil/leuk NFr Bld Auto =2.6 0.0-6.0 Basophils/leuk NFr Bld Auto =0.3 0.0-1.0 Imm Granulocytes/leuk NFr Bld Auto =0.5 0.0-0.0 Neutrophils # Bld Auto =4.4 2.5-7.5 Lymphocytes # Bld Auto =2.1 1.0-4.0 Monocytes # Bld Auto =0.6 0.2-0.8 Eosinophil # Bld Auto =0.2 0.0-0.4 Basophils # Bld Auto =0.0 0.0-0.1 Imm Granulocytes # Bld Auto =0.0 0.0-0.0 Renal Function Panel - 01/19/18 06:27 Sodium SerPl-sCnc =139 135-145 Potassium SerPl-sCnc =3.7 3.6-5.0 Chloride SerPl-sCnc =99 101-111 CO2 SerPl-sCnc =31 21-31 BUN SerPl-mCnc =47 6-20 Creat SerPl-mCnc =5.34 0.50-1.20 Creatinine Clr Calc Pharmacy =[phone] NRG GFR/BSA.pred SerPl WHP-PIH-OqCMrl =8 >=60 Glucose SerPl-mCnc =78 70-110 Calcium SerPl-mCnc =8.2 8.5-10.5 Albumin SerPl-mCnc =3.2 3.5-5.5 Deprecated Phosphate SerPl-mCnc =3.9 2.5-4.6 Magnesium SerPl-mCnc - 01/19/18 06:27 Magnesium SerPl-mCnc =2.2 1.8-2.5 Complete Blood Count with Diff - 01/20/18 06:39 DIFF TYPE Automated NRG WBC # Bld Auto =6.9 4.0-11.0 RBC # Bld Auto =3.11 4.00-5.20 Hgb Bld-mCnc =9.9 12.0-16.0 Hct VFr Bld Auto =29.4 36.0-46.0 MCV RBC Auto =94.5 80.0-100.0 MCH RBC Qn Auto =31.8 26.0-34.0 MCHC RBC Auto-mCnc =33.7 31.0-37.0 RDW RBC Auto-Rto =13.5 11.0-15.0 Platelet # Bld Auto =145 140-450 PMV Bld Auto =11.1 8.2-12.4 nRBC/100 WBC Bld Auto-Rto =0.0 0.0-0.0 nRBC # Bld Auto =0.0 0.0-0.0 Neutrophils/leuk NFr Bld Auto =53.9 40.0-70.0 Lymphocytes/leuk NFr Bld Auto =33.3 15.0-45.0 Monocytes/leuk NFr Bld Auto =9.2 2.0-10.0 Eosinophil/leuk NFr Bld Auto =2.9 0.0-6.0 Basophils/leuk NFr Bld Auto =0.4 0.0-1.0 Imm Granulocytes/leuk NFr Bld Auto =0.3 0.0-0.0 Neutrophils # Bld Auto =3.7 2.5-7.5 Lymphocytes # Bld Auto =2.3 1.0-4.0 Monocytes # Bld Auto =0.6 0.2-0.8 Eosinophil # Bld Auto =0.2 0.0-0.4 Basophils # Bld Auto =0.0 0.0-0.1 Imm Granulocytes # Bld Auto =0.0 0.0-0.0 Renal Function Panel - 01/20/18 06:39 Sodium SerPl-sCnc =139 135-145 Potassium SerPl-sCnc =3.7 3.6-5.0 Chloride SerPl-sCnc =98 101-111 CO2 SerPl-sCnc =31 21-31 BUN SerPl-mCnc =28 6-20 Creat SerPl-mCnc =4.21 0.50-1.20 Creatinine Clr Calc Pharmacy =[id number] NRG GFR/BSA.pred SerPl UGM-UDZ-AmFQpf =11 >=60 Glucose SerPl-mCnc =96 70-110 Calcium SerPl-mCnc =8.4 8.5-10.5 Albumin SerPl-mCnc =3.0 3.5-5.5 Deprecated Phosphate SerPl-mCnc =3.3 2.5-4.6 Magnesium SerPl-mCnc - 01/20/18 06:39 Magnesium SerPl-mCnc =2.0 1.8-2.5 Complete Blood Count with Diff - 01/21/18 06:14 DIFF TYPE Automated NRG WBC # Bld Auto =6.4 4.0-11.0 RBC # Bld Auto =2.93 4.00-5.20 Hgb Bld-mCnc =9.1 12.0-16.0 Hct VFr Bld Auto =27.9 36.0-46.0 MCV RBC Auto =95.2 80.0-100.0 MCH RBC Qn Auto =31.1 26.0-34.0 MCHC RBC Auto-mCnc =32.6 31.0-37.0 RDW RBC Auto-Rto =13.4 11.0-15.0 Platelet # Bld Auto =139 140-450 PMV Bld Auto =11.5 8.2-12.4 nRBC/100 WBC Bld Auto-Rto =0.0 0.0-0.0 nRBC # Bld Auto =0.0 0.0-0.0 Neutrophils/leuk NFr Bld Auto =52.0 40.0-70.0 Lymphocytes/leuk NFr Bld Auto =35.0 15.0-45.0 Monocytes/leuk NFr Bld Auto =9.7 2.0-10.0 Eosinophil/leuk NFr Bld Auto =2.5 0.0-6.0 Basophils/leuk NFr Bld Auto =0.5 0.0-1.0 Imm Granulocytes/leuk NFr Bld Auto =0.3 0.0-0.0 Neutrophils # Bld Auto =3.3 2.5-7.5 Lymphocytes # Bld Auto =2.2 1.0-4.0 Monocytes # Bld Auto =0.6 0.2-0.8 Eosinophil # Bld Auto =0.2 0.0-0.4 Basophils # Bld Auto =0.0 0.0-0.1 Imm Granulocytes # Bld Auto =0.0 0.0-0.0 Renal Function Panel - 01/21/18 06:14 Sodium SerPl-sCnc =138 135-145 Potassium SerPl-sCnc =4.1 3.6-5.0 Chloride SerPl-sCnc =98 101-111 CO2 SerPl-sCnc =29 21-31 BUN SerPl-mCnc =48 6-20 Creat SerPl-mCnc =6.13 0.50-1.20 Creatinine Clr Calc Pharmacy =[phone] NRG GFR/BSA.pred SerPl QTO-QZZ-IuRDdi =7 >=60 Glucose SerPl-mCnc =97 70-110 Calcium SerPl-mCnc =8.2 8.5-10.5 Albumin SerPl-mCnc =2.9 3.5-5.5 Deprecated Phosphate SerPl-mCnc =4.1 2.5-4.6 Magnesium SerPl-mCnc - 01/21/18 06:14 Magnesium SerPl-mCnc =2.4 1.8-2.5 Complete Blood Count with Diff - 01/26/18 06:00 DIFF TYPE Automated NRG WBC # Bld Auto =7.8 4.0-11.0 RBC # Bld Auto =2.71 4.00-5.20 Hgb Bld-mCnc =8.3 12.0-16.0 Hct VFr Bld Auto =26.3 36.0-46.0 MCV RBC Auto =97.0 80.0-100.0 MCH RBC Qn Auto =30.6 26.0-34.0 MCHC RBC Auto-mCnc =31.6 31.0-37.0 RDW RBC Auto-Rto =13.6 11.0-15.0 Platelet # Bld Auto =141 140-450 PMV Bld Auto =11.5 8.2-12.4 nRBC/100 WBC Bld Auto-Rto =0.0 0.0-0.0 nRBC # Bld Auto =0.0 0.0-0.0 Neutrophils/leuk NFr Bld Auto =62.1 40.0-70.0 Lymphocytes/leuk NFr Bld Auto =25.3 15.0-45.0 Monocytes/leuk NFr Bld Auto =9.1 2.0-10.0 Eosinophil/leuk NFr Bld Auto =2.7 0.0-6.0 Basophils/leuk NFr Bld Auto =0.3 0.0-1.0 Imm Granulocytes/leuk NFr Bld Auto =0.5 0.0-0.0 Neutrophils # Bld Auto =4.8 2.5-7.5 Lymphocytes # Bld Auto =2.0 1.0-4.0 Monocytes # Bld Auto =0.7 0.2-0.8 Eosinophil # Bld Auto =0.2 0.0-0.4 Basophils # Bld Auto =0.0 0.0-0.1 Imm Granulocytes # Bld Auto =0.0 0.0-0.0 Basic Metabolic Panel - 01/26/18 06:00 OSMO CALCULATED =280.1 270.0-290.0 Sodium SerPl-sCnc =136 135-145 Potassium SerPl-sCnc =4.6 3.6-5.0 Chloride SerPl-sCnc =96 101-111 CO2 SerPl-sCnc =31 21-31 Anion Gap4 SerPl-sCnc =14 8-18 BUN SerPl-mCnc =39 6-20 Creat SerPl-mCnc =5.05 0.50-1.20 Creatinine Clr Calc Pharmacy =[phone] NRG GFR/BSA.pred SerPl TNZ-MIP-KbBLco =9 >=60 BUN/Creat SerPl =8.0 10.0-20.0 Glucose SerPl-mCnc =75 70-110 Calcium SerPl-mCnc =8.5 8.5-10.5 Complete Blood Count with Diff - 01/27/18 07:00 DIFF TYPE Automated NRG WBC # Bld Auto =8.3 4.0-11.0 RBC # Bld Auto =2.38 4.00-5.20 Hgb Bld-mCnc =7.5 12.0-16.0 Hct VFr Bld Auto =23.2 36.0-46.0 MCV RBC Auto =97.5 80.0-100.0 MCH RBC Qn Auto =31.5 26.0-34.0 MCHC RBC Auto-mCnc =32.3 31.0-37.0 RDW RBC Auto-Rto =13.5 11.0-15.0 Platelet # Bld Auto =157 140-450 PMV Bld Auto =11.2 8.2-12.4 nRBC/100 WBC Bld Auto-Rto =0.0 0.0-0.0 nRBC # Bld Auto =0.0 0.0-0.0 Neutrophils/leuk NFr Bld Auto =66.4 40.0-70.0 Lymphocytes/leuk NFr Bld Auto =22.2 15.0-45.0 Monocytes/leuk NFr Bld Auto =7.8 2.0-10.0 Eosinophil/leuk NFr Bld Auto =3.0 0.0-6.0 Basophils/leuk NFr Bld Auto =0.2 0.0-1.0 Imm Granulocytes/leuk NFr Bld Auto =0.4 0.0-0.0 Neutrophils # Bld Auto =5.5 2.5-7.5 Lymphocytes # Bld Auto =1.9 1.0-4.0 Monocytes # Bld Auto =0.7 0.2-0.8 Eosinophil # Bld Auto =0.3 0.0-0.4 Basophils # Bld Auto =0.0 0.0-0.1 Imm Granulocytes # Bld Auto =0.0 0.0-0.0 Basic Metabolic Panel - 01/27/18 07:00 OSMO CALCULATED =269.1 270.0-290.0 Sodium SerPl-sCnc =131 135-145 Potassium SerPl-sCnc =5.6 3.6-5.0 Chloride SerPl-sCnc =95 101-111 CO2 SerPl-sCnc =27 21-31 Anion Gap4 SerPl-sCnc =11 8-18 BUN SerPl-mCnc =48 6-20 Creat SerPl-mCnc =5.81 0.50-1.20 Creatinine Clr Calc Pharmacy =[phone] NRG GFR/BSA.pred SerPl TVF-SBE-FvIPbu =7 >=60 BUN/Creat SerPl =8.0 10.0-20.0 Glucose SerPl-mCnc =122 70-110 Calcium SerPl-mCnc =8.0 8.5-10.5 Complete Blood Count with Diff - 01/28/18 05:53 DIFF TYPE Automated NRG WBC # Bld Auto =6.8 4.0-11.0 RBC # Bld Auto =2.68 4.00-5.20 Hgb Bld-mCnc =8.5 12.0-16.0 Hct VFr Bld Auto =26.3 36.0-46.0 MCV RBC Auto =98.1 80.0-100.0 MCH RBC Qn Auto =31.7 26.0-34.0 MCHC RBC Auto-mCnc =32.3 31.0-37.0 RDW RBC Auto-Rto =13.2 11.0-15.0 Platelet # Bld Auto =179 140-450 PMV Bld Auto =10.6 8.2-12.4 nRBC/100 WBC Bld Auto-Rto =0.0 0.0-0.0 nRBC # Bld Auto =0.0 0.0-0.0 Neutrophils/leuk NFr Bld Auto =60.0 40.0-70.0 Lymphocytes/leuk NFr Bld Auto =26.9 15.0-45.0 Monocytes/leuk NFr Bld Auto =9.2 2.0-10.0 Eosinophil/leuk NFr Bld Auto =3.1 0.0-6.0 Basophils/leuk NFr Bld Auto =0.4 0.0-1.0 Imm Granulocytes/leuk NFr Bld Auto =0.4 0.0-0.0 Neutrophils # Bld Auto =4.1 2.5-7.5 Lymphocytes # Bld Auto =1.8 1.0-4.0 Monocytes # Bld Auto =0.6 0.2-0.8 Eosinophil # Bld Auto =0.2 0.0-0.4 Basophils # Bld Auto =0.0 0.0-0.1 Imm Granulocytes # Bld Auto =0.0 0.0-0.0 Basic Metabolic Panel - 01/28/18 05:53 OSMO CALCULATED =272.8 270.0-290.0 Sodium SerPl-sCnc =134 135-145 Potassium SerPl-sCnc =4.7 3.6-5.0 Chloride SerPl-sCnc =94 101-111 CO2 SerPl-sCnc =29 21-31 Anion Gap4 SerPl-sCnc =16 8-18 BUN SerPl-mCnc =23 6-20 Creat SerPl-mCnc =4.38 0.50-1.20 Creatinine Clr Calc Pharmacy =[phone] NRG GFR/BSA.pred SerPl OOF-UWN-RpATyq =10 >=60 BUN/Creat SerPl =5.0 10.0-20.0 Glucose SerPl-mCnc =115 70-110 Calcium SerPl-mCnc =8.6 8.5-10.5 UA with screen for culture - 01/28/18 16:00 URINE CULTURE To Follow NRG URINE MICROSCOPIC REQUIRED Yes NRG Color Ur Auto LIGHT YELLOW Yellow Clarity Ur Refract.auto Clear Clear Glucose Ur Strip.auto-mCnc =100 Negative Bilirub Ur Strip.auto-mCnc Negative Negative Ketones Ur Strip.auto-mCnc Negative Negative Sp Gr Ur Refract.auto =1.013 1.001-1.035 Hgb Ur Strip.auto-mCnc =0.03 Negative pH Ur Strip.auto =7.5 5.0-9.0 Prot Ur Strip.auto-mCnc =300 <20 Urobilinogen Ur Strip.auto-mCnc 0.2 0.2-1.0 Nitrite Ur Ql Strip Negative Negative Leukocyte esterase Ur-aCnc =250 Negative RBC # Ur Auto 0 0-3 WBC # Ur Auto 21 0-3 Squamous # Ur Auto 0 0-3 Hyaline Casts # Ur Auto 0 0-3 Bacteria # Ur Auto 1+ Negative Bacteria Ur Cult - 01/28/18 16:00 Bacteria Ur Cult [id number] NRG [place] Count >100,000 NRG Complete Blood Count with Diff - 01/29/18 06:00 DIFF TYPE Automated NRG WBC # Bld Auto =6.1 4.0-11.0 RBC # Bld Auto =2.71 4.00-5.20 Hgb Bld-mCnc =8.5 12.0-16.0 Hct VFr Bld Auto =26.0 36.0-46.0 MCV RBC Auto =95.9 80.0-100.0 MCH RBC Qn Auto =31.4 26.0-34.0 MCHC RBC Auto-mCnc =32.7 31.0-37.0 RDW RBC Auto-Rto =13.2 11.0-15.0 Platelet # Bld Auto =207 140-450 PMV Bld Auto =10.9 8.2-12.4 nRBC/100 WBC Bld Auto-Rto =0.0 0.0-0.0 nRBC # Bld Auto =0.0 0.0-0.0 Neutrophils/leuk NFr Bld Auto =53.9 40.0-70.0 Lymphocytes/leuk NFr Bld Auto =31.5 15.0-45.0 Monocytes/leuk NFr Bld Auto =9.6 2.0-10.0 Eosinophil/leuk NFr Bld Auto =4.2 0.0-6.0 Basophils/leuk NFr Bld Auto =0.5 0.0-1.0 Imm Granulocytes/leuk NFr Bld Auto =0.3 0.0-0.0 Neutrophils # Bld Auto =3.3 2.5-7.5 Lymphocytes # Bld Auto =1.9 1.0-4.0 Monocytes # Bld Auto =0.6 0.2-0.8 Eosinophil # Bld Auto =0.3 0.0-0.4 Basophils # Bld Auto =0.0 0.0-0.1 Imm Granulocytes # Bld Auto =0.0 0.0-0.0 Basic Metabolic Panel - 01/29/18 06:00 OSMO CALCULATED =273.7 270.0-290.0 Sodium SerPl-sCnc =134 135-145 Potassium SerPl-sCnc =4.6 3.6-5.0 Chloride SerPl-sCnc =94 101-111 CO2 SerPl-sCnc =28 21-31 Anion Gap4 SerPl-sCnc =17 8-18 BUN SerPl-mCnc =34 6-20 Creat SerPl-mCnc =5.51 0.50-1.20 Creatinine Clr Calc Pharmacy =[phone] NRG GFR/BSA.pred SerPl IAW-KZC-FbVUph =8 >=60 BUN/Creat SerPl =6.0 10.0-20.0 Glucose SerPl-mCnc =59 70-110 Calcium SerPl-mCnc =8.6 8.5-10.5 Complete Blood Count with Diff - 01/30/18 05:31 DIFF TYPE Automated NRG WBC # Bld Auto =8.6 4.0-11.0 RBC # Bld Auto =2.87 4.00-5.20 Hgb Bld-mCnc =9.0 12.0-16.0 Hct VFr Bld Auto =27.0 36.0-46.0 MCV RBC Auto =94.1 80.0-100.0 MCH RBC Qn Auto =31.4 26.0-34.0 MCHC RBC Auto-mCnc =33.3 31.0-37.0 RDW RBC Auto-Rto =13.1 11.0-15.0 Platelet # Bld Auto =229 140-450 PMV Bld Auto =10.9 8.2-12.4 nRBC/100 WBC Bld Auto-Rto =0.0 0.0-0.0 nRBC # Bld Auto =0.0 0.0-0.0 Neutrophils/leuk NFr Bld Auto =69.9 40.0-70.0 Lymphocytes/leuk NFr Bld Auto =15.1 15.0-45.0 Monocytes/leuk NFr Bld Auto =12.5 2.0-10.0 Eosinophil/leuk NFr Bld Auto =1.7 0.0-6.0 Basophils/leuk NFr Bld Auto =0.3 0.0-1.0 Imm Granulocytes/leuk NFr Bld Auto =0.5 0.0-0.0 Neutrophils # Bld Auto =6.0 2.5-7.5 Lymphocytes # Bld Auto =1.3 1.0-4.0 Monocytes # Bld Auto =1.1 0.2-0.8 Eosinophil # Bld Auto =0.2 0.0-0.4 Basophils # Bld Auto =0.0 0.0-0.1 Imm Granulocytes # Bld Auto =0.0 0.0-0.0 Basic Metabolic Panel - 01/30/18 05:31 OSMO CALCULATED =262.4 270.0-290.0 Sodium SerPl-sCnc =130 135-145 Potassium SerPl-sCnc =4.3 3.6-5.0 Chloride SerPl-sCnc =88 101-111 CO2 SerPl-sCnc =31 21-31 Anion Gap4 SerPl-sCnc =15 8-18 BUN SerPl-mCnc =22 6-20 Creat SerPl-mCnc =4.52 0.50-1.20 Creatinine Clr Calc Pharmacy =[phone] NRG GFR/BSA.pred SerPl JKE-OFX-RpETuh =10 >=60 BUN/Creat SerPl =5.0 10.0-20.0 Glucose SerPl-mCnc =67 70-110 Calcium SerPl-mCnc =8.5 8.5-10.5 Complete Blood Count with Diff - 02/02/18 06:41 DIFF TYPE Automated NRG WBC # Bld Auto =6.3 4.0-11.0 RBC # Bld Auto =2.90 4.00-5.20 Hgb Bld-mCnc =9.3 12.0-16.0 Hct VFr Bld Auto =28.0 36.0-46.0 MCV RBC Auto =96.6 80.0-100.0 MCH RBC Qn Auto =32.1 26.0-34.0 MCHC RBC Auto-mCnc =33.2 31.0-37.0 RDW RBC Auto-Rto =13.5 11.0-15.0 Platelet # Bld Auto =273 140-450 PMV Bld Auto =10.8 8.2-12.4 nRBC/100 WBC Bld Auto-Rto =0.0 0.0-0.0 nRBC # Bld Auto =0.0 0.0-0.0 Neutrophils/leuk NFr Bld Auto =55.0 40.0-70.0 Lymphocytes/leuk NFr Bld Auto =29.6 15.0-45.0 Monocytes/leuk NFr Bld Auto =10.5 2.0-10.0 Eosinophil/leuk NFr Bld Auto =3.8 0.0-6.0 Basophils/leuk NFr Bld Auto =0.5 0.0-1.0 Imm Granulocytes/leuk NFr Bld Auto =0.6 0.0-0.0 Neutrophils # Bld Auto =3.5 2.5-7.5 Lymphocytes # Bld Auto =1.9 1.0-4.0 Monocytes # Bld Auto =0.7 0.2-0.8 Eosinophil # Bld Auto =0.2 0.0-0.4 Basophils # Bld Auto =0.0 0.0-0.1 Imm Granulocytes # Bld Auto =0.0 0.0-0.0 Basic Metabolic Panel - 02/02/18 06:41 OSMO CALCULATED =264.7 270.0-290.0 Sodium SerPl-sCnc =132 135-145 Potassium SerPl-sCnc =4.0 3.6-5.0 Chloride SerPl-sCnc =89 101-111 CO2 SerPl-sCnc =31 21-31 Anion Gap4 SerPl-sCnc =16 8-18 BUN SerPl-mCnc =20 6-20 Creat SerPl-mCnc =4.69 0.50-1.20 Creatinine Clr Calc Pharmacy =[phone] NRG GFR/BSA.pred SerPl ZMC-FEL-BaCPfz =10 >=60 BUN/Creat SerPl =4.0 10.0-20.0 Glucose SerPl-mCnc =54 70-110 Calcium SerPl-mCnc =8.2 8.5-10.5 UA with screen for culture - 02/02/18 18:20 URINE CULTURE To Follow NRG URINE MICROSCOPIC REQUIRED Yes NRG Color Ur Auto LIGHT YELLOW Yellow Clarity Ur Refract.auto Clear Clear Glucose Ur Strip.auto-mCnc =50 Negative Bilirub Ur Strip.auto-mCnc Negative Negative Ketones Ur Strip.auto-mCnc Negative Negative Sp Gr Ur Refract.auto =1.006 1.001-1.035 Hgb Ur Strip.auto-mCnc =0.03 Negative pH Ur Strip.auto =8.0 5.0-9.0 Prot Ur Strip.auto-mCnc =300 <20 Urobilinogen Ur Strip.auto-mCnc 0.2 0.2-1.0 Nitrite Ur Ql Strip Negative Negative Leukocyte esterase Ur-aCnc =75 Negative RBC # Ur Auto 8 0-3 WBC # Ur Auto 4 0-3 Squamous # Ur Auto 8 0-3 Hyaline Casts # Ur Auto 0 0-3 Bacteria # Ur Auto 1+ Negative Bacteria Ur Cult - 02/02/18 18:20 Bacteria Ur Cult [id number] NRG [place] Count <10,000 NRG Complete Blood Count with Diff - 02/03/18 05:30 DIFF TYPE Automated NRG WBC # Bld Auto =5.6 4.0-11.0 RBC # Bld Auto =2.72 4.00-5.20 Hgb Bld-mCnc =8.7 12.0-16.0 Hct VFr Bld Auto =25.8 36.0-46.0 MCV RBC Auto =94.9 80.0-100.0 MCH RBC Qn Auto =32.0 26.0-34.0 MCHC RBC Auto-mCnc =33.7 31.0-37.0 RDW RBC Auto-Rto =13.5 11.0-15.0 Platelet # Bld Auto =273 140-450 PMV Bld Auto =10.0 8.2-12.4 nRBC/100 WBC Bld Auto-Rto =0.0 0.0-0.0 nRBC # Bld Auto =0.0 0.0-0.0 Neutrophils/leuk NFr Bld Auto =52.8 40.0-70.0 Lymphocytes/leuk NFr Bld Auto =30.2 15.0-45.0 Monocytes/leuk NFr Bld Auto =11.1 2.0-10.0 Eosinophil/leuk NFr Bld Auto =5.0 0.0-6.0 Basophils/leuk NFr Bld Auto =0.4 0.0-1.0 Imm Granulocytes/leuk NFr Bld Auto =0.5 0.0-0.0 Neutrophils # Bld Auto =2.9 2.5-7.5 Lymphocytes # Bld Auto =1.7 1.0-4.0 Monocytes # Bld Auto =0.6 0.2-0.8 Eosinophil # Bld Auto =0.3 0.0-0.4 Basophils # Bld Auto =0.0 0.0-0.1 Imm Granulocytes # Bld Auto =0.0 0.0-0.0 Magnesium SerPl-mCnc - 02/03/18 05:30 Magnesium SerPl-mCnc =2.7 1.8-2.5 Renal Function Panel - 02/03/18 05:30 Sodium SerPl-sCnc =132 135-145 Potassium SerPl-sCnc =4.0 3.6-5.0 Chloride SerPl-sCnc =91 101-111 CO2 SerPl-sCnc =31 21-31 BUN SerPl-mCnc =28 6-20 Creat SerPl-mCnc =6.10 0.50-1.20 Creatinine Clr Calc Pharmacy =[phone] NRG GFR/BSA.pred SerPl LLG-TXH-YpODik =7 >=60 Glucose SerPl-mCnc =131 70-110 Calcium SerPl-mCnc =8.3 8.5-10.5 Albumin SerPl-mCnc =3.2 3.5-5.5 Deprecated Phosphate SerPl-mCnc =4.8 2.5-4.6 Complete Blood Count with Diff - 02/04/18 05:35 DIFF TYPE Automated NRG WBC # Bld Auto =5.6 4.0-11.0 RBC # Bld Auto =2.76 4.00-5.20 Hgb Bld-mCnc =8.8 12.0-16.0 Hct VFr Bld Auto =26.5 36.0-46.0 MCV RBC Auto =96.0 80.0-100.0 MCH RBC Qn Auto =31.9 26.0-34.0 MCHC RBC Auto-mCnc =33.2 31.0-37.0 RDW RBC Auto-Rto =13.8 11.0-15.0 Platelet # Bld Auto =270 140-450 PMV Bld Auto =10.1 8.2-12.4 nRBC/100 WBC Bld Auto-Rto =0.0 0.0-0.0 nRBC # Bld Auto =0.0 0.0-0.0 Neutrophils/leuk NFr Bld Auto =50.4 40.0-70.0 Lymphocytes/leuk NFr Bld Auto =32.8 15.0-45.0 Monocytes/leuk NFr Bld Auto =11.7 2.0-10.0 Eosinophil/leuk NFr Bld Auto =3.9 0.0-6.0 Basophils/leuk NFr Bld Auto =0.5 0.0-1.0 Imm Granulocytes/leuk NFr Bld Auto =0.7 0.0-0.0 Neutrophils # Bld Auto =2.8 2.5-7.5 Lymphocytes # Bld Auto =1.9 1.0-4.0 Monocytes # Bld Auto =0.7 0.2-0.8 Eosinophil # Bld Auto =0.2 0.0-0.4 Basophils # Bld Auto =0.0 0.0-0.1 Imm Granulocytes # Bld Auto =0.0 0.0-0.0 Renal Function Panel - 02/04/18 05:35 Sodium SerPl-sCnc =134 135-145 Potassium SerPl-sCnc =3.8 3.6-5.0 Chloride SerPl-sCnc =93 101-111 CO2 SerPl-sCnc =30 21-31 BUN SerPl-mCnc =15 6-20 Creat SerPl-mCnc =4.12 0.50-1.20 Creatinine Clr Calc Pharmacy =[phone] NRG GFR/BSA.pred SerPl ITH-IDH-IhWElk =11 >=60 Glucose SerPl-mCnc =140 70-110 Calcium SerPl-mCnc =8.2 8.5-10.5 Albumin SerPl-mCnc =3.0 3.5-5.5 Deprecated Phosphate SerPl-mCnc =3.4 2.5-4.6 Complete Blood Count with Diff - 02/05/18 06:37 DIFF TYPE Automated NRG WBC # Bld Auto =5.7 4.0-11.0 RBC # Bld Auto =2.73 4.00-5.20 Hgb Bld-mCnc =8.9 12.0-16.0 Hct VFr Bld Auto =26.8 36.0-46.0 MCV RBC Auto =98.2 80.0-100.0 MCH RBC Qn Auto =32.6 26.0-34.0 MCHC RBC Auto-mCnc =33.2 31.0-37.0 RDW RBC Auto-Rto =14.1 11.0-15.0 Platelet # Bld Auto =247 140-450 PMV Bld Auto =10.0 8.2-12.4 nRBC/100 WBC Bld Auto-Rto =0.0 0.0-0.0 nRBC # Bld Auto =0.0 0.0-0.0 Neutrophils/leuk NFr Bld Auto =52.5 40.0-70.0 Lymphocytes/leuk NFr Bld Auto =31.3 15.0-45.0 Monocytes/leuk NFr Bld Auto =11.2 2.0-10.0 Eosinophil/leuk NFr Bld Auto =3.9 0.0-6.0 Basophils/leuk NFr Bld Auto =0.4 0.0-1.0 Imm Granulocytes/leuk NFr Bld Auto =0.7 0.0-0.0 Neutrophils # Bld Auto =3.0 2.5-7.5 Lymphocytes # Bld Auto =1.8 1.0-4.0 Monocytes # Bld Auto =0.6 0.2-0.8 Eosinophil # Bld Auto =0.2 0.0-0.4 Basophils # Bld Auto =0.0 0.0-0.1 Imm Granulocytes # Bld Auto =0.0 0.0-0.0 Renal Function Panel - 02/05/18 06:37 Sodium SerPl-sCnc =135 135-145 Potassium SerPl-sCnc =4.2 3.6-5.0 Chloride SerPl-sCnc =96 101-111 CO2 SerPl-sCnc =30 21-31 BUN SerPl-mCnc =24 6-20 Creat SerPl-mCnc =5.53 0.50-1.20 Creatinine Clr Calc Pharmacy =10.2542 NRG GFR/BSA.pred SerPl ASE-BBK-YqCDbm =8 >=60 Glucose SerPl-mCnc =131 70-110 Calcium SerPl-mCnc =8.3 8.5-10.5 Albumin SerPl-mCnc =3.1 3.5-5.5 Deprecated Phosphate SerPl-mCnc =3.9 2.5-4.6 Encounters ACCT No. Visit Date/Time Discharge Status Pt. Type Provider Facility Loc./Unit Complaint [id number] 04/06/2018 11:32:00 04/06/2018 13:38:00 DIS Emergency RUSTY JURADO, [facility] 01.ED [id number] 01/25/2018 15:35:00 02/08/2018 14:21:00 DIS Inpatient Josue NUNEZ, [facility] 01.REHAB [id number] 01/25/2018 10:00:00 01/25/2018 23:59:59 CLS Preadmit Brandon NUNEZ, [facility] 01.AMBS [id number] 01/18/2018 17:03:00 01/25/2018 15:22:00 DIS Inpatient Isha NUNEZ, [facility] 01.4MED E [id number] 01/01/2018 20:30:00 01/01/2018 22:35:00 DIS Emergency AIDE NUNEZ, [facility] 01.ED [id number] 02/09/2018 16:48:00 Document Registration [id number] 01/25/2018 15:35:00 Document Registration [id number] 01/25/2018 15:35:00 Document Registration [id number] 01/25/2018 15:35:00 Document Registration [id number] 01/25/2018 15:35:00 Document Registration [id number] 01/25/2018 15:35:00 Document Registration [id number] 01/25/2018 15:35:00 Document Registration [id number] 01/25/2018 15:35:00 Document Registration [id number] 01/20/2018 13:51:00 Document Registration [id number] 01/19/2018 14:31:00 Document Registration [id number] 01/18/2018 18:25:00 Document Registration [id number] 01/18/2018 17:03:00 Document Registration [id number] 01/18/2018 17:03:00 Document Registration [id number] 01/18/2018 17:03:00 Document Registration [id number] 01/18/2018 17:03:00 Document Registration [id number] 01/18/2018 17:03:00 Document Registration [id number] 04/15/2015 15:24:00 04/15/2015 23:59:[id number] 06/22/2015 02:59:00 06/22/2015 23:59:59 CLS [facility] ED [id number] 01/01/2018 20:30:00 01/01/2018 23:59:59 CLS [facility] 01.ED [id number] 10/10/2016 18:52:00 10/10/2016 23:59:59 CLS [facility] ED [id number] 01/12/2016 00:42:17 01/12/2016 00:42:17 DIS Outpatient [id number] 07/16/2015 11:52:52 07/16/2015 11:52:52 DIS Outpatient [id number] 07/10/2015 17:00:00 07/10/2015 17:00:00 DIS Outpatient [id number] 07/06/2015 14:19:59 07/06/2015 14:19:59 DIS Outpatient [id number] 07/03/2015 14:15:45 07/03/2015 14:15:45 DIS Outpatient [id number] 06/28/2015 15:11:34 06/28/2015 15:11:34 DIS Outpatient [id number] 06/28/2015 15:09:54 06/28/2015 15:09:54 DIS Outpatient [id number] 06/28/2015 15:09:34 06/28/2015 15:09:34 DIS Outpatient [id number] 06/28/2015 13:54:00 06/28/2015 13:54:00 DIS Outpatient [id number] 06/28/2015 13:42:27 06/28/2015 13:42:27 DIS Outpatient [id number] 06/28/2015 13:31:29 06/28/2015 13:31:29 DIS Outpatient [id number] 06/26/2015 09:31:26 06/26/2015 09:31:26 DIS Outpatient [id number] 06/25/2015 14:17:34 06/25/2015 14:17:34 DIS Outpatient [id number] 06/25/2015 09:54:59 06/25/2015 09:54:59 DIS Outpatient [id number] 05/28/2015 14:44:43 05/28/2015 14:44:43 DIS Outpatient [id number] 05/28/2015 13:11:33 05/28/2015 13:11:33 DIS Outpatient [id number] 05/23/2015 08:16:46 05/23/2015 08:16:46 DIS Outpatient [id number] 05/04/2015 15:46:14 05/04/2015 15:46:14 DIS Outpatient [id number] 05/04/2015 13:22:25 05/04/2015 13:22:25 DIS Outpatient [id number] 05/03/2015 12:40:02 05/03/2015 12:40:02 DIS Outpatient [id number] 05/03/2015 12:39:58 05/03/2015 12:39:58 DIS Outpatient [id number] 05/03/2015 11:25:43 05/03/2015 11:25:43 DIS Outpatient [id number] 05/03/2015 11:24:32 05/03/2015 11:24:32 DIS Outpatient [id number] 05/03/2015 11:23:05 05/03/2015 11:23:05 DIS Outpatient [id number] 04/30/2015 08:35:28 04/30/2015 08:35:28 DIS Outpatient [id number] 04/25/2015 14:17:18 04/25/2015 14:17:18 DIS Outpatient [id number] 04/25/2015 14:16:58 04/25/2015 14:16:58 DIS Outpatient [id number] 04/23/2015 14:35:52 04/23/2015 14:35:52 DIS Outpatient [id number] 04/23/2015 14:32:23 04/23/2015 14:32:23 DIS Outpatient [id number] 04/23/2015 08:37:55 04/23/2015 08:37:55 DIS Outpatient [id number] 04/19/2015 15:59:34 04/19/2015 15:59:34 DIS Outpatient [id number] 04/19/2015 09:39:03 04/19/2015 09:39:03 DIS Outpatient [id number] 04/14/2015 10:56:04 04/14/2015 10:56:04 DIS Outpatient [id number] 02/28/2015 14:38:48 02/28/2015 14:38:48 Outpatient [id number] 02/28/2015 14:21:17 02/28/2015 14:21:17 Outpatient [id number] 02/28/2015 14:15:38 02/28/2015 14:15:38 Outpatient [id number] 02/28/2015 14:03:57 02/28/2015 14:03:57 Outpatient [id number] 02/28/2015 14:01:00 02/28/2015 14:01:01 Outpatient [id number] 02/28/2015 13:54:39 02/28/2015 13:54:39 Outpatient [id number] 02/28/2015 13:53:39 02/28/2015 13:53:39 Outpatient [id number] 02/28/2015 13:41:57 02/28/2015 13:41:57 Outpatient [id number] 02/28/2015 13:38:37 02/28/2015 13:38:37 Outpatient [id number] 02/28/2015 13:34:39 02/28/2015 13:34:39 Outpatient [id number] 02/28/2015 13:34:34 02/28/2015 13:34:34 Outpatient [id number] 02/28/2015 13:34:16 02/28/2015 13:34:16 Outpatient [id number] 02/28/2015 13:34:14 02/28/2015 13:34:14 Outpatient [id number] 02/28/2015 13:33:43 02/28/2015 13:33:43 Outpatient [id number] 02/28/2015 13:33:39 02/28/2015 13:33:39 Outpatient [id number] 02/28/2015 13:33:07 02/28/2015 13:33:07 Outpatient [id number] 02/28/2015 13:03:28 02/28/2015 13:03:28 Outpatient [id number] 02/28/2015 12:12:49 02/28/2015 12:12:49 Outpatient [id number] 02/28/2015 12:12:46 02/28/2015 12:12:46 Outpatient [id number] 02/28/2015 12:08:33 02/28/2015 12:08:33 Outpatient [id number] 02/28/2015 11:55:03 02/28/2015 11:55:03 Outpatient [id number] 02/28/2015 11:55:01 02/28/2015 11:55:01 Outpatient [id number] 02/28/2015 11:55:00 02/28/2015 11:55:00 Outpatient [id number] 02/28/2015 11:54:59 02/28/2015 11:54:59 Outpatient [id number] 02/28/2015 11:50:30 02/28/2015 11:50:30 Outpatient [id number] 02/28/2015 11:33:51 02/28/2015 11:33:51 Outpatient [id number] 02/28/2015 11:33:00 02/28/2015 11:33:00 Outpatient [id number] 02/28/2015 11:03:57 02/28/2015 11:03:57 Outpatient [id number] 02/28/2015 10:52:07 02/28/2015 10:52:07 Outpatient [id number] 02/28/2015 10:31:17 02/28/2015 10:31:17 Outpatient [id number] 02/28/2015 10:29:01 02/28/2015 10:29:01 Outpatient [id number] 02/28/2015 10:28:44 02/28/2015 10:28:44 Outpatient [id number] 02/28/2015 10:28:13 02/28/2015 10:28:13 Outpatient [id number] 02/28/2015 10:25:15 02/28/2015 10:25:15 Outpatient [id number] 02/28/2015 10:25:12 02/28/2015 10:25:12 Outpatient [id number] 02/28/2015 10:21:54 02/28/2015 10:21:54 Outpatient [id number] 02/28/2015 10:21:35 02/28/2015 10:21:35 Outpatient [id number] 02/28/2015 10:21:34 02/28/2015 10:21:34 Outpatient [id number] 02/28/2015 10:09:10 02/28/2015 10:09:10 Outpatient [id number] 11/23/2014 14:49:42 11/23/2014 14:49:42 DIS Outpatient [id number] 11/23/2014 10:38:45 11/23/2014 10:38:45 DIS Outpatient [id number] 11/22/2014 18:00:07 11/22/2014 18:00:07 DIS Outpatient [id number] 11/22/2014 14:15:17 11/22/2014 14:15:17 DIS Outpatient [id number] 11/22/2014 14:14:00 11/22/2014 14:14:00 DIS Outpatient [id number] 11/22/2014 14:05:29 11/22/2014 14:05:29 DIS Outpatient [id number] 11/22/2014 14:04:22 11/22/2014 14:04:22 DIS Outpatient [id number] 11/22/2014 14:03:44 11/22/2014 14:03:44 DIS Outpatient [id number] 11/22/2014 13:00:51 11/22/2014 13:00:51 DIS Outpatient [id number] 11/22/2014 12:43:09 11/22/2014 12:43:09 DIS Outpatient [id number] 11/22/2014 12:43:06 11/22/2014 12:43:06 DIS Outpatient [id number] 11/14/2014 15:01:55 11/14/2014 15:01:57 DIS Outpatient [id number] 11/08/2014 11:00:40 11/08/2014 11:00:40 Outpatient [id number] 10/10/2014 19:26:42 10/10/2014 19:26:42 DIS Outpatient [id number] 10/10/2014 15:27:28 10/10/2014 15:27:28 DIS Outpatient [id number] 09/28/2014 13:07:00 09/28/2014 13:07:00 DIS Outpatient [id number] 09/13/2014 13:52:12 09/13/2014 13:52:12 DIS Outpatient [id number] 09/05/2014 15:43:31 09/05/2014 15:43:31 DIS Outpatient [id number] 08/31/2014 08:54:42 08/31/2014 08:54:42 DIS Outpatient [id number] 08/30/2014 15:38:50 08/30/2014 15:38:50 DIS Outpatient [id number] 08/28/2014 10:21:22 08/28/2014 10:21:22 DIS Outpatient [id number] 08/28/2014 10:21:17 08/28/2014 10:21:17 DIS Outpatient [id number] 08/24/2014 15:10:37 08/24/2014 15:10:37 DIS Outpatient [id number] 08/23/2014 15:53:05 08/23/2014 15:53:05 DIS Outpatient [id number] 08/23/2014 15:53:01 08/23/2014 15:53:01 DIS Outpatient [id number] 08/23/2014 15:52:57 08/23/2014 15:52:57 DIS Outpatient [id number] 08/23/2014 15:52:54 08/23/2014 15:52:54 DIS Outpatient [id number] 08/23/2014 15:50:24 08/23/2014 15:50:24 DIS Outpatient [id number] 08/23/2014 15:00:00 08/23/2014 15:00:00 DIS Outpatient [id number] 08/23/2014 14:52:42 08/23/2014 14:52:42 DIS Outpatient [id number] 08/23/2014 14:50:03 08/23/2014 14:50:03 DIS Outpatient [id number] 08/23/2014 13:09:38 08/23/2014 13:09:38 DIS Outpatient [id number] 08/22/2014 18:21:26 08/22/2014 18:21:26 DIS Outpatient [id number] 08/22/2014 18:21:22 08/22/2014 18:21:22 DIS Outpatient [id number] 08/22/2014 17:38:22 08/22/2014 17:38:22 DIS Outpatient [id number] 08/22/2014 17:34:10 08/22/2014 17:34:10 DIS Outpatient [id number] 08/22/2014 17:32:00 08/22/2014 17:32:00 DIS Outpatient [id number] 08/22/2014 17:31:56 08/22/2014 17:31:56 DIS Outpatient [id number] 08/22/2014 17:31:53 08/22/2014 17:31:53 DIS Outpatient [id number] 08/22/2014 15:50:40 08/22/2014 15:50:40 DIS Outpatient [id number] 08/18/2014 10:36:04 08/18/2014 10:36:04 DIS Outpatient [id number] 07/13/2014 12:28:41 07/13/2014 12:28:41 DIS Outpatient [id number] 07/11/2014 16:27:52 07/11/2014 16:27:52 DIS Outpatient [id number] 07/10/2014 18:39:37 07/10/2014 18:39:37 DIS Outpatient [id number] 07/10/2014 13:01:30 07/10/2014 13:01:30 DIS Outpatient [id number] 07/10/2014 12:46:58 07/10/2014 12:46:58 DIS Outpatient [id number] 07/10/2014 12:41:49 07/10/2014 12:41:49 DIS Outpatient [id number] 06/30/2014 08:36:53 06/30/2014 08:36:53 DIS Outpatient [id number] 06/26/2014 09:05:29 06/26/2014 09:05:29 DIS Outpatient [id number] 06/26/2014 09:05:26 06/26/2014 09:05:26 DIS Outpatient [id number] 06/19/2014 15:29:43 06/19/2014 15:29:43 DIS Outpatient [id number] 06/09/2014 10:38:05 06/09/2014 10:38:05 DIS Outpatient [id number] 06/08/2014 18:35:05 06/08/2014 18:35:05 DIS Outpatient [id number] 06/08/2014 16:35:18 06/08/2014 16:35:19 DIS Outpatient [id number] 06/08/2014 10:33:09 06/08/2014 10:33:09 DIS Outpatient [id number] 06/08/2014 10:33:08 06/08/2014 10:33:09 DIS Outpatient [id number] 06/07/2014 15:11:14 06/07/2014 15:11:14 DIS Outpatient [id number] 06/07/2014 15:11:11 06/07/2014 15:11:12 DIS Outpatient [id number] 06/07/2014 12:57:29 06/07/2014 12:57:29 DIS Outpatient [id number] 06/07/2014 12:48:24 06/07/2014 12:48:24 DIS Outpatient [id number] 06/07/2014 12:44:48 06/07/2014 12:44:48 DIS Outpatient [id number] 06/07/2014 12:41:02 06/07/2014 12:41:02 DIS Outpatient [id number] 06/07/2014 12:35:17 06/07/2014 12:35:17 DIS Outpatient [id number] 06/07/2014 12:35:16 06/07/2014 12:35:16 DIS Outpatient [id number] 06/05/2014 10:37:02 06/05/2014 10:37:02 DIS Outpatient [id number] 05/25/2014 10:40:56 05/25/2014 10:40:56 DIS Outpatient [id number] 01/23/2014 14:53:43 01/23/2014 14:53:43 DIS Outpatient [id number] 01/20/2014 12:07:00 01/20/2014 12:07:00 DIS Outpatient [id number] 01/20/2014 12:06:22 01/20/2014 12:06:22 DIS Outpatient [id number] 01/19/2014 15:33:23 01/19/2014 15:33:23 DIS Outpatient [id number] 01/19/2014 15:33:22 01/19/2014 15:33:22 DIS Outpatient [id number] 01/19/2014 15:33:21 01/19/2014 15:33:21 DIS Outpatient [id number] 01/19/2014 15:33:20 01/19/2014 15:33:20 DIS Outpatient [id number] 01/19/2014 08:57:22 01/19/2014 08:57:22 DIS Outpatient [id number] 01/19/2014 08:57:21 01/19/2014 08:57:21 DIS Outpatient [id number] 01/19/2014 08:57:07 01/19/2014 08:57:07 DIS Outpatient [id number] 01/18/2014 16:00:07 01/18/2014 16:00:07 DIS Outpatient [id number] 01/18/2014 16:00:04 01/18/2014 16:00:04 DIS Outpatient [id number] 01/18/2014 14:51:57 01/18/2014 14:51:57 DIS Outpatient [id number] 01/18/2014 14:51:16 01/18/2014 14:51:16 DIS Outpatient [id number] 01/18/2014 14:46:16 01/18/2014 14:46:16 DIS Outpatient [id number] 01/18/2014 14:34:11 01/18/2014 14:34:11 DIS Outpatient [id number] 01/18/2014 14:24:02 01/18/2014 14:24:02 DIS Outpatient [id number] 01/18/2014 14:23:12 01/18/2014 14:23:12 DIS Outpatient [id number] 01/17/2014 12:00:41 01/17/2014 12:00:41 DIS Outpatient [id number] 01/17/2014 12:00:40 01/17/2014 12:00:40 DIS Outpatient [id number] 01/17/2014 12:00:39 01/17/2014 12:00:39 DIS Outpatient [id number] 08/30/2015 17:04:12 Document Registration [id number] 08/30/2015 17:04:10 Document Registration [id number] 08/30/2015 17:04:08 Document Registration [id number] 08/30/2015 17:04:06 Document Registration [id number] 08/30/2015 17:04:03 Document Registration [id number] 08/30/2015 17:04:01 Document Registration [id number] 08/30/2015 17:03:59 Document Registration [id number] 08/30/2015 17:03:57 Document Registration [id number] 08/30/2015 17:03:55 Document Registration [id number] 08/30/2015 17:03:53 Document Registration [id number] 08/30/2015 17:03:50 Document Registration [id number] 08/29/2015 14:34:43 Document Registration [id number] 08/27/2015 08:29:02 Document Registration [id number] 08/25/2015 10:33:05 Document Registration [id number] 08/25/2015 10:26:56 Document Registration [id number] 08/25/2015 10:26:53 Document Registration [id number] 08/22/2015 14:35:10 Document Registration [id number] 08/22/2015 14:35:08 Document Registration [id number] 08/22/2015 14:34:56 Document Registration [id number] 08/22/2015 14:34:54 Document Registration [id number] 08/22/2015 14:34:51 Document Registration [id number] 08/22/2015 14:34:49 Document Registration [id number] 08/20/2015 16:39:08 Document Registration [id number] 08/01/2015 13:46:46 Document Registration [id number] 08/01/2015 13:46:44 Document Registration [id number] 08/01/2015 13:28:20 Document Registration [id number] 07/31/2015 15:04:46 Document Registration [id number] 07/31/2015 15:04:44 Document Registration [id number] 07/31/2015 11:15:03 Document Registration [id number] 07/25/2015 12:59:51 Document Registration [id number] 07/25/2015 12:59:49 Document Registration [id number] 07/25/2015 12:59:46 Document Registration [id number] 07/25/2015 12:59:44 Document Registration [id number] 07/25/2015 12:59:42 Document Registration [id number] 07/25/2015 12:59:40 Document Registration [id number] 07/25/2015 12:59:37 Document Registration [id number] 07/25/2015 12:59:35 Document Registration [id number] 07/16/2015 11:52:37 Document Registration [id number] 07/16/2015 11:52:35 Document Registration [id number] 07/16/2015 11:52:33 Document Registration [id number] 07/16/2015 11:52:31 Document Registration [id number] 07/16/2015 11:52:28 Document Registration [id number] 07/16/2015 11:52:26 Document Registration [id number] 07/16/2015 11:52:24 Document Registration [id number] 07/02/2015 12:48:49 Document Registration [id number] 06/28/2015 13:52:00 Document Registration [id number] 05/03/2015 11:15:00 Document Registration [id number] 04/04/2015 10:07:58 Document Registration [id number] 04/04/2015 10:07:56 Document Registration [id number] 04/04/2015 10:07:54 Document Registration [id number] 04/04/2015 10:07:51 Document Registration [id number] 04/04/2015 10:07:49 Document Registration [id number] 04/04/2015 10:07:47 Document Registration [id number] 04/04/2015 10:07:45 Document Registration [id number] 04/04/2015 10:07:42 Document Registration [id number] 04/04/2015 10:07:40 Document Registration [id number] 04/04/2015 10:07:38 Document Registration [id number] 04/04/2015 10:07:36 Document Registration [id number] 04/04/2015 10:07:34 Document Registration [id number] 03/30/2015 11:22:30 Document Registration [id number] 03/30/2015 11:22:27 Document Registration [id number] 03/30/2015 11:22:25 Document Registration [id number] 03/30/2015 11:22:23 Document Registration [id number] 03/30/2015 11:22:21 Document Registration [id number] 03/30/2015 11:22:19 Document Registration [id number] 03/30/2015 11:22:17 Document Registration [id number] 03/30/2015 11:22:14 Document Registration [id number] 03/30/2015 11:22:12 Document Registration [id number] 03/30/2015 11:22:10 Document Registration [id number] 03/30/2015 11:22:08 Document Registration [id number] 03/30/2015 11:22:06 Document Registration [id number] 03/30/2015 11:22:03 Document Registration [id number] 03/30/2015 11:22:01 Document Registration [id number] 03/30/2015 11:21:59 Document Registration [id number] 03/30/2015 11:21:57 Document Registration [id number] 03/30/2015 11:21:55 Document Registration [id number] 03/30/2015 11:21:52 Document Registration [id number] 02/18/2015 00:57:09 Document Registration [id number] 02/18/2015 00:57:07 Document Registration [id number] 02/18/2015 00:57:05 Document Registration [id number] 02/18/2015 00:57:03 Document Registration [id number] 02/18/2015 00:57:00 Document Registration [id number] 02/18/2015 00:56:58 Document Registration [id number] 02/18/2015 00:56:56 Document Registration [id number] 02/18/2015 00:56:53 Document Registration [id number] 02/18/2015 00:56:49 Document Registration [id number] 02/18/2015 00:56:44 Document Registration [id number] 02/18/2015 00:56:41 Document Registration [id number] 02/18/2015 00:56:39 Document Registration [id number] 02/18/2015 00:56:37 Document Registration [id number] 02/18/2015 00:56:25 Document Registration [id number] 02/18/2015 00:52:59 Document Registration [id number] 02/09/2015 14:30:27 Document Registration [id number] 02/09/2015 10:42:18 Document Registration [id number] 02/07/2015 12:58:00 Document Registration [id number] 02/02/2015 00:48:17 Document Registration [id number] 02/02/2015 00:48:16 Document Registration [id number] 09/20/2014 01:47:17 Document Registration [id number] 09/20/2014 01:47:15 Document Registration [id number] 09/20/2014 01:47:13 Document Registration [id number] 09/20/2014 01:47:11 Document Registration [id number] 09/20/2014 01:47:08 Document Registration [id number] 09/20/2014 01:47:06 Document Registration [id number] 09/09/2014 01:50:53 Document Registration [id number] 09/05/2014 13:47:30 Document Registration [id number] 09/05/2014 13:47:29 Document Registration [id number] 08/30/2014 15:15:33 Document Registration [id number] 08/25/2014 01:42:24 Document Registration [id number] 08/25/2014 01:42:23 Document Registration [id number] 08/25/2014 01:42:22 Document Registration [id number] 08/25/2014 01:42:21 Document Registration [id number] 08/25/2014 01:42:20 Document Registration [id number] 08/25/2014 01:42:19 Document Registration [id number] 08/25/2014 01:42:18 Document Registration [id number] 08/25/2014 01:42:16 Document Registration [id number] 08/25/2014 01:42:15 Document Registration [id number] 08/23/2014 15:27:32 Document Registration [id number] 08/22/2014 17:35:00 Document Registration [id number] 06/20/2014 17:17:00 Document Registration [id number] 06/08/2014 08:26:13 Document Registration [id number] 06/07/2014 18:53:54 Document Registration [id number] 06/07/2014 15:13:28 Document Registration [id number] 06/07/2014 15:13:26 Document Registration [id number] 06/07/2014 15:13:25 Document Registration [id number] 06/07/2014 14:09:28 Document Registration [id number] 06/07/2014 14:09:26 Document Registration [id number] 06/07/2014 14:09:25 Document Registration [id number] 06/07/2014 14:09:24 Document Registration [id number] 06/07/2014 14:09:23 Document Registration [id number] 06/07/2014 14:09:22 Document Registration [id number] 06/07/2014 14:09:21 Document Registration [id number] 06/07/2014 14:09:20 Document Registration [id number] 06/07/2014 14:09:18 Document Registration [id number] 06/07/2014 14:09:17 Document Registration [id number] 06/07/2014 14:09:16 Document Registration [id number] 06/07/2014 14:09:15 Document Registration [id number] 06/07/2014 14:09:14 Document Registration [id number] 06/07/2014 14:09:13 Document Registration [id number] 06/07/2014 14:05:57 Document Registration [id number] 06/07/2014 14:05:55 Document Registration [id number] 06/07/2014 14:05:54 Document Registration [id number] 06/07/2014 12:49:00 Document Registration [id number] 01/18/2018 14:31:00 01/18/2018 23:59:59 CLS [facility] 01.ED [id number] 05/31/2016 18:02:00 05/31/2016 23:59:59 CLS [facility] ED [id number] 05/10/2016 17:27:00 05/10/2016 23:59:59 CLS [facility] ED [id number] 04/15/2015 15:25:00 04/15/2015 17:50:00 DIS Emergency VANE SHETH, JOSIE Leroy [facility] [id number] 03/16/2014 17:34:00 Document Registration [id number] 12/10/2013 21:38:00 Document Registration [id number] 03/26/2015 14:00:00 03/26/2015 23:59:59 CLS Outpatient SUKHWINDER NUNEZ, GISELE Ramesh [facility] [id number] 04/15/2015 18:27:00 04/15/2015 23:59:59 CLS [facility] ED [id number] 04/06/2018 11:32:00 04/06/2018 23:59:59 CLS [facility] 01.ED [id number] 04/15/2015 19:56:00 Document Registration [id number] 10/22/2016 19:32:00 10/23/2016 14:40:00 DIS Inpatient BRANDON NUNEZ, LANDON Gutiérrez [facility] 4MED E [id number] 10/14/2016 11:56:00 10/15/2016 18:10:00 DIS Inpatient LUCIANO NUNEZ, SOCORRO Mason [facility] 4MED W [id number] 07/03/2016 10:48:00 07/03/2016 16:35:00 DIS Outpatient BRANDON NUNEZ, LANDON Gutiérrez [facility] AMBS [id number] 06/02/2016 08:36:00 06/04/2016 18:54:00 DIS Inpatient LUCIANO NUNEZ, SOCORRO Mason [facility] 5SUR E [id number] 05/10/2016 18:56:00 05/14/2016 12:23:00 DIS Inpatient PITO NUNEZ, LINA Martines [facility] 4MED W [id number] 06/22/2015 04:17:00 06/25/2015 12:58:00 DIS Inpatient OLENA NUNEZ, KIMMIE Ramesh [facility] 3SE [id number] 04/15/2015 19:56:00 04/19/2015 16:27:00 DIS Inpatient LUCIANO NUNEZ, SOCORRO Mason [facility] 3SE [id number] 04/13/2015 09:51:00 04/13/2015 12:18:00 DIS Outpatient SUKHWINDER NUNEZ, GISELE Ramesh [facility] SP
== END 2018-05-02 03:21 | disposition short-term general hospital (02) ==
LOC: ER 00:25
DX: J18.9 Pneumonia, unspecified organism (principal); N18.6 End stage renal disease; I50.9 Heart failure, unspecified; Z88.0 Allergy status to penicillin; Z99.2 Dependence on renal dialysis; Z87.891 Personal history of nicotine dependence
CPT/HCPCS: 36415; 36600; 71045; 80053; 82805; 83605; 84484; 85007; 85027; 85610; 85730; 87040; 87430; 87804; 93005; 94640

== ENCOUNTER → 2018-08-03 | Outpatient (CLI) | payer MEDICARE | LOC: LAB 16:44 | PROVIDERS: ATTEND Surgery | DX: E11.621 Type 2 diabetes mellitus with foot ulcer (principal); E11.42 Type 2 diabetes mellitus with diabetic polyneuropathy; T25.322A Burn of third degree of left foot, initial encounter; L97.522 Non-pressure chronic ulcer of other part of left foot with fat layer exposed; X58.XXXA Exposure to other specified factors, initial encounter | CPT/HCPCS: 36415; 83036 ==

== ENCOUNTER → 2018-08-03 | Outpatient (CLI) | payer MEDICARE | LOC: WOUNDCARE 15:07 | PROVIDERS: ATTEND Surgery | DX: E11.621 Type 2 diabetes mellitus with foot ulcer (principal); E11.42 Type 2 diabetes mellitus with diabetic polyneuropathy; T25.322A Burn of third degree of left foot, initial encounter; L97.522 Non-pressure chronic ulcer of other part of left foot with fat layer exposed; X58.XXXA Exposure to other specified factors, initial encounter | CPT/HCPCS: 99212 ==

== ENCOUNTER → 2018-08-10 | Outpatient (CLI) | payer MEDICARE | LOC: WOUNDCARE 15:01 | PROVIDERS: ATTEND Surgery | DX: E11.621 Type 2 diabetes mellitus with foot ulcer (principal); L97.522 Non-pressure chronic ulcer of other part of left foot with fat layer exposed; E11.42 Type 2 diabetes mellitus with diabetic polyneuropathy; T25.322A Burn of third degree of left foot, initial encounter; X58.XXXA Exposure to other specified factors, initial encounter | CPT/HCPCS: 11042 ==

== ENCOUNTER → 2018-08-17 | Outpatient (CLI) | payer MEDICARE | LOC: WOUNDCARE 14:53 | PROVIDERS: ATTEND Surgery | DX: E11.621 Type 2 diabetes mellitus with foot ulcer (principal); L97.522 Non-pressure chronic ulcer of other part of left foot with fat layer exposed; E11.42 Type 2 diabetes mellitus with diabetic polyneuropathy; T25.322A Burn of third degree of left foot, initial encounter; X58.XXXA Exposure to other specified factors, initial encounter | CPT/HCPCS: 16020 ==

== ENCOUNTER → 2018-08-24 | Outpatient (CLI) | payer MEDICARE | LOC: WOUNDCARE 14:49 | PROVIDERS: ATTEND Surgery | DX: L97.522 Non-pressure chronic ulcer of other part of left foot with fat layer exposed (principal); E11.621 Type 2 diabetes mellitus with foot ulcer; E11.42 Type 2 diabetes mellitus with diabetic polyneuropathy; T25.322A Burn of third degree of left foot, initial encounter; X58.XXXA Exposure to other specified factors, initial encounter | CPT/HCPCS: 11042; 87070; 87077; 87205 ==

== ENCOUNTER → 2018-08-31 | Outpatient (CLI) | payer MEDICARE | LOC: WOUNDCARE 14:57 | PROVIDERS: ATTEND Surgery | DX: T25.322A Burn of third degree of left foot, initial encounter (principal); E11.621 Type 2 diabetes mellitus with foot ulcer; L97.522 Non-pressure chronic ulcer of other part of left foot with fat layer exposed; E11.42 Type 2 diabetes mellitus with diabetic polyneuropathy; X58.XXXA Exposure to other specified factors, initial encounter | CPT/HCPCS: 15275 ==

== ENCOUNTER → 2018-09-07 | Outpatient (CLI) | payer MEDICARE | LOC: WOUNDCARE 14:35 | PROVIDERS: ATTEND Surgery | DX: T25.322A Burn of third degree of left foot, initial encounter (principal); L97.522 Non-pressure chronic ulcer of other part of left foot with fat layer exposed; E11.621 Type 2 diabetes mellitus with foot ulcer; E11.40 Type 2 diabetes mellitus with diabetic neuropathy, unspecified; E11.22 Type 2 diabetes mellitus with diabetic chronic kidney disease; N18.6 End stage renal disease | CPT/HCPCS: 15275 ==

== ENCOUNTER → 2018-09-21 | Outpatient (CLI) | payer MEDICARE | LOC: WOUNDCARE 14:53 | PROVIDERS: ATTEND Surgery | DX: E11.621 Type 2 diabetes mellitus with foot ulcer (principal); E11.42 Type 2 diabetes mellitus with diabetic polyneuropathy; E11.22 Type 2 diabetes mellitus with diabetic chronic kidney disease; E11.52 Type 2 diabetes mellitus with diabetic peripheral angiopathy with gangrene; N18.6 End stage renal disease; T25.322A Burn of third degree of left foot, initial encounter; L97.522 Non-pressure chronic ulcer of other part of left foot with fat layer exposed; I96 Gangrene, not elsewhere classified | CPT/HCPCS: 15275 ==

== ENCOUNTER → 2018-09-28 | Outpatient (CLI) | payer MEDICARE | LOC: WOUNDCARE 09:23 | PROVIDERS: ATTEND Nurse Practitioner | DX: T25.321A Burn of third degree of right foot, initial encounter (principal); L97.522 Non-pressure chronic ulcer of other part of left foot with fat layer exposed; E11.621 Type 2 diabetes mellitus with foot ulcer; E11.42 Type 2 diabetes mellitus with diabetic polyneuropathy; E11.22 Type 2 diabetes mellitus with diabetic chronic kidney disease; N18.6 End stage renal disease; E11.52 Type 2 diabetes mellitus with diabetic peripheral angiopathy with gangrene; I96 Gangrene, not elsewhere classified | CPT/HCPCS: 15275 ==

== ENCOUNTER → 2018-10-05 | Outpatient (CLI) | payer MEDICARE | LOC: WOUNDCARE 08:57 | PROVIDERS: ATTEND Nurse Practitioner | DX: E11.621 Type 2 diabetes mellitus with foot ulcer (principal); E11.42 Type 2 diabetes mellitus with diabetic polyneuropathy; E11.22 Type 2 diabetes mellitus with diabetic chronic kidney disease; N18.6 End stage renal disease; L97.522 Non-pressure chronic ulcer of other part of left foot with fat layer exposed; T25.322A Burn of third degree of left foot, initial encounter | CPT/HCPCS: 99212 ==